=== PATIENT | female | born 2000 | race African-American/Black ===

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

== ENCOUNTER 2021-06-30 19:20 | Emergency (ER) | payer MEDICAID, SELFPAY ==
[2021-06-30 19:21] VITALS: BP 145/93; PULSE 84; RESP 16; TEMP 35.9; O2SAT 100; BMI 23.6
--- NOTE | 2021-06-30 19:46 | US_ITS ---
STUDY: FIRST TRIMESTER OBSTETRICAL ULTRASOUND REASON FOR EXAM: Female, 20 years old. Vaginal bleeding. TECHNIQUE: Transvaginal US was obtained to better visualized the ovaries. TECHNICAL QUALITY: Adequate. PRIOR ULTRASOUND: None. FINDINGS: There is visualization of a single gestational sac in a normal intrauterine position. The mean sac diameter (MSD) measures 10 mm, indicating an estimated gestational age (EGA) of 5 weeks, 5 days. The gestational sac shape is within normal limits. There is a visualized yolk sac. The yolk sac measures 1.2 mm. The placenta is non-visualized. Due to early gestation, the placenta is not seen. There is no demonstrated embryo ( pole). The estimated gestation age (EGA) by LMP is 6 weeks, 1 days. The estimated date of delivery (DONNY) by LMP is 10.12.22. The estimated gestation age (EGA) by US is 5 weeks, 5 days. The estimated date of delivery (DONNY) by US is 10.15.22. The uterus measures 8.1 x 5.5 cm. There is no demonstrated uterine fibroid. The cervix is closed. The right ovary measures 2.7 x 2.3 cm. There is no right ovarian cyst. There is no visualized right adnexal mass or complex lesion. The left ovary measures 4.5 x 3.7 cm. Cyst measures 26 x 25 mm. There is no visualized left adnexal mass or complex lesion. There is a moderate amount of fluid in the cul de sac. US/Transvaginal w/Preg US IMPRESSION: There is a moderate amount of fluid in the cul de sac. This does contain debris. Small fluid collection within the uterus. Differential diagnosis includes early IUP with embryonic pole below the limits of sonographic resolution, blighted ovum and pseudo-gestational sac. Correlation with serum quantitative beta-hCG and follow up ultrasound is recommended. The possibility of ectopic cannot be excluded on the basis of this exam. Electronically Signed: Lucian Bridges MD at 21:21 EST ,
--- NOTE | 2021-06-30 19:51 | ED.VIS.FEGU ---
HPI HPI - Female History of Present Illness Chief Complaint: Vag Bld, Preg Narrative Narrative: Patient is a who started having vaginal bleeding/spotting with today. She denies any chest pain or shortness of breath, no weakness. She became concerned because of the spotting. She states her last normal menstrual period was May 18. They have been regular in the past. She missed her period on June 17 and took a home test which was positive. She started vitamins. She denies any dysuria or hematuria. She is not having a lot of vaginal cramping. She presents for evaluation of her bleeding/spotting. She thought maybe she had an STD earlier in the month and when [facility] went to [facility] had a negative STD panel by urine. PFSH PFSH Home Medications PNV no.[id number] [ Gummies] 2 tab PO DAILY 06/30/21 [History Last Taken Unknown] calcium phos,dibas-vitamin D3 [Vitamin D (with calcium)] 1 tab PO DAILY 06/30/21 [History Last Taken Unknown] miconazole nitrate [Monistat 7] 1 appful VAGINAL QHS 7 Days #45 g 06/30/21 [Rx Last Taken Unknown] Allergy/AdvReac Type Severity Reaction Status Date / Time No Known Allergies Allergy Verified 06/30/21 19:23 Social History Smoking Status: Former smoker ROS ROS ED ROS Narrative Constitutional: No fever, no chills. HEENT: No sore throat. No neck pain. No loss of vision. No rhinorrhea. Cardiovascular: No chest pain. No palpitations. No pedal edema. Respiratory: No cough, no shortness of breath. Abdominal: No abdominal pain. No nausea. No vomiting. Genitourinary: No dysuria. No hematuria. Positive vaginal bleeding/spotting. Questionable brown discharge. Musculoskeletal: No myalgias. No arthralgias. Neurologic: No headaches. No dizziness. No lightheadedness. Skin: No rash. No change in color. Psychiatric: No depression. No anxiety. EXAM Physical Exam Narrative Exam Narrative: Afebrile. Vital signs noted. HEENT: Normocephalic. Atraumatic. PERRL, EOMI. Neck soft and supple. No point tenderness or step off. Cardiovascular: Regular rate and rhythm. No murmurs, rubs, or gallops appreciated. Respiratory: No tachypnea. Lungs clear to auscultation bilaterally. Gastrointestinal: Abdomen soft, nontender, with normoactive bowel sounds. No rebound or guarding. Neurological: Awake. Alert. Nonfocal, nonlateralizing. Skin: No rash. Normal color. No pallor. Musculoskeletal: No pedal edema. Full range of motion extremities. Const Vital Signs: 06/30/21 19:21 Temperature 96.6 F L Temperature Source Temporal Pulse Rate 84 Respiratory Rate 16 Blood Pressure 145/93 H Blood Pressure Mean 110 Pulse Ox 100 Oxygen Delivery Method Room Air MDM MDM MDM Narrative Medical decision making narrative: Chaperoned pelvic examination was performed. I will obtain an ABO Rh, hCG quantitative measurement along with ultrasound. I will also obtain a CBC and a urinalysis. CBC shows normal white count of 5.5, hemoglobin normal at 13.8. Urinalysis shows no evidence of infection. hCG quantitative measurement is elevated appropriately at 10,875. Her blood type is O+. Her chaperoned pelvic examination revealed no blood in the vaginal vault. There was a small amount of yeast noted on speculum examination. Chaperoned bimanual examination revealed os closed without any cervical motion tenderness or adnexal tenderness. Her ultrasound reveals a yolk sac but no pole. She is estimated at 5 weeks and 5 days. In the differential diagnosis is blighted ovum versus intrauterine . There are no noted adnexal masses, and additionally there is a moderate amount of free fluid in the cul-de-sac, and she has bilateral ovarian cysts. At this point in time, I discussed the patient with Dr. Low for Dr. Demian Myers. Patient has an appointment near the end of next week on the . He states that they would repeat an ultrasound at that time, as it may be still too early to see the pole. For her vaginal candidiasis, she will be given a prescription for Monistat seven to use for the next week. I feel she can be discharged safely home with follow-up. Return instructions to the emergency department were reviewed. She will continue her vitamins. Return with any vaginal bleeding, pain, new or worsening symptoms. Disposition is discharged home in stable condition. Lab Data Attestation: I reviewed the patient's lab results. Labs: Laboratory Results - last 24 hr 06/30/21 06/30/21 06/30/21 19:25 19:39 19:39 WBC 5.5 RBC 4.38 Hgb 13.8 Hct 38.9 MCV 88.8 MCH 31.5 MCHC 35.5 RDW Std Deviation 37.2 RDW Coeff of Wes 11.5 L Plt Count 244 MPV 9.8 Immature Gran % (Auto) 0.200 Neut % (Auto) 54.8 Lymph % (Auto) 36.5 [place] % (Auto) 7.1 Eos % (Auto) 0.9 Baso % (Auto) 0.5 Absolute Neuts (auto) 3.0 Absolute Lymphs (auto) 2.01 Nucleated RBC % 0 HCG, Quant 78036 H Urine Color Straw Urine Clarity Clear Urine pH 6.0 Ur Specific [place] 1.010 Urine Protein Negative Urine Glucose (UA) Normal Urine Ketones Negative Urine Occult Blood Negative Urine Nitrite Negative Urine Bilirubin Negative Urine Urobilinogen Normal Ur Leukocyte Esterase Negative Urine RBC 0 SEEN Urine WBC 0 SEEN Ur Squamous Epith Cells 0 SEEN Urine Bacteria 0 SEEN Urine Mucus 0 SEEN Blood Type 06/30/21 19:50 WBC RBC Hgb Hct MCV MCH MCHC RDW Std Deviation RDW Coeff of [place] Plt Count MPV Immature Gran % (Auto) Neut % (Auto) Lymph % (Auto) [place] % (Auto) Eos % (Auto) Baso % (Auto) Absolute Neuts (auto) Absolute Lymphs (auto) Nucleated RBC % HCG, Quant Urine Color Urine Clarity Urine pH Ur Specific [place] Urine Protein Urine Glucose (UA) Urine Ketones Urine Occult Blood Urine Nitrite Urine Bilirubin Urine Urobilinogen Ur Leukocyte Esterase Urine RBC Urine WBC Ur Squamous Epith Cells Urine Bacteria Urine Mucus Blood Type O POSITIVE Radiography Diagnostic Testing: Clinical Impression(s) from Imaging Studies Obstetrics Ultrasound 06/30/21 19:46 IMPRESSION: There is a moderate amount of fluid in the cul de sac. This does contain debris. Small fluid collection within the uterus. Differential diagnosis includes early IUP with embryonic pole below the limits of sonographic resolution, blighted ovum and pseudo-gestational sac. Correlation with serum quantitative beta-hCG and follow up ultrasound is recommended. The possibility of ectopic cannot be excluded on the basis of this exam. Electronically Signed: uLcian Bridges MD at 21:21 EST , Discharge Plan Triage Chief Complaint: Vag Bld, Preg ED Provider: Shun Tidwell Dx/Rx/DC Orders Clinical Impression: Vaginal bleeding during , Threatened miscarriage, Vaginal yeast infection Instructions: Candidiasis Vaginal, Bleeding During Early , ED Possible Miscarriage ... Prescriptions: New miconazole nitrate [Monistat 7] 2 % cream 1 appful vaginal QHS 7 Days Qty: 45 RF: 0 No Action Vitamin D (with calcium) 77-400 mg-unit Tablet 1 tab PO DAILY RF: 0 Gummies 400 mcg-35 mg- 25 mg-5 mg Tablet,Chewable 2 tab PO DAILY RF: 0 Primary Care Provider: Care Physician,No Primary Referrals: Demian Myers MD [STAFF PHYSICIAN] - 07/05/21 Care Physician,No Primary [Primary Care Provider] - Disposition Disposition: Home, Self Care
[2021-06-30 20:03] LABS: Bacteria 0 SEEN /hpf (None Seen); Mucous, Urine 0 SEEN /hpf (<or=2+); Red Blood Cells-Urine 0 SEEN /hpf (0-5); Squamous Epithelial Cells - UA 0 SEEN /hpf (5-10); White Blood Cells 0 SEEN /hpf (0-5)
[2021-06-30 20:09] LABS: Absolute Lymphocyte Count 2.01 X10^3/uL (0.83-4.51); Basophil# 0.03 X10^3/uL; Basophil% 0.5 % (0-1); Eosinophil# 0.05 X10^3/uL; Eosinophils% 0.9 % (0-5); Hematocrit 38.9 % (37-47); Hemoglobin 13.8 g/dL (12.0-15.0); Lymphocyte # 2.01 X10^3/ul (0.83-4.51); Lymphocyte % 36.5 % (19-41); Mean Corp Hgb Conc 35.5 g/dL (32-36); Mean Corpuscular Hgb 31.5 pg (27.0-32.0); Mean Corpuscular Volume 88.8 fL (81-99); Mean Platelet Vol. 9.8 fl (6.2-12.0); Monocyte# 0.39 X10^3/uL; Monocyte% 7.1 % (0-10); NRBC Flagged by Analyzer 0 % (0-5); Neutrophil # 3.01 X10^3/uL (2.7-7.7); Neutrophil % 54.8 % (47-70); Platelet Count 244 K/mm3 (150-450); RBC Distribution Width CV 11.5 % (11.6-14.6); RBC Distribution Width SD 37.2 fl (35.1-43.9); Red Blood Count 4.38 M/mm3 (4.2-5.4); White Blood Count 5.5 K/mm3 (4.4-11.0)
[2021-06-30 20:31] LABS: Color, Urine Straw (Yellow); Glucose, Dipstick Normal (Normal); Ketone-Dipstick Negative (Negative); Leukocyte Esterase-Dipstick Negative /ul (Negative); Nitrite-Dipstick Negative (Negative); Occult Blood-Urine Negative /ul (Negative); Protein-Dipstick Negative (Negative); Urine Bilirubin Dipstick Negative (Negative); Urine Clarity Clear (Clear); Urine Urobilinogen Normal (Normal)
[2021-06-30 21:04] LABS: hCG Titer Quant., Serum 10875 mIU/mL (1-3)
[2021-06-30 21:50] VITALS: PULSE 80; RESP 16; O2SAT 97
== END 2021-06-30 21:50 | disposition home or self-care (01) ==
PROVIDERS: Emergency Provider Emergency Medicine; Visit Provider Emergency Medicine
DX: O20.0 Threatened abortion (principal); B37.3 Candidiasis of vulva and vagina; N83.201 Unspecified ovarian cyst, right side; N83.202 Unspecified ovarian cyst, left side; O46.90 Antepartum hemorrhage, unspecified, unspecified trimester; Z87.891 Personal history of nicotine dependence; Z3A.01 Less than 8 weeks gestation of pregnancy
CPT/HCPCS: 76817; 81001; 84702; 85025; 86900; 86901; 99283

== ENCOUNTER 2021-07-05 14:12 | Outpatient (CLI) | payer MEDICAID, SELFPAY ==
[2021-07-05 15:20] LABS: Absolute Lymphocyte Count 1.59 X10^3/uL (0.83-4.51); Absolute Neutrophil Count 2.4 X10^3/uL (2.0-7.7); Basophil# 0.01 X10^3/uL; Basophil% 0.2 % (0-1); Eosinophil# 0.05 X10^3/uL; Eosinophils% 1.1 % (0-5); Hematocrit 38.2 % (37-47); Hemoglobin 14.1 g/dL (12.0-15.0); Lymphocyte # 1.59 X10^3/ul (0.83-4.51); Lymphocyte % 36.1 % (19-41); Mean Corp Hgb Conc 36.9 g/dL (32-36); Mean Corpuscular Hgb 31.7 pg (27.0-32.0); Mean Corpuscular Volume 85.8 fL (81-99); Mean Platelet Vol. 9.8 fl (6.2-12.0); Monocyte% 6.8 % (0-10); NRBC Flagged by Analyzer 0 % (0-5); Neutrophil # 2.44 X10^3/uL (2.7-7.7); Neutrophil % 55.6 % (47-70); Platelet Count 265 K/mm3 (150-450); RBC Distribution Width CV 11.4 % (11.6-14.6); RBC Distribution Width SD 35.7 fl (35.1-43.9); Red Blood Count 4.45 M/mm3 (4.2-5.4); White Blood Count 4.4 K/mm3 (4.4-11.0)
[2021-07-06 08:48] LABS: HIV - WCH Non-Reactive (Nonreactive); Hepatitis B Surface Antigen Non-Reactive (Nonreactive); Hepatitis C Antibody Non-Reactive (Nonreactive); Rubella IgG Reactive (Nonreactive); Syphilis Antibodies Non-reactive
[2021-07-07 22:07] LABS: Chlamydia By Nucleic Acid AMP Negative (Negative)
[2021-07-08 10:59] LABS: Gonococcus By Nucleic Acid AMP Negative (Negative)
== END 2021-07-05 23:59 | disposition home or self-care (01) ==
PROVIDERS: Visit Provider Obstetrics & Gynecology
DX: Z34.81 Encounter for supervision of other normal pregnancy, first trimester (principal)
CPT/HCPCS: 85025; 86703; 86762; 86780; 86803; 87086; 87340; 87491; 87591

== ENCOUNTER 2021-07-10 12:16 | Emergency (ER) | payer MEDICAID, SELFPAY ==
[2021-07-10 12:17] VITALS: BP 110/69; PULSE 75; RESP 16; TEMP 37.4; O2SAT 100; BMI 22.6
--- NOTE | 2021-07-10 12:31 | EX.ED.DYSGE1 ---
HPI History of Present Illness Chief Complaint: Nausea/Vomiting Detail of Chief Complaint: Vomiting x4 days Informant: patient Narrative Narrative: Patient presents the emergency department chief complaint of vomiting for the last 4 days. Patient states that she is about 8 weeks . She denies abdominal pain or vaginal bleeding. Patient tried promethazine but states that she threw up more with it so she stopped taking it. Patient tells me she cannot keep anything down and was instructed by her TELEPHONE INSTRUMENT SUPERVISOR to come to the ER. Patient is G1, P0. She denies fever or recent illness otherwise. She denies Covid exposures. Patient denies diarrhea. Patient denies urinary symptoms. Prior similar symptoms: No PFSH PFSH Medical History Non-smoker Home Medications PNV [id number] [ Gummies] 2 tab PO DAILY 06/30/21 [History Last Taken Unknown] calcium phos,dibas-vitamin D3 [Vitamin D (with calcium)] 1 tab PO DAILY 06/30/21 [History Last Taken Unknown] miconazole nitrate [Monistat 7] 1 appful VAGINAL QHS 7 Days #45 g 06/30/21 [Rx Last Taken Unknown] ondansetron 4 mg PO Q8H PRN PRN #10 tab 07/10/21 [Rx Last Taken Unknown] Allergy/AdvReac Type Severity Reaction Status Date / Time No Known Allergies Allergy Verified 07/10/21 12:18 Social History Smoking Status: Former smoker ROS ROS ED Constitutional Constitutional ED: Reports systems reviewed and no addt'l complaints, except as documented; Denies body ache(s), change in weight or chills Eyes Eyes: Denies acute decrease in peripheral vision, change in vision, double vision or loss of vision ENT ENT ED: Reports none; Denies ear pain, lip swelling, loss taste/smell, neck pain, otalgia or sore throat Cardiovascular Cardiovascular: Reports none; Denies abdominal pain, chest pain with activity, leg edema, lightheadedness, palpitations, rapid heart rate or syncope Respiratory/Chest Respiratory/Chest: Reports none; Denies change in mental status, dry cough, dyspnea, hemoptysis, shortness of breath at rest or shortness of breath with exertion Gastrointestinal Gastrointestinal: Reports none, nausea and vomiting; Denies abdominal pain, change in stool character, diarrhea, hematemesis, hematochezia, melena or rectal bleeding Genitourinary Genitourinary ED: Reports none; Denies abdominal discomfort, anuria, dysuria, genital pain or polyuria Musculoskeletal Musculoskeletal: Reports none; Denies arthralgias, back pain, difficulty walking, extremity pain, muscle weakness or myalgias Integumentary Reports none; Denies abscess or rash Neurologic Neurologic: Reports none; Denies abnormal gait, confusion, focal weakness, frequent falls, headache(s), loss of vision, numbness, paresthesias, radicular pain, vertigo or weakness Psychiatric Psychiatric: Reports systems reviewed and no addt'l complaints, except as documented and none; Denies behavioral changes, confusion, difficulty concentrating, hallucinations, suicidal ideation, tactile hallucinations or visual hallucinations Endocrine Endocrinology: Denies none, cold intolerance, excessive sweating, fatigue or heat intolerance Hematologic/Lymphatic Hematologic/Lymphatic: Reports none; Denies anemia, easy bleeding or easy bruising Allergic/Immunologic Allergic/Immunologic ED: Denies as per HPI, none, lip swelling, mouth swelling, throat swelling, tongue swelling or hives EXAM Physical Exam Const Vital Signs: 07/10/21 12:17 Temperature 99.4 F H Temperature Source Temporal Pulse Rate 75 Respiratory Rate 16 Blood Pressure 110/69 Blood Pressure Mean 82 Pulse Ox 100 Oxygen Delivery Method Room Air Positive well nourished and well developed General Appearance ED: well developed and NAD HEENT Reports TM's clear and moist mucous membranes normocephalic and atraumatic; Negative for trauma or tenderness Tympanic Membrane ED: Yes TM's clear Eyes PERRL and EOMs intact bilaterally General Eye ED: Negative for pale conjunctiva or scleral icterus Neck no lymphadenopathy, supple and no JVD General: Negative for tenderness Chest Wall inspection of chest normal and palpation of chest normal Chest: Negative for tenderness Resp normal respiratory effort and clear to auscultation bilaterally Effort and Inspection: Negative for respiratory distress or pain with movement Auscultation: Negative for rhonchi, wheezes or diminished lung sounds Cardio regular rate, regular rhythm, S1 normal heart sound, S2 normal heart sound and no murmurs Peripheral Pulses: pulses 2+ throughout GI normal to inspection, nondistended, normoactive bowel sounds, soft to palpation, non-tender, non-distended and no masses Back/Spine no CVA tenderness and no thoracic nor lumbar tenderness Extremity normal to inspection General Extremety ED: Negative for edema General Extremity: Negative for edema Neuro oriented x3, CN's II-XII intact bilaterally, no sensory deficits noted and gait normal Sensorium / Orientation: awake, alert, oriented to person, oriented to place and oriented to time Motor Exam: strength 5/5 throughout and strength abnormal Psych mental status grossly normal Skin no rashes or lesions noted and no wounds MDM MDM MDM Narrative Medical decision making narrative: IV line established on arrival and patient was given a liter normal saline fluid bolus. Patient given Zofran 4 mg IV. Patient had no further vomiting and she was able to tolerate p.o. fluids. At this point I will attempt to contact her TELEPHONE INSTRUMENT SUPERVISOR to arrange some follow-up. Plan will be to give patient a prescription for Zofran as she seems to have tolerated well compared to promethazine. Lab Data Attestation: I reviewed the patient's lab results. Labs: Laboratory Results - last 24 hr 07/10/21 07/10/21 07/10/21 12:47 12:47 12:50 WBC 4.6 RBC 4.14 L Hgb 13.1 Hct 36.5 L MCV 88.2 MCH 31.6 MCHC 35.9 RDW Std Deviation 36.6 RDW Coeff of Wes 11.3 L Plt Count 228 MPV 9.4 Immature Gran % (Auto) 0.200 Neut % (Auto) 64.6 Lymph % (Auto) 27.1 [place] % (Auto) 6.6 Eos % (Auto) 1.1 Baso % (Auto) 0.4 Absolute Neuts (auto) 3.0 Absolute Lymphs (auto) 1.24 Nucleated RBC % 0 Sodium 136 Potassium 3.9 Chloride 106 Carbon Dioxide 26.0 Anion Gap 4 L BUN 9 Creatinine 0.78 Estim Creat Clear Calc 117.02 Est GFR (MDRD) Af Amer 122 Est GFR (MDRD) Non-Af 101 BUN/Creatinine Ratio 11.6 Glucose 95 Calcium 8.5 Urine Color Yellow Urine Clarity Sl. Cloudy Urine pH 7.0 Ur Specific [place] 1.015 Urine Protein Negative Urine Glucose (UA) Normal Urine Ketones Negative Urine Occult Blood Negative Urine Nitrite Negative Urine Bilirubin Negative Urine Urobilinogen Normal Ur Leukocyte Esterase 25 H Urine RBC 0 SEEN Urine WBC 0-5 SEEN Ur Squamous Epith Cells 5-10 SEEN Urine Bacteria 0 SEEN Urine Mucus 0 SEEN Discharge Plan Triage Chief Complaint: Nausea/Vomiting ED Provider: Deejay Centeno Dx/Rx/DC Orders Clinical Impression: Hyperemesis gravidarum Instructions: ED Hyperemesis Gravidarum Prescriptions: New ondansetron [ondansetron] 4 MG tablet 4 mg PO Q8H PRN PRN (Reason: Nausea) Qty: 10 RF: 0 No Action Vitamin D (with calcium) 77-400 mg-unit Tablet 1 tab PO DAILY RF: 0 Gummies 400 mcg-35 mg- 25 mg-5 mg Tablet,Chewable 2 tab PO DAILY RF: 0 miconazole nitrate [Monistat 7] 2 % cream 1 appful vaginal QHS 7 Days Qty: 45 RF: 0 Primary Care Provider: Demian Myers Referrals: Demian Myers MD [Primary Care Provider] - Disposition Disposition: Home, Self Care
[2021-07-10 12:54] LABS: Bacteria 0 SEEN /hpf (None Seen); Mucous, Urine 0 SEEN /hpf (<or=2+); Red Blood Cells-Urine 0 SEEN /hpf (0-5)
[2021-07-10] MEDS: Ondansetron 4 MG/2 ML Vial IV (12:55)
[2021-07-10] MEDS: 0.9% Normal Saline 1,000 ML 1000 ML IV (12:55)
[2021-07-10 12:59] LABS: Color, Urine Yellow (Yellow); Glucose, Dipstick Normal (Normal); Ketone-Dipstick Negative (Negative); Leukocyte Esterase-Dipstick 25 /ul (Negative); Nitrite-Dipstick Negative (Negative); Occult Blood-Urine Negative /ul (Negative); Protein-Dipstick Negative (Negative); Specific Gravity, Urine 1.015 (1.002-1.030); Urine Bilirubin Dipstick Negative (Negative); Urine Clarity Sl. Cloudy (Clear); Urine Urobilinogen Normal (Normal)
[2021-07-10 12:59] LABS: Absolute Lymphocyte Count 1.24 X10^3/uL (0.83-4.51); Basophil# 0.02 X10^3/uL; Basophil% 0.4 % (0-1); Eosinophil# 0.05 X10^3/uL; Eosinophils% 1.1 % (0-5); Hematocrit 36.5 % (37-47); Hemoglobin 13.1 g/dL (12.0-15.0); Lymphocyte # 1.24 X10^3/ul (0.83-4.51); Lymphocyte % 27.1 % (19-41); Mean Corp Hgb Conc 35.9 g/dL (32-36); Mean Corpuscular Hgb 31.6 pg (27.0-32.0); Mean Corpuscular Volume 88.2 fL (81-99); Mean Platelet Vol. 9.4 fl (6.2-12.0); Monocyte% 6.6 % (0-10); NRBC Flagged by Analyzer 0 % (0-5); Neutrophil # 2.96 X10^3/uL (2.7-7.7); Neutrophil % 64.6 % (47-70); Platelet Count 228 K/mm3 (150-450); RBC Distribution Width CV 11.3 % (11.6-14.6); RBC Distribution Width SD 36.6 fl (35.1-43.9); Red Blood Count 4.14 M/mm3 (4.2-5.4); White Blood Count 4.6 K/mm3 (4.4-11.0)
[2021-07-10 13:05] LABS: Squamous Epithelial Cells - UA 5-10 SEEN /hpf (5-10); White Blood Cells 0-5 SEEN /hpf (0-5)
[2021-07-10 13:08] LABS: Anion Gap 4 (5-15); BUN 9 mg/dL (7-18); BUN/Creat Ratio 11.6 RATIO (10-20); Calcium,Total 8.5 mg/dL (8.5-10.1); Chloride 106 mmol/L (98-107); Creatinine, Serum 0.78 mg/dL (0.55-1.02); EST Glomerular Filtration Rate 101 mL/min (>60); Est Glom Filt Rate - Afr Amer 122 mL/min (>60); Estimated Creatinine Clearance 117.02 ml/min; Glucose 95 mg/dL (74-106); Potassium 3.9 mmol/L (3.5-5.1); Sodium Level 136 mmol/L (136-145)
[2021-07-10 14:28] VITALS: BP 125/61; PULSE 75; RESP 15; O2SAT 99
== END 2021-07-10 14:30 | disposition home or self-care (01) ==
PROVIDERS: Emergency Provider Emergency Medicine; PCP Obstetrics & Gynecology; Visit Provider Emergency Medicine
DX: O21.0 Mild hyperemesis gravidarum (principal); Z87.891 Personal history of nicotine dependence; Z3A.08 8 weeks gestation of pregnancy
CPT/HCPCS: 80048; 81001; 85025; 96361; 96374; 99283; J7030; J2405

== ENCOUNTER → 2021-11-09 | Outpatient (CLI) | payer MEDICAID, SELFPAY ==
[2021-11-09 16:08] LABS: Hematocrit 32.9 % (37-47); Hemoglobin 11.6 g/dL (12.0-15.0); Mean Corp Hgb Conc 35.3 g/dL (32-36); Mean Corpuscular Hgb 31.9 pg (27.0-32.0); Mean Corpuscular Volume 90.4 fL (81-99); Mean Platelet Vol. 10.1 fl (6.2-12.0); Platelet Count 175 K/mm3 (150-450); RBC Distribution Width SD 39.7 fl (35.1-43.9); Red Blood Count 3.64 M/mm3 (4.2-5.4); White Blood Count 6.4 K/mm3 (4.4-11.0)
[2021-11-09 16:47] LABS: Glucose Challenge Gest 1H 50g 141 mg/dL (70-140)
== END | disposition home or self-care (01) ==
LOC: WOBLAB 15:51
PROVIDERS: PCP Obstetrics & Gynecology; Visit Provider Obstetrics & Gynecology
DX: Z34.83 Encounter for supervision of other normal pregnancy, third trimester (principal)
CPT/HCPCS: 36415; 82950; 85027

== ENCOUNTER → 2021-11-11 | Outpatient (CLI) | payer MEDICAID, SELFPAY ==
[2021-11-11 09:21] LABS: Glucose GTT-Gestation. Fasting 79 mg/dL (<105)
[2021-11-11 11:02] LABS: Glucose GTT-Gestational 1 Hr 122 mg/dL (<190)
[2021-11-11 11:44] LABS: Glucose GTT-Gestational 2 Hr 117 mg/dL (<165)
[2021-11-11 12:52] LABS: Glucose GTT-Gestational 3 Hr 96 L (<145)
== END | disposition home or self-care (01) ==
LOC: WOBLAB 08:45
PROVIDERS: PCP Obstetrics & Gynecology; Visit Provider Obstetrics & Gynecology
DX: O24.912 Unspecified diabetes mellitus in pregnancy, second trimester (principal)
CPT/HCPCS: 36415; 82951; 82952

== ENCOUNTER 2021-12-11 21:00 | Outpatient (CLI) | payer MEDICAID, SELFPAY ==
[2021-12-11 21:20] VITALS: BP 116/70; TEMP 37; O2SAT 98
[2021-12-11 21:22] VITALS: BMI 26.7
[2021-12-11] MEDS: Lactated Ringers 1,000 ML 999 ML IV (22:04)
[2021-12-11] MEDS: Ondansetron 8 MG Tablet 4 MG PO (22:12)
[2021-12-11] MEDS: Acetaminophen 500 MG Tablet 1000 MG PO (22:13)
[2021-12-11 22:18] LABS: Hematocrit 34.5 % (37-47); Mean Corp Hgb Conc 34.8 g/dL (32-36); Mean Corpuscular Hgb 31.5 pg (27.0-32.0); Mean Corpuscular Volume 90.6 fL (81-99); Mean Platelet Vol. 10.3 fl (6.2-12.0); Platelet Count 180 K/mm3 (150-450); RBC Distribution Width CV 11.6 % (11.6-14.6); RBC Distribution Width SD 37.7 fl (35.1-43.9); Red Blood Count 3.81 M/mm3 (4.2-5.4); White Blood Count 5.6 K/mm3 (4.4-11.0)
[2021-12-11 22:28] LABS: Protein:Creat Ratio 124 mg/g CRE (0-200)
[2021-12-11 22:33] LABS: ALB/GLOB Ratio 0.9 RATIO (0.9-2.4); AST(SGOT) 12 U/L (15-37); Alanine Aminotransfer ALT/SGPT 14 U/L (13-56); Albumin, Serum 3.4 g/dL (3.2-5.0); Alkaline Phosphatase 55 U/L (45-117); Anion Gap 4 (5-15); BUN 8 mg/dL (7-18); Calcium,Total 9.1 mg/dL (8.5-10.1); Chloride 106 mmol/L (98-107); EST Glomerular Filtration Rate 96 mL/min (>60); Est Glom Filt Rate - Afr Amer 117 mL/min (>60); Estimated Creatinine Clearance 100.94 ml/min; Globulin 3.9 g/dL (2.2-4.2); Glucose 93 mg/dL (74-106); Potassium 3.7 mmol/L (3.5-5.1); Protein, Total 7.3 g/dL (6.4-8.2); Sodium Level 134 mmol/L (136-145)
--- NOTE | 2021-12-12 12:51 | PCM.PN.OB ---
Subjective Subjective Patient presenting with intermittent headache for 1 week. Patient states today she had some fuzzy vision. Was out walking in the mall all day on Sunday. Denies right upper quadrant pain nausea or vomiting, diarrhea constipation, fevers or chills. Has not tried any Tylenol for pain control. Objective Data Objective Data Vital Signs: Vital Signs Temp BP Pulse Ox 98.6 F 116/70 98 12/11/21 21:20 12/11/21 21:20 12/11/21 21:20 Weight: 74 kg Body Mass Index (BMI) 26.7 Intake & Output: Intake and Output for Last 24 Hours 12/10/21 12/11/21 12/12/21 23:59 23:59 23:59 Intake Total 1000 / 1000 Balance 1000 / 1000 Lab / Micro Data Attestation: I reviewed the patient's lab results. Result Diagrams: 12/11/21 22:00 12/11/21 22:00 Labs: Laboratory Results - last 24 hr 12/11/21 22:00: WBC 5.6, RBC 3.81 L, Hgb 12.0, Hct 34.5 L, MCV 90.6, MCH 31.5, MCHC 34.8, RDW Std Deviation 37.7, RDW Coeff of Wes 11.6, Plt Count 180, MPV 10.3 12/11/21 22:00: Sodium 134 L, Potassium 3.7, Chloride 106, Carbon Dioxide 24.0, Anion Gap 4 L, BUN 8, Creatinine 0.80, Estim Creat Clear Calc 100.94, Est GFR (MDRD) Af Amer 117, Est GFR (MDRD) Non-Af 96, BUN/Creatinine Ratio 10.0, Glucose 93, Calcium 9.1, Total Bilirubin 0.30, AST 12 L, ALT 14, Alkaline Phosphatase 55, Total Protein 7.3, Albumin 3.4, Globulin 3.9, Albumin/Globulin Ratio 0.9 12/11/21 22:00: U Random Total Protein 19.0 H, Urine Creatinine 153.00, Protein/Creatinin Ratio 124 NST FHR Rate Baby A Baseline: 150 Variability:: Moderate Accelerations:: 10 x 10 Decelerations:: None NST Reactive:: Yes Assessment & Plan (1) Headache: PLAN: 21-year-old G1 at 29/4 weeks, presenting with headache. Patient had not taken any Tylenol at home. She was given 1000 mg Tylenol, 4 mg Zofran, 1 L LR bolus. Labs were completed, within normal limits. Blood pressure within normal limits. Headache and visual change resolved with Tylenol. No evidence of preeclampsia. Headache likely tension versus secondary to dehydration. Recommend increasing p.o. fluid hydration, Tylenol as needed. To return or call for headache that is unresolving with Tylenol. Follow-up in office as routine or sooner as needed.
== END 2021-12-11 23:15 | disposition home or self-care (01) ==
LOC: WPOUT 21:09 → WP 21:09
PROVIDERS: PCP Obstetrics & Gynecology; Referring Provider Student in an Organized Health Care Education/Training Program; Visit Provider Student in an Organized Health Care Education/Training Program
DX: O26.893 Other specified pregnancy related conditions, third trimester (principal); R51.9 Headache, unspecified
CPT/HCPCS: 96360; 36415; 59025; 59050; 80053; 82570; 84156; 85027; 99218; J7120; G0378

== ENCOUNTER 2021-12-31 07:35 | Emergency (ER) | payer MEDICAID, SELFPAY ==
[2021-12-31 07:37] VITALS: BP 123/85; PULSE 115; RESP 18; TEMP 36.9; O2SAT 99; BMI 27.6
--- NOTE | 2021-12-31 07:44 | ED.RN ---
Called [facility] d/t pt's c/o RUQ abdominal pain and not feeling the baby move since the middle of the night. They stated not to bring the pt down to [facility], that they will send a nurse up to evaluate pt here in the ER.
[2021-12-31 07:45] VITALS: BP 123/85; PULSE 115; RESP 18; TEMP 36.9; O2SAT 99
--- NOTE | 2021-12-31 07:57 | EDS_ITS ---
HPI History of Present Illness Chief Complaint: Fever Informant: patient Onset/Context/Timing Onset: Yesterday Narrative Narrative: Patient reports testing positive for COVID at home yesterday. She is currently 33 weeks with her first . She has not felt baby move much since the middle the night. We called OB and they will send someone up to do an NST. She reports very minimal cough. Does not feel short of breath unless she is lying in a specific position. T-max is 103. She did take Tylenol prior to arrival in the emergency room. PFSH PFSH Medical History Non-smoker Home Medications PNV 153-FA 400 mcg-om3 35 mg-dha 25 mg-epa 5 mg-fish oil chew tablet ( Gummies) 2 tab PO DAILY 06/30/21 [History Last Taken 12/11/21 10:45] cholecalciferol (vitamin D3) 50 mcg (2,000 unit) capsule (Vitamin D3) 50 mcg PO DAILY 12/11/21 [History Last Taken 12/11/21 10:45] Allergy/AdvReac Type Severity Reaction Status Date / Time No Known Allergies Allergy Verified 12/31/21 07:37 Social History Smoking Status: Former smoker ROS ROS ED Constitutional Constitutional ED: Reports fever(s); Denies chills Eyes Eyes: Denies change in vision or discharge from eye(s) ENT ENT ED: Denies discharge from eye(s), rhinorrhea or sore throat Cardiovascular Cardiovascular: Denies chest pain or palpitations Respiratory/Chest Respiratory/Chest: Reports cough; Denies dyspnea Gastrointestinal Gastrointestinal: Denies abdominal pain, diarrhea, nausea or vomiting Genitourinary Genitourinary ED: Denies difficulty urinating or dysuria Musculoskeletal Musculoskeletal: Reports myalgias; Denies back pain or extremity pain Integumentary Denies Abrasions or rash Neurologic Neurologic: Reports weakness; Denies headache(s) Psychiatric Psychiatric: Denies anxiety or depression Allergic/Immunologic Allergic/Immunologic ED: Denies lip swelling or urticaria EXAM Physical Exam Const Vital Signs: 12/31/21 07:37 12/31/21 07:45 12/31/21 11:00 Temperature 98.5 F 98.5 F Temperature Source Temporal Temporal Pulse Rate 115 H 115 H 117 H Respiratory Rate 18 18 Blood Pressure 123/85 H 123/85 H Blood Pressure Mean 97 97 Pulse Ox 99 99 96 Oxygen Delivery Method Room Air Room Air Room Air Positive well nourished and well developed General Appearance ED: well developed HEENT Reports normocephalic and head/scalp atraumatic Eyes PERRL and EOMs intact bilaterally Neck supple Chest Wall inspection of chest normal and palpation of chest normal Resp normal respiratory effort and clear to auscultation bilaterally Cardio regular rhythm Rate: tachycardic GI GI Narrative: Gravid. No focal tenderness. Palpation: soft Extremity normal to inspection Neuro oriented x3 and no sensory deficits noted Sensorium / Orientation: alert Motor Exam: strength 5/5 throughout Psych mental status grossly normal Skin no rashes or lesions noted MDM MDM MDM Narrative Medical decision making narrative: Oral temperature at the time of my exam is 98.4. Patient given 500 cc IV fluid bolus and labs obtained. OB presented to evaluate the baby. I am advised by OB nurse that everything with the looks normal. Lab Data Attestation: I reviewed the patient's lab results. Labs: Laboratory Results - last 24 hr 12/31/21 12/31/21 08:10 08:10 WBC 5.2 RBC 3.73 L Hgb 11.2 L Hct 33.1 L MCV 88.7 MCH 30.0 MCHC 33.8 RDW Std Deviation 37.3 RDW Coeff of Wes 11.8 Plt Count 158 MPV 10.6 Immature Gran % (Auto) 0.400 Neut % (Auto) 77.9 H Lymph % (Auto) 10.0 L [place] % (Auto) 11.3 H Eos % (Auto) 0.0 Baso % (Auto) 0.4 Absolute Neuts (auto) 4.1 Absolute Lymphs (auto) 0.52 L Nucleated RBC % 0 Platelet Estimate ADEQUATE RBC Morphology NORM C+C Sodium 138 Potassium 3.5 Chloride 108 H Carbon Dioxide 23.0 Anion Gap 7 BUN 4 L Creatinine 0.87 Estim Creat Clear Calc 92.82 Est GFR (MDRD) Af Amer 106 Est GFR (MDRD) Non-Af 88 BUN/Creatinine Ratio 4.6 L Glucose 109 H Calcium 8.7 Treatment and Re-Evaluation Narrative: Lab work is unremarkable. On repeat evaluation patient remains tachycardic in the high 120s. She will be given a dose of Tylenol as it has now been 6-1/2 hours since her last dose. She will be given a liter IV fluid. On repeat evaluation patient was able to tolerate p.o. without difficulty. Heart rate is 106. She be discharged home to continue supportive care. Discharge Plan Triage Chief Complaint: Fever ED Provider: Kizzy Vazquez Dx/Rx/DC Orders Clinical Impression: COVID-19, Third trimester Instructions: Coronavirus Disease 2019 (COVID-19): Overview, Coronavirus Disease 2019 (COVID-19): Caring for Yourself or Others Prescriptions: No Action Gummies 400 mcg-35 mg- 25 mg-5 mg Tablet,Chewable 2 tab PO DAILY cholecalciferol (vitamin D3) [Vitamin D3] 50 mcg (2,000 unit) Capsule 50 mcg PO DAILY Primary Care Provider: Demian Myers Referrals: Demian Myers MD [Primary Care Provider] - 1-2 Weeks Disposition Disposition: Home, Self Care
[2021-12-31 08:26] LABS: Absolute Lymphocyte Count 0.52 X10^3/uL (0.83-4.51); Absolute Neutrophil Count 4.1 X10^3/uL (2.0-7.7); Basophil# 0.02 X10^3/uL; Basophil% 0.4 % (0-1); Hematocrit 33.1 % (37-47); Hemoglobin 11.2 g/dL (12.0-15.0); Lymphocyte # 0.52 X10^3/ul (0.83-4.51); Mean Corp Hgb Conc 33.8 g/dL (32-36); Mean Corpuscular Volume 88.7 fL (81-99); Mean Platelet Vol. 10.6 fl (6.2-12.0); Monocyte# 0.59 X10^3/uL; Monocyte% 11.3 % (0-10); NRBC Flagged by Analyzer 0 % (0-5); Neutrophil # 4.07 X10^3/uL (2.7-7.7); Neutrophil % 77.9 % (47-70); POSITIVE DIFFERENTIAL YES; Platelet Count 158 K/mm3 (150-450); RBC Distribution Width CV 11.8 % (11.6-14.6); RBC Distribution Width SD 37.3 fl (35.1-43.9); Red Blood Count 3.73 M/mm3 (4.2-5.4); White Blood Count 5.2 K/mm3 (4.4-11.0)
[2021-12-31 08:29] LABS: Differential Indicated SCAN CRITERIA MET
[2021-12-31 08:39] LABS: Anion Gap 7 (5-15); BUN 4 mg/dL (7-18); BUN/Creat Ratio 4.6 RATIO (10-20); Calcium,Total 8.7 mg/dL (8.5-10.1); Chloride 108 mmol/L (98-107); Creatinine, Serum 0.87 mg/dL (0.55-1.02); EST Glomerular Filtration Rate 88 mL/min (>60); Est Glom Filt Rate - Afr Amer 106 mL/min (>60); Estimated Creatinine Clearance 92.82 ml/min; Glucose 109 mg/dL (74-106); Potassium 3.5 mmol/L (3.5-5.1); Sodium Level 138 mmol/L (136-145)
[2021-12-31 08:58] LABS: Platelet Estimate ADEQUATE (ADEQ); Red Cell Morphology NORM C+C NORMAL (NORM C&C)
--- NOTE | 2021-12-31 09:09 | NURSING ---
This RN in to do NST for decreased FM. Upon arrival this RN introduced self and explained procedure. RN confirmed that pt was feeling decreased FM. When asked, pt states she didn't feel her move much overnight. But, since being in the ER shes felt her move a lot. NST was performed. Reactive. movements felt during NST per pt. and Jeanine RN notified of reactive NST and positive movement.
[2021-12-31 11:00] VITALS: PULSE 117; O2SAT 96
[2021-12-31] MEDS: Acetaminophen 500 MG Tablet 1000 MG PO (11:01)
[2021-12-31] MEDS: 0.9% Normal Saline 1,000 ML 999 ML IV (11:01)
[2021-12-31 12:18] VITALS: BP 136/78; PULSE 115; RESP 16; TEMP 37.2; O2SAT 95
== END 2021-12-31 12:23 | disposition home or self-care (01) ==
PROVIDERS: Emergency Provider Emergency Medicine; PCP Obstetrics & Gynecology; Visit Provider Emergency Medicine
DX: O98.513 Other viral diseases complicating pregnancy, third trimester (principal); U07.1 COVID-19; Z3A.33 33 weeks gestation of pregnancy; Z87.891 Personal history of nicotine dependence
CPT/HCPCS: 80048; 85025; 87811; 96360; 96361; 99283; J7030; J7040

== ENCOUNTER → 2022-01-27 | Outpatient (CLI) | payer MEDICAID, SELFPAY ==
[2022-01-27 17:02] LABS: Ferritin 5 ng/mL (8-252)
[2022-01-27 17:06] LABS: Hematocrit 31.7 % (37-47); Hemoglobin 10.6 g/dL (12.0-15.0); Mean Corp Hgb Conc 33.4 g/dL (32-36); Mean Corpuscular Hgb 29.9 pg (27.0-32.0); Mean Corpuscular Volume 89.3 fL (81-99); Mean Platelet Vol. 11.1 fl (6.2-12.0); Platelet Count 148 K/mm3 (150-450); RBC Distribution Width CV 12.3 % (11.6-14.6); RBC Distribution Width SD 39.5 fl (35.1-43.9); Red Blood Count 3.55 M/mm3 (4.2-5.4); White Blood Count 5.2 K/mm3 (4.4-11.0)
== END | disposition home or self-care (01) ==
LOC: WOBLAB 16:28
PROVIDERS: Visit Provider Obstetrics & Gynecology
DX: O26.93 Pregnancy related conditions, unspecified, third trimester (principal)
CPT/HCPCS: 36415; 82728; 85027; 87077; 87081; 87186

== ENCOUNTER 2022-02-24 05:10 | Inpatient (IN) | payer MEDICAID, SELFPAY ==
[2022-02-24] VITALS (19 sets, daily range): BP systolic 92–138; BP diastolic 57–80; PULSE 78–123; RESP 14–18; TEMP 35.9–36.8; O2SAT 95–100; BMI 29.6
[2022-02-24 06:29] LABS: Absolute Lymphocyte Count 1.35 X10^3/uL (0.83-4.51); Absolute Neutrophil Count 4.1 X10^3/uL (2.0-7.7); Basophil# 0.02 X10^3/uL; Basophil% 0.3 % (0-1); Eosinophil# 0.03 X10^3/uL; Eosinophils% 0.5 % (0-5); Hematocrit 32.7 % (37-47); Lymphocyte # 1.35 X10^3/ul (0.83-4.51); Lymphocyte % 22.7 % (19-41); Mean Corp Hgb Conc 33.6 g/dL (32-36); Mean Corpuscular Hgb 30.4 pg (27.0-32.0); Mean Corpuscular Volume 90.3 fL (81-99); Monocyte# 0.41 X10^3/uL; Monocyte% 6.9 % (0-10); NRBC Flagged by Analyzer 0 % (0-5); Neutrophil # 4.11 X10^3/uL (2.7-7.7); Neutrophil % 69.1 % (47-70); Platelet Count 137 K/mm3 (150-450); RBC Distribution Width CV 13.3 % (11.6-14.6); RBC Distribution Width SD 44.1 fl (35.1-43.9); Red Blood Count 3.62 M/mm3 (4.2-5.4)
[2022-02-24] MEDS: Acetaminophen 500 MG Tablet 1000 MG PO ×3 (06:33→18:24)
[2022-02-24] MEDS: Sodium Citrate/Citric Acid 30 ML UDC PO (06:33)
[2022-02-24] MEDS: Lactated Ringers 1,000 ML 999 ML IV (06:38)
--- NOTE | 2022-02-24 07:22 | PCM.HP.BLA ---
History and Physical Date of Admission: 02/24/22 Chief complaint: Elective primary section History present illness: 21-year-old at 40 weeks and 2 days with DONNY 02/22/2022 arrives for primary section elective. Denies headache, visual changes, chest pain, shortness of breath, nausea vomit, right upper quadrant pain. Patient states good movement. is complicated by history of HSV Obstetrical history: G1: Current Past medical history: HSV Medications: Valtrex Allergies: No known drug allergies Past surgical history: None Family history: Denies his DVT or PE Social history: Former smoker, denies alcohol or drug use Review of systems: Besides above pertinent positives a full review of systems was performed and found to be negative Physical exam: Vitals: Blood pressure 93/66 pulse 101 respiratory rate 16 temp 98.2 Fahrenheit SPO2 98% on room air General: Normal-appearing no acute distress HEENT: Normocephalic/atraumatic no cervical lymphadenopathy Cardiac/respiratory: No use of accessory muscles, nonlabored breathing Abdomen: Soft, nontender, gravid Extremities: No peripheral edema normal peripheral pulses Psych: Normal affect normal demeanor nonpressured speech Labs: White blood cell count 6.0 hemoglobin 11.0 hematocrit 32.7% platelets 137 Assessment plan: 21-year-old G1, P0 at 40 weeks and 2 days for primary section elective Admit labor and delivery CEFM 2 g Ancef Routine orders Anesthesia to see
[2022-02-24] MEDS: Cefazolin 2 GM in 0.9% Normal Saline 100 ML IV (07:38)
[2022-02-24] MEDS: Lactated Ringers 1,000 ML 150 ML IV (07:41)
[2022-02-24 07:44] LABS: Amphetamine Urine VISTA NEGATIVE (<1000 ng/mL); Barbiturate Urine VISTA NEGATIVE (< 200 ng/mL); Benzodiazepine Urine VISTA NEGATIVE (< 200 ng/mL); Cocaine Urine VISTA NEGATIVE (< 300 ng/mL); Ecstacy Urine VISTA NEGATIVE (< 500 ng/mL); Methadone Urine VISTA NEGATIVE (< 300 ng/mL); PCP Urine VISTA NEGATIVE (< 25 ng/mL); THC Urine VISTA NEGATIVE (< 50 ng/mL); Vista UDS pH Range 7
--- NOTE | 2022-02-24 08:20 | EX.PCM.OBRPT ---
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 Normal uterus, tubes, and ovaries Consent: Patient elects for primary section Via Pfannenstiel incision. Patient understands risk of the procedure include but are not limited to visceral or vascular injury, prolonged hospitalization, blood loss need for transfusion, reoperation. Patient state understanding wish to proceed. All questions were answered and consent was signed. Procedure: Patient was brought back to the OR where spinal anesthesia was found to be adequate. 2 g of Ancef were given for infection prophylaxis. Patient was prepared and draped in a supine position with leftward tilt. A Pfannenstiel incision was made at the skin with a scalpel. The incision was carried down to the fascia with scalpel. The fascia was incised and extended laterally. Rectus muscle was dissected the midline down to the level of the pubic symphysis. Preperitoneal fatty tissue was noted and peritoneum was entered bluntly. Peritoneum was extended superiorly and inferiorly with good visualization of the bladder. Bladder blade was inserted and vesicouterine peritoneum was identified. Low transverse hysterotomy was made. Hand was brought into the incision and gentle fundal pressure was applied once the bladder blade was removed and the head was brought into the incision. Head and shoulders were delivered with ease. Cord was cut and clamped. Baby is handed off to nursing. Placenta was delivered via cord traction and fundal massage. IV oxytocin was initiated in order to facilitate uterine contractions. Uterus was exteriorized and wiped out with dry laparotomy sponge in order to remove remaining placental membranes. Uterus was closed in a continuous running fashion. [id number] sutures were used for hemostasis.. Good hemostasis was noted. Uterus was placed back into the abdominal cavity and the incision was reinspected. Good hemostasis was noted. Fascia was closed in a continuous running fashion with PDS suture. Subcutaneous irrigation was performed. Good hemostasis was noted. Skin was closed in a subcuticular fashion. All counts were correct x2. Patient tolerated the procedure well and was brought to recovery in a stable condition.
[2022-02-24] MEDS: Oxytocin 15 Units/NS 250ml 15 UNITS/250 ML IV.SOLN 83 UNITS IV (08:40)
[2022-02-24] MEDS: Ketorolac 30 MG/ML Syringe IV ×2 (09:40→15:54)
[2022-02-24] MEDS: Lactated Ringers 1,000 ML 100 ML IV (12:10)
[2022-02-24] MEDS: DiphenhydrAMINE 25 MG Capsule PO ×2 (13:45→20:29)
[2022-02-24] MEDS: 0.9% Saline Lock 10 ML Syringe IV (15:54)
[2022-02-24] MEDS: Senna/Docusate Sodium 1 Tablet PO (18:24)
[2022-02-24] MEDS: Enoxaparin 40 MG/0.4 ML Syringe SC (22:09)
--- NOTE | 2022-02-24 23:56 | NURSING ---
Pt had trouble urinating and was due to void at 2215. Pt sat on the toilet for 20 minutes and was not able to void. Pt got into shower and was able to void. This nurse ensured voiding hat was in toilet for the next void in order to measure.
--- NOTE | 2022-02-25 00:01 | NURSING ---
This nurse assessed IV site at 2215. IV no longer in. Site intact. This nurse discussed inserting new IV in order to finish toradol order. Pt does not desire new IV and agrees to starting motrin. This nurse discussed with and updated charge nurse.
[2022-02-25] MEDS: Acetaminophen 500 MG Tablet 1000 MG PO ×4 (00:27→18:31)
[2022-02-25] MEDS: Ibuprofen 600 MG Tablet PO ×4 (00:27→18:31)
[2022-02-25 00:30] VITALS: BP 109/65; PULSE 82; RESP 16; TEMP 36.4; O2SAT 97
[2022-02-25] MEDS: DiphenhydrAMINE 25 MG Capsule PO (02:39)
[2022-02-25 04:58] VITALS: BP 112/54; PULSE 79; RESP 16; TEMP 36.6; O2SAT 96
[2022-02-25 05:17] LABS: Hematocrit 27.5 % (37-47); Hemoglobin 8.9 g/dL (12.0-15.0); Mean Corp Hgb Conc 32.4 g/dL (32-36); Mean Corpuscular Hgb 29.5 pg (27.0-32.0); Mean Corpuscular Volume 91.1 fL (81-99); Mean Platelet Vol. 11.1 fl (6.2-12.0); Platelet Count 128 K/mm3 (150-450); RBC Distribution Width CV 13.6 % (11.6-14.6); RBC Distribution Width SD 44.5 fl (35.1-43.9); Red Blood Count 3.02 M/mm3 (4.2-5.4); White Blood Count 7.6 K/mm3 (4.4-11.0)
[2022-02-25 08:11] VITALS: BP 110/66; PULSE 91; RESP 16; TEMP 36.7; O2SAT 96
[2022-02-25 08:50] VITALS: BP 109/59; PULSE 102; RESP 14; TEMP 36.9; O2SAT 98
--- NOTE | 2022-02-25 08:52 | PCM.PN.OB ---
Subjective Subjective No overnight complaints Objective Data Objective Data Vital Signs: Vital Signs Temp Pulse Resp BP Pulse Ox O2 Del Method 98.0 F 91 16 110/66 96 Room Air 02/25/22 08:11 02/25/22 08:11 02/25/22 08:11 02/25/22 08:11 02/25/22 08:11 02/25/22 08:11 Oxygen Delivery Method Room Air Weight: 178 lb Body Mass Index (BMI) 29.6 Intake & Output: Intake and Output for Last 24 Hours 02/23/22 02/24/22 02/25/22 23:59 23:59 23:59 Intake Total 2330.83 / 2330.83 Output Total 900 / 900 400 / 400 Balance 1430.83 / 1430.83 -400 / -400 Lab / Micro Data Result Diagrams: 02/25/22 05:10 Labs: Laboratory Results - last 24 hr 02/25/22 05:10: WBC 7.6, RBC 3.02 L, Hgb 8.9 L, Hct 27.5 L, MCV 91.1, MCH 29.5, MCHC 32.4, RDW Std Deviation 44.5 H, RDW Coeff of Wes 13.6, Plt Count 128 L, MPV 11.1 Physical Exam Const alert, oriented x3, no apparent distress, average body habitus, healthy appearing and well nourished HEENT normocephalic and moist oral mucous membranes Eyes PERRL Neck full ROM Resp normal respiratory effort, no retractions and no use of accessory muscles GI GI Narrative: Soft, nontender, bandage clean dry and intact Extremity normal to inspection, full ROM and no clubbing, cyanosis or edema Neuro moves all extremities and no focal motor deficits Psych mental status grossly normal, affect normal, speech normal and activity/motor behavior normal Assessment & Plan (1) delivery delivered: PLAN: Postop day 1 status post primary section elective at term. Breast-feeding. Pain well controlled. Likely home tomorrow
[2022-02-25] MEDS: Senna/Docusate Sodium 1 Tablet PO (10:22)
[2022-02-25] MEDS: oxyCODONE 5 MG Tablet PO ×2 (10:29→21:22)
[2022-02-25 13:33] VITALS: BP 117/89; PULSE 113; RESP 16; TEMP 36.8; O2SAT 97
[2022-02-25 19:59] VITALS: BP 109/60; PULSE 83; RESP 14; TEMP 36.6
[2022-02-25] MEDS: Enoxaparin 40 MG/0.4 ML Syringe SC (23:28)
[2022-02-26] MEDS: Ibuprofen 600 MG Tablet PO ×3 (00:31→11:53)
[2022-02-26] MEDS: Acetaminophen 500 MG Tablet 1000 MG PO ×2 (00:31→06:43)
[2022-02-26 01:34] VITALS: BP 120/73; PULSE 100; RESP 16; TEMP 37
[2022-02-26] MEDS: oxyCODONE 5 MG Tablet PO ×2 (05:02→05:30)
--- NOTE | 2022-02-26 08:40 | DS.PCM_ITS ---
Discharge Summary Date of Admission: 02/24/22 Date of Discharge: 02/26/22 Summary: Patient arrived on 02/24/2022 for elective primary section. Primary C- section on 02/24/2022. Routine postoperative recovery. Discharge home on 02/26/2022 Meaningful Use Info Meaningful Use Diagnoses (Choose all that apply): None applicable Discharge Plan Admission Admit Date/Time: 02/24/22 05:10 Primary Reason for Your Visit: Scheduled section Attending Provider: Demian Myers Instructions Additional Instructions / Restrictions: Regular diet. Weightbearing as tolerated. Okay to shower. No tub baths for 2 weeks. No lifting over 25 pounds for 2 to 3 weeks. No intercourse for 4 to 6 weeks. Call if fevers, chills, chest pain, shortness of breath. Follow-up 2 weeks postoperative Discharge Orders/Prescriptions Prescriptions: New oxycodone 5 mg tablet 5 mg PO Q6H PRN (Reason: pain (scale score 7-10)) 4 Days Qty: 16 0RF Continued Gummies 400 mcg-35 mg- 25 mg-5 mg Tablet,Chewable 2 tab PO DAILY cholecalciferol (vitamin D3) [Vitamin D3] 50 mcg (2,000 unit) Capsule 50 mcg PO DAILY No Action iron 1 tab PO/SL QODAY magnesium 1 tab PO/SL DAILY Disposition Disposition (needs filled in before D/C Order can be placed): Home, Self Care
--- NOTE | 2022-02-26 08:41 | PCM.PN.OB ---
Subjective Subjective No overnight complaints Objective Data Objective Data Vital Signs: Vital Signs Temp Pulse Resp BP Pulse Ox O2 Del Method 98.6 F 100 16 120/73 97 Room Air 02/26/22 01:34 02/26/22 01:34 02/26/22 01:34 02/26/22 01:34 02/25/22 13:33 02/26/22 01:34 Oxygen Delivery Method Room Air Weight: 178 lb Body Mass Index (BMI) 29.6 Intake & Output: Intake and Output for Last 24 Hours 02/24/22 02/25/22 02/26/22 23:59 23:59 23:59 Intake Total 2330.83 / 2330.83 Output Total 900 / 900 400 / 400 Balance 1430.83 / 1430.83 -400 / -400 Lab / Micro Data Result Diagrams: 02/25/22 05:10 Physical Exam Const alert, oriented x3, no apparent distress, average body habitus, healthy appearing and well nourished HEENT normocephalic and moist oral mucous membranes Eyes PERRL Neck full ROM Resp normal respiratory effort, no retractions and no use of accessory muscles Extremity normal to inspection, full ROM and no clubbing, cyanosis or edema Neuro moves all extremities and no focal motor deficits Psych mental status grossly normal, affect normal, speech normal and activity/motor behavior normal Assessment & Plan (1) delivery delivered: PLAN: Postoperative day 2 of primary elective. Breast-feeding. Pain well controlled. Okay to discharge home today. Educated on postoperative pain. Postoperative bleeding. Discussed driving
[2022-02-26 08:52] VITALS: BP 116/68; PULSE 111; RESP 18; TEMP 37.1; O2SAT 97
[2022-02-26] MEDS: Senna/Docusate Sodium 1 Tablet PO (11:53)
== END 2022-02-26 12:30 | disposition home or self-care (01) | DRG 540 ==
PROVIDERS: Admitting Provider Obstetrics & Gynecology; Referring Provider Obstetrics & Gynecology; Visit Provider Obstetrics & Gynecology
PROC: 10D00Z1 Extraction of Products of Conception, Low, Open Approach (ICD-10-PCS; CPT 59514; principal; 2022-02-24 07:15)
DX: O48.0 Post-term pregnancy (principal); Z37.0 Single live birth; Z3A.40 40 weeks gestation of pregnancy; Z87.891 Personal history of nicotine dependence
CPT/HCPCS: 59050; 80307; 85025; 85027; 86850; 86900; 86901; 99218; 99251; J7120; A4216; G0378; G0463

== ENCOUNTER → 2022-03-10 | Outpatient (CLI) | payer MEDICAID, SELFPAY ==
[2022-03-10 16:30] LABS: Absolute Lymphocyte Count 1.69 X10^3/uL (0.83-4.51); Absolute Neutrophil Count 2.1 X10^3/uL (2.0-7.7); Basophil# 0.04 X10^3/uL; Basophil% 0.9 % (0-1); Eosinophil# 0.13 X10^3/uL; Hematocrit 35.2 % (37-47); Hemoglobin 11.9 g/dL (12.0-15.0); Lymphocyte # 1.69 X10^3/ul (0.83-4.51); Lymphocyte % 39.1 % (19-41); Mean Corp Hgb Conc 33.8 g/dL (32-36); Mean Corpuscular Hgb 30.3 pg (27.0-32.0); Mean Corpuscular Volume 89.6 fL (81-99); Mean Platelet Vol. 9.4 fl (6.2-12.0); Monocyte# 0.33 X10^3/uL; Monocyte% 7.6 % (0-10); NRBC Flagged by Analyzer 0 % (0-5); Neutrophil # 2.13 X10^3/uL (2.7-7.7); Neutrophil % 49.4 % (47-70); Platelet Count 356 K/mm3 (150-450); RBC Distribution Width CV 12.8 % (11.6-14.6); RBC Distribution Width SD 42.4 fl (35.1-43.9); Red Blood Count 3.93 M/mm3 (4.2-5.4); White Blood Count 4.3 K/mm3 (4.4-11.0)
[2022-03-10 16:38] LABS: Protein, Urine (Random) 9.2 mg/dL (<11.9); Protein:Creat Ratio 126 mg/g CRE (0-200)
[2022-03-10 17:13] LABS: ALB/GLOB Ratio 0.8 RATIO (0.9-2.4); AST(SGOT) 9 U/L (15-37); Alanine Aminotransfer ALT/SGPT 23 U/L (13-56); Albumin, Serum 3.4 g/dL (3.2-5.0); Alkaline Phosphatase 99 U/L (45-117); Anion Gap 7 (5-15); BUN 15 mg/dL (7-18); Calcium,Total 9.8 mg/dL (8.5-10.1); Chloride 110 mmol/L (98-107); Creatinine, Serum 0.83 mg/dL (0.55-1.02); EST Glomerular Filtration Rate 92 mL/min (>60); Est Glom Filt Rate - Afr Amer 111 mL/min (>60); Globulin 4.2 g/dL (2.2-4.2); Glucose 94 mg/dL (74-106); LDH 167 U/L (84-246); Potassium 4.2 mmol/L (3.5-5.1); Protein, Total 7.6 g/dL (6.4-8.2); Sodium Level 141 mmol/L (136-145)
== END | disposition home or self-care (01) ==
LOC: WOBLAB 16:11
PROVIDERS: Visit Provider Obstetrics & Gynecology
DX: Z48.816 Encounter for surgical aftercare following surgery on the genitourinary system (principal)
CPT/HCPCS: 36415; 80053; 82570; 83615; 84156; 85025; 87086; 87088

== ENCOUNTER 2023-06-06 10:32 | Emergency (ER) | payer MEDICAID, SELFPAY ==
[2023-06-06 10:33] VITALS: BP 150/95; PULSE 137; RESP 18; TEMP 36.5; O2SAT 99; BMI 27.8
[2023-06-06] MEDS: 0.9% Normal Saline (1000mL) 1,000 ML 1000 ML IV (11:28)
[2023-06-06 11:34] VITALS: BP 123/77; PULSE 97; RESP 14; TEMP 36.9; O2SAT 99
--- NOTE | 2023-06-06 11:35 | EX.ED.DYSGE1 ---
HPI History of Present Illness Chief Complaint: General Illness Detail of Chief Complaint: Viral-like symptoms that started several days ago. Informant: patient Onset/Context/Timing Onset: Days Context: Sudden Onset Timing: Continuous and Waxes and wanes Quality: Headache, congestion, sore throat, nonproductive cough, aches Location: Respiratory Current Severity: Mild Maximum Severity: Moderate Worsened by: Nothing Relieved by: Nothing Associated Symptoms Associated Symptoms: Viral-like symptoms and see HPI narrative Narrative Narrative: Patient is a 22-year-old female who presents with viral-like symptoms. Daughter is ill with rhinorrhea at home. She reports subjective fever. She reports chills. She does complain of headache. Denies photophobia, neck stiffness. She denies ear pain or ear drainage. She does report mild nasal congestion and sore throat. Cough is nonproductive. There is no pain with breathing. She denies abdominal pain. She does report nausea without vomiting diarrhea. She denies urologic symptoms. She states she has a vaginal rash due to recurrent herpetic infection. She has had a new sexual partner. She would like tested for STI. Prior similar symptoms: Yes Recent Illness/Hospitalization: No PFSH PFSH Medical History HPV (human papilloma virus) infection Non-smoker Home Medications PNV 153-FA 400 mcg-om3 35 mg-dha 25 mg-epa 5 mg-fish oil chew tablet ( Gummies) 2 tab PO DAILY Check with primary doctor 06/30/21 [History Last Taken 02/23/22 08:00] cholecalciferol (vitamin D3) 50 mcg (2,000 unit) capsule (Vitamin D3) 50 mcg PO DAILY Check with primary doctor 12/11/21 [History Last Taken 12/11/21 10:45] iron 1 tab PO/SL QODAY Check with primary doctor 02/24/22 [History Last Taken 02/22/22] magnesium 1 tab PO/SL DAILY Check with primary doctor 02/24/22 [History Last Taken 02/23/22] oxycodone 5 mg tablet 5 mg PO Q6H PRN pain (scale score 7-10) 4 days #16 tabs 02/24/22 [Rx Last Taken Unknown] acyclovir 400 mg tablet 1 tab PO 5X/DAY #35 tabs 06/06/23 [Rx Last Taken Unknown] Allergy/AdvReac Type Severity Reaction Status Date / Time No Known Allergies Allergy Verified 06/06/23 10:35 Social History (Updated 06/06/23 @ 11:[address] Sung Payton MD) household members: children Smoking Status: Former smoker substance use type: does not use ROS ROS ED Constitutional Constitutional ED: Reports chills, fever(s) and subjective; Denies sweats or weight loss Eyes Eyes: Denies blurry vision, change in vision or diplopia ENT ENT ED: Reports rhinorrhea and sore throat; Denies ear pain Cardiovascular Cardiovascular: Denies chest pain, orthopnea, palpitations or paroxysmal nocturnal dyspnea Respiratory/Chest Respiratory/Chest: Reports cough and dyspnea; Denies dyspnea on exertion, orthopnea, paroxysmal nocturnal dyspnea or sputum Gastrointestinal Gastrointestinal: Reports nausea; Denies abdominal pain, diarrhea or vomiting Genitourinary Genitourinary ED: Denies dysuria, hematuria or urinary frequency Musculoskeletal Musculoskeletal: Reports myalgias; Denies arthralgias or back pain Integumentary Reports rash Neurologic Neurologic: Reports headache(s) and weakness; Denies paresthesias Endocrine Endocrinology: Denies cold intolerance or heat intolerance Hematologic/Lymphatic Hematologic/Lymphatic: Reports systems reviewed and no addt'l complaints, except as documented EXAM Physical Exam Const Vital Signs: 06/06/23 10:33 06/06/23 11:31 06/06/23 11:34 Temperature 97.7 F L 98.4 F Temperature Source Temporal Oral Pulse Rate 137 H 97 Respiratory Rate 18 14 Respiratory Effort Normal Non-Labored Blood Pressure 150/95 H 123/77 H Blood Pressure Mean 113 92 Pulse Ox 99 99 Oxygen Delivery Method Room Air Room Air 06/06/23 13:48 Temperature Temperature Source Pulse Rate 78 Respiratory Rate 16 Respiratory Effort Blood Pressure 128/80 H Blood Pressure Mean 96 Pulse Ox 99 Oxygen Delivery Method Room Air Positive well nourished and well developed Constitutional Narrative: Patient appears ill but nontoxic. General Appearance ED: well developed and NAD; Negative for cyanotic, diaphoretic or pallor HEENT Reports dry mucous membranes HEENT Narrative: Head is atraumatic and normocephalic. Ears normal. TMs normal. Nares patent with clear discharge. Posterior pharynx with slight erythema. Uvula is midline. No deviation with protrusion. Mouth ED: Yes dry mucous membranes Mouth: dry mucous membranes Eyes PERRL and EOMs intact bilaterally General Eye ED: Negative for pale conjunctiva or scleral icterus Neck no lymphadenopathy, supple and no JVD Chest Wall inspection of chest normal and palpation of chest normal Resp normal respiratory effort and clear to auscultation bilaterally Cardio regular rhythm, S1 normal heart sound, S2 normal heart sound and no murmurs Rate: tachycardic GI normal to inspection, nondistended, normoactive bowel sounds, non-tender, non-distended and no masses; Negative for hepatosplenomegaly Auscultation: hypoactive bowel sounds Palpation: soft Back/Spine no CVA tenderness Extremity normal to inspection General Extremety ED: Negative for edema or tenderness General Extremity: Negative for edema Neuro oriented x3, CN's II-XII intact bilaterally and no sensory deficits noted Sensorium / Orientation: alert Psych mental status grossly normal Skin no rashes or lesions noted, no wounds and skin turgor normal General Skin Exam: elasticity normal; Negative for jaundice or pallor MDM MDM MDM Narrative Medical decision making narrative: Since patient is having recurrent of her herpetic infection we will start on acyclovir. She states she has no refills on her prescription. Also will assess for COVID, RSV and influenza. Clinically patient appears dehydrated will infuse 1 L of normal saline. Since she has had a new sexual partner and she reports mild discharge which is normal we will obtain urine for GC and chlamydia. Lab Data Attestation: I reviewed the patient's lab results. Lab results narrative: Rapid test for COVID, influenza and RSV were negative. Labs: Laboratory Results - last 24 hr 06/06/23 11:10 Serum , Qual NEGATIVE Treatment and Re-Evaluation :: Patient was reassessed at 1401. She appears much better. She reports she feels better. Plan is symptomatic treatment with regards to the viral infection and prescription for acyclovir for recurrent genital herpes. Tachycardia resolved with IV fluids. Discharge Plan Triage Chief Complaint: General Illness ED Provider: Sung Payton Dx/Rx/DC Orders Clinical Impression: Acute dehydration, Systemic viral illness, Sinus tachycardia seen on lunchroom monitor, Recurrent genital herpes Instructions: ED Dehydration (Adult), ED Viral Syndrome (Adult) Prescriptions: New acyclovir 400 mg tablet 1 tab PO 5X/DAY Qty: 35 0RF No Action Gummies 400 mcg-35 mg- 25 mg-5 mg Tablet,Chewable 2 tab PO DAILY cholecalciferol (vitamin D3) [Vitamin D3] 50 mcg (2,000 unit) Capsule 50 mcg PO DAILY oxycodone 5 mg tablet 5 mg PO Q6H PRN (Reason: pain (scale score 7-10)) 4 Days Qty: 16 0RF iron 1 tab PO/SL QODAY magnesium 1 tab PO/SL DAILY Primary Care Provider: Care Physician,No Primary Referrals: Care Physician,No Primary [Primary Care Provider] - Doctor,Your [Non-Staff] - 1 Week if not improving Activity Restrictions/Additional Instructions: 1. Drink plenty of fluids 2. Take either Tylenol or ibuprofen for your fever and aches 3. Take medication as prescribed Disposition Disposition: Home, Self Care
[2023-06-06] MEDS: Acyclovir 200 MG Capsule 400 MG PO (11:55)
[2023-06-06 11:59] LABS: Internal QC Validated? YES +Cl - CLEAR BKGD; Record Kit Lot#, Serum Preg. HCG0000718086
[2023-06-06 12:03] LABS: Pregnancy, Serum, hCG Quali. NEGATIVE Negative
--- OUTSIDE RECORDS SUMMARY | 2023-06-06 12:16 | XMS RPT_ITS | CCD ---
Author Name Unknown Address [address] [place] [address] Organization [facility] Care Team Providers Care Supervisor Taping Name Role Phone None, No PCP Unavailable Unavailable Unavailable Unavailable Unavailable Primary Care Provider UnavailMARY Sears Referring Unavailable MARY ABDI Attending Unavailable Inc, [facility] Primary Care Provider Unav ailable Clymer, [facility] Unavailable Unavailable PEDRITO MORA Attending Unavailable INC, [facility] Unavailable PEDRITO MORA Attending Unavailable [facility], [facility] Unavailable PEDRITO MORA Attending Unavailable INC, [facility] Primary [facility] Unavailable SHEPEDRITO VILLAR Attending Unavailable INC, [facility] Primary Care Unavailable SHEINPEDRITO Attending Unavailable INC, [facility] Unavailable SHEPEDRITO VILLAR Attending Unavailable INC, [facility] Primary Care Unavailable SHEPEDRITO VILLAR Attending Unavailable INC, [facility] Primary Care Unavailable SHEINPEDRITO Attending Unavailable INC, [facility] Primary Care Unavailable SHEPEDRITO VILLAR Attending Unavailable INC, [facility] Primary Care Unavailable SHEPEDRITO VILLAR Attending Unavailable INC, [facility] Primary Care Unavailable SHEPEDRITO VILLAR Attending Unavailable INC, [facility] Primary Care Unavailable SHEINPEDRITO Attending Unavailable INC, [facility] Primary Care Unavailable SHEINPEDRITO Attending Unavailable INC, [facility] Primary Care Unavailable SHEINCAROLYNEN Attending Unavailable INC, [facility] Unavailable SHEPEDRITO VILLAR Attending Unavailable INC, [facility] Unavailable SHEINPEDRITO Attending Unavailable INC, [facility] Unavailable SHEPEDRITO VILLAR Attending Unavailable INC, [facility] Unavailable Medications Current Medications Medication Drug Class(es) Dates Sig (Normalized) Sig (Original) acyclovir 400 mg oral tablet (2 sources) Herpesvirus Nucleoside Analog DNA Polymerase Inhibitor, Herpes Simplex Virus Nucleoside Analog DNA Polymerase Inhibitor, Herpes Zoster Virus Nucleoside Analog DNA Polymerase Inhibitor Start: 11-09-2020 End: 11-29-2020 take 1 tablet by mouth three times daily Acyclovir 400 MG Oral Tablet TAKE 1 TABLET 3 TIMES DAILY. Quantity: 15 Refills: 3 Ordered: 09-Nov-2020 Mame Astorga Start : 09-Nov-2020 End : 29-Nov-2020 Active Completed/Discontinued Medications Medication Drug Class(es) Dates Sig (Normalized) Sig (Original) cholecalciferol 0.1 mg oral capsule (1 source) Vitamin D cholecalciferol, vitamin D3, (VITAMIN D3) 100 mcg (4,000 unit) cap Take by mouth. 0 Active Problems Active Problems Problem Classification Problem Date Documented Da te Episodic/Chronic Immunizations and screening for infectious disease (2 sources) Patient encounter status; Translations: [Screening examination for venereal disease] Episodic Mood disorders (20 sources) Recurrent major depressive disorder with onset; Translations: [Major depressive disorder, recurrent, unspecified] Onset: 10-05-2022 10-05-2022 Chronic Nutritional deficiencies (1 source) Vitamin D deficiency, unspecified; Translations: [Vitamin D deficiency] Onset: 04-07-2022 Chronic Other female genital disorders (2 sources) Vaginal discharge; Translations: [Leukorrhea, not specified as infective] Episodic Residual codes; unclassified (2 sources) History finding; Translations: [Other specified conditions influencing health status] Episodic Substance-related disorders (20 sources) Cannabis abuse; Translations: [Cannabis dependence, uncomplicated] Onset: 10-05-2022 10-05-2022 Chronic Viral infection (2 sources) Herpes simplex; Translations: [Herpes simplex without mention of complication] Episodic Past or Other Problems Problem Classification Problem Date Documented Da te Episodic/Chronic Mood disorders (20 sources) Mood disorders Onset: 10-05-2022 10-05-2022 Other screening for suspected conditions (not mental disorders or infectious disease) (2 sources) Serum creatinine raised; Translations: [Other specified abnormal findings of blood chemistry] Onset: 04-07-2022 Episodic Results Test Name Value Interpretation Reference Range Facil ity Vital Signs Date Time Vital Sign Value Performing Clinician Chloe andre 11-09-2020 13:34-0400 Body height 167.64 cm No PCP None [facility] Work Phone: 11-09-2020 13:34-0400 Body mass index (BMI) [Ratio] 20.34 kg/m2 No PCP [facility] Work Phone: 11-09-2020 13:34-0400 Body surface area Derived from formula 1.64 m2 No PCP [facility] Work Phone: 11-09-2020 13:34-0400 Body weight 57.15 kg No PCP None [facility] [place] Work Phone: 11-09-2020 13:34-0400 Diastolic blood pressure 72 mm[Hg] No PCP [facility] [place] Work Phone: 11-09-2020 13:34-0400 Systolic blood pressure 108 mm[Hg] No PCP None [facility] [place] Work Phone: 11-09-2020 13:34-0400 48 1 No PCP None [facility] [place] Work Phone: Encounters Encounter Date Encounter Type Care Provider Facility Start: 11-16-2022 End: 11-17-2022 [facility] Start: 11-16-2022 End: 11-16-2022 Subsequent hospital visit by physician Pedrito Mora MD Work Phone: [facility] Procedures Date Procedure Procedure Detail Performing Clinician No history of surgery No PCP None Plan of Treatment Date Care Activity Detail Author Start: 08-02-2051 Zoster Vaccines (1 of 2) Zoster Vacc soumya (1 of 2) [facility] Start: 04-07-2023 COVID-19 VACCINE (#1) COVID-19 VACCI NE (#1) [facility] Immunizations Immunization Date Immunization Notes Care Provider Sandra jay 04-13-2014 Human Papillomavirus 9-valent vaccine Mary Abdi APRN.[employer] Work Phone: [facility] Work Phone: 10-12-2013 Human Papillomavirus 9-valent vaccine Mary Abdi APRN.[employer] Work Phone: [facility] Work Phone: Payers Date Payer Category Payer Medicaid [id number] 2019 Medicaid [id number] 2019 Medicaid [id number] Unknown [employer] Social History Date Type Detail Facility Start: 10-05-2022 No illicit drug use No illicit drug use [facility] Work Phone: Tobacco smoking stat [facility] Tobacco smoking consumption unknown [facility] Work Phone: Start: 2001 Sex Assigned At Not on file [facility] Start: 10-05-2022 Tobacco smoking status [facility] Never smoked tobacco [facility] Start: 10-05-2022 Tobacco use and exposure Smokeless tobacco non-user [facility] Start: 10-05-2022 Social connection and isolation panel [facility] Do you belong to any clubs or organizations such as yarsanism groups, unions, fraternal or athletic groups, or school groups? No [facility] Are you now , , , , never or living with a partner? Never [facility] How often to you hav e a drink containing alcohol? 2-4 times a month [facility] How many standard dr inks containing alcohol do you have on a typical day? 1 or 2 [facility] How often do you hav e 6 or more drinks on 1 occasion? Monthly [facility] How hard is it for y ou to pay for the very basics like food, housing, medical care, and heating Not hard at all [facility] (I/We) worried whearley er (my/our) food would run out before (I/we) got money to buy more. Never true [facility] Start: 10-05-2022 Education 13 [facility] Start: 2001 Sex Assigned At Female [facility] Start: 10-05-2022 Gender identity Identifies as female gender (finding) [facility] Start: 10-05-2022 Sexual orientation Heterosexual (finding) [facility] At any time in the p ast 12 months, were you homeless or living in skilled nursing [including now]? Yes [facility] Start: 10-13-2022 End: 11-13-2022 Exposure to SARS-CoV-2 (event) Not sure [facility] Goals Date Patient Goal Desired Activity /State Personal health goal Clinical Notes 11-04-2020 to 11-16-2022 Neris Jensen - 11/16/2022 5:30 PM EDTMaddherb Mikey - 11/16/2022 5:30 PM EDTCare Plan - Neris Clymer - 11/16/2022 5:30 [facility] - 11/16/2022 5:30 PM EDT Note Date & Type Note Facility 11-16-2022 Note Outpatient Behaviora [facility] Services Individual or Family Therapy Progress Note Program: Addiction Medicine Intensive Outpatient Program Session Date: 11/16/22 Start Time: 520pm End Time: 610pm Session Participant(s): Patient only Summary of Session: SENIOR ECOLOGIST discharged patient from [facility] and discussed treatment after graduation. SENIOR ECOLOGIST assessed use of coping skills and self care routine. SENIOR ECOLOGIST used SFT to assist patient on building current strengths that have helped reduce depression. Therapeutic Intervention: SFT, Active listening, Supportive, and Cognitive Behavioral Therapy (CBT) Patient's Response to Intervention: Patient stated that she would be continuing her individual counseling with two additional providers. She reported that she was looking for employment but got stressed out. Patient shared that childcare is a barrier to employment since her child is not vaccinated. Pt reported that taking sobriety one day at a time makes staying sober easier. Mental Status Exam: Appearance: Appropriately dressed and groomed and healthy looking Mood: ambivalent Affect: appropriate and congruent with mood Behavior: Cooperative, Pleasant, Interactive, clear, and appropriate Speech: Appropriate, clear, and normal pace Cognition: Appears intact and Oriented x 4 Thought Process: Goal-directed Thought Content: No evidence of psychosis/delusional thought Progress Towards Goal(s): Moderate Additional Comments: n/a Next Step: Patient to be discharged from treatment Signature [facility] 11-16-2022 Note Outpatient Behaviora [facility] Individualized Treatment Plan Program: [] Psych IOP [] PHP [x] Addiction Med IOP [] [facility] Diagnosis: F12.20, F33.9 Initial Treatment Plan Date: 10/16/22 LOC Placed (Addiction Med IOP only): 2.1 Tx Plan Revisions Reason and Date: Discharged 11/16/22 Reason and Date: Problem/Need Section Problem Identification/Need 1: Substance Use Disorder Problem Statement: Fails to stop or cut down use of mood-altering drug once started, despite the verbalized desire to do so and the negative consequences continued use brings. Date Established Status Revised Date Status D/C Date D/C Status 10/16/22 Active 11/16/22 Approved Additional Comment(s): Cannabis use Problem Identification/Need 2: Mental Health Disorder Problem Statement: Feelings of hopelessness, worthlessness, and inappropriate guilt Date Established Status Revised Date Status D/C Date D/C Status 10/16/22 Active 11/16/22 Approved Additional Comment(s): Individual therapy to address concerns Describe patient's strengths (ie, personal attributes, traits, coping skills, resources, natural supports): Support from organized community, Stable housing, Motivation level for treatment Please note any preferences regarding treatment services (ie, requests for accommodations, specific treatment staff, appointment times, cultural and/or scientology considerations, etc). IOP Please identify family members/friends who can be involved in your treatment. Name Relationship Release obtained? If no, explain N/a Please identify other treatment providers (*required): Type of Provider Name Release obtained? If no, explain Primary Care Provider* N/a Other Provider* Se berumen Goals/Objectives Goal 1 Problem ID: Substance Use Disorder Goal/Desired Outcome in Patient's Words: develop skills to not use MET 11/16/22 Goal/Anticipated Treatment Outcome: SENIOR ECOLOGIST will assist patient in developing coping skills, identifying triggers and building support to maintain recovery through IOP treatment. Objective(s): Objective 1: Patient will increase social connectedness by participating in sober activities at least 3x/week to help prevent relapse and support ongoing sobriety. MET 11/16/22 Intervention: Therapist will educate patient about local resources, assist in identifying appropriate meetings, monitor and reinforce participation. Objective 2: Patient will confront his/her triggers to using substances by learning and utilizing 3-5 adaptive alternative skills and engaging these skills daily to prevent relapse by the 3rd session of IOP MET 11/16/22 Intervention: Therapist will assist patient in identifying triggers based on history of relapse as well as identifying adaptive responses to prevent relapse from occurring again. Goal 2 Problem ID: Mental Health Disorder Goal/Desired Outcome in Patient's Words: ?lessen my anxiety? MET 11/16/22 Goal/Anticipated Treatment Outcome: SENIOR ECOLOGIST will assist patient in access resources for mental and physical health treatment. SENIOR ECOLOGIST will work with patient to develop skills and routine to manage depression. Objective(s): Objective 1: Patient will improve mood (as evidenced by decreasing score on PHQ-9 - total score by 5 points) by participating in 1-3 pleasurable activities per week and share one experience in group each week. MET 11/16/22 Intervention: Therapist will assist patient in identifying activities of interest, normalizing expectations, and assist in scheduling/preparing for these activities. Goal Start Date Target Completion Date Adjusted Target Date Reason for Adjustment or Completion Date 10/16/22 04/17/23 11/16/22 Patient has been discharged and not recommended to [facility] due to office closing, PT denied referral to other locations Service(s) Provided (if group, include name of group) Primary Service Provider Frequency of Service Date Added Service D/C Date Addiction Med IOP BHAVIK Lopez 3x per week for 3 hours 10/16/22 11/16/22 Individual Therapy BHAVIK Lopez once per week 10/16/22 11/16/22 Multi-Family Group YENNI Segal Once per week 10/16/22 11/16/22 Urine Drug Screening BHAVIK Lopez Once per week 10/16/22 11/16/22 Consideration for Discharge: [x] Improve Level of Functioning [x] Decrease Symptoms [] Control/Maintain Symptoms [] Prevent Relapse Review with Patient: [x] Risks and benefits of treatment [x] Patient's right to refuse treatment recommendations [x] Patient understands signature below represents agreement with treatment plan [] Other: (explain) Patient Signature/Date: (Note: Clinician and Attending to sign document electronically) [facility] 11-16-2022 Note Outpatient [facility] Services Transfer/Discharge Summary Patient Instructions Program: Addiction Medicine Intensive Outpatient Program Current Service/Group: Addiction IOP Discharge Type: Completed Goals - discharged without referral to a lower level of care Date of Last SessionAttended: Number of Sessions attended: 15 Treatment Outcome Measures: PHQ-9 PHQ-9 pre-score: 19 PHQ-9 post-score: 7 MONSTER-7 MONSTER-7 pre-score: 16 MONSTER-7 post-score: 3 Updated ASAM Criteria: ASAM CRITERIA/SEVERITY ANALYSIS 0 - Non-issue/low risk 1 - Mild diffi culty in functioning 2 - Moderate diffi culty in functioning 3 - Serious issue or diffi culty coping/in or near ?imminent danger? 4 - Severe - indicating an ?imminent danger? concern SUMMARY/JUSTIFICATION FOR LEVEL OF CARE 0 Dimension 1: Acute Intoxication and/or Withdrawal Potential Comments: Patient has not had positive UDSs, no concern for withdrawal. 0 Dimension 2: Biomedical Conditions and Complications Comments: None reported by patient 2 Dimension 3: Emotional, Behavioral, or Cognitive Conditions and Complications Comments: High levels of stress and depression 1 Dimension 4: Readiness to Change Comments:Patient admitted that she will probably use alcohol but not cannabis 1 Dimension 5: Relapse, Continued Use, or Continued Problem Potential Comments: Admitted that she plans to drink on occasion 2 Dimension 6: Recovery/Living Environment Comments:Housed in single mothers housing program and hoping to find her own place soon. Comments: n/a Patient At Home Medication: Prior to Admission medications Not on File Complete the following for DISCHARGE from [facility] Addiction IOP Program: Summary of Treatment Provided and Progress Towards Goal(s): Patient has been engaging with mentors and members of single mothers group. She has been able to identify internal and external triggers. Patieont reported decreased levels of anxiety and depression. Primary Diagnosis(es) at Admission: (F33.9) Major depressive disorder, recurrent episode with peripartum onset (HCC) (F12.20) Cannabis use disorder, severe (HCC) Primary Diagnosis(es) at Discharge: (F33.9) Major depressive disorder, recurrent episode with peripartum onset (HCC) (F12.20) Cannabis use disorder, severe (HCC) Brief Summary of Reason for Transfer/Discharge: Patient has maximized benefits from IOP treatment. Patient has set a goal to get employment and is unable to do so until she completes IOP. She has met all her goals in IOP. REFERRAL INFORMATION UPON DISCHARGE: Include new referrals & patient's existing Behavior Health providers providing continuity of care Must include specific agency AND provider name Outpatient Behavioral Health Counseling Services: Patient sees two individual therapist at undisclosed treatment center. Patient never signed KRANTHI. Psychiatry Services: Patient Declined Residential/Addiction Support Services: Se Other: Referred to [facility] Additional Comments (optional): Use the refusal, coping and recovery skills you learned in treatment to manage symptoms/relationships, Use mindfulness activities to assist with relieving triggers/symptoms, Continue abstinence from all mood-altering substances, and Remember to engage in self-care activities on a regular basis [facility] 11-16-2022 History of Presen t illness Narrative Outpatient Behavioral Health Services Individual or Family Therapy Progress Note Program: Addiction Medicine Intensive Outpatient Program Session Date: 11/16/22 Start Time: 520pm End Time: 610pm Session Participant(s): Patient only Summary of Session: SENIOR ECOLOGIST discharged patient from [facility] and discussed treatment after graduation. SENIOR ECOLOGIST assessed use of coping skills and self care routine. SENIOR ECOLOGIST used SFT to assist patient on building current strengths that have helped reduce depression. Therapeutic Intervention: SFT, Active listening, Supportive, and Cognitive Behavioral Therapy (CBT) Patient's Response to Intervention: Patient stated that she would be continuing her individual counseling with two additional providers. She reported that she was looking for employment but got stressed out. Patient shared that childcare is a barrier to employment since her child is not vaccinated. Pt reported that taking sobriety one day at a time makes staying sober easier. Mental Status Exam: Appearance: Appropriately dressed and groomed and healthy looking Mood: ambivalent Affect: appropriate and congruent with mood Behavior: Cooperative, Pleasant, Interactive, clear, and appropriate Speech: Appropriate, clear, and normal pace Cognition: Appears intact and Oriented x 4 Thought Process: Goal-directed Thought Content: No evidence of psychosis/delusional thought Progress Towards Goal(s): Moderate Additional Comments: n/a Next Step: Patient to be discharged from treatment Signature documented in this encounter [facility] 11-16-2022 Hospital course Narrative Outpatient Behavioral Health Services Transfer/Discharge Summary Patient Instructions Program: Addiction Medicine Intensive Outpatient Program Current Service/Group: Addiction IOP Discharge Type: Completed Goals - discharged without referral to a lower level of care Date of Last SessionAttended: Number of Sessions attended: 15 Treatment Outcome Measures: PHQ-9 PHQ-9 pre-score: 19 PHQ-9 post-score: 7 MONSTER-7 MONSTER-7 pre-score: 16 MONSTER-7 post-score: 3 Updated ASAM Criteria: ASAM CRITERIA/SEVERITY ANALYSIS 0 - Non-issue/low risk 1 - Mild diffi culty in functioning 2 - Moderate diffi culty in functioning 3 - Serious issue or diffi culty coping/in or near imminent danger 4 - Severe - indicating an imminent danger concern SUMMARY/JUSTIFICATION FOR LEVEL OF CARE 0 Dimension 1: Acute Intoxication and/or Withdrawal Potential Comments: Patient has not had positive UDSs, no concern for withdrawal. 0 Dimension 2: Biomedical Conditions and Complications Comments: None reported by patient 2 Dimension 3: Emotional, Behavioral, or Cognitive Conditions and Complications Comments: High levels of stress and depression 1 Dimension 4: Readiness to Change Comments:Patient admitted that she will probably use alcohol but not cannabis 1 Dimension 5: Relapse, Continued Use, or Continued Problem Potential Comments: Admitted that she plans to drink on occasion 2 Dimension 6: Recovery/Living Environment Comments:Housed in single mothers housing program and hoping to find her own place soon. Comments: n/a Patient At Home Medication: Prior to Admission medications Not on File Complete the following for DISCHARGE from [facility] Addiction IOP Program: Summary of Treatment Provided and Progress Towards Goal(s): Patient has been engaging with mentors and members of single mothers group. She has been able to identify internal and external triggers. Patieont reported decreased levels of anxiety and depression. Primary Diagnosis(es) at Admission: (F33.9) Major depressive disorder, recurrent episode with peripartum onset (HCC) (F12.20) Cannabis use disorder, severe (HCC) Primary Diagnosis(es) at Discharge: (F33.9) Major depressive disorder, recurrent episode with peripartum onset (HCC) (F12.20) Cannabis use disorder, severe (HCC) Brief Summary of Reason for Transfer/Discharge: Patient has maximized benefits from IOP treatment. Patient has set a goal to get employment and is unable to do so until she completes IOP. She has met all her goals in IOP. REFERRAL INFORMATION UPON DISCHARGE: Include new referrals & patient's existing Behavior Health providers providing continuity of care Must include specific agency AND provider name Outpatient Behavioral Health Counseling Services: Patient sees two individual therapist at undisclosed treatment center. Patient never signed KRANTHI. Psychiatry Services: Patient Declined Residential/Addiction Support Services: Se Other: Referred to [facility] Additional Comments (optional): Use the refusal, coping and recovery skills you learned in treatment to manage symptoms/relationships, Use mindfulness activities to assist with relieving triggers/symptoms, Continue abstinence from all mood-altering substances, and Remember to engage in self-care activities on a regular basis documented in this encounter [facility] 11-16-2022 Miscellaneous Notes Outpatient Behavioral Health Individualized Treatment Plan Program: [] Psych IOP [] PHP [x] Addiction Med IOP [] Tra[facility] Stress [facility] Diagnosis: F12.20, F33.9 Initial Treatment Plan Date: 10/16/22 LOC Placed (Addiction Med IOP only): 2.1 Tx Plan Revisions Reason and Date: Discharged 11/16/22 Reason and Date: Problem/Need Section Problem Identification/Need 1: Substance Use Disorder Problem Statement: Fails to stop or cut down use of mood-altering drug once started, despite the verbalized desire to do so and the negative consequences continued use brings. Date Established Status Revised Date Status D/C Date D/C Status 10/16/22 Active 11/16/22 Approved Additional Comment(s): Cannabis use Problem Identification/Need 2: Mental Health Disorder Problem Statement: Feelings of hopelessness, worthlessness, and inappropriate guilt Date Established Status Revised Date Status D/C Date D/C Status 10/16/22 Active 11/16/22 Approved Additional Comment(s): Individual therapy to address concerns Describe patient's strengths (ie, personal attributes, traits, coping skills, resources, natural supports): Support from organized community, Stable housing, Motivation level for treatment Please note any preferences regarding treatment services (ie, requests for accommodations, specific treatment staff, appointment times, cultural and/or scientology considerations, etc). IOP Please identify family members/friends who can be involved in your treatment. Name Relationship Release obtained? If no, explain N/a Please identify other treatment providers (*required): Type of Provider Name Release obtained? If no, explain Primary Care Provider* N/a Other Provider* Se berumen Goals/Objectives Goal 1 Problem ID: Substance Use Disorder Goal/Desired Outcome in Patient's Words: develop skills to not use MET 11/16/22 Goal/Anticipated Treatment Outcome: SENIOR ECOLOGIST will assist patient in developing coping skills, identifying triggers and building support to maintain recovery through IOP treatment. Objective(s): Objective 1: Patient will increase social connectedness by participating in sober activities at least 3x/week to help prevent relapse and support ongoing sobriety. MET 11/16/22 Intervention: Therapist will educate patient about local resources, assist in identifying appropriate meetings, monitor and reinforce participation. Objective 2: Patient will confront his/her triggers to using substances by learning and utilizing 3-5 adaptive alternative skills and engaging these skills daily to prevent relapse by the 3rd session of IOP MET 11/16/22 Intervention: Therapist will assist patient in identifying triggers based on history of relapse as well as identifying adaptive responses to prevent relapse from occurring again. Goal 2 Problem ID: Mental Health Disorder Goal/Desired Outcome in Patient's Words: lessen my anxiety MET 11/16/22 Goal/Anticipated Treatment Outcome: SENIOR ECOLOGIST will assist patient in access resources for mental and physical health treatment. SENIOR ECOLOGIST will work with patient to develop skills and routine to manage depression. Objective(s): Objective 1: Patient will improve mood (as evidenced by decreasing score on PHQ-9 - total score by 5 points) by participating in 1-3 pleasurable activities per week and share one experience in group each week. MET 11/16/22 Intervention: Therapist will assist patient in identifying activities of interest, normalizing expectations, and assist in scheduling/preparing for these activities. Goal Start Date Target Completion Date Adjusted Target Date Reason for Adjustment or Completion Date 10/16/22 04/17/23 11/16/22 Patient has been discharged and not recommended to [facility] due to office closing, PT denied referral to other locations Service(s) Provided (if group, include name of group) Primary Service Provider Frequency of Service Date Added Service D/C Date Addiction Med IOP BHAVIK Lopez 3x per week for 3 hours 10/16/22 11/16/22 Individual Therapy BHAVIK Lopez once per week 10/16/22 11/16/22 Multi-Family Group YENNI Segal Once per week 10/16/22 11/16/22 Urine Drug Screening BHAVIK Lopez Once per week 10/16/22 11/16/22 Consideration for Discharge: [x] Improve Level of Functioning [x] Decrease Symptoms [] Control/Maintain Symptoms [] Prevent Relapse Review with Patient: [x] Risks and benefits of treatment [x] Patient's right to refuse treatment recommendations [x] Patient understands signature below represents agreement with treatment plan [] Other: (explain) Patient Signature/Date: (Note: Clinician and Attending to sign document electronically) documented in this encounter [facility] 11-16-2022 Plan of care note Outpatient Behavioral Health Individualized Treatment Plan Program: [] Psych IOP [] PHP [x] Addiction Med IOP [] [facility] Diagnosis: F12.20, F33.9 Initial Treatment Plan Date: 10/16/22 LOC Placed (Addiction Med IOP only): 2.1 Tx Plan Revisions Reason and Date: Discharged 11/16/22 Reason and Date: Problem/Need Section Problem Identification/Need 1: Substance Use Disorder Problem Statement: Fails to stop or cut down use of mood-altering drug once started, despite the verbalized desire to do so and the negative consequences continued use brings. Date Established Status Revised Date Status D/C Date D/C Status 10/16/22 Active 11/16/22 Approved Additional Comment(s): Cannabis use Problem Identification/Need 2: Mental Health Disorder Problem Statement: Feelings of hopelessness, worthlessness, and inappropriate guilt Date Established Status Revised Date Status D/C Date D/C Status 10/16/22 Active 11/16/22 Approved Additional Comment(s): Individual therapy to address concerns Describe patient's strengths (ie, personal attributes, traits, coping skills, resources, natural supports): Support from organized community, Stable housing, Motivation level for treatment Please note any preferences regarding treatment services (ie, requests for accommodations, specific treatment staff, appointment times, cultural and/or scientology considerations, etc). IOP Please identify family members/friends who can be involved in your treatment. Name Relationship Release obtained? If no, explain N/a Please identify other treatment providers (*required): Type of Provider Name Release obtained? If no, explain Primary Care Provider* N/a Other Provider* Se berumen Goals/Objectives Goal 1 Problem ID: Substance Use Disorder Goal/Desired Outcome in Patient's Words: develop skills to not use MET 11/16/22 Goal/Anticipated Treatment Outcome: SENIOR ECOLOGIST will assist patient in developing coping skills, identifying triggers and building support to maintain recovery through IOP treatment. Objective(s): Objective 1: Patient will increase social connectedness by participating in sober activities at least 3x/week to help prevent relapse and support ongoing sobriety. MET 11/16/22 Intervention: Therapist will educate patient about local resources, assist in identifying appropriate meetings, monitor and reinforce participation. Objective 2: Patient will confront his/her triggers to using substances by learning and utilizing 3-5 adaptive alternative skills and engaging these skills daily to prevent relapse by the 3rd session of IOP MET 11/16/22 Intervention: Therapist will assist patient in identifying triggers based on history of relapse as well as identifying adaptive responses to prevent relapse from occurring again. Goal 2 Problem ID: Mental Health Disorder Goal/Desired Outcome in Patient's Words: lessen my anxiety MET 11/16/22 Goal/Anticipated Treatment Outcome: SENIOR ECOLOGIST will assist patient in access resources for mental and physical health treatment. SENIOR ECOLOGIST will work with patient to develop skills and routine to manage depression. Objective(s): Objective 1: Patient will improve mood (as evidenced by decreasing score on PHQ-9 - total score by 5 points) by participating in 1-3 pleasurable activities per week and share one experience in group each week. MET 11/16/22 Intervention: Therapist will assist patient in identifying activities of interest, normalizing expectations, and assist in scheduling/preparing for these activities. Goal Start Date Target Completion Date Adjusted Target Date Reason for Adjustment or Completion Date 10/16/22 04/17/23 11/16/22 Patient has been discharged and not recommended to [facility] due to office closing, PT denied referral to other locations Service(s) Provided (if group, include name of group) Primary Service Provider Frequency of Service Date Added Service D/C Date Addiction Med IOP BHAVIK Lopez 3x per week for 3 hours 10/16/22 11/16/22 Individual Therapy BHAVIK Lopez once per week 10/16/22 11/16/22 Multi-Family Group [place] [facility] Once per week 10/16/22 11/16/22 Urine Drug Screening BHAVIK Lopez Once per week 10/16/22 11/16/22 Consideration for Discharge: [x] Improve Level of Functioning [x] Decrease Symptoms [] Control/Maintain Symptoms [] Prevent Relapse Review with Patient: [x] Risks and benefits of treatment [x] Patient's right to refuse treatment recommendations [x] Patient understands signature below represents agreement with treatment plan [] Other: (explain) Patient Signature/Date: (Note: Clinician and Attending to sign document electronically) T [facility] 11-15-2022 Note Outpatient [facility] Individual or Family Therapy Progress Note Program: Addiction Medicine Intensive Outpatient Program Session Date: 11/15/22 Start Time: 545pm End Time: 633pm Session Participant(s): Patient only Summary of Session: SENIOR ECOLOGIST discussed options for treatment needs, we agreed to discharge patient tomorrow because of her need for employment. SENIOR ECOLOGIST offered to assist patient in looking for a job but she denied. SENIOR ECOLOGIST also offered to call a sober living facility for her and she denied, information was given to the patient. SENIOR ECOLOGIST used CBT to assist patient in processing decisions for herself and child moving forward. SENIOR ECOLOGIST provided patient with food resources. Therapeutic Intervention: Active listening, Supportive, and Cognitive Behavioral Therapy (CBT) Patient's Response to Intervention: Patient reported she hasn't been getting her food stamps and is struggling to make ends meet. She shared that she wants to be done with IOP so the housing program will allow her to get a job. She also reported that she dint get the full amount for ma assistance this month either and is unable to pay her bills. Pt shared that she is finally okay with not using cannabis anymore but feels someday she will drink alcohol, we reviewed cross addiction material. Mental Status Exam: Appearance: Appropriately dressed and groomed Mood: ambivalent Affect: appropriate and congruent with mood Behavior: Cooperative, Pleasant, Interactive, clear, and appropriate Speech: Appropriate, clear, and normal pace Cognition: Appears intact and Oriented x 4 Thought Process: Goal-directed Thought Content: No evidence of psychosis/delusional thought Progress Towards Goal(s): Moderate Additional Comments: n/a Next Step: Continue with current services Signature [facility] 11-15-2022 History of Presen t illness Narrative Outpatient Behavioral Health Services Individual or Family Therapy Progress Note Program: Addiction Medicine Intensive Outpatient Program Session Date: 11/15/22 Start Time: 545pm End Time: 633pm Session Participant(s): Patient only Summary of Session: SENIOR ECOLOGIST discussed options for treatment needs, we agreed to discharge patient tomorrow because of her need for employment. SENIOR ECOLOGIST offered to assist patient in looking for a job but she denied. SENIOR ECOLOGIST also offered to call a sober living facility for her and she denied, information was given to the patient. SENIOR ECOLOGIST used CBT to assist patient in processing decisions for herself and child moving forward. SENIOR ECOLOGIST provided patient with food resources. Therapeutic Intervention: Active listening, Supportive, and Cognitive Behavioral Therapy (CBT) Patient's Response to Intervention: Patient reported she hasn't been getting her food stamps and is struggling to make ends meet. She shared that she wants to be done with [facility] so the housing program will allow her to get a job. She also reported that she dint get the full amount for ma assistance this month either and is unable to pay her bills. Pt shared that she is finally okay with not using cannabis anymore but feels someday she will drink alcohol, we reviewed cross addiction material. Mental Status Exam: Appearance: Appropriately dressed and groomed Mood: ambivalent Affect: appropriate and congruent with mood Behavior: Cooperative, Pleasant, Interactive, clear, and appropriate Speech: Appropriate, clear, and normal pace Cognition: Appears intact and Oriented x 4 Thought Process: Goal-directed Thought Content: No evidence of psychosis/delusional thought Progress Towards Goal(s): Moderate Additional Comments: n/a Next Step: Continue with current services Signature documented in this encounter [facility] 11-09-2022 Group counseling note Outpatient Behavioral Health Services Intensive Outpatient Program (IOP) Group Therapy - Session 1 Group Name: Intensive Outpatient Program Summary: SENIOR ECOLOGIST allotted time for patients to share recent events and plans for the holiday. Department: CAM Addiction IOP Group Topic: Check-in Group Date: 11/09/2022 Start Time: 5:30 PM End Time: 6:20 PM Number of Participants: 2 Mental Status Exam: Appearance: Appropriately dressed and groomed and Healthy looking Mood: Euphoric Affect: Full, Appropriate, and Congruent with mood Behavior: Pleasant, Cooperative, Engaging, and Interactive Alertness: Alert Speech: Appropriate, Clear, and Normal pace Cognition: Intact and Oriented X4 Thought Process: Goal-directed Thought Content: No evidence of psychosis/delusions Level/Quality of Participation: active, attentive, cooperative, and engaged Interactions with others: gave feedback, supportive, asked thoughtful questions, and offered helpful suggestions Interventions utilized were Empathic listening and Motivational interviewing techniques Patient's Response to Intervention: Patient recent coping skills shes used to help calm her anger. She shared concerns that she is sleeping too much and has had an increased appetite. She shared that she has been struggling to find motivation to use self care skills and coping skills outside if group. She is going to her [employer] for November 14. Progress Towards Goal(s): Moderate Additional Comments: n/a Next Step: Continue with current services Patients Problems: Patient Active Problem List Diagnosis Major depressive disorder, recurrent episode with peripartum onset (HCC) Cannabis use disorder, severe (HCC) Name: Brandy Llanos Date of : 2000 MR: [id number] Neris Mikey [facility] 11-09-2022 Group counseling note Outpatient Behavioral Health Services Intensive Outpatient Program (IOP) Group Therapy - Session 2 Group Name: Intensive Outpatient Program Summary: Patients watched Addiction [address] Valdez. Department: CAM Addiction IOP Group Topic: Cross Addiction Group Date: 11/09/2022 Start Time: 6:30 PM End Time: 7:20 PM Number of Participants: 2 Mental Status Exam: Appearance: Appropriately dressed and groomed and Healthy looking Mood: Euphoric Affect: Full, Appropriate, and Congruent with mood Behavior: Pleasant, Cooperative, Engaging, and Interactive Alertness: Alert Speech: Appropriate, Clear, and Normal pace Cognition: Intact and Oriented X4 Thought Process: Goal-directed Thought Content: No evidence of psychosis/delusions Level/Quality of Participation: active, attentive, cooperative, and engaged Interactions with others: gave feedback, supportive, asked thoughtful questions, and offered helpful suggestions Interventions utilized were Empathic listening and Motivational interviewing techniques Patient's Response to Intervention: Patient was attentive to video and agreed that trauma has a significant effect on addiction later in life. She shared about someone who was able to just quit a substance and not be addicted. Progress Towards Goal(s): Moderate Additional Comments: n/a Next Step: Continue with current services Patients Problems: Patient Active Problem List Diagnosis Major depressive disorder, recurrent episode with peripartum onset (HCC) Cannabis use disorder, severe (HCC) Name: Brandy Llanos Date of : 2000 MR: [id number] Neris Jensen T [facility] 11-09-2022 Group counseling note Outpatient Behavioral Health Services Intensive Outpatient Program (IOP) Group Therapy - Session 3 Group Name: Intensive Outpatient Program Summary: SENIOR ECOLOGIST had patients share content that resonated with them from the video and how they can apply it to their lives. Department: CAM Addiction IOP Group Topic: Cross Addiction Group Date: 11/09/2022 Start Time: 7:30 PM End Time: 8:20 PM Number of Participants: 2 Mental Status Exam: Appearance: Appropriately dressed and groomed and Healthy looking Mood: Euphoric Affect: Full, Appropriate, and Congruent with mood Behavior: Pleasant, Cooperative, Engaging, and Interactive Alertness: Alert Speech: Appropriate, Clear, and Normal pace Cognition: Intact and Oriented X4 Thought Process: Goal-directed Thought Content: No evidence of psychosis/delusions Level/Quality of Participation: active, attentive, cooperative, and engaged Interactions with others: gave feedback, supportive, asked thoughtful questions, and offered helpful suggestions Interventions utilized were Empathic listening and Motivational interviewing techniques Patient's Response to Intervention: She made a benefits or sobriety and cost of addiction list. Patient showed understanding of glutamate remembering triggers, cross addiction and hope. Patient disclosed that she began smoking cannabis at 11 years old and was shocked about how it has effected her brain development and dopamine levels. Progress Towards Goal(s): Moderate Additional Comments: n/a Next Step: Continue with current services Patients Problems: Patient Active Problem List Diagnosis Major depressive disorder, recurrent episode with peripartum onset (HCC) Cannabis use disorder, severe (HCC) Name: Brandy Llanos Date of : 2000 MR: [id number] Neris Mikey T [facility] 11-09-2022 Miscellaneous Notes Outpatient Behavioral Health Services Intensive Outpatient Program (IOP) Group Therapy - Session 1 Group Name: Intensive Outpatient Program Summary: SENIOR ECOLOGIST allotted time for patients to share recent events and plans for the holiday. Department: CAM Addiction IOP Group Topic: Check-in Group Date: 11/09/2022 Start Time: 5:30 PM End Time: 6:20 PM Number of Participants: 2 Mental Status Exam: Appearance: Appropriately dressed and groomed and Healthy looking Mood: Euphoric Affect: Full, Appropriate, and Congruent with mood Behavior: Pleasant, Cooperative, Engaging, and Interactive Alertness: Alert Speech: Appropriate, Clear, and Normal pace Cognition: Intact and Oriented X4 Thought Process: Goal-directed Thought Content: No evidence of psychosis/delusions Level/Quality of Participation: active, attentive, cooperative, and engaged Interactions with others: gave feedback, supportive, asked thoughtful questions, and offered helpful suggestions Interventions utilized were Empathic listening and Motivational interviewing techniques Patient's Response to Intervention: Patient recent coping skills shes used to help calm her anger. She shared concerns that she is sleeping too much and has had an increased appetite. She shared that she has been struggling to find motivation to use self care skills and coping skills outside if group. She is going to her [employer] for November 14. Progress Towards Goal(s): Moderate Additional Comments: n/a Next Step: Continue with current services Patients Problems: Patient Active Problem List Diagnosis Major depressive disorder, recurrent episode with peripartum onset (HCC) Cannabis use disorder, severe (HCC) Name: rBandy Llanos Date of : 2000 MR: [id number] Neris Jensen Outpatient Behavioral Health Services Intensive Outpatient Program (IOP) Group Therapy - Session 2 Group Name: Intensive Outpatient Program Summary: Patients watched Addiction [address] Valdez. Department: CAM Addiction IOP Group Topic: Cross Addiction Group Date: 11/09/2022 Start Time: 6:30 PM End Time: 7:20 PM Number of Participants: 2 Mental Status Exam: Appearance: Appropriately dressed and groomed and Healthy looking Mood: Euphoric Affect: Full, Appropriate, and Congruent with mood Behavior: Pleasant, Cooperative, Engaging, and Interactive Alertness: Alert Speech: Appropriate, Clear, and Normal pace Cognition: Intact and Oriented X4 Thought Process: Goal-directed Thought Content: No evidence of psychosis/delusions Level/Quality of Participation: active, attentive, cooperative, and engaged Interactions with others: gave feedback, supportive, asked thoughtful questions, and offered helpful suggestions Interventions utilized were Empathic listening and Motivational interviewing techniques Patient's Response to Intervention: Patient was attentive to video and agreed that trauma has a significant effect on addiction later in life. She shared about someone who was able to just quit a substance and not be addicted. Progress Towards Goal(s): Moderate Additional Comments: n/a Next Step: Continue with current services Patients Problems: Patient Active Problem List Diagnosis Major depressive disorder, recurrent episode with peripartum onset (HCC) Cannabis use disorder, severe (HCC) Name: Brandy Llanos Date of : 2000 MR: [id number] Neris Jensen Outpatient Behavioral Health Services Intensive Outpatient Program (IOP) Group Therapy - Session 3 Group Name: Intensive Outpatient Program Summary: SENIOR ECOLOGIST had patients share content that resonated with them from the video and how they can apply it to their lives. Department: CAM Addiction IOP Group Topic: Cross Addiction Group Date: 11/09/2022 Start Time: 7:30 PM End Time: 8:20 PM Number of Participants: 2 Mental Status Exam: Appearance: Appropriately dressed and groomed and Healthy looking Mood: Euphoric Affect: Full, Appropriate, and Congruent with mood Behavior: Pleasant, Cooperative, Engaging, and Interactive Alertness: Alert Speech: Appropriate, Clear, and Normal pace Cognition: Intact and Oriented X4 Thought Process: Goal-directed Thought Content: No evidence of psychosis/delusions Level/Quality of Participation: active, attentive, cooperative, and engaged Interactions with others: gave feedback, supportive, asked thoughtful questions, and offered helpful suggestions Interventions utilized were Empathic listening and Motivational interviewing techniques Patient's Response to Intervention: She made a benefits or sobriety and cost of addiction list. Patient showed understanding of glutamate remembering triggers, cross addiction and hope. Patient disclosed that she began smoking cannabis at 11 years old and was shocked about how it has effected her brain development and dopamine levels. Progress Towards Goal(s): Moderate Additional Comments: n/a Next Step: Continue with current services Patients Problems: Patient Active Problem List Diagnosis Major depressive disorder, recurrent episode with peripartum onset (HCC) Cannabis use disorder, severe (HCC) Name: Brandy Llanos Date of : 2000 MR: [id number] Neris Jensen documented in this encounter [facility] 11-07-2022 Miscellaneous Notes Outpatient Behavioral Health Services Breathalyzer and/or Urine Drug Screen Results Date Results Shared with Patient: 11/07/22 Time: 530pm Date of UDS Specimen Collection or Breathalyzer: 11/06/22 Test Result(s) Shared with Patient: [x] Urine Drug Screen [] Breathalyzer Rationale for the Breathalyzer/UDS (please check all that apply): Monitoring Sobriety/Level of Use: Treatment Compliance: Behavioral Indicators: [] History of relapse [] Confirm MAT Compliance [] Observed change in level of functioning [] Reported Relapse [] Accountability/Random Screen [] Concerns with living/recovery environment [] Previous positive screen [] Recent Absences [] Suspicion of active use by patient [x] Confirmation of Sobriety [] Lack of Program Compliance [] Patient Request [] Other (identify): Results shared with patient: [x] Negative UDS Results [] Negative Confirmation Test Results [] Positive UDS Result for: [] Positive Confirmation Test Result(s) for: [] Breathalyzer Result: Patient Response to Test Result(s): appropriate Plan/Intervention Based on Test Results: [] Increase frequency of testing [] Linkage/referral for additional services [] Consideration for higher level of care [] Additional Information/education [] Consider change in treatment milieu [] Consideration for lower level of care [] Referral to MAT [] Skill development/reinforcement [] Request Confirmation Test [x] Retest (note timeframe below) [] Other (identify): Description of Plan/Intervention: Next week Patient's Response to Plan/Intervention:agreed documented in this encounter [facility] 11-07-2022 Note Formatting of this n ote might be different from the original. [facility] Breathalyzer and/or Urine Drug Screen Results Date Results Shared with Patient: 11/07/22 Time: 530pm Date of UDS Specimen Collection or Breathalyzer: 11/06/22 Test Result(s) Shared with Patient: [x] Urine Drug Screen [] Breathalyzer Rationale for the Breathalyzer/UDS (please check all that apply): Monitoring Sobriety/Level of Use: Treatment Compliance: Behavioral Indicators: [] History of relapse [] Confirm MAT Compliance [] Observed change in level of functioning [] Reported Relapse [] Accountability/Random Screen [] Concerns with living/recovery environment [] Previous positive screen [] Recent Absences [] Suspicion of active use by patient [x] Confirmation of Sobriety [] Lack of Program Compliance [] Patient Request [] Other (identify): Results shared with patient: [x] Negative UDS Results [] Negative Confirmation Test Results [] Positive UDS Result for: [] Positive Confirmation Test Result(s) for: [] Breathalyzer Result: Patient Response to Test Result(s): appropriate Plan/Intervention Based on Test Results: [] Increase frequency of testing [] Linkage/referral for additional services [] Consideration for higher level of care [] Additional Information/education [] Consider change in treatment milieu [] Consideration for lower level of care [] Referral to MAT [] Skill development/reinforcement [] Request Confirmation Test [x] Retest (note timeframe below) [] Other (identify): Description of Plan/Intervention: Next week Patient's Response to Plan/Intervention:agreed T [facility] 11-02-2022 Group counseling note [facility] Intensive Outpatient Program (IOP) Group Therapy - Session 1 Group Name: Intensive Outpatient Program Summary: Patients learned about the AA/NA meetings. Topics discussed include how to get a sponsor, how to find good meetings, being selfish with your recovery, fear about going to meetings and getting sober support. Department: [facility] Topic: Recovery Basics Group Date: 11/02/2022 Start Time: 5:30 PM End Time: 6:20 PM Number of Participants: 4 Mental Status Exam: Appearance: Appropriately dressed and groomed and Healthy looking Mood: Depressed and irritable Affect: Congruent with mood Behavior: Cooperative Alertness: Drowsy Speech: Appropriate, Clear, and Normal pace Cognition: Intact and Oriented X4 Thought Process: Goal-directed Thought Content: No evidence of psychosis/delusions Level/Quality of Participation: active, attentive, and cooperative Interactions with others: minimal Interventions utilized were Empathic listening, Modeling/skills training, and Motivational interviewing techniques Patient's Response to Intervention: Patient was attentive to content. Progress Towards Goal(s): Moderate Additional Comments: n/a Next Step: Continue with current services Patients Problems: Patient Active Problem List Diagnosis Major depressive disorder, recurrent episode with peripartum onset (HCC) Cannabis use disorder, severe (HCC) Name: Brandy Llanos Date of : 2000 MR: [id number] Neris Jensen [facility] 11-02-2022 Group counseling note [facility] Intensive Outpatient Program (IOP) Group Therapy - Session 2 Group Name: Intensive Outpatient Program Summary: Patients learned about the AA/NA meetings. Topics discussed include how to get a sponsor, how to find good meetings, being selfish with your recovery, fear about going to meetings and getting sober support. Department: [facility] Topic: Recovery Basics Group Date: 11/02/2022 Start Time: 6:30 PM End Time: 7:20 PM Number of Participants: 4 Mental Status Exam: Appearance: Appropriately dressed and groomed and Healthy looking Mood: Depressed and irritable Affect: Congruent with mood Behavior: Cooperative Alertness: Drowsy Speech: Appropriate, Clear, and Normal pace Cognition: Intact and Oriented X4 Thought Process: Goal-directed Thought Content: No evidence of psychosis/delusions Level/Quality of Participation: active, attentive, and cooperative Interactions with others: minimal Interventions utilized were Empathic listening, Modeling/skills training, and Motivational interviewing techniques Patient's Response to Intervention: Patient was attentive to content and engaged in discussion about kids at meetings. She shared that she attends yarsanism weekly. Progress Towards Goal(s): Moderate Additional Comments: patient isolated herself from peers during breaks. Next Step: Continue with current services Patients Problems: Patient Active Problem List Diagnosis Major depressive disorder, recurrent episode with peripartum onset (HCC) Cannabis use disorder, severe (HCC) Name: Brandy Llanos Date of : 2000 MR: [id number] Neris Jensen [facility] 11-02-2022 Group counseling note [facility] Intensive Outpatient Program (IOP) Group Therapy - Session 3 Group Name: Intensive Outpatient Program Summary: Patients learned about the AA/NA meetings. Topics discussed include how to get a sponsor, how to find good meetings, being selfish with your recovery, fear about going to meetings and getting sober support. Department: [facility] Topic: Recovery Basics Group Date: 11/02/2022 Start Time: 7:30 PM End Time: 8:20 PM Number of Participants: 4 Mental Status Exam: Appearance: Appropriately dressed and groomed and Healthy looking Mood: Depressed and irritable Affect: Congruent with mood Behavior: Cooperative Alertness: Drowsy Speech: Appropriate, Clear, and Normal pace Cognition: Intact and Oriented X4 Thought Process: Goal-directed Thought Content: No evidence of psychosis/delusions Level/Quality of Participation: active, attentive, and cooperative Interactions with others: minimal Interventions utilized were Empathic listening, Modeling/skills training, and Motivational interviewing techniques Patient's Response to Intervention: Patient shared that recovery is weird, she was resistant to attend meetings or find sober support. Progress Towards Goal(s): Minimal Additional Comments: n/a Next Step: Continue with current services Patients Problems: Patient Active Problem List Diagnosis Major depressive disorder, recurrent episode with peripartum onset (HCC) Cannabis use disorder, severe (HCC) Name: Brandy Llanos Date of : 2000 MR: [id number] Neris Jensen [facility] 11-02-2022 Miscellaneous Notes [facility] Intensive Outpatient Program (IOP) Group Therapy - Session 1 Group Name: Intensive Outpatient Program Summary: Patients learned about the AA/NA meetings. Topics discussed include how to get a sponsor, how to find good meetings, being selfish with your recovery, fear about going to meetings and getting sober support. Department: [facility] Topic: Recovery Basics Group Date: 11/02/2022 Start Time: 5:30 PM End Time: 6:20 PM Number of Participants: 4 Mental Status Exam: Appearance: Appropriately dressed and groomed and Healthy looking Mood: Depressed and irritable Affect: Congruent with mood Behavior: Cooperative Alertness: Drowsy Speech: Appropriate, Clear, and Normal pace Cognition: Intact and Oriented X4 Thought Process: Goal-directed Thought Content: No evidence of psychosis/delusions Level/Quality of Participation: active, attentive, and cooperative Interactions with others: minimal Interventions utilized were Empathic listening, Modeling/skills training, and Motivational interviewing techniques Patient's Response to Intervention: Patient was attentive to content. Progress Towards Goal(s): Moderate Additional Comments: n/a Next Step: Continue with current services Patients Problems: Patient Active Problem List Diagnosis Major depressive disorder, recurrent episode with peripartum onset (HCC) Cannabis use disorder, severe (HCC) Name: Brandy Llanos Date of : 2000 MR: [id number] Neris Jensen [facility] Intensive Outpatient Program (IOP) Group Therapy - Session 2 Group Name: Intensive Outpatient Program Summary: Patients learned about the AA/NA meetings. Topics discussed include how to get a sponsor, how to find good meetings, being selfish with your recovery, fear about going to meetings and getting sober support. Department: [facility] Topic: Recovery Basics Group Date: 11/02/2022 Start Time: 6:30 PM End Time: 7:20 PM Number of Participants: 4 Mental Status Exam: Appearance: Appropriately dressed and groomed and Healthy looking Mood: Depressed and irritable Affect: Congruent with mood Behavior: Cooperative Alertness: Drowsy Speech: Appropriate, Clear, and Normal pace Cognition: Intact and Oriented X4 Thought Process: Goal-directed Thought Content: No evidence of psychosis/delusions Level/Quality of Participation: active, attentive, and cooperative Interactions with others: minimal Interventions utilized were Empathic listening, Modeling/skills training, and Motivational interviewing techniques Patient's Response to Intervention: Patient was attentive to content and engaged in discussion about kids at meetings. She shared that she attends yarsanism weekly. Progress Towards Goal(s): Moderate Additional Comments: patient isolated herself from peers during breaks. Next Step: Continue with current services Patients Problems: Patient Active Problem List Diagnosis Major depressive disorder, recurrent episode with peripartum onset (HCC) Cannabis use disorder, severe (HCC) Name: Brandy Llanos Date of : 2000 MR: [id number] Neris Mikey [facility] Intensive Outpatient Program (IOP) Group Therapy - Session 3 Group Name: Intensive Outpatient Program Summary: Patients learned about the AA/NA meetings. Topics discussed include how to get a sponsor, how to find good meetings, being selfish with your recovery, fear about going to meetings and getting sober support. Department: [facility] Topic: Recovery Basics Group Date: 11/02/2022 Start Time: 7:30 PM End Time: 8:20 PM Number of Participants: 4 Mental Status Exam: Appearance: Appropriately dressed and groomed and Healthy looking Mood: Depressed and irritable Affect: Congruent with mood Behavior: Cooperative Alertness: Drowsy Speech: Appropriate, Clear, and Normal pace Cognition: Intact and Oriented X4 Thought Process: Goal-directed Thought Content: No evidence of psychosis/delusions Level/Quality of Participation: active, attentive, and cooperative Interactions with others: minimal Interventions utilized were Empathic listening, Modeling/skills training, and Motivational interviewing techniques Patient's Response to Intervention: Patient shared that recovery is weird, she was resistant to attend meetings or find sober support. Progress Towards Goal(s): Minimal Additional Comments: n/a Next Step: Continue with current services Patients Problems: Patient Active Problem List Diagnosis Major depressive disorder, recurrent episode with peripartum onset (HCC) Cannabis use disorder, severe (HCC) Name: Brandy Llanos Date of : 2000 MR: [id number] Neris Jensen documented in this encounter [facility] 10-31-2022 Group counseling note [facility] Intensive Outpatient Program (IOP) Group Therapy - Session 1 Group Name: Intensive Outpatient Program Summary: SENIOR ECOLOGIST checked in with patients on SMART goals, self care practices and recovery related events. Department: [facility] Topic: Check-in Group Date: 10/31/2022 Start Time: 5:30 PM End Time: 6:20 PM Number of Participants: 6 Mental Status Exam: Appearance: Appropriately dressed and groomed and Healthy looking Mood: Content Affect: Appropriate and Congruent with mood Behavior: Pleasant, Cooperative, Engaging, and Interactive Alertness: Alert Speech: Appropriate, Clear, and Normal pace Cognition: Intact and Oriented X4 Thought Process: Goal-directed Thought Content: No evidence of psychosis/delusions Level/Quality of Participation: active, attentive, cooperative, engaged, and supportive Interactions with others: gave feedback, supportive, asked thoughtful questions, and offered helpful suggestions Interventions utilized were Empathic listening and Cognitive Behavioral Therapy (CBT) Patient's Response to Intervention: Patient shared frustration about program expectations and behavior of staff. Peers were supportive an validated her feelings. 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 Patient became angry but was able to calm herself. Next Step: Continue with current services Patients Problems: Patient Active Problem List Diagnosis Major depressive disorder, recurrent episode with peripartum onset (HCC) Cannabis use disorder, severe (HCC) Name: Brandy Llanos Date of : 2000 MR: [id number] Neris Jensen [facility] 10-31-2022 Group counseling note [facility] Intensive Outpatient Program (IOP) Group Therapy - Session 2 Group Name: Intensive Outpatient Program Summary: SENIOR ECOLOGIST provided education on grounding techniques and had patients practice them. Department: [facility] Topic: Emotional Regulation Skill Group Date: 10/31/2022 Start Time: 6:30 PM End Time: 7:20 PM Number of Participants: 6 Mental Status Exam: Appearance: Appropriately dressed and groomed and Healthy looking Mood: content Affect: Appropriate and Congruent with mood Behavior: Pleasant, Cooperative, Engaging, and Interactive Alertness: Alert Speech: Appropriate, Clear, and Normal pace Cognition: Intact and Oriented X4 Thought Process: Goal-directed Thought Content: No evidence of psychosis/delusions Level/Quality of Participation: active, attentive, cooperative, and engaged Interactions with others: gave feedback, supportive, asked thoughtful questions, and offered helpful suggestions Interventions utilized were Empathic listening, Psychoeducation, and Modeling/skills training Patient's Response to Intervention: Patient shared special items for each sense to help with grounding. Patient shared happy place and practiced journalling. Progress Towards Goal(s): Moderate Additional Comments: n/a Next Step: Continue with current services Patients Problems: Patient Active Problem List Diagnosis Major depressive disorder, recurrent episode with peripartum onset (HCC) Cannabis use disorder, severe (HCC) Name: Brandy Llanos Date of : 2000 MR: [id number] Neris Mikey [facility] 10-31-2022 Group counseling note [facility] Intensive Outpatient Program (IOP) Group Therapy - Session 3 Group Name: Intensive Outpatient Program Summary: SENIOR ECOLOGIST provided education on breathing techniques and meditation. Patients engaged in practicing these skills. Department: [facility] Group Topic: Emotional Regulation Skill Group Date: 10/31/2022 Start Time: 7:30 PM End Time: 8:20 PM Number of Participants: 6 Mental Status Exam: Appearance: Appropriately dressed and groomed and Healthy looking Mood: content Affect: Appropriate and Congruent with mood Behavior: Pleasant, Cooperative, Engaging, and Interactive Alertness: Alert Speech: Appropriate, Clear, and Normal pace Cognition: Intact and Oriented X4 Thought Process: Goal-directed Thought Content: No evidence of psychosis/delusions Level/Quality of Participation: active, attentive, cooperative, and engaged Interactions with others: gave feedback, supportive, asked thoughtful questions, and offered helpful suggestions Interventions utilized were Empathic listening, Psychoeducation, and Modeling/skills training Patient's Response to Intervention: Patient was engaged in meditation practice. She shared that it made her tired so she may start practicing it before bed to help her sleep. Progress Towards Goal(s): Moderate Additional Comments: n/a Next Step: Continue with current services Patients Problems: Patient Active Problem List Diagnosis Major depressive disorder, recurrent episode with peripartum onset (HCC) Cannabis use disorder, severe (HCC) Name: Brandy Llanos Date of : 2000 MR: [id number] Neris Jensen [facility] 10-31-2022 Miscellaneous Notes [facility] Breathalyzer and/or Urine Drug Screen Results Date Results Shared with Patient: 10/31/22 Time: 530 Date of UDS Specimen Collection or Breathalyzer: 10/31/22 Test Result(s) Shared with Patient: [x] Urine Drug Screen [] Breathalyzer Rationale for the Breathalyzer/UDS (please check all that apply): Monitoring Sobriety/Level of Use: Treatment Compliance: Behavioral Indicators: [] History of relapse [] Confirm MAT Compliance [] Observed change in level of functioning [] Reported Relapse [] Accountability/Random Screen [] Concerns with living/recovery environment [] Previous positive screen [] Recent Absences [] Suspicion of active use by patient [x] Confirmation of Sobriety [] Lack of Program Compliance [] Patient Request [] Other (identify): Results shared with patient: [x] Negative UDS Results [] Negative Confirmation Test Results [] Positive UDS Result for: [] Positive Confirmation Test Result(s) for: [] Breathalyzer Result: Patient Response to Test Result(s): appropriate Plan/Intervention Based on Test Results: [] Increase frequency of testing [] Linkage/referral for additional services [] Consideration for higher level of care [] Additional Information/education [] Consider change in treatment milieu [] Consideration for lower level of care [] Referral to MAT [] Skill development/reinforcement [] Request Confirmation Test [] Retest (note timeframe below) [x] Other (identify): Continue to test weekly Description of Plan/Intervention: continue to test weekly Patient's Response to Plan/Intervention:agreed [facility] Intensive Outpatient Program (IOP) Group Therapy - Session 1 Group Name: Intensive Outpatient Program Summary: SENIOR ECOLOGIST checked in with patients on SMART goals, self care practices and recovery related events. Department: [facility] Topic: Check-in Group Date: 10/31/2022 Start Time: 5:30 PM End Time: 6:20 PM Number of Participants: 6 Mental Status Exam: Appearance: Appropriately dressed and groomed and Healthy looking Mood: Content Affect: Appropriate and Congruent with mood Behavior: Pleasant, Cooperative, Engaging, and Interactive Alertness: Alert Speech: Appropriate, Clear, and Normal pace Cognition: Intact and Oriented X4 Thought Process: Goal-directed Thought Content: No evidence of psychosis/delusions Level/Quality of Participation: active, attentive, cooperative, engaged, and supportive Interactions with others: gave feedback, supportive, asked thoughtful questions, and offered helpful suggestions Interventions utilized were Empathic listening and Cognitive Behavioral Therapy (CBT) Patient's Response to Intervention: Patient shared frustration about program expectations and behavior of staff. Peers were supportive an validated her feelings. 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 Patient became angry but was able to calm herself. Next Step: Continue with current services Patients Problems: Patient Active Problem List Diagnosis Major depressive disorder, recurrent episode with peripartum onset (HCC) Cannabis use disorder, severe (HCC) Name: Brandy Llanos Date of : 2000 MR: [id number] Neris Jensen [facility] Intensive Outpatient Program (IOP) Group Therapy - Session 2 Group Name: Intensive Outpatient Program Summary: SENIOR ECOLOGIST provided education on grounding techniques and had patients practice them. Department: [facility] Group Topic: Emotional Regulation Skill Group Date: 10/31/2022 Start Time: 6:30 PM End Time: 7:20 PM Number of Participants: 6 Mental Status Exam: Appearance: Appropriately dressed and groomed and Healthy looking Mood: content Affect: Appropriate and Congruent with mood Behavior: Pleasant, Cooperative, Engaging, and Interactive Alertness: Alert Speech: Appropriate, Clear, and Normal pace Cognition: Intact and Oriented X4 Thought Process: Goal-directed Thought Content: No evidence of psychosis/delusions Level/Quality of Participation: active, attentive, cooperative, and engaged Interactions with others: gave feedback, supportive, asked thoughtful questions, and offered helpful suggestions Interventions utilized were Empathic listening, Psychoeducation, and Modeling/skills training Patient's Response to Intervention: Patient shared special items for each sense to help with grounding. Patient shared happy place and practiced journalling. Progress Towards Goal(s): Moderate Additional Comments: n/a Next Step: Continue with current services Patients Problems: Patient Active Problem List Diagnosis Major depressive disorder, recurrent episode with peripartum onset (HCC) Cannabis use disorder, severe (HCC) Name: Brandy Llanos Date of : 2000 MR: [id number] Neris Jensen [facility] Intensive Outpatient Program (IOP) Group Therapy - Session 3 Group Name: Intensive Outpatient Program Summary: SENIOR ECOLOGIST provided education on breathing techniques and meditation. Patients engaged in practicing these skills. Department: [facility] Topic: Emotional Regulation Skill Group Date: 10/31/2022 Start Time: 7:30 PM End Time: 8:20 PM Number of Participants: 6 Mental Status Exam: Appearance: Appropriately dressed and groomed and Healthy looking Mood: content Affect: Appropriate and Congruent with mood Behavior: Pleasant, Cooperative, Engaging, and Interactive Alertness: Alert Speech: Appropriate, Clear, and Normal pace Cognition: Intact and Oriented X4 Thought Process: Goal-directed Thought Content: No evidence of psychosis/delusions Level/Quality of Participation: active, attentive, cooperative, and engaged Interactions with others: gave feedback, supportive, asked thoughtful questions, and offered helpful suggestions Interventions utilized were Empathic listening, Psychoeducation, and Modeling/skills training Patient's Response to Intervention: Patient was engaged in meditation practice. She shared that it made her tired so she may start practicing it before bed to help her sleep. Progress Towards Goal(s): Moderate Additional Comments: n/a Next Step: Continue with current services Patients Problems: Patient Active Problem List Diagnosis Major depressive disorder, recurrent episode with peripartum onset (HCC) Cannabis use disorder, severe (HCC) Name: Brandy Llanos Date of : 2000 MR: [id number] Neris Jensen documented in this encounter [facility] 10-31-2022 Note Formatting of this n ote might be different from the original. [facility] Breathalyzer and/or Urine Drug Screen Results Date Results Shared with Patient: 10/31/22 Time: 530 Date of UDS Specimen Collection or Breathalyzer: 10/31/22 Test Result(s) Shared with Patient: [x] Urine Drug Screen [] Breathalyzer Rationale for the Breathalyzer/UDS (please check all that apply): Monitoring Sobriety/Level of Use: Treatment Compliance: Behavioral Indicators: [] History of relapse [] Confirm MAT Compliance [] Observed change in level of functioning [] Reported Relapse [] Accountability/Random Screen [] Concerns with living/recovery environment [] Previous positive screen [] Recent Absences [] Suspicion of active use by patient [x] Confirmation of Sobriety [] Lack of Program Compliance [] Patient Request [] Other (identify): Results shared with patient: [x] Negative UDS Results [] Negative Confirmation Test Results [] Positive UDS Result for: [] Positive Confirmation Test Result(s) for: [] Breathalyzer Result: Patient Response to Test Result(s): appropriate Plan/Intervention Based on Test Results: [] Increase frequency of testing [] Linkage/referral for additional services [] Consideration for higher level of care [] Additional Information/education [] Consider change in treatment milieu [] Consideration for lower level of care [] Referral to MAT [] Skill development/reinforcement [] Request Confirmation Test [] Retest (note timeframe below) [x] Other (identify): Continue to test weekly Description of Plan/Intervention: continue to test weekly Patient's Response to Plan/Intervention:agreed [facility] 10-31-2022 Note UDS results shared v ia email for last two test to referral source. [facility] 10-31-2022 History of Presen t illness Narrative UDS results shared via email for last two test to referral source. documented in this encounter [facility] 10-30-2022 Miscellaneous Notes [facility]patient [facility] Breathalyzer and/or Urine Drug Screen Results Date Results Shared with Patient: 10/30/22 Time: 530 Date of UDS Specimen Collection or Breathalyzer: 10/24/22 Test Result(s) Shared with Patient: [x] Urine Drug Screen [] Breathalyzer Rationale for the Breathalyzer/UDS (please check all that apply): Monitoring Sobriety/Level of Use: Treatment Compliance: Behavioral Indicators: [] History of relapse [] Confirm MAT Compliance [] Observed change in level of functioning [] Reported Relapse [] Accountability/Random Screen [] Concerns with living/recovery environment [] Previous positive screen [] Recent Absences [] Suspicion of active use by patient [x] Confirmation of Sobriety [] Lack of Program Compliance [] Patient Request [] Other (identify): Results shared with patient: [] Negative UDS Results [] Negative Confirmation Test Results [x] Positive UDS Result for: THC [] Positive Confirmation Test Result(s) for: [] Breathalyzer Result: Patient Response to Test Result(s): good, happy that levels are decreasing. Plan/Intervention Based on Test Results: [] Increase frequency of testing [] Linkage/referral for additional services [] Consideration for higher level of care [] Additional Information/education [] Consider change in treatment milieu [] Consideration for lower level of care [] Referral to MAT [] Skill development/reinforcement [] Request Confirmation Test [] Retest (note timeframe below) [x] Other (identify): Continue to test for decreasing levels. Description of Plan/Intervention: test weekly to confirm ongoing sobriety. Patient's Response to Plan/Intervention: Agreed documented in this encounter [facility] 10-30-2022 Note Formatting of this n ote might be different from the original. [facility] Breathalyzer and/or Urine Drug Screen Results Date Results Shared with Patient: 10/30/22 Time: 530 Date of UDS Specimen Collection or Breathalyzer: 10/24/22 Test Result(s) Shared with Patient: [x] Urine Drug Screen [] Breathalyzer Rationale for the Breathalyzer/UDS (please check all that apply): Monitoring Sobriety/Level of Use: Treatment Compliance: Behavioral Indicators: [] History of relapse [] Confirm MAT Compliance [] Observed change in level of functioning [] Reported Relapse [] Accountability/Random Screen [] Concerns with living/recovery environment [] Previous positive screen [] Recent Absences [] Suspicion of active use by patient [x] Confirmation of Sobriety [] Lack of Program Compliance [] Patient Request [] Other (identify): Results shared with patient: [] Negative UDS Results [] Negative Confirmation Test Results [x] Positive UDS Result for: THC [] Positive Confirmation Test Result(s) for: [] Breathalyzer Result: Patient Response to Test Result(s): good, happy that levels are decreasing. Plan/Intervention Based on Test Results: [] Increase frequency of testing [] Linkage/referral for additional services [] Consideration for higher level of care [] Additional Information/education [] Consider change in treatment milieu [] Consideration for lower level of care [] Referral to MAT [] Skill development/reinforcement [] Request Confirmation Test [] Retest (note timeframe below) [x] Other (identify): Continue to test for decreasing levels. Description of Plan/Intervention: test weekly to confirm ongoing sobriety. Patient's Response to Plan/Intervention: Agreed [employer] [email or web address] 10-30-2022 Note Formatting of this n ote might be different from the original. [facility] Breathalyzer and/or Urine Drug Screen Results Date Results Shared with Patient: 10/30/22 Time: 530 Date of UDS Specimen Collection or Breathalyzer: 10/24/22 Test Result(s) Shared with Patient: [x] Urine Drug Screen [] Breathalyzer Rationale for the Breathalyzer/UDS (please check all that apply): Monitoring Sobriety/Level of Use: Treatment Compliance: Behavioral Indicators: [] History of relapse [] Confirm MAT Compliance [] Observed change in level of functioning [] Reported Relapse [] Accountability/Random Screen [] Concerns with living/recovery environment [] Previous positive screen [] Recent Absences [] Suspicion of active use by patient [x] Confirmation of Sobriety [] Lack of Program Compliance [] Patient Request [] Other (identify): Results shared with patient: [] Negative UDS Results [] Negative Confirmation Test Results [x] Positive UDS Result for: THC [] Positive Confirmation Test Result(s) for: [] Breathalyzer Result: Patient Response to Test Result(s): good, happy that levels are decreasing. Plan/Intervention Based on Test Results: [] Increase frequency of testing [] Linkage/referral for additional services [] Consideration for higher level of care [] Additional Information/education [] Consider change in treatment milieu [] Consideration for lower level of care [] Referral to MAT [] Skill development/reinforcement [] Request Confirmation Test [] Retest (note timeframe below) [x] Other (identify): Continue to test for decreasing levels. Description of Plan/Intervention: test weekly to confirm ongoing sobriety. Patient's Response to Plan/Intervention: Agreed T [employer] [email or web address] 10-26-2022 Group counseling note [facility] Intensive Outpatient Program (IOP) Group Therapy - Session 1 Group Name: Intensive Outpatient Program Summary: Check in and introductions. Department: [facility] IOP Group Topic: Check-in Group Date: 10/26/2022 Start Time: 5:30 PM End Time: 6:20 PM Number of Participants: 5 Mental Status Exam: Appearance: Appropriately dressed and groomed and Healthy looking Mood: Content Affect: Appropriate Behavior: Pleasant, Cooperative, Engaging, and Interactive Alertness: Alert Speech: Appropriate, Clear, and Normal pace Cognition: Intact and Oriented X4 Thought Process: Goal-directed Thought Content: No evidence of psychosis/delusions Level/Quality of Participation: active, attentive, cooperative, and engaged Interactions with others: gave feedback, supportive, asked thoughtful questions, and offered helpful suggestions Interventions utilized were Building rapport and engagement, Empathic listening, and Modeling/skills training Patient's Response to Intervention: Pt shared that she is learning that her addiction is more than just a substance and she is feeling challenged by the lifestyle changes she needs to make. She is trying to obtain ma assistance and feels frustrated with her housing program still. Pt is still hesitant to share about herself and behaviors. Progress Towards Goal(s): Moderate Additional Comments: n/a Next Step: Continue with current services Patients Problems: Patient Active Problem List Diagnosis Major depressive disorder, recurrent episode with peripartum onset (HCC) Cannabis use disorder, severe (HCC) Name: Brandy Llanos Date of : 2000 MR: [id number] Neris Jnesen [facility] 10-26-2022 Group counseling note [facility] Intensive Outpatient Program (IOP) Group Therapy - Session 2 Group Name: Intensive Outpatient Program Summary: SENIOR ECOLOGIST had patients discuss and work through concepts involving Step Two of AA/NA. Department: [facility] IOP Group Topic: Recovery Basics Group Date: 10/26/2022 Start Time: 6:30 PM End Time: 7:20 PM Number of Participants: 4 Mental Status Exam: Appearance: Appropriately dressed and groomed and Healthy looking Mood: Content Affect: Appropriate Behavior: Pleasant, Cooperative, Engaging, and Interactive Alertness: Alert Speech: Appropriate, Clear, and Normal pace Cognition: Intact and Oriented X4 Thought Process: Goal-directed Thought Content: No evidence of psychosis/delusions Level/Quality of Participation: active, attentive, cooperative, and engaged Interactions with others: gave feedback, supportive, asked thoughtful questions, and offered helpful suggestions Interventions utilized were Building rapport and engagement, Empathic listening, psychoeducation and Modeling/skills training Patient's Response to Intervention: Pt was curious about steps and sponsors. She sahred that her high power is the universe because she fears lack of understanding when it comes to the bible. She knows that she cant rely just on her self to stay sober anymore. She knows that if she keeps doing illegal activities she wont meet her goals. Progress Towards Goal(s): Moderate Additional Comments: n/a Next Step: Continue with current services Patients Problems: Patient Active Problem List Diagnosis Major depressive disorder, recurrent episode with peripartum onset (HCC) Cannabis use disorder, severe (HCC) Name: Brandy Llanos Date of : 2000 MR: [id number] Neris Mikey T [facility] 10-26-2022 Group counseling note [facility] Intensive Outpatient Program (IOP) Group Therapy - Session 3 Group Name: Intensive Outpatient Program Summary: Continued to discuss Step Two.Patients then worked on building a SMART goal and vision board. Department: [facility] IOP Group Topic: Recovery Basics Group Date: 10/26/2022 Start Time: 7:30 PM End Time: 8:20 PM Number of Participants: 4 Mental Status Exam: Appearance: Appropriately dressed and groomed and Healthy looking Mood: content Affect: Appropriate and Congruent with mood Behavior: Pleasant, Cooperative, and Engaging Alertness: Alert Speech: Appropriate, Clear, and Normal pace Cognition: Intact and Oriented X4 Thought Process: Goal-directed Thought Content: No evidence of psychosis/delusions Level/Quality of Participation: active, attentive, cooperative, and engaged Interactions with others: gave feedback, supportive, asked thoughtful questions, and offered helpful suggestions Interventions utilized were Building rapport and engagement, Empathic listening, Psychoeducation, and Modeling/skills training Patient's Response to Intervention: Pts goal is invest in herself once a week by doing her makeup and hair. Making it second nature by 01/2023. Progress Towards Goal(s): Moderate Additional Comments: n/a Next Step: Continue with current services Patients Problems: Patient Active Problem List Diagnosis Major depressive disorder, recurrent episode with peripartum onset (HCC) Cannabis use disorder, severe (HCC) Name: Brandy Llanos Date of : 2000 MR: [id number] Neris Jensen [facility] 10-26-2022 Miscellaneous Notes [facility] Intensive Outpatient Program (IOP) Group Therapy - Session 1 Group Name: Intensive Outpatient Program Summary: Check in and introductions. Department: [facility] Topic: Check-in Group Date: 10/26/2022 Start Time: 5:30 PM End Time: 6:20 PM Number of Participants: 5 Mental Status Exam: Appearance: Appropriately dressed and groomed and Healthy looking Mood: Content Affect: Appropriate Behavior: Pleasant, Cooperative, Engaging, and Interactive Alertness: Alert Speech: Appropriate, Clear, and Normal pace Cognition: Intact and Oriented X4 Thought Process: Goal-directed Thought Content: No evidence of psychosis/delusions Level/Quality of Participation: active, attentive, cooperative, and engaged Interactions with others: gave feedback, supportive, asked thoughtful questions, and offered helpful suggestions Interventions utilized were Building rapport and engagement, Empathic listening, and Modeling/skills training Patient's Response to Intervention: Pt shared that she is learning that her addiction is more than just a substance and she is feeling challenged by the lifestyle changes she needs to make. She is trying to obtain ma assistance and feels frustrated with her housing program still. Pt is still hesitant to share about herself and behaviors. Progress Towards Goal(s): Moderate Additional Comments: n/a Next Step: Continue with current services Patients Problems: Patient Active Problem List Diagnosis Major depressive disorder, recurrent episode with peripartum onset (HCC) Cannabis use disorder, severe (HCC) Name: Brandy Llanos Date of : 2000 MR: [id number] Neris Jensen [facility] Intensive Outpatient Program (IOP) Group Therapy - Session 2 Group Name: Intensive Outpatient Program Summary: SENIOR ECOLOGIST had patients discuss and work through concepts involving Step Two of AA/NA. Department: [facility] IOP [facility] Topic: Recovery Basics Group Date: 10/26/2022 Start Time: 6:30 PM End Time: 7:20 PM Number of Participants: 4 Mental Status Exam: Appearance: Appropriately dressed and groomed and Healthy looking Mood: Content Affect: Appropriate Behavior: Pleasant, Cooperative, Engaging, and Interactive Alertness: Alert Speech: Appropriate, Clear, and Normal pace Cognition: Intact and Oriented X4 Thought Process: Goal-directed Thought Content: No evidence of psychosis/delusions Level/Quality of Participation: active, attentive, cooperative, and engaged Interactions with others: gave feedback, supportive, asked thoughtful questions, and offered helpful suggestions Interventions utilized were Building rapport and engagement, Empathic listening, psychoeducation and Modeling/skills training Patient's Response to Intervention: Pt was curious about steps and sponsors. She sahred that her high power is the universe because she fears lack of understanding when it comes to the bible. She knows that she cant rely just on her self to stay sober anymore. She knows that if she keeps doing illegal activities she wont meet her goals. Progress Towards Goal(s): Moderate Additional Comments: n/a Next Step: Continue with current services Patients Problems: Patient Active Problem List Diagnosis Major depressive disorder, recurrent episode with peripartum onset (HCC) Cannabis use disorder, severe (HCC) Name: Brandy Llanos Date of : 2000 MR: [id number] Neris Jensen [facility] Intensive Outpatient Program (IOP) Group Therapy - Session 3 Group Name: Intensive Outpatient Program Summary: Continued to discuss Step Two.Patients then worked on building a SMART goal and vision board. Department: [facility] IOP [facility] Topic: Recovery Basics Group Date: 10/26/2022 Start Time: 7:30 PM End Time: 8:20 PM Number of Participants: 4 Mental Status Exam: Appearance: Appropriately dressed and groomed and Healthy looking Mood: content Affect: Appropriate and Congruent with mood Behavior: Pleasant, Cooperative, and Engaging Alertness: Alert Speech: Appropriate, Clear, and Normal pace Cognition: Intact and Oriented X4 Thought Process: Goal-directed Thought Content: No evidence of psychosis/delusions Level/Quality of Participation: active, attentive, cooperative, and engaged Interactions with others: gave feedback, supportive, asked thoughtful questions, and offered helpful suggestions Interventions utilized were Building rapport and engagement, Empathic listening, Psychoeducation, and Modeling/skills training Patient's Response to Intervention: Pts goal is invest in herself once a week by doing her makeup and hair. Making it second nature by 01/2023. Progress Towards Goal(s): Moderate Additional Comments: n/a Next Step: Continue with current services Patients Problems: Patient Active Problem List Diagnosis Major depressive disorder, recurrent episode with peripartum onset (HCC) Cannabis use disorder, severe (HCC) Name: Brandy Llanos Date of : 2000 MR: [id number] Neris Jensen documented in this encounter [facility] 10-24-2022 Note Progress note sent v ia email to case liner at [facility]. [facility] 10-17-2022 Note Outpatient [facility] Individualized Treatment Plan Program: [] Psych IOP [] PHP [x] Addiction Med IOP [] [facility] Diagnosis: F12.20, F33.9 Initial Treatment Plan Date: 10/16/22 LOC Placed (Addiction Med IOP only): 2.1 Tx Plan Revisions Reason and Date: Reason and Date: Problem/Need Section Problem Identification/Need 1: Substance Use Disorder Problem Statement: Fails to stop or cut down use of mood-altering drug once started, despite the verbalized desire to do so and the negative consequences continued use brings. Date Established Status Revised Date Status D/C Date D/C Status 10/16/22 Active Additional Comment(s): Cannabis use Problem Identification/Need 2: Mental Health Disorder Problem Statement: Feelings of hopelessness, worthlessness, and inappropriate guilt Date Established Status Revised Date Status D/C Date D/C Status 10/16/22 Active Additional Comment(s): Individual therapy to address concerns Describe patient's strengths (ie, personal attributes, traits, coping skills, resources, natural supports): Support from organized community, Stable housing, Motivation level for treatment Please note any preferences regarding treatment services (ie, requests for accommodations, specific treatment staff, appointment times, cultural and/or scientology considerations, etc). IOP Please identify family members/friends who can be involved in your treatment. Name Relationship Release obtained? If no, explain N/a Please identify other treatment providers (*required): Type of Provider Name Release obtained? If no, explain Primary Care Provider* N/a Other BH Provider* Se berumen Goals/Objectives Goal 1 Problem ID: Substance Use Disorder Goal/Desired Outcome in Patient's Words: develop skills to not use Goal/Anticipated Treatment Outcome: SENIOR ECOLOGIST will assist patient in developing coping skills, identifying triggers and building support to maintain recovery through IOP treatment. Objective(s): Objective 1: Patient will increase social connectedness by participating in sober activities at least 3x/week to help prevent relapse and support ongoing sobriety. Intervention: Therapist will educate patient about local resources, assist in identifying appropriate meetings, monitor and reinforce participation. Objective 2: Patient will confront his/her triggers to using substances by learning and utilizing 3-5 adaptive alternative skills and engaging these skills daily to prevent relapse by the 3rd session of IOP Intervention: Therapist will assist patient in identifying triggers based on history of relapse as well as identifying adaptive responses to prevent relapse from occurring again. Goal 2 Problem ID: Mental Health Disorder Goal/Desired Outcome in Patient's Words: ?lessen my anxiety? Goal/Anticipated Treatment Outcome: SENIOR ECOLOGIST will assist patient in access resources for mental and physical health treatment. SENIOR ECOLOGIST will work with patient to develop skills and routine to manage depression. Objective(s): Objective 1: Patient will improve mood (as evidenced by decreasing score on PHQ-9 - total score by 5 points) by participating in 1-3 pleasurable activities per week and share one experience in group each week. Intervention: Therapist will assist patient in identifying activities of interest, normalizing expectations, and assist in scheduling/preparing for these activities. Goal Start Date Target Completion Date Adjusted Target Date Reason for Adjustment or Completion Date 10/16/22 04/17/23 Service(s) Provided (if group, include name of group) Primary Service Provider Frequency of Service Date Added Service D/C Date Addiction Med IOP BHAVIK Lopez 3x per week for 3 hours 10/16/22 Individual Therapy BHAVIK Lopez once per week 10/16/22 Multi-Family Group YENNI Segal Once per week 10/16/22 Urine Drug Screening BHAVIK Lopez Once per week 10/16/22 Consideration for Discharge: [x] Improve Level of Functioning [x] Decrease Symptoms [] Control/Maintain Symptoms [] Prevent Relapse Review with Patient: [x] Risks and benefits of treatment [x] Patient's right to refuse treatment recommendations [x] Patient understands signature below represents agreement with treatment plan [] Other: (explain) Patient Signature/Date: (Note: Clinician and Attending to sign document electronically) [facility] 08-28-2022 Note HNO ID: [id number] Author: Lucina Arciniega APRN.BRIDGE GAME DIRECTOR Service: ? Author Type: Nurse Practitioner Type: Progress Notes Filed: 08/28/2022 4:06 PM Note Text: CC: patient presents with vaginal discharge for about a week. HPI Brandy Llanos is a 22 year old female who presents with complaint of possible UTI. These symptoms have been present for 7 days. Associated symptoms: abnormal vaginal discharge Denies: burning, urgency, frequency, hematuria, pressure, fever, chills, and sweats Treatments: nothing The ROS was otherwise negative. PMH, Medications, labs, allergies, and recent past visits with PCP were reviewed and updated as able. PHYSICAL EXAM: BP 122/82 Pulse 91 Temp (!) 35.9 ?C (96.6 ?F) Resp 18 Wt 71.2 kg (157 lb) LMP 08/07/2022 (Exact Date) SpO2 98% BMI 25.73 kg/m? General: Well appearing and alert CV: Regular rate and rhythm without obvious murmur Lungs: clear to auscultation bilaterally Back: straight and symmetric Abdomen: soft, nontender, nondistended PAST MEDICAL HISTORY Diagnosis Date Vitamin D deficiency PAST SURGICAL HISTORY Procedure Laterality Date SECTION HX N/A ALLERGIES Patient has no known allergies. MEDICATIONS cholecalciferol, vitamin D3, (VITAMIN D3) 100 mcg (4,000 unit) cap Take by mouth. No family history on file. Social History Tobacco Use Smoking status: Never Smokeless tobacco: Never ASSESSMENT/PLAN: 1. Vaginal discharge - ICD9: 623.5, ICD10: N89.8 No treatment at this time. Patient self swabbed. If anything comes back positive please treat at that time. Patient was okay with this care plan. - BACTERIAL VAGINOSIS AMPLIFICATION - VIJI / TRICHOMONAS AMPLIFICATION - GC/CHLAMYDIA DNA DET Lucina Arciniega APRN.CNP Prescription instructions reviewed with patient as applicable. Potential red flag symptoms discussed with the patient. Reviewed appropriate action plan to take if red flag symptoms occur. Patient agreeable to treatment plan. Lucina Arciniega APRN.CNP [facility] 04-11-2022 Miscellaneous Notes Patient notified and verbalized understanding Elissa Sumner Cma Please let patient know that her lab work was overall normal but her creatinine is lightly elevated. I would like her to repeat bloodwork in 1 month. In the meantime patient should make sure she is staying hydrated. documented in this encounter [facility] 04-07-2022 Note HNO ID: [id number] Author: Mary Abdi APRN.CNP Service: ? Author Type: Nurse Practitioner Type: Progress Notes Filed: 04/07/2022 1:51 PM Note Text: Chief Complaint No chief complaint on file. HPI Brandy Llanos is a 21 year old female who presents here today for Well adult visit. Patient is here to establish care. Patient reports that she delivered a healthy baby girl 6 weeks ago and has completed post check with OB. Patient reports having Vitamin D deficiency and currently takes 4000 international unit(s) daily. Patient reports she was told she had a thyroid condition and was to follow up but never did. Patient also requesting referral to derm for hormonal acne and eczema. Past medical history, appointments, medications, allergies reviewed. Previous Medical History No past medical history on file. Previous Surgical History PAST SURGICAL HISTORY Procedure Laterality Date SECTION HX N/A Family History No family history on file. Patient Allergies ALLERGIES No Known Allergies Current Medications No current outpatient medications on file prior to visit. No current facility-administered medications on file prior to visit. Social History Review of Symptoms REVIEW OF SYSTEMS PAIN ASSESSMENT: Negative for pain, history of chronic pain, or current treatment for a chronic pain condition. GENERAL: No weight loss, malaise or fevers HEENT: Negative for frequent or significant headaches, No changes in hearing or vision, no nose bleeds or other nasal problems NECK: Negative for lumps, goiter, pain and significant neck swelling RESPIRATORY: Negative for cough, hemoptysis, wheezing, COPD, dyspnea or shortness of breath CARDIOVASCULAR: Negative for chest pain, leg swelling, hypertension, CHF or palpitations GI: No nausea, vomiting, or diarrhea ELECTRICIAN SUBSTATION SUPERVISOR: Negative for abnormal vaginal bleeding, abnormal vaginal discharge MUSCULOSKELETAL: Negative for joint pain or swelling, back pain or muscle pain SKIN: Positive for rash: to bilat hands and itching: bilat hands PSYCH: Negative for sleep disturbance, mood disorder and recent psychosocial stressors HEMATOLOGY/LYMPHOLOGY: Negative for prolonged bleeding, bruising easily or swollen nodes ENDOCRINE: Negative for cold or heat intolerance, polyuria, polydipsia and goiter NEURO: No history of headaches, syncope, paralysis, seizures or tremors EXAM: BP 112/60 Pulse 92 Resp 14 Ht 166.4 cm (5' 5.5 ) Wt 73 kg (161 lb) BMI 26.38 kg/m? General Appearance: Well appearing, alert, in no acute distress, well-hydrated, well nourished.. Head: Normocephalic, no masses, lesions, tenderness or abnormalities. Eyes: Anicteric sclera. Pupils are equally round and reactive to light. Extraocular movements are intact. . Ears: External ears normal, canals clear. Nose/Sinuses: Nares normal, septum midline, mucosa normal, no drainage or sinus tenderness. Oropharynx: Lips, mucosa, and tongue normal, teeth and gums normal, oropharynx normal. Lungs: Lungs clear to auscultation. No wheezing, rhonchi, rales.. Heart: RRR without murmur, gallop, or rubs. No ectopy. Abdomen: Normal abdominal exam, Abdomen soft, non-tender. Bowel sounds normal. No masses, organomegaly. Extremities: Patchy red rough areas to bilateral hands, No deformities, edema, clubbing or cyanosis. Good capillary refill. . Musculoskeletal: No joint swelling, deformity, or tenderness. Peripheral Pulses: Normal. Neurologic: Gait normal. Reflexes normal and symmetric. Sensation grossly intact.. Health Maintenance List GC (GONORRHEA) SCREENING (18-24) Never done HEPATITIS C SCREENING Never done HIV SCREENING Never done CHLAMYDIA SCREENING (18-24) Never done DEPRESSION ASSESSMENT Never done INFLUENZA(1) due on 11/10/2022 COVID-19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
[2023-06-06 13:48] VITALS: BP 128/80; PULSE 78; RESP 16; O2SAT 99
[2023-06-06 14:20] VITALS: BP 115/89; PULSE 64; RESP 16; TEMP 36.4; O2SAT 99
== END 2023-06-06 14:20 | disposition home or self-care (01) ==
PROVIDERS: Emergency Provider Emergency Medicine; Visit Provider Emergency Medicine
DX: E86.0 Dehydration (principal); A60.04 Herpesviral vulvovaginitis; B34.9 Viral infection, unspecified; R00.0 Tachycardia, unspecified; R51.9 Headache, unspecified; R05.9 Cough, unspecified; J02.9 Acute pharyngitis, unspecified; Z11.52 Encounter for screening for COVID-19; Z87.891 Personal history of nicotine dependence
CPT/HCPCS: 84703; 87491; 87591; 87631; 96360; 96361; 99283; J7030; A4216

== ENCOUNTER 2024-10-27 20:40 | Emergency (ER) | payer MEDICAID, SELFPAY ==
[2024-10-27 20:41] VITALS: BP 115/82; PULSE 85; RESP 18; TEMP 36.9; O2SAT 100; BMI 25.0
[2024-10-27 20:44] VITALS: BP 115/82; PULSE 76; RESP 18; TEMP 36.9; O2SAT 98
--- NOTE | 2024-10-27 22:37 | EX.ED.DYSGE1 ---
HPI History of Present Illness Chief Complaint: Abscess Informant: patient Narrative Narrative: Patient is a 24-year-old female reports a past medical history of HPV as well as questionable diagnoses of herpes. She states that she has been feeling well and that today/this evening after getting out of the shower she noticed a small lump in the left inguinal region. She states it is slightly red and swollen and painful. She denies any recent trauma. She states that she is concerned it may be an infectious process and secondary to this comes in for evaluation. Otherwise patient denies fevers chills nausea vomiting diarrhea dysuria or concern for PFSH PFSH Medical History HPV (human papilloma virus) infection Non-smoker Home Medications ?Medication ?Instructions ?Recorded ?Last Taken ?Type PNV 153-FA 400 mcg-om3 35 mg-dha 2 tab PO DAILY Check with primary 06/30/21 02/23/22 08:00 History 25 mg-epa 5 mg-fish oil chew doctor tablet ( Gummies) cholecalciferol (vitamin D3) 50 50 mcg PO DAILY Check with primary 12/11/21 12/11/21 10:45 History mcg (2,000 unit) capsule (Vitamin doctor D3) iron 1 tab PO/SL QODAY Check with 02/24/22 02/22/22 History primary doctor magnesium 1 tab PO/SL DAILY Check with 02/24/22 02/23/22 History primary doctor oxycodone 5 mg tablet 5 mg PO Q6H PRN pain (scale score 02/24/22 Unknown Rx 7-10) 4 days #16 tabs acyclovir 400 mg tablet 1 tab PO 5X/DAY #35 tabs 06/06/23 Unknown Rx clindamycin HCl 300 mg capsule 300 mg PO 4X/DAY 7 days #28 caps 10/27/24 Unknown Rx (Cleocin HCl) oxycodone-acetaminophen 5 mg-325 1 tab PO Q6H PRN pain 3 days #12 10/27/24 Unknown Rx mg tablet (Percocet) tabs Allergy/AdvReac Type Severity Reaction Status Date / Time No Known Allergies Allergy Verified 10/27/24 20:41 Social History (Updated 10/27/24 @ 22:37 by Aleja Kate) household members: children housing: house Smoking Status: Former smoker substance use type: does not use ROS ROS ED Constitutional Constitutional ED: Denies chills or fever(s) ENT ENT ED: Denies sore throat Cardiovascular Cardiovascular: Denies chest pain Respiratory/Chest Respiratory/Chest: Denies cough or dyspnea Gastrointestinal Gastrointestinal: Denies abdominal pain, diarrhea, nausea or vomiting Genitourinary Genitourinary ED: Denies dysuria Musculoskeletal Musculoskeletal: Denies myalgias Integumentary Reports abscess; Denies rash Neurologic Neurologic: Denies headache(s) Hematologic/Lymphatic Hematologic/Lymphatic: Denies easy bleeding or easy bruising Allergic/Immunologic Allergic/Immunologic ED: Denies urticaria EXAM Physical Exam Const Vital Signs: 10/27/24 20:41 10/27/24 20:44 10/27/24 22:38 Temperature 98.4 F 98.4 F 98.4 F Temperature Source Oral Oral Pulse Rate 85 76 76 Respiratory Rate 18 18 18 Blood Pressure 115/82 H 115/82 H 115/82 H Blood Pressure Mean 93 93 93 Pulse Ox 100 98 98 Oxygen Delivery Method Room Air Room Air Positive well nourished and well developed General Appearance ED: well developed HEENT HEENT Narrative: Normocephalic atraumatic Eyes PERRL and EOMs intact bilaterally Neck supple Resp normal respiratory effort and clear to auscultation bilaterally Cardio regular rate and regular rhythm GI Palpation: soft Extremity normal to inspection Neuro oriented x3, CN's II-XII intact bilaterally and no sensory deficits noted Sensorium / Orientation: alert Motor Exam: strength 5/5 throughout Psych mental status grossly normal Skin Skin Narrative: In the left inguinal region there is a small less than half centimeter area of induration with faint erythema and warmth that is painful to palpation and is most consistent with early abscess. There is no active drainage or lymphangitic streaking. No crepitance palpated. No vesicular changes to suggest potential herpes outbreak. Remainder of the exam is normal MDM MDM MDM Narrative Medical decision making narrative: Patient presented to the ER with stable vitals and reported relatively sudden onset of swelling and pain in the left inguinal region. Differential diagnosis is for abscess versus cellulitis versus lymphadenopathy versus potential herpes outbreak. Her exam is most consistent with an early abscess. Based on its small nature and the fact that there is no findings of systemic infection and she has no history of immunosuppression I do not feel that it requires incision and drainage at this time. The patient will be placed on antibiotics secondary to the developing infection but without signs of systemic infection there is no need for further intervention and she is otherwise safe for discharge. History & Record Review Discussion w/independent historian: Patient Discharge Plan Triage Chief Complaint: Abscess ED Provider: Doug Ball Dx/Rx/DC Orders Clinical Impression: Abscess Instructions: ED Abscess Antibiotic Treatment Only Prescriptions: New clindamycin HCl [Cleocin HCl] 300 mg capsule 300 mg PO 4X/DAY 7 Days Qty: 28 0RF oxycodone-acetaminophen [Percocet] 5-325 mg tablet 1 tab PO Q6H PRN (Reason: pain) 3 Days Qty: 12 0RF No Action Gummies 400 mcg-35 mg- 25 mg-5 mg Tablet,Chewable 2 tab PO DAILY cholecalciferol (vitamin D3) [Vitamin D3] 50 mcg (2,000 unit) Capsule 50 mcg PO DAILY oxycodone 5 mg tablet 5 mg PO Q6H PRN (Reason: pain (scale score 7-10)) 4 Days Qty: 16 0RF iron 1 tab PO/SL QODAY magnesium 1 tab PO/SL DAILY acyclovir 400 mg tablet 1 tab PO 5X/DAY Qty: 35 0RF Primary Care Provider: Care Physician,No Primary Referrals: Guzman Drake MD [Med Staff - Active Staff] - Care Physician,No Primary [Primary Care Provider] - Activity Restrictions/Additional Instructions: Your exam is consistent with a early abscess. Please soak in a warm bath with Epsom salts or use warm compresses to help bring this to ahead and get it open and draining spontaneously. Take antibiotic to help resolve the infection as well. If you have any further concerns or worsening symptoms please return to the ER for repeat evaluation. Print Language: Albanian Disposition Disposition: Home, Self Care Discharge Date/Time: 10/27/24 22:45
[2024-10-27 22:38] VITALS: BP 115/82; PULSE 76; RESP 18; TEMP 36.9; O2SAT 98
[2024-10-27] MEDS: Clindamycin HCl 150 MG Capsule 300 MG PO (22:41)
[2024-10-27] MEDS: oxyCODONE 5 MG Tablet PO (22:41)
--- OUTSIDE RECORDS SUMMARY | 2024-10-27 23:51 | XMS RPT_ITS | CCD ---
Author Organization [facility] Care Team Providers [employer] Consultant Name Role Phone None, No PCP Unavailable Unavailable Unavailable Unavailable Leonardo INDUSTRIAL ENGINEERING ANALYST, INDUSTRIAL ENGINEERING ANALYST-C Gabby Attending Provider Unavailable Primary Care Provider Unavailabl e Inc, [facility] Primary Care Provider Unav ailable Neris Jensen Unavailable Unavailable PEDRITO MORA Attending Unavailable INC, [...] Attending Unavailable INC, [facility] Unavailable Sung Payton Attending Unavailable Care Physician, No Primary Primary Care Unava ilable Unavailable Primary Care Provider Unavailabl e KIN ALVARADO Attending Unavailable MACIEJ FERNANDEZ Referring Unavailable ISIDRO BARRAGAN Attending Unavailable SELF Referring Unavailable CHI PASCAL Referring Unavailable CHI PASCAL Attending Unavailable Medications Current Medications Medication Drug Class(es) Dates Sig (Normalized) Sig (Original) acyclovir 400 mg oral tablet (3 sources) Herpesvirus Nucleoside Analog DNA Polymerase Inhibitor, Herpes Simplex Virus Nucleoside Analog DNA Polymerase Inhibitor, Herpes Zoster Virus Nucleoside Analog DNA Polymerase Inhibitor Start: 06-06-2023 take 1 tablet by mouth five times daily Acyclovir Active 1 TABLET PO 5 TIMES DAILY June 06, 2023 12:00am Start: 11-09-2020 End: 11-29-2020 take 1 tablet by mouth three times daily Acyclovir 400 MG Oral Tablet TAKE 1 TABLET 3 TIMES DAILY. Quantity: 15 Refills: 3 Ordered: 09-Nov-2020 Mame Astorga Start : 09-Nov-2020 End : 29-Nov-2020 Active cholecalciferol 0.05 mg oral capsule (14 sources) Vitamin D Start: 12-11-2021 take 1 capsule by mouth once daily Cholecalciferol (Vitamin D3) (Vitamin D3) 50 mcg (2,000 unit) Capsule Active 50 MCG PO DAILY December 10, 2021 11:00pm cholecalciferol, vitamin D3, (VITAMIN D3) 100 mcg (4,000 unit) cap Take by mouth. Active Comment on above: Take by mouth. Iron (3 sources) Start: 02-24-2022 take 1 tablet by mouth every other day iron Active 1 TABLET SL/PO EVERY OTHER DAY February 23, 2022 11:00pm Start: 02-24-2022 take 1 tablet by joyce th every other day iron Active 1 TABLET SL/PO EVERY OTHER DAY February 24, 2022 12:00am Magnesium (3 sources) Start: 02-24-2022 take 1 tablet by joyce th once daily magnesium Active 1 TABLET SL/PO DAILY February 23, 2022 11:00pm Start: 02-24-2022 take 1 tablet by joyce th once daily magnesium Active 1 TABLET SL/PO DAILY February 24, 2022 12:00am MULTI-VITAMIN ORAL (3 sources) MULTI-VITAMIN OR AL Take by mouth. Active ondansetron 4 mg disintegrating oral tablet (2 sources) Serotonin-3 Receptor Antagonist Start: 07-10-19 take 4 mg by mouth every eight hours as needed Ondansetron Active 4 MG PO EVERY 8 HOURS NEEDED July 10, 2021 1:00am oxyCODONE hydrochloride 5 mg oral tablet (3 sources) Opioid Agonist Start: 02-25-20 take 5 mg by mouth every six hours Oxycodone Active 5 MG PO EVERY 6 HOURS 16 February 24, 2022 Pnv No.[id number] ( Gummies) 400 mcg-35 mg- 25 mg-5 mg Tablet,Chewable (8 sources) Start: 06-30-19 take 2 tablets by mouth once daily Pnv No.[id number] -Fish ( Gummies) 400 mcg-35 mg- 25 mg-5 mg Tablet,Chewable Active 2 TABLET PO DAILY June 30, 2021 12:00am Start: 06-30-2021 take 2 tablets by mo uth once daily Pnv No.[id number] ( Gummies) 400 mcg-35 mg- 25 mg-5 mg Tablet,Chewable Active 2 TABLET PO DAILY June 30, 2021 1:00am promethazine hydrochloride 12.5 mg oral tablet (2 sources) Phenothiazine Start: 07-10-2021 take 12.5 mg by mouth every six hours as needed Promethazine Active 12.5 MG PO EVERY 6 HOURS NEEDED July 10, 2021 1:00am Problems Active Problems Problem Classification Problem Date Documented Date Episodic/Chronic Acquired foot deformities (1 source) Hallux valgus (acquired), left foot; Translations: [Hallux valgus (acquired)] 04-29-2024 Chronic Cardiac dysrhythmias (1 source) ECG: sinus tachycardia; Translations: [Tachycardia, unspecified] 06-06-2023 Episodic Fluid and electrolyte disorders (1 source) Dehydration; Translations: [Dehydration] 06-06-2023 Episodic Headache; including migraine (9 sources) Headache; Translations: [Headache] Episodic Hemorrhage during ; abruptio placenta; placenta previa (16 sources) Threatened miscarriage; Translations: [Threatened ] 07-08-2021 Episodic Immunizations and screening for infectious disease (2 sources) Patient encounter status; Translations: [Screening examination for venereal disease] Episodic Mood disorders (20 sources) Recurrent major depressive disorder with onset; Translations: [Major depressive disorder, recurrent, unspecified] Onset: 10-05-2022 10-05-2022 Chronic Mycoses (8 sources) Candidiasis of vagina; Translations: [Candidiasis of vulva and vagina] 07-08-2021 Episodic Other complications of ; puerperium affecting management of mother (2 sources) delivery - delivered; Translations: [Encounter for delivery without indication] Episodic Other complications of ; puerperium affecting management of mother (2 sources) Encounter for delivery without indication; Translations: [ delivery, without mention of indication, delivered, with or without mention of antepartum condition] Episodic Other complications of ; puerperium affecting management of mother (2 sources) Other disorders of ; Translations: [Engorgement of breasts associated with childbirth, condition or complication] Episodic Other complications of ; puerperium affecting management of mother (1 source) Other disorders of breast associated with and the puerperium; Translations: [Other and unspecified disorder of breast associated with childbirth, condition or complication] Episodic Other complications of ; puerperium affecting management of mother (1 source) Deliveries by ; Translations: [Encounter for delivery without indication] 02-25-2022 Episodic Other complications of (8 sources) Hyperemesis gravidarum; Translations: [Mild hyperemesis gravidarum] 07-18-2021 Episodic Other congenital anomalies (1 source) Congenital pes planus of left foot; Translations: [Congenital pes planus, left foot] 04-29-2024 Chronic Other female genital disorders (2 sources) Vaginal discharge; Translations: [Leukorrhea, not specified as infective] Episodic Other nervous system disorders (3 sources) Acute postoperative pain; Translations: [Other acute postprocedural pain] 02-24-2022 Episodic Other and delivery including normal (7 sources) Third trimester ; Translations: [Encounter for supervision of normal , unspecified, third trimester] Episodic Other screening for suspected conditions (not mental disorders or infectious disease) (1 source) Serum creatinine raised; Translations: [Other specified abnormal findings of blood chemistry] Episodic Other skin disorders (1 source) Discoloration of skin; Translations: [Disorder of pigmentation, unspecified] 07-20-2024 Episodic Other upper respiratory infections (8 sources) Viral pharyngitis; Translations: [Acute pharyngitis, unspecified] 11-20-2019 Episodic Residual codes; unclassified (2 sources) History finding; Translations: [Other specified conditions influencing health status] Episodic Residual codes; unclassified (1 source) Illness, unspecified; Translations: [Illness, unspecified] Onset: 06-12-2023 Episodic Residual codes; unclassified (1 source) Pain; Translations: [Pain, unspecified] 04-29-2024 Episodic Residual codes; unclassified (1 source) Pain, unspecified; Translations: [Pain] Onset: 04-29-2024 Episodic Substance-related disorders (20 sources) Cannabis abuse; Translations: [Cannabis dependence, uncomplicated] Onset: 10-05-2022 10-05-2022 Chronic Viral infection (9 sources) Genital herpes simplex; Translations: [Herpesviral infection of urogenital system, unspecified] 03-20-2020 Chronic Viral infection (16 sources) Herpes simplex; Translations: [Herpes simplex without mention of complication] 03-06-2022 Episodic Past or Other Problems Problem Classification Problem Date Documented Da te Episodic/Chronic Hemorrhoids (6 sources) External hemorrhoids; Translations: [Residual hemorrhoidal skin tags] Onset: 12-10-2023 10-04-2023 Episodic Mood disorders (20 sources) Mood disorders Onset: 10-05-2022 10-05-2022 Results Test Name Value Interpretation Reference Range Facility [facility] 07-20-2024 CN Office Visit (UCWSTR ) BRANDY LLANOS ([id number]) 2 F UPA Date Time Provider Department 07/20/24 11:30 AM KUN JAVIER [facility] During your visit today, we recorded the following information about you: Temperature Pulse Respiration Blood pressure 97.7 degrees 80/minute 16/minute 112/66 Weight 69.8 kg Kun Javier APRN.[facility] 07/20/2024 11:29 AM Signed [facility] Subjective Brandy Llanos is a 23 year old female. Patient presents with: Derm Problem: discoloration on back of thighs x 2 weeks, denies itch or pain Patient came in with complaints of discoloration on the back of bilateral legs. Patient says it started about 2 weeks ago. Patient says it is progressing. Patient says it does not cause her any pain or itching or irritation. Patient did not use any new products that could have caused this. Patient has no other symptoms associated with it. The history is provided by the patient. No senior counsel was used. Review of Systems Constitutional: Negative. Objective BP 112/66 Pulse 80 Temp 36.5 ?C (97.7 ?F) Resp 16 Wt 69.8 kg (153 lb 14.1 oz) LMP 07/15/2022 (Exact Date) SpO2 99% BMI 25.22 kg/m? Physical Exam Constitutional: Appearance: Normal appearance. Pulmonary: Effort: Pulmonary effort is normal. Skin: Comments: Dark-colored honeycomb shaped patterns on the back of bilateral legs. Nonblanchable. Neurological: Mental Status: She is alert. ASSESSMENT/PLAN: 1. Discoloration of skin - ICD9: 709.00, ICD10: L81.9 At this time patient was instructed to follow-up with dermatology. Patient will start calling around tomorrow to make a dermatology appointment. Kun Javier APRN.[employer] History and Record Review External record(s) reviewed: no prior records. Differential Diagnoses - autoimmune related - infectious rash Disposition The patient was discharged. Procedures Allergies As of Date: 07/20/2024 (No Known Allergies) Date Reviewed: 07/20/2024 Reviewed by: Hilda Woodward MA - Fully Assessed Reason for Visit: Derm Problem [33] Cmt: discoloration on back of thighs x 2 weeks, denies itch or pain Primary Visit Diagnosis:Discoloration of skin [L81.9] Prescriptions as of 07/20/2024 - MULTI-VITAMIN ORAL Take by mouth. - cholecalciferol, vitamin D3, (VITAMIN D3) 100 mcg (4,000 unit) cap Take by mouth. Problem List As Of Date: 07/20/2024 (None) Encounter Status:Closed by KUN JAVIER on 07/20/24 [facility] CNOVon 04-29-2024 CNOV Office Visit (PODIWS ) BRANDY LLANOS ([id number]) 2 F UPA Date Time Provider Department 04/29/24 10:15 AM CHI PASCAL PODIWS During your visit today, we recorded the following information about you: Shaneka Murillo MA 04/29/2024 12:13 PM Signed AMB ROOMING INTAKE FLOWSHEET DATA Pain Pain Level: 8 Pain Location: Foot-Left Description: Other: See comment, Sharp (locking and clicking) Duration Amount of Time: (ongoing) Frequency: Continuous Intervention/Comfort measure: Other: See comment (muscle rub) Chi Pascal 04/29/2024 12:13 PM Signed Initial Podiatric Office Visit: Chief Complaint: This 23 year old female who presents with chief complaint:painful bunion of left foot HPI Patient presents to clinic for evaluation of left foot Complains of painful bunion of left foot She states she had a bunion when she was in school but never experienced pain 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 She has noticed that the longer she is on her foot, the more pain she experiences Patient currently applies topical cream which provides minimal relief. PAIN EVALUATION 04/29/2024 1016 Pain Level: 8 Pain Location: Foot-Left Description: Other: See comment;Sharp locking and clicking Duration Amount of Time: -- ongoing Frequency: Continuous Intervention/Comfort measure: Other: See comment muscle rub No results found for: HBA1C PCP: No primary care provider on file. PAST MEDICAL HISTORY Diagnosis Date Vitamin D deficiency Current Outpatient Medications Medication Sig MULTI-VITAMIN ORAL Take by mouth. cholecalciferol, vitamin D3, (VITAMIN D3) 100 mcg (4,000 unit) cap Take by mouth. No current facility-administered medications for this visit. ALLERGIES No Known Allergies PAST SURGICAL HISTORY Procedure Laterality Date SECTION HX N/A HEMORRHOIDECTOMY 12/10/2023 FAMILY HISTORY Problem Relation Age of Onset No Family History No Family History Social History Tobacco Use Smoking status: Never Smokeless tobacco: Never Vaping Use Vaping status: Never Used Substance Use Topics Alcohol use: Never Drug use: Yes Types: Marijuana Comment: medical casey card for her back REVIEW OF SYSTEMS GENERAL: Negative for Malaise, significant weight loss, fever RESPIRATORY: Negative for cough, wheezing and shortness of breath CARDIOVASCULAR: Negative for chest pain, leg swelling and palpitations GI: Negative for abdominal discomfort, blood in stools or black stools and change in bowel habits : Negative for dysuria, frequency and incontinence MUSCULOSKELETAL: Negative for joint pain or swelling, back pain, and muscle pain. SKIN: Negative for lesions, rash, and itching. HEMATOLOGY/LYMPHOLOGY Negative for prolonged bleeding, bruising easily, and swollen nodes. ENDOCRINE: Negative for cold or heat intolerance, polyuria, polydipsia and goiter. NEURO: negative Physical Exam: Constitutional: Pt is a well developed 23 year old female who is alert, oriented and cooperative Eyes: Following during examination. No redness or drainage. Respiratory: RR normal and nonlabored. Even breathing. No evidence of distress or shortness of breath. Psychology: Patient is engaged during conversation. Normal affect and mood. Does not appear depressed or anxious during encounter. Vascular: Dorsalis pedis and posterior tibial pulses palpable as b/l Capillary Fill time < 5 seconds to digits 1-5 b/l Skin temperature warm to warm, proximal to distal b/l Hair growth present to digits Neurological: intact light touch/epicritic sensation b/l intact protective sensation no significant neurological deficits Dermatological: Nails 1-5 b/l appear normal. Webspaces clean and dry 1-4 b/l. Skin appears well hydrated and supple. good color, texture, turgor. No open lesions present. No callosities present. Musculoskeletal/Orthopa edic: Patient has pain to palpation of medial eminence of left 1st metatarsal Foot type is slightly pronated structurally AJ ROM is full with knee extended and flexed 1st MPJ is slightly decreased when loaded and mild pain or crepitus are noted with ROM. MTJ, STJ are full and free of pain and crepitus. +5/5 muscle strength dorsiflexion, plantarflexion, inversion, eversion b/l Radiographs: 3 views left foot ordered April 29, 2024: I have personally reviewed and interpreted these XR myself: mild bunion deformity. IM 1-2 ~13 degrees with lateral deviation of sesamoid ASSESSMENT: (M20.12) Hallux valgus of left foot (primary encounter diagnosis) (Q66.52) Pes planus, congenital, left PLAN: 1. History and physical examination performed. 2. XR reviewed with patient and interpreted today 3. Discussed bunion of left foot. Discussed the progressive nature of this deformity. Discussed conservative optio (more content not included)... Normal [facility] XR FOOT 3V AP/LAT/OBL LTon 1 06-30-2023 XR FOOT 3V AP/LAT/OBL LT * * *Final Report* * * DATE OF EXAM: Apr 29 2024 10:11AM [id number] - XR FOOT 3V AP/LAT/OBL LT / PROCEDURE REASON: Pain * * * * Physician Interpretation * * * * TITLE: XR FOOT 3V AP/LAT/OBL LT CLINICAL INDICATION: Pain TECHNIQUE: 3 view radiographic study of the left foot COMPARISON: None FINDINGS: No acute fracture or dislocation identified. Joint spaces preserved. No soft tissue calcifications. IMPRESSION: No radiographic evidence of acute osseous abnormality [employer] Player: [facility] Transcribe Date/Time: Apr 29 2024 3:04P Dictated by : FANG TYLER MD This examination was interpreted and the report reviewed and electronically signed by: FANG TYLER MD on Apr 29 2024 3:06PM EST [id number] Normal [facility] XR Foot - left AP and Latera l and obliqueon 04-29-2024 IMPRESSION: No radiographic evidence of acute osseous abnormality [employer] Player: [facility] Transcribe Date/Time: Apr 29 2024 3:04P Dictated by : FANG TYLER MD This examination was interpreted and the report reviewed and electronically signed by: FANG TYLER MD on Apr 29 2024 3:06PM EST DIVISION OF RADIOLOGY * * *Final Report* * * DATE OF EXAM: Apr 29 2024 10:11AM [id number] - XR FOOT 3V AP/LAT/OBL LT / PROCEDURE REASON: Pain * * * * Physician Interpretation * * * * TITLE: XR FOOT 3V AP/LAT/OBL LT CLINICAL INDICATION: Pain TECHNIQUE: 3 view radiographic study of the left foot COMPARISON: None FINDINGS: No acute fracture or dislocation identified. Joint spaces preserved. No soft tissue calcifications. DIVISION OF RADIOLOGY Provider, Arlyn Hill - 04/29/2024 * * *Final Report* * * DATE OF EXAM: Apr 29 2024 10:11AM [id number] - XR FOOT 3V AP/LAT/OBL LT / PROCEDURE REASON: Pain * * * * Physician Interpretation * * * * TITLE: XR FOOT 3V AP/LAT/OBL LT CLINICAL INDICATION: Pain TECHNIQUE: 3 view radiographic study of the left foot COMPARISON: None FINDINGS: No acute fracture or dislocation identified. Joint spaces preserved. No soft tissue calcifications. IMPRESSION IMPRESSION: No radiographic evidence of acute osseous abnormality [employer] Player: [facility] Transcribe Date/Time: Apr 29 2024 3:04P Dictated by : FANG TYLER MD This examination was interpreted and the report reviewed and electronically signed by: FANG TYLER MD on Apr 29 2024 3:06PM [facility] Radiology Study observation (narrative[facility] X[facility] Foot - left AP and Latera l and obliqueOrdered By: [facility] Provider on 04-29-2024 [facility] CNOVon 12-14-2023 CNOV Office Visit (GENDAVONE ) BRANDY LLANOS ([id number]) 01 F UPA Date Time Provider Department 12/14/23 8:30 AM ISIDRO BARRAGAN During your visit today, we recorded the following information about you: Pulse Blood pressure Weight Height 85/minute 112/78 74.8 kg 1.664 m Isidro Barragan MD 12/14/2023 5:45 PM Signed PROGRESS NOTES PATIENT NAME: Brandy Llanos Assessment ASSESSMENT AND PLAN The patient is a 23-year-old female status post a successful excision and drainage of a thrombosed external hemorrhoid about the 2 o'clock position. I reassured her that this is healing appropriately. I stressed the importance of not getting constipated. I recommended MiraLAX daily. Follow-up will be as needed. SUBJECTIVE CHIEF COMPLAINT: Patient presents with: Consult: External hemorrhoid irriated - Jenny lanced in-office 12/09 Patient called into office - running 10 mins late INTERVAL HISTORY OF PRESENT ILLNESS: The patient is a 23-year-old female who recently had a thrombosed external hemorrhoid removed in the office by Dr. Pascual. She states that she was having some increased pain but this has improved since she had her first bowel movement since the procedure. It sounds as though she has been dealing with constipation issues and has been afraid to have her first bowel movement. She denies any bleeding or drainage. She was concerned about some swelling to the area. HISTORIES: PAST MEDICAL HISTORY No date: Vitamin D deficiency PAST SURGICAL HISTORY No date: SECTION HX; N/A 12/10/2023: HEMORRHOIDECTOMY ALLERGIES: Patient has no known allergies. MEDICATIONS: Current Outpatient Medications Medication Sig cholecalciferol, vitamin D3, (VITAMIN D3) 100 mcg (4,000 unit) cap Take by mouth. No current facility-administered medications for this visit. FAMILY HISTORY Problem Relation Age of Onset No Family History No Family History Social History Tobacco Use Smoking status: Never Smokeless tobacco: Never OBJECTIVE PHYSICAL EXAM: BP 112/78 Pulse 85 Ht 5' 5.5 (1.66m) Wt 165 lb (74.8kg) SpO2 100% LMP 07/15/2022 BMI 27.03 kg/(m2). GENERAL: Alert, no distress, cooperative RECTAL: Region of thrombosed external hemorrhoid excision located about the 2 o'clock position appears to be healing well. No evidence of infection or recurrent thrombosed hemorrhoid. Reassurance was offered. DATA: Diagnostic tests reviewed for today's visit: Most recent labs and imaging results. Isidro Barragan MD Referring Provider: SELF [[id number]] Allergies As of Date: 12/14/2023 (No Known Allergies) Date Reviewed: 12/10/2023 Reviewed by: Ame Asif RN - Fully Assessed Reason for Visit: Consult [173] Cmt: External hemorrhoid irriated - Jenny lanced in-office 12/09 Patient called into office - running 10 mins late Primary Visit Diagnosis:External hemorrhoid [K64.4] Prescriptions as of 12/14/2023 - cholecalciferol, vitamin D3, (VITAMIN D3) 100 mcg (4,000 unit) cap Take by mouth. Problem List As Of Date: 12/14/2023 (None) Encounter Status:Closed by ISIDRO BARRAGAN on 12/14/23 [facility] CNCOon 12-10-2023 CNCO Letter Text [facility] CNOVon 12-10-2023 CNOV Office Visit (GENSWS ) BRANDY LLANOS ([id number]) 01 F UPA Date Time Provider Department 12/10/23 1:30 PM KIN ALVARADO During your visit today, we recorded the following information about you: Temperature Pulse Blood pressure Weight 98.4 degrees 107/minute 106/78 74.5 kg Height 1.664 m Ame Asif, SISI 12/10/2023 1:43 PM Addendum REVIEW OF SYSTEMS: General: The patient denies fatigue, denies weight loss, denies weight gain, denies feeling hot, and denies feelings of cold. Eyes: The patient denies glaucoma, denies eye injury/surgery, does wear glasses or contacts. Ear/Nose/Throat: The patient denies allergies, denies hayfever, denies ear infections, and denies bloody noses. Cardiovascular: The patient denies chest pain, denies heart disease, denies high blood pressure,denies cardiac stent, denies prior heart attack, denies irregular heart beat, denies high cholesterol, denies poor circulation, denies heart failure, other cardiac issues, denies claudication, denies cold feet, denies peripheral arterial stent. Respiratory: The patient denies tuberculosis, denies pneumonia, denies frequent cough, denies pulmonary embolism, denies shortness of breath, and denies coughing up blood. Gastrointestinal: The patient denies difficulty swallowing, denies acid reflux, denies ulcers, denies vomiting, denies jaundice/hepatitis, denies gallbladder problems, NKOTES black or tarry stools, NOTES hemorrhoids, NOTES bleeding from rectum, denies diverticulitis, denies constipation, denies diarrhea, denies loss of stool control, and denies hernias. Kidney/Bladder: The patient denies kidney stones, denies urine infections, and denies bloody urine. Skin: The patient denies a history of skin cancer, denies bleeding/changing moles, and denies a history of skin rash. Neurologic: The patient denies a history of epilepsy/convulsions, denies headaches, denies head/spinal injuries, and denies stroke/TIA. Psychiatric: The patient denies psychiatric medications, denies depression, and denies voices, denies substance abuse. Endocrine: The patient denies thyroid disorders, denies diabetes, and denies hormonal problems. Hematologic: The patient denies a history of bruising, denies bleeding, and denies anemia, denies blood clots. Infections: The patient denies a history of measles and mumps, denies rheumatic fever, and denies sexually transmitted diseases. Musculoskeletal: The patient denies back pain/injury, denies back problems, denies sciatica, denies knee/foot trouble, denies arthritis, or denies gout. When was patient's last Mammogram screening? N/A Last Colonoscopy: none SISI Brooks, Elizabeth Marc MD 01/15/2024 12:23 PM Signed Brandy Llanos 2000 REFERRING PHYSICIAN: Maciej Fernandez AP* CHIEF COMPLAINT: Consult (Thrombosed hemorrhoid) HPI: The patient is a 23 year old female presents with thrombosed external hemorrhoids. Noted for a few days. No previous such lesion. Denies chronic constipation. PAST MEDICAL HISTORY Diagnosis Date Vitamin D deficiency PAST SURGICAL HISTORY Procedure Laterality Date SECTION HX N/A Current Outpatient Medications Medication Sig cholecalciferol, vitamin D3, (VITAMIN D3) 100 mcg (4,000 unit) cap Take by mouth. No current facility-administered medications for this visit. ALLERGIES: Patient has no known allergies. PERSONAL HISTORY: Social History Tobacco Use Smoking status: Never Smokeless tobacco: Never FAMILY HISTORY Problem Relation Age of Onset No Family History No Family History The review of systems data was entered by the nurse and reviewed by me Nursing Notes: Ame Asif RN 12/10/2023 1:43 PM Addendum REVIEW OF SYSTEMS: General: The patient denies fatigue, denies weight loss, denies weight gain, denies feeling hot, and denies feelings of cold. Eyes: The patient denies glaucoma, denies eye injury/surgery, does wear glasses or contacts. Ear/Nose/Throat: The patient denies allergies, denies hayfever, denies ear infections, and denies bloody noses. Cardiovascular: The patient denies chest pain, denies heart disease, denies high blood pressure,denies cardiac stent, denies prior heart attack, denies irregular heart beat, denies high cholesterol, denies poor circulation, denies heart failure, other cardiac issues, denies claudication, denies cold feet, denies peripheral arterial stent. Respiratory: The patient denies tuberculosis, denies pneumonia, denies frequent cough, denies pulmonary embolism, denies shortness of breath, and denies coughing up blood. Gastrointestinal: The patient denies difficulty swallowing, denies acid reflux, denies ulcers, denies vomiting, denies jaundice/hepatitis, denies gallbladder problems, NKOTES black or tarry stools, NOTES hemorrhoids, (more content not included)... Normal [facility] CNOVon 12-07-2023 CNOV Office Visit (UCWSTR ) BRANDY LLANOS ([id number]) 2 F UPA Date Time Provider Department 12/07/23 6:45 PM MACIEJ FERNANDEZ [facility] During your visit today, we recorded the following information about you: Temperature Pulse Respiration Blood pressure 96.9 degrees 98/minute 16/minute 110/64 Weight 75.2 kg Maciej Fernandez BPM SOLUTION ARCHITECT.ROUNDHOUSE SUPERVISOR 12/07/2023 7:07 PM Signed Subjective HPI Nontoxic-appearing female presents urgent care chief complaint rectal pain. Duration of symptom 1 day. Associated symptoms bulge over her rectum. States history of external hemorrhoids this is similar. Has been using some OTC cream this is helped a little. No blood in stool. Has not been constipated recently. Overall feels well. Denies any fever body aches chills productive cough chest pain shortness of breath pleuritic pain hemoptysis nausea vomiting abdominal pain change in bowel or bladder habits. Past medical history prescription medication use and allergies reviewed. .Patient presents with: Rectal Problem: x 1 day PAST MEDICAL HISTORY Diagnosis Date Vitamin D deficiency PAST SURGICAL HISTORY Procedure Laterality Date SECTION HX N/A ALLERGIES Patient has no known allergies. MEDICATIONS cholecalciferol, vitamin D3, (VITAMIN D3) 100 mcg (4,000 unit) cap Take by mouth. No family history on file. Social History Tobacco Use Smoking status: Never Smokeless tobacco: Never BP 110/64 Pulse 98 Temp 36.1 ?C (96.9 ?F) Resp 16 Wt 75.2 kg (165 lb 12.6 oz) LMP 07/15/2022 (Exact Date) SpO2 100% BMI 27.17 kg/m? Review of Systems Constitutional: Negative for chills, fever and malaise/fatigue. HENT: Negative for congestion, ear discharge, ear pain, sinus pain and sore throat. Eyes: Negative for blurred vision, pain, discharge and redness. Respiratory: Negative for cough, hemoptysis, sputum production, shortness of breath, wheezing and stridor. Cardiovascular: Negative for chest pain. Gastrointestinal: Negative for abdominal pain, blood in stool, constipation, diarrhea, melena, nausea and vomiting. Musculoskeletal: Negative for myalgias. Skin: Negative for itching and rash. Neurological: Negative for dizziness and headaches. Objective Physical Exam Exam conducted with a kilnman present. Constitutional: General: She is not in acute distress. Appearance: She is not toxic-appearing. HENT: Head: Normocephalic. Nose: Nose normal. Eyes: Pupils: Pupils are equal, round, and reactive to light. Cardiovascular: Rate and Rhythm: Normal rate. Pulmonary: Effort: Pulmonary effort is normal. No respiratory distress. Genitourinary: Rectum: External hemorrhoid present. No tenderness. Comments: Approximately 2 cm x 0.5 cm external hemorrhoid noted. Hemorrhoid does appear to be thrombosed. No bleeding. Musculoskeletal: Cervical back: Normal range of motion. Skin: General: Skin is warm and dry. Neurological: General: No focal deficit present. Mental Status: She is alert. ASSESSMENT/PLAN: 1. External hemorrhoid - ICD9: 455.3, ICD10: K64.4 - CONSULT TO GENERAL SURGERY Diagnosis external hemorrhoid. At this time hemorrhoid does appear to be thrombosed. OTC medications and diet discussed with patient. Follow-up with general surgery as scheduled. Patient was educated on supportive therapies. Patient will follow up with primary care provider as needed. Patient was instructed to immediately proceed to emergency room for any new, worsening, or symptoms lasting longer than anticipated. The patient's clinical presentation is otherwise unremarkable at this time. Based on exam and clinical finding, the patient is stable for discharge. Plan of care was discussed with patient. Patient verbalizes understanding and agrees to plan of care. This note was generated using [employer] software. It may contain errors in wording, punctuation, or spelling. Maciej Fernandez APRN.Maciej Rebolledo APRN.NEO 12/07/2023 6:53 PM Signed Hemorrhoids Hemorrhoids are veins covered with the lining of the anal canal located in or around the anus. Hemorrhoids can be external, internal or a combination of both (interno-external). External hemorrhoids can be skin alone or skin with a vein underneath. Internal hemorrhoids are dilated veins which protrude inside when small or can sometimes extend outside the anus either after a bowel movement; they can also be present externally all the time. Hemorrhoids are usually not painful. Small hemorrhoids cannot be seen but can bleed after a hard bowel movement/straining or too frequent bowel movements. Hemorrhoids that protrude out after a bowel movement often go back in spontaneously. Occasionally they have to be manually pushed in. Hemorrhoids that protrude out and do not go back in can sometimes get large and form a clot; these are called th (more content not included)... Normal [facility] CNOVon 10-04-2023 CNOV Office Visit (UCWSTR ) BRANDY LLANOS ([id number]) 2 F UPA Date Time Provider Department 10/04/23 6:45 PM JUSTINE GARAY [facility] During your visit today, we recorded the following information about you: Temperature Pulse Respiration Blood pressure 98 degrees 89/minute 20/minute 133/75 Weight Last Period 72 kg 07/15/22 Justine Garay APRN.CNP 10/04/2023 7:13 PM Signed This note was created using [employer]. Subjective Brandy Llanos is a 23 year old female. HPI started about 1 month ago with pain that has been off/on at the anus. The past day the pain has gotten worst and she can feel a lump. She notice some bleeding today. She has use some OTC hemorrhoid cream off/on. Review of Systems Genitourinary: Anal pain Objective BP 133/75 Pulse 89 Temp 36.7 ?C (98 ?F) Resp 20 Wt 72 kg (158 lb 11.7 oz) LMP 07/15/2022 (Exact Date) SpO2 100% BMI 26.01 kg/m? Physical Exam Genitourinary: Exam position: Knee-chest position. Comments: Small hemorrhoid noted not actively bleeding Assessment and Plan ASSESSMENT/PLAN: 1. External hemorrhoid - ICD9: 455.3, ICD10: K64.4 OTC treatment recommended Follow up is symptoms get worse Justine Garay APRN.CNP Medical Decision Making: Problems: Low: Acute, uncomplicated illness or injury Risk: Low: Low risk from testing/treatment Medical Decision Making Level: 3 - Low Allergies As of Date: 10/04/2023 (No Known Allergies) Date Reviewed: 10/04/2023 Reviewed by: Rosana Almazan LPN - Fully Assessed Reason for Visit: Rectal Problem [93] Cmt: Pain in rectum x 1 month on and off last few days has increased and today is 02/20 Primary Visit Diagnosis:External hemorrhoid [K64.4] Prescriptions as of 10/04/2023 - cholecalciferol, vitamin D3, (VITAMIN D3) 100 mcg (4,000 unit) cap Take by mouth. Problem List As Of Date: 10/04/2023 (None) Encounter Status:Closed by JUSTINE GARAY on 10/04/23 Normal [facility] Emergency Department Summary on 06-06-2023 Emergency Department Summary [facility] Medical Records Department [address] [place] [address] Emergency Department Summary 06/06/23 MR#: [id number] Acct: [id number] Name: BRANDY LLANOS Rep #: [id number] : 2000 22 From: Sung Payton MD PCP: Care Physician,No Primary Status:REG ER Location: ED HPI History of Present Illness Chief Complaint: General Illness Detail of Chief Complaint: Viral-like symptoms that started several days ago. Informant: patient Onset/Context/Timing Onset: Days Context: Sudden Onset Timing: Continuous and Waxes and wanes Quality: Headache, congestion, sore throat, nonproductive cough, aches Location: Respiratory Current Severity: Mild Maximum Severity: Moderate Worsened by: Nothing Relieved by: Nothing Associated Symptoms Associated Symptoms: Viral-like symptoms and see HPI narrative Narrative Narrative: Patient is a 22-year-old female who presents with viral-like symptoms. Daughter is ill with rhinorrhea at home. She reports subjective fever. She reports chills. She does complain of headache. Denies photophobia, neck stiffness. She denies ear pain or ear drainage. She does report mild nasal congestion and sore throat. Cough is nonproductive. There is no pain with breathing. She denies abdominal pain. She does report nausea without vomiting diarrhea. She denies urologic symptoms. She states she has a vaginal rash due to recurrent herpetic infection. She has had a new sexual partner. She would like tested for STI. Prior similar symptoms: Yes Recent Illness/Hospitalization : No PFSH PFSH Medical History HPV (human papilloma virus) infection Non-smoker Home Medications PNV 153-FA 400 mcg-om3 35 mg-dha 25 mg-epa 5 mg-fish oil chew tablet ( Gummies) 2 tab PO DAILY Check with primary doctor 06/30/21 [History Last Taken 02/23/22 08:00] cholecalciferol (vitamin D3) 50 mcg (2,000 unit) capsule (Vitamin D3) 50 mcg PO DAILY Check with primary doctor 12/11/21 [History Last Taken 12/11/21 10:45] iron 1 tab PO/SL QODAY Check with primary doctor 02/24/22 [History Last Taken 02/22/22] magnesium 1 tab PO/SL DAILY Check with primary doctor 02/24/22 [History Last Taken 02/23/22] oxycodone 5 mg tablet 5 mg PO Q6H PRN pain (scale score 7-10) 4 days #16 tabs 02/24/22 [Rx Last Taken Unknown] acyclovir 400 mg tablet 1 tab PO 5X/DAY #35 tabs 06/06/23 [Rx Last Taken Unknown] Allergy/AdvReac Type Severity Reaction Status Date / Time No Known Allergies Allergy Verified 06/06/23 10:35 Social History (Updated 06/06/23 @ 11:[address] Sung Payton MD) household members: children Smoking Status: Former smoker substance use type: does not use ROS ROS ED Constitutional Constitutional ED: Reports chills, fever(s) and subjective; Denies sweats or weight loss Eyes Eyes: Denies blurry vision, change in vision or diplopia ENT ENT ED: Reports rhinorrhea and sore throat; Denies ear pain Cardiovascular Cardiovascular: Denies chest pain, orthopnea, palpitations or paroxysmal nocturnal dyspnea Respiratory/Chest Respiratory/Chest: Reports cough and dyspnea; Denies dyspnea on exertion, orthopnea, paroxysmal nocturnal dyspnea or sputum Gastrointestinal Gastrointestinal: Reports nausea; Denies abdominal pain, diarrhea or vomiting Genitourinary Genitourinary ED: Denies dysuria, hematuria or urinary frequency Musculoskeletal Musculoskeletal: Reports myalgias; Denies arthralgias or back pain Integumentary Reports rash Neurologic Neurologic: Reports headache(s) and weakness; Denies paresthesias Endocrine Endocrinology: Denies cold intolerance or heat intolerance Hematologic/Lymphatic Hematologic/Lymphatic: Reports systems reviewed and no addt'l complaints, except as documented EXAM Physical Exam Const Vital Signs: 06/06/23 10:33 06/06/23 11:31 06/06/23 11:34 Temperature 97.7 F L 98.4 F Temperature Source Temporal Oral Pulse Rate 137 H 97 Respiratory Rate 18 14 Respiratory Effort Normal Non-Labored Blood Pressure 150/95 H 123/77 H Blood Pressure Mean 113 92 Pulse Ox 99 99 Oxygen Delivery Method Room Air Room Air 06/06/23 13:48 Temperature Temperature Source Pulse Rate 78 Respiratory Rate 16 Respiratory Effort Blood Pressure 128/80 H Blood Pressure Mean 96 Pulse Ox 99 Oxygen Delivery Method Room Air Positive well nourished and well developed Constitutional Narrative: Patient appears ill but nontoxic. General Appearance ED: well developed and NAD; Negative for cyanotic, diaphoretic or pallor HEENT Reports dry mucous membranes HEENT Narrative: Head is atraumatic and normocephalic. Ears normal. TMs normal. Nares patent with clear discharge. Posterior pharynx with slight erythema. Uvula is midline. No deviation with protrusion. Mouth ED: Yes dry mucous membranes (more content not included)... Normal [facility] - Microbiology an d Antimicrobial susceptibilityOrdered By: Sung Payton on 06-06-2023 SARS-CoV-2 (COVID-19) RNA EL+probe Ql (Unsp spec) [facility] M100.678on 06-06-2023 M100.678 Normal Reference Ran ge = Negative GeneXpert Instrument, PCR method SARS-CoV-2 (COVID 19) Negative INFLUENZA A Negative INFLUENZA B Negative RSV PCR Negative Normal [facility] Comment on above: Performed By: #### M 100.678, M8200.2100, M8200.2200 #### [facility] [address] [place], [address] M8200.2100on 06-06-[address] [facility] Comment on above: Performed By: #### M 100.678, M8200.2100, M8200.2200 #### [facility] [address] [place], [address] M8200.2200on 06-06-[address] [facility] Comment on above: Performed By: #### M 100.678, M8200.2100, M8200.2200 #### [facility] [address] [place], [address] ,Serum,hCG Quali.on 06-06-2023 HCG, SERUM QUAL Negative Normal [facility] Comment on above: Performed By: #### L 700.6800 #### [facility] [address] [place], [place], [address] Serum or plasma choriogonado tropin detectionOrdered By: Sung Payton on 06-06-2023 HCG ( test) Ql Negative [facility] GROUPNOTEon 11-13-2022 [facility] Intensive Outpatient Program (IOP) Group Therapy - Session 2 Group Name: Intensive Outpatient Program Summary: RETAIL CLIENT MANAGER had patients complete their relapse prevention plans. Department: [facility] Topic: Relapse Prevention Group Date: 11/13/2022 Start Time: 6:30 PM End Time: 7:20 [...] suggestions Interventions utilized were Empathic listening and Modeling/skills training, CBT Patient's Response to Intervention: Patient shared emotional triggers like negative feelings or wanting to celebrate. She shared that her close friends have been supportive. RETAIL CLIENT MANAGER confronted reservations. Progress Towards Goal(s): Moderate Additional Comments: n/a Next Step: Continue with current services Patients Problems: Patient Active Problem List Diagnosis Major depressive disorder, recurrent episode with peripartum onset (HCC) Cannabis use disorder, severe (HCC) Name: Brandy Llanos Date of : 2000 MR: [id number] Neris Jensen [facility] GROUPNOTE Outpatient [facility] Intensive Outpatient Program (IOP) Group Therapy - Session 1 Group Name: Intensive Outpatient Program Summary: Patients shared about their weekends and updated on recent events. Department: [facility] Topic: Check-in Group Date: 11/13/2022 Start Time: 5:30 PM End Time: 6:20 [...] suggestions Interventions utilized were Empathic listening and Modeling/skills training Patient's Response to Intervention: Patient shared that she has started working out. She also reported passing suicidal ideation but was able to cope with it and work through it. She denied any plans or intent at this time. She shared that she had a job interview recently and recent parenting stress. Progress Towards Goal(s): Moderate Additional Comments: n/a Next Step: Continue with current services Patients Problems: Patient Active Problem List Diagnosis Major depressive disorder, recurrent episode with peripartum onset (HCC) Cannabis use disorder, severe (HCC) Name: Brandy Llanos Date of : 2000 MR: [id number] [facility] GROUPNOTE Outpatient [facility] Intensive Outpatient Program (IOP) Group Therapy - Session 3 Group Name: Intensive Outpatient Program Summary: Patients shared more of their relapse prevention plans and wrote letters to their past selves. Department: [facility] Addiction IOP Group Topic: Relapse Prevention Group Date: 11/13/2022 Start Time: 7:30 PM End Time: 8:20 [...] suggestions Interventions utilized were Empathic listening and Modeling/skills training, CBT Patient's Response to Intervention: Patient was engaged in letter writing, sharing of refusal skills, internal feeling when experiencing cravings and coping skills to prevent relapse. Progress Towards Goal(s): Moderate Additional Comments: n/a Next Step: Continue with current services Patients Problems: Patient Active Problem List Diagnosis Major depressive disorder, recurrent episode with peripartum onset (HCC) Cannabis use disorder, severe (HCC) Name: Brandy Llanos Date of : 2000 MR: [id number] [facility] GROUPNOTEon 11-09-2022 GROUPNOTE Outpatient [facility] Intensive Outpatient Program (IOP) Group Therapy - Session 3 Group Name: Intensive Outpatient Program Summary: RETAIL CLIENT MANAGER had patients share content that resonated with [...] Brandy Llanos Date of : 2000 MR: [id number] [facility]er[facility] GROUPNOTE Outpatient [facility] Intensive Outpatient Program (IOP) Group Therapy - Session 1 Group Name: Intensive Outpatient Program Summary: RETAIL CLIENT MANAGER allotted time for patients to share recent [...] Brandy Llanos Date of : 2000 MR: [id number] Neris [facility] GROUPNOTE Outpatient [facility] Intensive Outpatient Program (IOP) Group Therapy - [...] Brandy Llanos Date of : 2000 MR: [id number] Nerisclaude Jensen [facility] [place] 11-07-2022 [facility] Breathalyzer and/or Urine Drug Screen Results Date [...] care [] Referral to MAT [] Skill development/reinforceme nt [] Request Confirmation Test [x] Retest (note timeframe below) [] Other (identify): Description of Plan/Intervention: Next week Patient's Response to Plan/Intervention:agree d [facility] GROUPNOTEon 11-07-2022 GROUPNOTE Outpatient [facility] Intensive Outpatient Program (IOP) Group Therapy - Session 3 Group Name: Intensive Outpatient Program Summary: RETAIL CLIENT MANAGER had patient watched grief video shared by peer and complete a gratitude list . Department: [facility] Group Topic: Loss and Grief Issues Group Date: 11/07/2022 Start Time: 7:30 PM End Time: 8:20 PM Number of Participants: 3 Mental Status Exam: Appearance: Appropriately dressed and [...] questions, and offered helpful suggestions Interventions utilized were:Modeling/skills training, Patient's Response to Intervention: Patient shared video with peers and was attentive to video. She shared her ABC gratitude list. Progress Towards Goal(s): Moderate Additional Comments: n/a Next Step: Continue with current services Patients Problems: Patient Active Problem List Diagnosis Major depressive disorder, recurrent episode with peripartum onset (HCC) Cannabis use disorder, severe (HCC) Name: Brandy Llanos Date of : 2000 MR: [id number] Neris Jensen [facility] GROUPNOTE Outpatient [facility] Intensive Outpatient Program (IOP) Group Therapy - Session 1 Group Name: Intensive Outpatient Program Summary: RETAIL CLIENT MANAGER monitored patients self care practices and progress on goals. Department: [facility] Topic: Goals Group Date: 11/07/2022 Start Time: 5:30 PM End Time: 6:20 PM Number of Participants: 3 Mental Status Exam: Appearance: Appropriately dressed and [...] helpful suggestions Interventions utilized were Empathic listening, Cognitive Behavioral Therapy (CBT), and Modeling/skills training Patient's Response to Intervention: Patient has not kept up on self care goal to take time to get ready once per week. Patient was encourage by group to journal after her daughter goes to bed. Patient reported that she is trying to stop smoking nicotine. Progress Towards Goal(s): Moderate Additional Comments: n/a Next Step: Continue with current services Patients Problems: Patient Active Problem List Diagnosis Major depressive disorder, recurrent episode with peripartum onset (HCC) Cannabis use disorder, severe (HCC) Name: Brandy Llanos Date of : 2000 MR: [id number] [facility]eris [facility] GROUPNOTE Outpatient [facility] Intensive Outpatient Program (IOP) Group Therapy - Session 2 Group Name: Intensive Outpatient Program Summary: RETAIL CLIENT MANAGER gave time for patient to share their experiences with loss and grief. Feelings were processed together and education was provided on stages of grief and how to process it. Department: [facility] Topic: Loss and Grief Issues Group Date: 11/07/2022 Start Time: 6:30 PM End Time: 7:20 PM Number of Participants: 3 Mental Status Exam: Appearance: Appropriately dressed and groomed and Healthy looking Mood: Apathetic Affect: Full, Appropriate, and Congruent with mood Behavior: Pleasant, Cooperative, Engaging, and Interactive Alertness: Alert Speech: Appropriate, Clear, and Normal pace Cognition: Intact and Oriented X4 Thought Process: Goal-directed Thought Content: No evidence of psychosis/delusions Level/Quality of Participation: active, attentive, cooperative, and engaged Interactions with others: gave feedback, supportive, asked thoughtful questions, and offered helpful suggestions Interventions utilized were Empathic listening, Cognitive Behavioral Therapy (CBT), and Modeling/skills training, Psychoeducation Patient's Response to Intervention: Patient shared about the loss of having a real graduation due to covid and her life before covid. Patient shared that she is worried to leave [facility] because it gives her time to herself in a way. Patient asked about taking pain medication if she were to have another child and how that may effect her recovery because she wants to remain clean. Progress Towards Goal(s): Moderate Additional Comments: n/a Next Step: Continue with current services Patients Problems: Patient Active Problem List Diagnosis Major depressive disorder, recurrent episode with peripartum onset (HCC) Cannabis use disorder, severe (HCC) Name: Brandy Llanos Date of : 2000 MR: [id number] [facility] GROUPNOTEon 11-06-2022 GROUPNOTE Outpatient [facility] Intensive Outpatient Program (IOP) Group Therapy - Session 3 Group Name: Intensive Outpatient Program Summary: RETAIL CLIENT MANAGER reviewed coping skills with patients and had them engage in an art activity to help remember the skills. Department: [facility] Topic: Skill Building Group Date: 11/06/2022 Start Time: 7:30 PM End Time: 8:20 [...] engaged Interactions with others: gave feedback, supportive, and offered helpful suggestions Interventions utilized were Modeling/skills training Patient's Response to Intervention: Patient engaged in activity and identified coping skills. Patient was assigned to attend one meeting in the next two weeks and to identify support people. Progress Towards Goal(s): Moderate Additional Comments: n/a Next Step: Continue with current services Patients Problems: Patient Active Problem List Diagnosis Major depressive disorder, recurrent episode with peripartum onset (HCC) Cannabis use disorder, severe (HCC) Name: Brandy Llanos Date of : 2000 MR: [id number] [facility] GROUPNOTE Outpatient [facility] Intensive Outpatient Program (IOP) Group Therapy - Session 2 Group Name: Intensive Outpatient Program Summary: Patient shared concern for peers behavior, RETAIL CLIENT MANAGER validated and processed feelings with them. RETAIL CLIENT MANAGER then provided education on guilt, shame and forgiveness. Department: [facility] Addiction IOP Group Topic: Forgiveness Group Date: 11/06/2022 Start Time: 6:30 PM End Time: 7:20 [...] engaged Interactions with others: gave feedback, supportive, and offered helpful suggestions Interventions utilized were Cognitive Behavioral Therapy (CBT) and Modeling/skills training Patient's Response to Intervention: Patient was supportive and related to peer about the desire to steal. Patient was honest about her resistance and confusion about the importance of amends but was receptive to feedback. Progress Towards Goal(s): Moderate Additional Comments: n/a Next Step: Continue with current services Patients Problems: Patient Active Problem List Diagnosis Major depressive disorder, recurrent episode with peripartum onset (HCC) Cannabis use disorder, severe (HCC) Name: Brandy Llanos Date of : 2000 MR: [id number] [facility] GROUPNOTE Outpatient [facility] Intensive Outpatient Program (IOP) Group Therapy - Session 1 Group Name: Intensive Outpatient Program Summary: RETAIL CLIENT MANAGER checked in with patients about their weekends. Cravings triggers and use of skills were monitored. Department: [facility] Addiction IOP Group Topic: Check-in Group Date: 11/06/2022 Start Time: 5:30 PM End Time: 6:20 [...] helpful suggestions Interventions utilized were Empathic listening, Modeling/skills training, and Motivational interviewing techniques Patient's Response to Intervention: Patient shared about sober activities she did with her daughter and godmother this weekend. She shared that a new rule was placed on her at her housing program that she disagrees with because it further isolates her and her daughter from support. She shared her plans to get a job after IOP so she can find her own housing. Progress Towards Goal(s): Moderate Additional Comments: n/a Next Step: Continue with current services Patients Problems: Patient Active Problem List Diagnosis Major depressive disorder, recurrent episode with peripartum onset (HCC) Cannabis use disorder, severe (HCC) Name: Brandy Llanos Date of : 2000 MR: [id number] [facility] GROUPNOTEon 11-02-2022 GROUPNOTE Outpatient [facility] Intensive Outpatient Program (IOP) Group Therapy - [...] Brandy Llanos Date of : 2000 MR: [id number] [facility] GROUPNOTE Outpatient [facility] Intensive Outpatient Program (IOP) Group Therapy - [...] Brandy Llanos Date of : 2000 MR: [id number] [facility] GROUPNOTE Outpatient [facility] Intensive Outpatient Program (IOP) Group Therapy - [...] at meetings. She shared that she attends orthodoxy weekly. Progress Towards Goal(s): Moderate Additional Comments: patient isolated herself from peers during breaks. Next Step: Continue with current services Patients Problems: Patient Active Problem List Diagnosis Major depressive disorder, recurrent episode with peripartum onset (HCC) Cannabis use disorder, severe (HCC) Name: Brandy Llanos Date of : 2000 MR: [id number] [facility] [place]OORDon 10-31-2022 [place] Outpatient [facility] Breathalyzer and/or Urine Drug Screen [...] care [] Referral to MAT [] Skill development/reinforceme nt [] Request Confirmation Test [] Retest (note timeframe below) [x] Other (identify): Continue to test weekly Description of Plan/Intervention: continue to test weekly Patient's Response to Plan/Intervention:agree d [facility] GROUPNOTEon 10-31-2022 GROUPNOTE Outpatient [facility] Intensive Outpatient Program (IOP) Group Therapy - Session 2 Group Name: Intensive Outpatient Program Summary: RETAIL CLIENT MANAGER provided education on grounding techniques and had [...] Brandy Llanos Date of : 2000 MR: [id number] [facility] GROUPNOTE Outpatient [facility] Intensive Outpatient Program (IOP) Group Therapy - Session 1 Group Name: Intensive Outpatient Program Summary: RETAIL CLIENT MANAGER checked in with patients on SMART goals, [...] feelings. Progress Towards Goal(s): Moderate Additional Comments: RETAIL CLIENT MANAGER confronted patient about sex work behaviors in private during break. Patient became angry but was able to calm herself. Next Step: Continue with current services Patients Problems: Patient Active Problem List Diagnosis Major depressive disorder, recurrent episode with peripartum onset (HCC) Cannabis use disorder, severe (HCC) Name: Brandy Llanos Date of : 2000 MR: [id number] [facility] GROUPNOTE Outpatient [facility] Intensive Outpatient Program (IOP) Group Therapy - Session 3 Group Name: Intensive Outpatient Program Summary: RETAIL CLIENT MANAGER provided education on breathing techniques and meditation. [...] Brandy Llanos Date of : 2000 MR: [id number] [facility] CARECOORDon 10-30-2022 [facility] Outpatient [facility] Breathalyzer and/or Urine Drug Screen Results Date [...] care [] Referral to MAT [] Skill development/reinforceme nt [] Request Confirmation Test [] Retest (note timeframe below) [x] Other (identify): Continue to test for decreasing levels. Description of Plan/Intervention: test weekly to confirm ongoing sobriety. Patient's Response to Plan/Intervention: Agreed [facility] GROUPNOTEon 10-30-2022 GROUPNOTE Outpatient [facility] Intensive Outpatient Program (IOP) Group Therapy - Session 1 Group Name: Intensive Outpatient Program Summary: Patients completed the BAM. Time was given for check in and to share recovery related concerns. Department: [facility] Addiction IOP Group Topic: Check-in Group Date: 10/30/2022 Start Time: 5:30 PM End Time: 6:20 [...] helpful suggestions Interventions utilized were Empathic listening, Cognitive Behavioral Therapy (CBT), Modeling/skills training, and Motivational interviewing techniques Patient's Response to Intervention: Pt shared a decrease in motivation since getting sober. She shared that she spent time investing in herself and doing sober activities alone this weekend. She shared that she was with friends who were smoking but wasn't aware it was going to happen, she was receptive to feedback about changing people, places and things. Progress Towards Goal(s): Moderate Additional Comments: n/a Next Step: Continue with current services Patient Active Problem List Diagnosis Major depressive disorder, recurrent episode with peripartum onset (HCC) Cannabis use disorder, severe (HCC) Name: Brandy Llanos Date of : 2000 MR: [id number] [facility] GROUPNOTE Outpatient [facility] Intensive Outpatient Program (IOP) Group Therapy - Session 2 Group Name: Intensive Outpatient Program Summary: RETAIL CLIENT MANAGER provided education on stages of change and how substance effect the brain/dopamine. Department: [facility] Addiction IOP Group Topic: Recovery Basics Group Date: 10/30/2022 Start Time: 6:30 PM End Time: 7:20 PM Number of Participants: 7 Mental Status Exam: Appearance: Appropriately dressed and [...] and offered helpful suggestions Interventions utilized were Cognitive Behavioral Therapy (CBT), Psychoeducation, and Motivational interviewing techniques Patient's Response to Intervention: Pt shared that she feels she can continue with controlled drinking after IOP. RETAIL CLIENT MANAGER went through disorder criteria with patient but also discussed re-assessing patient due to lack of honesty. She was receptive to peer feedback and education on cross addiction. Progress Towards Goal(s): Moderate Additional Comments: n/a Next Step: Continue with current services Patients Problems: Patient Active Problem List Diagnosis Major depressive disorder, recurrent episode with peripartum onset (HCC) Cannabis use disorder, severe (HCC) Name: Brandy Llanos Date of : 2000 MR: [id number] [facility] GROUPNOTE Outpatient [facility] Intensive Outpatient Program (IOP) Group Therapy - Session 3 Group Name: Intensive Outpatient Program Summary: RETAIL CLIENT MANAGER had patients reflection on what stage they feel they are in and why. Department: [facility] Addiction IOP Group Topic: Recovery Basics Group Date: 10/30/2022 Start Time: 7:30 PM End Time: 8:20 PM Number of Participants: 5 Mental Status [...] and offered helpful suggestions Interventions utilized were Cognitive Behavioral Therapy (CBT), Psychoeducation, and Motivational interviewing techniques Patient's Response to Intervention: Pt feels she is in the action stage in regards to cannabis use because she is sober and attending IOP, as well as therapy twice a week. She feels she in in the precontemplative stage in regards to the lifestyle she lives because she knows in dangerous and not a good choice but she gains pleasure and stability from it. She will move to the next stage by staying sober, getting a job after IOP and making a new pros and cons list in regards to her lifestyle. Progress Towards Goal(s): Moderate Additional Comments: n/a Next Step: Continue with current services Patients Problems: Patient Active Problem List Diagnosis Major depressive disorder, recurrent episode with peripartum onset (HCC) Cannabis use disorder, severe (HCC) Name: Brandy Llanos Date of : 2000 MR: [id number] [facility] GROUPNOTEon 10-26-2022 GROUPNOTE Outpatient [facility] Intensive Outpatient Program (IOP) Group Therapy - Session 2 Group Name: Intensive Outpatient Program Summary: RETAIL CLIENT MANAGER had patients discuss and work through concepts [...] Brandy Llanos Date of : 2000 MR: [id number] [facility] GROUPNOTE Outpatient [facility] Intensive Outpatient Program (IOP) Group Therapy - [...] Brandy Llanos Date of : 2000 MR: [id number] [facility] GROUPNOTE Outpatient [facility] Intensive Outpatient Program (IOP) Group Therapy - [...] Brandy Llanos Date of : 2000 MR: [id number] [facility] [place]ECOORDon 10-24-2022 [place] Outpatient [facility] Breathalyzer and/or Urine Drug Screen Results Date Results Shared with Patient: 10/24/22 Time: 530p Date of UDS Specimen Collection or Breathalyzer: 10/19/22 Test Result(s) Shared with Patient: [x] Urine Drug Screen [] Breathalyzer Rationale for the Breathalyzer/UDS (please check all that apply): Monitoring Sobriety/Level of Use: Treatment Compliance: Behavioral Indicators: [] History of relapse [] Confirm MAT Compliance [] Observed change in level of functioning [x] Reported Relapse [] Accountability/Random Screen [] Concerns with living/recovery environment [] Previous positive screen [] Recent Absences [] Suspicion of active use by patient [] Confirmation of Sobriety [] Lack of Program Compliance [] Patient Request [x] Other (identify): Baseline screen Results shared with patient: [] Negative UDS Results [] Negative Confirmation Test Results [] Positive UDS Result for: ETG and THC [] Positive Confirmation Test Result(s) for: [] Breathalyzer Result: Patient Response to Test Result(s): Pt admitted to use Plan/Intervention Based on Test Results: [] Increase frequency of testing [] Linkage/referral for additional services [] Consideration for higher level of care [] Additional Information/education [] Consider change in treatment milieu [] Consideration for lower level of care [] Referral to MAT [] Skill development/reinforceme nt [] Request Confirmation Test [] Retest (note timeframe below) [x] Other (identify): test again next week Description of Plan/Intervention: test next week and wait for THC level results. Patient's Response to Plan/Intervention:agree d [facility] GROUPNOTEon 10-24-2022 GROUPNOTE Outpatient [facility] Intensive Outpatient Program (IOP) Group Therapy - Session 1 Group Name: Intensive Outpatient Program Summary: RETAIL CLIENT MANAGER checked in with patients and completed the forgiveness portions of the resentment workbook from yesterdays session. Department: [facility] Addiction IOP Group Topic: Forgiveness Group Date: 10/24/2022 Start Time: 5:30 PM End Time: 6:20 PM Number of Participants: 3 Mental Status Exam: Appearance: Appropriately dressed and [...] Interventions utilized were Building rapport and engagement, Cognitive Behavioral Therapy (CBT), and Psychoeducation Patient's Response to Intervention: She shared that she is fine, pt admitted that she has concerns with sharing freely. RETAIL CLIENT MANAGER reassured patient that what happens in group will remain confidential unless their is possible harm to herself or others. She shared she was a good mom and friend. Pt reported gains and losses due to resentments, amends that need to be made, ways that resentments effected their behavior, negative thoughts and positive thoughts. Progress Towards Goal(s): Moderate Additional Comments: n/a Next Step: Continue with current services Patients Problems: Patient Active Problem List Diagnosis Major depressive disorder, recurrent episode with peripartum onset (HCC) Cannabis use disorder, severe (HCC) Name: Brandy Llanos Date of : 2000 MR: [id number] [facility] GROUPNOTE Outpatient [facility] Intensive Outpatient Program (IOP) Group Therapy - Session 2 Group Name: Intensive Outpatient Program Summary: Patients watched 28 Days to introduce them to the stages of change and recovery process. Department: [facility] Addiction IOP Group Topic: Other Group Date: 10/24/2022 Start Time: 6:30 PM End Time: 7:20 PM Number of Participants: 3 Mental Status Exam: Appearance: Appropriately dressed and groomed and Healthy looking Mood: content Affect: Appropriate and Congruent with mood Behavior: Pleasant, Cooperative, Engaging, and Interactive Alertness: Alert Speech: Appropriate, Clear, and Normal pace Cognition: Intact Thought Process: Goal-directed Thought Content: No evidence of psychosis/delusions Level/Quality of Participation: active, attentive, and cooperative Interactions with others: gave feedback and supportive Interventions utilized were Psychoeducation and Motivational interviewing techniques Patient's Response to Intervention: Pt was attentive to film. She shared how she would feel if her daughter was an addict and how her god mother treated her versus the way the character was treated. Patient became ill half way through this hour, RETAIL CLIENT MANAGER monitored withdrawal symptoms. Pt made it to the end off session but became ill again. Progress Towards Goal(s): Moderate Additional Comments: n/a Next Step: Continue with current services Patients Problems: Patient Active Problem List Diagnosis Major depressive disorder, recurrent episode with peripartum onset (HCC) Cannabis use disorder, severe (HCC) Name: Brandy Llanos Date of : 2000 MR: [id number] [facility] GROUPNOTE Patient left due to illness [facility] GROUPNOTEon 10-23-2022 GROUPNOTE Outpatient [facility] Intensive Outpatient Program (IOP) Group Therapy - Session 1 Group Name: Intensive Outpatient Program Summary: RETAIL CLIENT MANAGER had patient check in about their weekends and introduce themselves to the new member. New member introduced himself and built rapport with the group. Department: [facility] Addiction IOP Group Topic: Check-in Group Date: 10/23/2022 Start Time: 5:30 PM End Time: 6:20 PM Number of Participants: 5 Mental Status Exam: Appearance: Appropriately dressed and groomed and Healthy looking Mood: depressed Affect: Appropriate and Congruent with mood Behavior: Cooperative, and Interactive Alertness: Alert Speech: Appropriate, Clear, and Normal pace Cognition: Intact and Oriented X4 Thought Process: Goal-directed Thought Content: No evidence of psychosis/delusions Level/Quality of Participation: active, attentive, cooperative, and engaged Interactions with others: gave feedback and supportive Interventions utilized were Building rapport and engagement, Empathic listening, and Modeling/skills training Patient's Response to Intervention: Pt stated she didn't remember her weekend when asked why she stated it was depression. Pt did share about her trip to the zoo when prompted by peers. She reported alcohol an THC use on her BAM. Progress Towards Goal(s): Moderate Additional Comments: n/a Next Step: Continue with current services Patients Problems: Patient Active Problem List Diagnosis Major depressive disorder, recurrent episode with peripartum onset (HCC) Cannabis use disorder, severe (HCC) Name: Brandy Llanos Date of : 2000 MR: [id number] [facility] GROUPNOTE Outpatient [facility] Intensive Outpatient Program (IOP) Group Therapy - Session 3 Group Name: Intensive Outpatient Program Summary: Construction Rigger continued resentments education and processing. Department: [facility] Addiction IOP Group Topic: Acceptance Group Date: 10/23/2022 Start Time: 7:30 PM End Time: 8:20 PM Number of Participants: 5 Mental Status Exam: Appearance: Appropriately dressed and groomed and Healthy looking Mood: angry Affect: Appropriate and Congruent with mood Behavior: resistant but receptive to peers Alertness: Alert Speech: Appropriate, Clear, and Normal pace Cognition: Intact and Oriented X4 Thought Process: Goal-directed Thought Content: No evidence of psychosis/delusions Level/Quality of Participation: active, attentive, cooperative, engaged, Interactions with others: gave feedback, Interventions utilized were Empathic listening, Cognitive Behavioral Therapy (CBT), and Psychoeducation Patient's Response to Intervention: Pt shared resentments made her depressed, unmotivated and caused obsessive thoughts. She was receptive to a new perspective offered from web content developer and peers. She shared that she has been suppressing her trauma and that may cause some of her anger. Progress Towards Goal(s): Moderate Additional Comments: n/a Next Step: Continue with current services Patients Problems: Patient Active Problem List Diagnosis Major depressive disorder, recurrent episode with peripartum onset (HCC) Cannabis use disorder, severe (HCC) Name: Brandy Llanos Date of : 2000 MR: [id number] [facility] GROUPNOTE Outpatient [facility] Intensive Outpatient Program (IOP) Group Therapy - Session 2 Group Name: Intensive Outpatient Program Summary: RETAIL CLIENT MANAGER provided education and activities to process resentments and practice acceptance of things you cant change. Department: [facility] Addiction IOP Group Topic: Acceptance Group Date: 10/23/2022 Start Time: 6:30 PM End Time: 7:20 PM Number of Participants: 5 Mental Status Exam: Appearance: Appropriately dressed and groomed and Healthy looking Mood: angry Affect: Appropriate and Congruent with mood Behavior: resistant and Interactive Alertness: Alert Speech: Appropriate, Clear, and Normal pace Cognition: Intact and Oriented X4 Thought Process: Goal-directed Thought Content: No evidence of psychosis/delusions Level/Quality of Participation: active, attentive engaged, offered feedback, Interactions with others: gave feedback, Interventions utilized were Empathic listening, Cognitive Behavioral Therapy (CBT), and Psychoeducation Patient's Response to Intervention: Pt shared resentments she currently holds. She stated talking about it was just making her angrier. She shared how she resents herself for being too nice and doing to much for people. Progress Towards Goal(s): Moderate Additional Comments: n/a Next Step: Continue with current services Patients Problems: Patient Active Problem List Diagnosis Major depressive disorder, recurrent episode with peripartum onset (HCC) Cannabis use disorder, severe (HCC) Name: Brandy Llanos Date of : 2000 MR: [id number] [facility] Progress Noteon 10-23-2022 Progress Note Chief Complaint Patient presents with Drug / Alcohol Assessment I did spend 31- minutes preparing for visit, counseling, providing discussion on recovery progress and treatment plan of patient, and management of prescription medications and future scheduling. HPI: Brandy Llanos, a 22 y.o. female, who returns for a follow-up MAT appointment. UDS 6/5 pos thc OARRS ok 1 rx oxy 02/24/22--4 day supply The patient is a 22-year-old female presenting to [facility] program for treatment of cannabis dependence. This patient does have a history of marijuana use dating back to the age of 11. Positive admitted loss of control, increased tolerance, continued use despite adverse consequences, inability abstain successfully on her own. Originally treated in a recovery setting in [facility] 2 years ago. She stated that at that time she really did not want to be in treatment. Minimal ensuing sobriety. More recently she has been a resident at [facility] which is for single mothers. She requested counseling and was referred to the outpatient program. She just started the outpatient program earlier this month. She did admit to continued intermittent marijuana use. Very limited alcohol use. She started the program last week. Admittedly she did use marijuana last Sunday. She has been clean for the weekend. At this point in time patient will engage in all aspects of the [facility] program. I will continue to monitor her progress closely. Cravings : denied Sleep: denied Anxiety: denied Side effects: denied New medications : denied Recovery status Maintaining sobriety: yes Treatment status: Completed treatment No past medical history on file. No current outpatient medications on file prior to encounter. No current facility-administered medications on file prior to encounter. No Known Allergies Social History Socioeconomic History Marital status: Single Spouse name: n/a Number of children: 1 Years of education: 12 Highest education level: High school graduate Occupational History Occupation: Unemployed Tobacco Use Smoking status: Never Smokeless tobacco: Never Vaping Use Vaping Use: Not on file Substance and Sexual Activity Alcohol use: Not on file Drug use: Not on file Sexual activity: Not on file Other Topics Concern Not on file Social History Narrative Not on file Social Determinants of Health Financial Resource Strain: Low Risk (10/05/2022) Overall Financial Resource Strain (CARDIA) Difficulty of Paying Living Expenses: Not hard at all Food Insecurity: No Food Insecurity (10/05/2022) Hunger Vital Sign Worried About Running Out of Food in the Last Year: Never true Ran Out of Food in the Last Year: Never true Transportation Needs: Not on file Physical Activity: Not on file Stress: Not on file Social Connections: Socially Isolated (10/05/2022) Social Connection and Isolation Panel [NHANES] Frequency of Communication with Friends and Family: More than three times a week Frequency of Social Gatherings with Friends and Family: Never Attends Anglican Services: Never Active Member of Clubs or Organizations: No Attends Club or Organization Meetings: Never Marital Status: Never Intimate Partner Violence: Not on file Housing Stability: High Risk (10/05/2022) Housing Stability Vital Sign Unable to Pay for Housing in the Last Year: No Number of Places Lived in the Last Year: 2 Unstable Housing in the Last Year: Yes Family History Family history unknown: Yes Objective There were no vitals taken for this visit. Mental status Attitude: cooperative Orientation: oriented X 3 Mood: normal Affect: reactive, mood congruent, normal range Speech: clear, normal R/V/R Thought process: unremarkable Association: no loose associations Thought content: normal Psychotic thoughts: No hallucinations or suicidal ideation Impulse control: good Judgement and insight: good Memory recent, remote within normal limits Assessment: Cannibis dependence in remission Plan Patient Goals: 1. Continue 12-step meeting attendance (goal of 2 per week). 2. Actively communicate with sponsor. 3. Take medication as directed and report any negative side effects or missed doses. 4. Report any illicit drug use to either the nurse outreach case manager or myself/my staff. 5. Keep medicine out of the reach of children. 6. Follow-up with recommended level of care. Interventions in Session: 1. Discussed patient's progress in their 12-step program. 2. Discussed progress in recovery and overall well-being. 3. Discussed stressors/triggers for a potential relapse & related coping mechanisms. No orders of the defined types were placed in this encounter. No orders of the defined types were placed in this encounter. Follow up if symptoms worsen or fail to improve. [facility] CARECOORDon 10-19-2022 [facility] Outpatient [facility] Breathalyzer and/or Urine Drug Screen Results Date Results Shared with Patient: 10/16/22 Time: 530p Date of UDS Specimen Collection or Breathalyzer: 10/19/22 Test Result(s) Shared with Patient: [x] Urine Drug Screen [] Breathalyzer Rationale for the Breathalyzer/UDS (please check all that apply): Monitoring Sobriety/Level of Use: Treatment Compliance: Behavioral Indicators: [] History of relapse [] Confirm MAT Compliance [] Observed change in level of functioning [x] Reported Relapse [] Accountability/Random Screen [] Concerns with living/recovery environment [] Previous positive screen [] Recent Absences [] Suspicion of active use by patient [] Confirmation of Sobriety [] Lack of Program Compliance [] Patient Request [] Other (identify): Results shared with patient: [] Negative UDS Results [] Negative Confirmation Test Results [x] Positive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 [facility] Work Phone: [phone] Eosinophils/100 WBC (Bld) 3.0 % 0-5 [facility] Work Phone: Glucose [Mass/Vol] 94 mg/dL 74-106 [facility] Work Phone: Neutrophils (Bld) [#/Vol] 2.1 10*3/uL 2.0-7.7 [facility] Work Phone: Neutrophils/100 WBC (Bld) 49.4 % 47-70 [facility] Work Phone: [phone] Potassium [Moles/Vol] 4.2 mmol/L 3.5-5.1 [facility] Work Phone: Protein [Mass/Vol] 7.6 g/dL 6.4-8.2 [facility]: Sodium [Moles/Vol] 141 mmol/L 136-145 [facility] Work [facility]: WBC (Bld) [#/Vol] 4.3 10*3/uL 4.4-11.0 [facility] Work Phone: Blood erythrocytes count (nu mber/volume)on 03-10-2022 RBC (Bld) [#/Vol] 3.93 10*6/uL 4.2-5.4 [facility]: Blood hemoglobin measurement (mass/volume)on 03-10-2022 Hemoglobin (Bld) [Mass/Vol] 11.9 g/dL 12.0-15.0 [facility] Work Phone: Blood lymphocytes/100 leukoc yteson 03-10-2022 Lymphocytes/100 WBC (Bld) 39.1 % 19-41 [facility] Work Phone: Blood monocytes/100 leukocyt eson 03-10-2022 Monocytes/100 WBC (Bld) 7.6 % 0-10 [facility] Work Phone: Blood platelet mean volumeon 03-10-2022 Platelet mean volume (Bld) [Entitic vol] 9.4 fL 6.2-12.0 [facility] Work Phone: Determination of erythrocyte mean corpuscular volume (MCV)on 03-10-2022 MCV (RBC) [Entitic vol] 89.6 fL 81-99 [facility] Work Phone: Hematocrit Auto (Bld) [Volum e fraction]on 03-10-2022 Hematocrit (Bld) [Volume fraction] 35.2 % 37-47 [facility] Work Phone: Laboratory - Chemistry and C hemistry - challengeon 03-10-2022 ALP [Catalytic activity/Vol] 99 U/L 45-117 [facility] Work Phone: [phone] ALT [Catalytic activity/Vol] 23 U/L 13-56 [facility] Work Phone: [phone] CO2 [Moles/Vol] 24.0 mmol/L 21.0-32.0 [facility] Work Phone: Globulin (S) [Mass/Vol] 4.2 g/dL 2.2-4.2 [facility] Work Phone: Urea nitrogen/Creatinine [Mass ratio] 18.0 mg/mg 10-20 [facility] Work Phone: Laboratory - Hematology and Cell countson 03-10-2022 Erythrocyte distribution width (RBC) [Entitic vol] 42.4 fL 35.1-43.9 [facility] Work Phone: Erythrocyte distribution width (RBC) [Ratio] 12.8 % 11.6-14.6 [facility] Work Phone: Immature granulocytes/100 WBC (Bld) 0.000 % 0.0-0.9 [facility] Work Phone: Comment on above: IG% - Immature Granu locytes (promyelocytes, myelocytes and metamyelocytes) > 1% indicates that a LEFT SHIFT is Present. MCH (RBC) [Entitic mass] 30.3 pg 27.0-32.0 [facility] Work Phone: Nucleated RBC/100 WBC (Bld) [Ratio] 0 % 0-5 [facility] Work Phone: MCHC Auto (RBC) [Mass/Vol]on 03-10-2022 MCHC (RBC) [Mass/Vol] 33.8 g/dL 32-36 [facility] Work Phone: No Panel Informationon 03-10 Estimated GFR (MDRD) Amer 111 mL/min >60 [facility] Work Phone: Comment on above: GFR Calc Estimated GFR (MDRD) Non-Af Amer 92 mL/min >60 [facility] Work Phone: Comment on above: Non- GFR Calc Platelets bldon 03-10-2022 Platelets (Bld) [#/Vol] 356 10*3/uL 150-450 [facility] Work Phone: Serum or plasma albumin tomeka urement (mass/volume)on 03-10-2022 Albumin [Mass/Vol] 3.4 g/dL 3.2-5.0 [facility] Work Phone: Serum or plasma albumin/glob ulin mass ratioon 03-10-2022 Albumin/Globulin [Mass ratio] 0.8 {ratio} 0.9-2.4 [facility] Work Phone: Serum or plasma calcium tomeka urement (mass/volume)on 03-10-2022 Calcium [Mass/Vol] 9.8 mg/dL 8.5-10.1 [facility] Work Phone: Serum or plasma creatinine m easurement (mass/volume)on 03-10-2022 Creatinine [Mass/Vol] 0.83 mg/dL 0.55-1.02 [facility] Work Phone: Comment on above: The validity of the calculated GFR & GFRAA in patients over 70 years has not been determined. Clinical correlation is essential. Serum or plasma urea nitroge n measurement (mass/volume)on 03-10-2022 Urea nitrogen [Mass/Vol] 15 mg/dL 7-18 [facility] Work Phone: Thin prep Papanicolaou smear with manual screeningon 03-10-2022 Thin prep Papanicolaou smear with manual screening 9 U/L 15-37 [facility] Work Phone: Thin prep Papanicolaou smear with manual screening 7 5-15 [facility] Work Phone: Thin prep Papanicolaou smear with manual screening 167 U/L 84-246 [facility] Work Phone: Urine creatinine measurement (mass/volume)on 03-10-2022 Creatinine (U) [Mass/Vol] 72.80 mg/dL NO RANGE EST. [facility] Work Phone: Urine protein measurement (m ass/volume)on 03-10-2022 Protein (U) [Mass/Vol] 9.2 mg/dL 0.0-11.8 [facility] Work Phone: Urine protein/creatinine mas s ratioon 03-10-2022 Protein/Creatinine (U) [Mass ratio] 126 mg/g CRE 0-200 [facility] Work Phone: Basophil percentageon 2021 WBC (Bld) [#/Vol] 7.6 10*3/uL 4.4-11.0 [facility] Work Phone: Blood erythrocytes count (nu mber/volume)on 02-25-2022 RBC (Bld) [#/Vol] 3.02 10*6/uL 4.2-5.4 [facility] Work Phone: Blood hemoglobin measurement (mass/volume)on 02-25-2022 Hemoglobin (Bld) [Mass/Vol] 8.9 g/dL 12.0-15.0 [facility] Work Phone: Blood platelet mean volumeon 02-25-2022 Platelet mean volume (Bld) [Entitic vol] 11.1 fL 6.2-12.0 [facility] Work Phone: Determination of erythrocyte mean corpuscular volume (MCV)on 02-25-2022 MCV (RBC) [Entitic vol] 91.1 fL 81-99 [facility] Work Phone: Hematocrit Auto (Bld) [Volum e fraction]on 02-25-2022 Hematocrit (Bld) [Volume fraction] 27.5 % 37-47 [facility] Work Phone: Laboratory - Hematology and Cell countson 02-25-2022 Erythrocyte distribution width (RBC) [Entitic vol] 44.5 fL 35.1-43.9 [facility] Work Phone: Erythrocyte distribution width (RBC) [Ratio] 13.6 % 11.6-14.6 [facility] Work Phone: MCH (RBC) [Entitic mass] 29.5 pg 27.0-32.0 [facility] Work Phone: MCHC Auto (RBC) [Mass/Vol]on 02-25-2022 MCHC (RBC) [Mass/Vol] 32.4 g/dL 32-36 [facility] Work Phone: Platelets bldon 02-25-2022 Platelets (Bld) [#/Vol] 128 10*3/uL 150-450 [facility] Work Phone: Absolute lymphocyte counton 02-24-2022 Lymphocytes Auto (Unsp spec) [#/Vol] 1.35 10*3/uL 0.83-4.51 [facility] Work Phone: Basophil percentageon 2021 Basophils/100 WBC (Bld) 0.3 % 0-1 [facility] Work Phone: Eosinophils/100 WBC (Bld) 0.5 % 0-5 [facility] Work Phone: Neutrophils (Bld) [#/Vol] 4.1 10*3/uL 2.0-7.7 [facility] Work Phone: Neutrophils/100 WBC (Bld) 69.1 % 47-70 [facility] Work Phone: Blood lymphocytes/100 leukoc yteson 02-24-2022 Lymphocytes/100 WBC (Bld) 22.7 % 19-41 [facility] Work Phone: Blood monocytes/100 leukocyt eson 02-24-2022 Monocytes/100 WBC (Bld) 6.9 % 0-10 [facility] Work Phone: Laboratory - Drug toxicology on 02-24-2022 Amphetamines Ql (U) Negative <1000 ng/mL [facility] Work Phone: Benzodiazepines Ql (U) Negative < 200 ng/mL [facility] Work Phone: Cannabinoids Screen Ql (U) Negative < 50 ng/mL [facility] Work Phone: Cocaine Ql (U) Negative < 300 ng/mL [facility] Work Phone: Opiates Ql (U) Negative < 300 ng/mL [facility] Work Phone: Laboratory - Hematology and Cell countson 02-24-2022 Immature granulocytes/100 WBC (Bld) 0.500 % 0.0-0.9 [facility] Work Phone: Comment on above: IG% - Immature Granu locytes (promyelocytes, myelocytes and metamyelocytes) > 1% indicates that a LEFT SHIFT is Present. Nucleated RBC/100 WBC (Bld) [Ratio] 0 % 0-5 [facility] Work Phone: No Panel Informationon 02-24 MDMA (Ecstasy) Screen Negative < 500 ng/mL [facility] Work Phone: Urine Barbiturates Screen Negative < 200 ng/mL [facility] Work Phone: Urine Drug Screen Comment [facility] Work Phone: Comment on above: CONFIRMATORY TESTING FOR ALL POSITIVE URINE DRUG SCREENRESULTS WILL ONLY BE SENT OUT UPON PHYSICIAN ORDER. VISTA Urine Drug Screen methods provide only preliminaryanalytical test results. A more specific alternate chemicalmethod must be used in order to obtain a confirmedanalytical result. Gas chromatography/mass spectrometery(GC/MS) is the preferred confirmatory method. Clinicalconsideration and professional judgement should be appliedto any drug of abuse test result, particularly whenpreliminary positive results are used. URINE TCA TESTING MUST BE ORDERED SEPARATELY. USE TESTMNEMONIC: [facility] Urine Methadone Screen Negative < 300 ng/mL [facility] Work Phone: Urine phencyclidine (PCP) de tectionon 02-24-2022 Phencyclidine Ql (U) Negative < 25 ng/mL [facility] Work Phone: Basophil percentageon 2021 WBC (Bld) [#/Vol] 5.2 10*3/uL 4.4-11.0 [facility] Work Phone: Blood erythrocytes count (nu mber/volume)on 01-27-2022 RBC (Bld) [#/Vol] 3.55 10*6/uL 4.2-5.4 [facility] Work Phone: Blood hemoglobin measurement (mass/volume)on 01-27-2022 Hemoglobin (Bld) [Mass/Vol] 10.6 g/dL 12.0-15.0 [facility] Work Phone: Blood platelet mean volumeon 01-27-2022 Platelet mean volume (Bld) [Entitic vol] 11.1 fL 6.2-12.0 [facility] Work Phone: Determination of erythrocyte mean corpuscular volume (MCV)on 01-27-2022 MCV (RBC) [Entitic vol] 89.3 fL 81-99 [facility] Work Phone: Hematocrit Auto (Bld) [Volum e fraction]on 01-27-2022 Hematocrit (Bld) [Volume fraction] 31.7 % 37-47 [facility] Work Phone: Laboratory - Hematology and Cell countson 01-27-2022 Erythrocyte distribution width (RBC) [Entitic vol] 39.5 fL 35.1-43.9 [facility] Work Phone: Erythrocyte distribution width (RBC) [Ratio] 12.3 % 11.6-14.6 [facility] Work Phone: MCH (RBC) [Entitic mass] 29.9 pg 27.0-32.0 [facility] Work Phone: MCHC Auto (RBC) [Mass/Vol]on 01-27-2022 MCHC (RBC) [Mass/Vol] 33.4 g/dL 32-36 [facility] Work Phone: [phone] Platelets bldon 01-27-2022 Platelets (Bld) [#/Vol] 148 10*3/uL 150-450 [facility] Work Phone: [phone] Serum or plasma ferritin colton surement (mass/volume)on 01-27-2022 Ferritin [Mass/Vol] 5 ng/mL 8-252 [facility] Work Phone: [phone] Absolute lymphocyte counton 12-31-2021 Lymphocytes Auto (Unsp spec) [#/Vol] 0.52 10*3/uL 0.83-4.51 [facility] Work Phone: Basophil percentageon 2021 Basophils/100 WBC (Bld) 0.4 % 0-1 [facility] Work Phone: [phone] Chloride [Moles/Vol] 108 mmol/L 98-107 [facility] Work Phone: [phone] Eosinophils/100 WBC (Bld) 0.0 % 0-5 [facility] Work Phone: Glucose [Mass/Vol] 109 mg/dL 74-106 [facility] Work Phone: Comment on above: Fasting Glucose resu lt from 100 to 125 mg/dL suggests IMPAIRED HOMEOSTASIS per A.D.A. criteria. Neutrophils (Bld) [#/Vol] 4.1 10*3/uL 2.0-7.7 [facility] Work Phone: [phone] Neutrophils/100 WBC (Bld) 77.9 % 47-70 [facility] Work Phone: [phone] Potassium [Moles/Vol] 3.5 mmol/L 3.5-5.1 [facility] Work Phone: Sodium [Moles/Vol] 138 mmol/L 136-145 [facility] Work Phone: WBC (Bld) [#/Vol] 5.2 10*3/uL 4.4-11.0 [facility] Work Phone: Blood erythrocytes count (nu mber/volume)on 12-31-2021 RBC (Bld) [#/Vol] 3.73 10*6/uL 4.2-5.4 [facility] Work [facility]: Blood hemoglobin measurement (mass/volume)on 12-31-2021 Hemoglobin (Bld) [Mass/Vol] 11.2 g/dL 12.0-15.0 [facility] Work Phone: Blood lymphocytes/100 leukoc yteson 12-31-2021 Lymphocytes/100 WBC (Bld) 10.0 % 19-41 [facility] Work Phone: Blood monocytes/100 leukocyt eson 12-31-2021 Monocytes/100 WBC (Bld) 11.3 % 0-10 [facility] Work Phone: Blood platelet adequacy dete ction by light microscopyon 12-31-2021 Platelets LM Ql (Bld) ADEQUATE ADEQ [facility] Work Phone: Blood platelet mean volumeon 12-31-2021 Platelet mean volume (Bld) [Entitic vol] 10.6 fL 6.2-12.0 [facility] Work Phone: Determination of erythrocyte mean corpuscular volume (MCV)on 12-31-2021 MCV (RBC) [Entitic vol] 88.7 fL 81-99 [facility] Work Phone: Hematocrit Auto (Bld) [Volum e fraction]on 12-31-2021 Hematocrit (Bld) [Volume fraction] 33.1 % 37-47 [facility] Work Phone: Laboratory - Chemistry and C hemistry - challengeon 12-31-2021 CO2 [Moles/Vol] 23.0 mmol/L 21.0-32.0 [facility] Work Phone: Urea nitrogen/Creatinine [Mass ratio] 4.6 mg/mg 10-20 [facility] Work Phone: Laboratory - Hematology and Cell countson 12-31-2021 Erythrocyte distribution width (RBC) [Entitic vol] 37.3 fL 35.1-43.9 [facility] Work Phone: Erythrocyte distribution width (RBC) [Ratio] 11.8 % 11.6-14.6 [facility] Work Phone: Immature granulocytes/100 WBC (Bld) 0.400 % 0.0-0.9 [facility] Work Phone: Comment on above: IG% - Immature Granu locytes (promyelocytes, myelocytes and metamyelocytes) > 1% indicates that a LEFT SHIFT is Present. MCH (RBC) [Entitic mass] 30.0 pg 27.0-32.0 [facility] Work Phone: Nucleated RBC/100 WBC (Bld) [Ratio] 0 % 0-5 [facility] Work Phone: MCHC Auto (RBC) [Mass/Vol]on 12-31-2021 MCHC (RBC) [Mass/Vol] 33.8 g/dL 32-36 [facility] Work Phone: No Panel Informationon 12-31 Estimated Creatinine Clearance Calc 92.82 ml/min [facility] Work Phone: Estimated GFR (MDRD) Amer 106 mL/min >60 [facility] Work Phone: Comment on above: GFR Calc Estimated GFR (MDRD) Non-Af Amer 88 mL/min >60 [facility] Work Phone: Comment on above: Non- GFR Calc Platelets bldon 12-31-2021 Platelets (Bld) [#/Vol] 158 10*3/uL 150-450 [facility] Work Phone: RBC morphologyon 12-31-2021 RBC morphology finding Nom (Bld) NORM C+C NORMAL NORM C&C [facility] Work Phone: Serum or plasma calcium tomeka urement (mass/volume)on 12-31-2021 Calcium [Mass/Vol] 8.7 mg/dL 8.5-10.1 [facility] Work Phone: Serum or plasma creatinine m easurement (mass/volume)on 12-31-2021 Creatinine [Mass/Vol] 0.87 mg/dL 0.55-1.02 [facility] Work Phone: Comment on above: The validity of the calculated GFR & GFRAA in patients over 70 years has not been determined. Clinical correlation is essential. Serum or plasma urea nitroge n measurement (mass/volume)on 12-31-2021 Urea nitrogen [Mass/Vol] 4 mg/dL 7-18 [facility] Work Phone: Thin prep Papanicolaou smear with manual screeningon 12-31-2021 Thin prep Papanicolaou smear with manual screening 7 5-15 [facility] Work Phone: Basophil percentageon 2021 Bilirubin [Mass/Vol] 0.30 mg/dL 0.20-1.00 [facility] Work Phone: Comment on above: For patients on eltr ombopag therapy, use of Dimension Tynan TBIL is not recommended. Chloride [Moles/Vol] 106 mmol/L 98-107 [facility] Work Phone: Glucose [Mass/Vol] 93 mg/dL 74-106 [facility] Work Phone: Potassium [Moles/Vol] 3.7 mmol/L 3.5-5.1 [facility] Work Phone: Protein [Mass/Vol] 7.3 g/dL 6.4-8.2 [facility] Work Phone: Sodium [Moles/Vol] 134 mmol/L 136-145 [facility] Work Phone: WBC (Bld) [#/Vol] 5.6 10*3/uL 4.4-11.0 [facility] Work Phone: Blood erythrocytes count (nu mber/volume)on 12-11-2021 RBC (Bld) [#/Vol] 3.81 10*6/uL 4.2-5.4 [facility] Work Phone: Blood hemoglobin measurement (mass/volume)on 12-11-2021 Hemoglobin (Bld) [Mass/Vol] 12.0 g/dL 12.0-15.0 [facility] Work Phone: Blood platelet mean volumeon 12-11-2021 Platelet mean volume (Bld) [Entitic vol] 10.3 fL 6.2-12.0 [facility] Work Phone: Determination of erythrocyte mean corpuscular volume (MCV)on 12-11-2021 MCV (RBC) [Entitic vol] 90.6 fL 81-99 [facility] Work Phone: Hematocrit Auto (Bld) [Volum e fraction]on 12-11-2021 Hematocrit (Bld) [Volume fraction] 34.5 % 37-47 [facility] Work Phone: Laboratory - Chemistry and C hemistry - challengeon 12-11-2021 ALP [Catalytic activity/Vol] 55 U/L 45-117 [facility] Work Phone: ALT [Catalytic activity/Vol] 14 U/L 13-56 [facility] Work Phone: CO2 [Moles/Vol] 24.0 mmol/L 21.0-32.0 [facility] Work Phone: Globulin (S) [Mass/Vol] 3.9 g/dL 2.2-4.2 [facility] Work Phone: Urea nitrogen/Creatinine [Mass ratio] 10.0 mg/mg 10-20 [facility] Work Phone: Laboratory - Hematology and Cell countson 12-11-2021 Erythrocyte distribution width (RBC) [Entitic vol] 37.7 fL 35.1-43.9 [facility] Work Phone: Erythrocyte distribution width (RBC) [Ratio] 11.6 % 11.6-14.6 [facility] Work Phone: MCH (RBC) [Entitic mass] 31.5 pg 27.0-32.0 [facility] Work Phone: MCHC Auto (RBC) [Mass/Vol]on 12-11-2021 MCHC (RBC) [Mass/Vol] 34.8 g/dL 32-36 [facility] Work Phone: No Panel Informationon 12-11 Estimated Creatinine Clearance Calc 100.94 ml/min [facility] Work Phone: Estimated GFR (MDRD) Amer 117 mL/min >60 [facility] Work Phone: Comment on above: GFR Calc Estimated GFR (MDRD) Non-Af Amer 96 mL/min >60 [facility] Work Phone: Comment on above: Non- GFR Calc Platelets bldon 12-11-2021 Platelets (Bld) [#/Vol] 180 10*3/uL 150-450 [facility] Work Phone: Serum or plasma albumin tomeka urement (mass/volume)on 12-11-2021 Albumin [Mass/Vol] 3.4 g/dL 3.2-5.0 [facility] Work Phone: Serum or plasma albumin/glob ulin mass ratioon 12-11-2021 Albumin/Globulin [Mass ratio] 0.9 {ratio} 0.9-2.4 [facility] Work Phone: Serum or plasma calcium tomeka urement (mass/volume)on 12-11-2021 Calcium [Mass/Vol] 9.1 mg/dL 8.5-10.1 [facility] Work Phone: Serum or plasma creatinine m easurement (mass/volume)on 12-11-2021 Creatinine [Mass/Vol] 0.80 mg/dL 0.55-1.02 [facility] Work Phone: Comment on above: The validity of the calculated GFR & GFRAA in patients over 70 years has not been determined. Clinical correlation is essential. Serum or plasma urea nitroge n measurement (mass/volume)on 12-11-2021 Urea nitrogen [Mass/Vol] 8 mg/dL 7-18 [facility] Work Phone: Thin prep Papanicolaou smear with manual screeningon 12-11-2021 Thin prep Papanicolaou smear with manual screening 12 U/L 15-37 [facility] Work Phone: Thin prep Papanicolaou smear with manual screening 4 5-15 [facility] Work Phone: Urine creatinine measurement (mass/volume)on 12-11-2021 Creatinine (U) [Mass/Vol] 153.00 mg/dL NO RANGE EST. [facility] Work Phone: Urine protein measurement (m ass/volume)on 12-11-2021 Protein (U) [Mass/Vol] 19.0 mg/dL 0.0-11.8 [facility] Work Phone: Urine protein/creatinine mas s ratioon 12-11-2021 Protein/Creatinine (U) [Mass ratio] 124 mg/g CRE 0-200 [facility] Work Phone: Quantitative serum or plasma 3 hour gestational glucose tolerance panelon 11-11-2021 Glucose tolerance 3 hours gestational panel See comment [facility] Work Phone: Comment on above: FASTING 79 Col: 06/04 0854GLUCOSE TOLERANCE TEST FOR Reference Interval GESTATIONAL DIABETES Fasting <105 mg/dL 1 hour <190 mg/dl 2 hour <165 mg/dl 3 hour <145 mg/dl 1 HR GLU 122 Col: 11/11/21 0954 2 HR GLU 117 Col: 11/11/21 1054 3 HR GLU 96 Col: 11/11/21 1154 Basophil percentageon 2021 WBC (Bld) [#/Vol] 6.4 10*3/uL 4.4-11.0 [facility] Work Phone: Blood erythrocytes count (nu mber/volume)on 11-09-2021 RBC (Bld) [#/Vol] 3.64 10*6/uL [facility].2[facility]: Blood hemoglobin measurement (mass/volume)on 11-09-2021 Hemoglobin (Bld) [Mass/Vol] 11.6 g/dL 12.0-15.0 [facility] Work Phone: Blood platelet mean volumeon 11-09-2021 Platelet mean volume (Bld) [Entitic vol] 10.1 fL 6.2-12.0 [facility] Work Phone: Determination of erythrocyte mean corpuscular volume (MCV)on 11-09-2021 MCV (RBC) [Entitic vol] 90.4 fL 81-99 [facility] Work Phone: Gestational diabetes screen 1-hour screen with 50g oral glucose loadon 11-09-2021 Glucose 1 Hr post 50 g glucose PO [Mass/Vol] 141 mg/dL 70-140 [facility] Work Phone: Hematocrit Auto (Bld) [Volum e fraction]on 11-09-2021 Hematocrit (Bld) [Volume fraction] 32.9 % 37-47 [facility] Work Phone: Laboratory - Hematology and Cell countson 11-09-2021 Erythrocyte distribution width (RBC) [Entitic vol] 39.7 fL 35.1-43.9 [facility] Work Phone: Erythrocyte distribution width (RBC) [Ratio] 12.0 % 11.6-14.6 [facility] Work Phone: MCH (RBC) [Entitic mass] 31.9 pg 27.0-32.0 [facility] Work Phone: MCHC Auto (RBC) [Mass/Vol]on 11-09-2021 MCHC (RBC) [Mass/Vol] 35.3 g/dL 32-36 [facility] Work Phone: Platelets bldon 11-09-2021 Platelets (Bld) [#/Vol] 175 10*3/uL 150-450 [facility] Work Phone: GC + CHLAMYDIA BY AMPLIFIED DETECTIONon 11-10-2020 CHLAMYDIA TRACH.,AMPLIFIED Negative Normal Negative [facility] Comment on above: Result Comment: The APTIMA Combo 2 assay is FDA-approved for Chlamydia trachomatis and Neisseria gonorrhoeae testing on female endocervical and vaginal swabs, ThinPrep liquid pap samples, male urine samples and urethral swabs. Performance characteristics for Chlamydia trachomatis and Neisseria gonorrhoeae testing on specific uoi-IAG-cbifuxlx sample types (female urine samples) have been validated by [facility]. This laboratory is certified by CLIA to perform high complexity testing. Samples from all other sites are not validated for this method. This assay has not been FDA-approved or validated for this sample type. Results should be interpreted with caution in conjunction with additional clinical and laboratory findings. Performed By: #### G [facility] #### [facility] [address] [place] [address] N.GONORRHEA,AMPLIFIED Negative Normal Negative [facility] Comment on above: Result Comment: The APTIMA Combo 2 assay is FDA-approved for Chlamydia trachomatis and Neisseria gonorrhoeae testing on female endocervical and vaginal swabs, ThinPrep liquid pap samples, male urine samples and urethral swabs. Performance characteristics for Chlamydia trachomatis and Neisseria gonorrhoeae testing on specific wpm-MWX-wpreyrir sample types (female urine samples) have been validated by [facility]. This laboratory is certified by CLIA to perform high complexity testing. Samples from all other sites are not validated for this method. This assay has not been FDA-approved or validated for this sample type. Results should be interpreted with caution in conjunction with additional clinical and laboratory findings. Performed By: #### [facility] #### [facility] [address] [place] [address] TRICHOMONAS,NUCLEIC ACID DET ECTIONon 11-10-2020 TRICHOMONAS VAGINALIS Negative Normal Negative David [facility] Comment on above: Result Comment: The APTIMA Trichomonas vaginalis assay is FDA-approved for testing on female endocervical swabs, vaginal swabs, and ThinPrep liquid pap samples. Performance characteristics for Trichomonas vaginalis on specific edv-YPH-iddrlctt sample types (female and male urine and male urethral swabs) have been validated by [facility]. This laboratory is certified by CLIA to perform high complexity testing. Samples from all other sites are not validated for this method. This assay has not been FDA-approved or validated for this sample type. Results should be interpreted with caution in conjunction with additional clinical and laboratory findings. Performed By: #### T ALLYSSA #### [facility] [address] [place], [place] VAGINITIS GRAM STAIN FOR GINNA TERIAL VAGINOSIS + YEASTon 11-10-2020 CLUE CELLS ABSENT Normal [facility] Comment on above: Performed By: #### G SVAG #### [facility] [address] [place] [id number] ZE SCORE 1 Normal [facility] Comment on above: Result Comment: Inte rpretation of the Ze Score 0-3.....Normal vaginal microbiota 4-6.....Intermediate results 7-10....Bacterial vaginosis Performed By: #### G SVAG #### [facility] [address] [place], [place] Yeast LM Ql (Urine sed) ABSENT Normal R [facility] Comment on above: Performed By: #### G SVAG #### [facility] [address] [place] [address] GC + CHLAMYDIA BY AMPLIFIED DETECTIONon 11-09-2020 Lab Specimen Source Source, Unspecified Normal [facility] Comment on above: Performed By: #### G CCHA #### [facility] [address] [place], [place] Performed By: #### T ALLYSSA #### [facility] [address] [place], [place] GC + Chlamydia By Amplified Detectionon 11-09-2020 C. trachomatis rRNA EL+probe Ql (Unsp spec) Negative Negative [employer] Work Phone: Comment on above: The APTIMA Combo 2 a ssay is FDA-approved for Chlamydia trachomatis and Neisseria gonorrhoeae testing on female endocervical and vaginal swabs, ThinPrep liquid pap samples, male urine samples and urethral swabs. Performance characteristics for Chlamydia trachomatis and Neisseria gonorrhoeae testing on specific cjx-ISJ-ykjhefzh sample types (female urine samples) have been validated by [facility]. This laboratory is certified by CLIA to perform high complexity testing. Samples from all other sites are not validated for this method.This assay has not been FDA-approved or validated for this sample type. Results should be interpreted with caution in conjunction with additional clinical and laboratory findings. N. gonorrhoeae rRNA EL+probe Ql (Unsp spec) Negative Negative [employer] Work Phone: Comment on above: SOURCE: [facility] The APTIMA Combo 2 assay is FDA-approved for Chlamydia trachomatis and Neisseria gonorrhoeae testing on female endocervical and vaginal swabs, ThinPrep liquid pap samples, male urine samples and urethral swabs. Performance characteristics for Chlamydia trachomatis and Neisseria gonorrhoeae testing on specific wlm-JEY-cakebovn sample types (female urine samples) have been validated by [facility]. This laboratory is certified by CLIA to perform high complexity testing. Samples from all other sites are not validated for this method.This assay has not been FDA-approved or validated for this sample type. Results should be interpreted with caution in conjunction with additional clinical and laboratory findings. LMPon 11-09-2020 Last menstrual period start date n/a [employer] Work Phone: Laboratory -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 this time) Start: 11-09-2022 End: 11-09-2022 Patient encounter procedure 11/09/2022 5:30 PM EDT Appointment [facility] [address] [place] [address] Pedrito Mora MD [address] [place] [address] Mikey Neris [facility] Start: 11-07-2022 End: 11-07-2022 Patient encounter procedure 11/07/2022 5:30 PM EDT Appointment [facility] [address] [place] [address] Pedrito Mora MD [address] [place], [place] [phone] Neris Jensen [facility] Start: 11-06-2022 End: 11-06-2022 Patient encounter procedure 11/06/2022 5:30 PM EDT Appointment [facility] [address] [place] [address] Pedrito Mora MD [address] [place], [place] [phone] Neris Jensen [facility] Start: 11-02-2022 End: 11-02-2022 Patient encounter procedure 11/02/2022 5:30 PM EDT Appointment [facility] [address] [place] [address] Pedrito Mora MD [address] [place], [place] [phone] Neris Jensen [facility] Start: 10-31-2022 End: 10-31-2022 Patient encounter procedure 10/31/2022 5:30 PM EDT Appointment [facility] [address] [place] [address] Pedrito Mora MD [address] [place], [place] [phone] Neris Jensen [facility] Start: 10-30-2022 End: 10-30-2022 Patient encounter procedure 10/30/2022 5:30 PM EDT Appointment [facility] [address] [place] [address] Pedrito Mora MD [address] [place], [place] [phone] Neris Jensen [facility] Start: 10-26-2022 End: 10-26-2022 Patient encounter procedure 10/26/2022 5:30 PM EDT Appointment [facility] [address] [place] [address] Pedrito Mora MD [address] [place], [place] [phone] Mikey Neris [facility] Start: 10-24-2022 End: 10-24-2022 Patient encounter procedure 10/24/2022 5:30 PM EDT Appointment [facility] [address] [place] [address] Pedrito Mora MD [address] [place], [place] [phone] Mikey Neris [facility] Start: 10-23-2022 End: 10-23-2022 Patient encounter procedure 10/23/2022 5:30 PM EDT Appointment [facility] [address] [place] [address] Pedrito Mora MD [address] [place] [phone] Mikey Neris [facility] Start: 10-19-2022 End: 10-19-2022 Patient encounter procedure 10/19/2022 5:30 PM EDT Appointment [facility] [address] [place] [address] Pedrito Mora MD [address] [place] [address] Mikey Neris [facility] Start: 10-17-2022 End: 10-17-2022 Patient encounter procedure 10/17/2022 5:30 PM EDT Appointment [facility] [address] [place] [address] Pedrito Mora MD [address] [place], [place] [phone] Neris Jensen [facility] Start: 2022 Screening for malign ant neoplasm of cervix [facility] Start: 05-11-2022 End: 07-11-2022 Basic metabolic 2000 panel - Serum or Plasma BASIC METABOLIC PNL Lab Routine Elevated serum creatinine Expected: 05/11/2022, Expires: 07/11/2022 [facility] Work Phone: Comment on above: Expected: 05/11/2022 , Expires: 07/11/2022 Start: 02-26-2022 Patient discharge [facility] Work Phone: Start: 02-25-2022 Application of abdom inal corset [facility] Work Phone: Start: 02-24-2022 End: 02-25-2022 [facility] Work Phone: Start: 02-24-2022 Post-anesthesia assessment [facility] Work Phone: Start: 02-24-2022 Administration of medication [facility] Work Phone: Start: 02-24-2022 Ambulation therapy management [facility] Work Phone: Start: 02-24-2022 Application of device [facility] Work Phone: Start: 02-24-2022 Application of intermittent pneumatic compression device [facility] Work Phone: Start: 02-24-2022 Assessment of risk o f venous thromboembolism [facility] Work Phone: Start: 02-24-2022 Catheterization of vein [facility] Work Phone: Start: 02-24-2022 Deep breathing and coughing exercises [facility] Work Phone: Start: 02-24-2022 Exercises [facility] Work Phone: Start: 02-24-2022 Measuring intake and output [facility] Work Phone: Start: 02-24-2022 Notification of physician [facility] Work Phone: Start: 02-24-2022 Procedure discontinued [facility] Work Phone: Start: 02-24-2022 Provision of activit y privileges [facility] Work Phone: Start: 02-24-2022 Vital signs measurements [facility] Work Phone: Start: 02-24-2022 Wound care [facility] Work Phone: Start: 02-24-2022 Application of abdom inal corset [facility] Work Phone: Start: 02-24-2022 section Primary C Sec tion (Not Applicable) [facility] Work Phone: Start: 02-24-2022 Admission procedure [facility] Work Phone: Start: 02-24-2022 Verification routine [facility] Work Phone: Start: 02-24-2022 Consultation [facility] Work Phone: Start: 12-31-2021 [facility] Work Phone: Start: 12-11-2021 Nonstress test [facility] Work Phone: Start: 12-11-2021 Obstetric monitoring [facility] Work Phone: Start: 12-11-2021 Vital signs measurements [facility] Work Phone: Start: 12-11-2021 [facility] Work Phone: Start: 12-11-2021 Iv infusion hydratio n initial 31 min-1 hour HYDRATION IV INFUSION INIT [facility] Work Phone: Start: 12-11-2021 Patient discharge [facility] Work Phone: Start: 2020 DTaP/Tdap/Td Vaccine s (1 - Tdap) DTaP/Tdap/Td Vaccines (1 - Tdap) [facility] Start: 2020 Hepatitis A Vaccines (1 of 2 - Risk 2-dose series) Hepatitis A Vaccines (1 of 2 - Risk 2-dose series) [facility] Start: 08-02-2019 Anxiety Screening Anxiety Screening [facility] Start: 08-02-2019 CHLAMYDIA SCREENING (18-24) CHLAMYDIA SCREENING (18-24) [facility] Start: 08-02-2019 Depression Screening Depression Scre ening [facility] Start: 08-02-2019 GC (GONORRHEA) SCREE YING (18-24) GC (GONORRHEA) SCREENING (18-24) [facility] Start: 08-02-2019 HEPATITIS C SCREENING HEPATITIS C SC REENING [facility] Start: 08-02-2019 Hepatitis C screening Hepatitis C Sc [facility] Start: 08-02-2019 HIV SCREENING HIV SCREENING [facility] Start: 08-02-2019 HIV screening HIV Screening [facility] Start: 2017 Meningococcal B Vacc ine (1 of 2 - Standard) Meningococcal B Vaccine (1 of 2 - Standard) [facility] Start: 2017 Meningococcal B Vacc ine: Consider Based On Risk (1 of 2 - Patient Seeks Protection) Meningococcal B Vaccine: Consider Based On Risk (1 of 2 - Patient Seeks Protection) [facility] Start: 08-02-2015 PEDS TO ADULT TRANSI TION ANNUAL ASSESSMENT PEDS TO ADULT TRANSITION ANNUAL ASSESSMENT [facility] Start: 2013 PEDS TO ADULT TRANSI TION INITIAL DISCUSSION PEDS TO ADULT TRANSITION INITIAL DISCUSSION [facility] Start: 08-02-2011 MENINGOCOCCAL B: Con research laboratory specialist based on risk (1 of 2 - Risk Bexsero 2-dose series) MENINGOCOCCAL B: Consider based on risk (1 of 2 - Risk Bexsero 2-dose series) [facility] Start: 2008 DTaP/Tdap/Td Vaccine s (1 - Tdap) DTaP/Tdap/Td Vaccines (1 - Tdap) [facility] Start: 2002 Hepatitis A Vaccines (1 of 2 - Risk 2-dose series) Hepatitis A Vaccines (1 of 2 - Risk 2-dose series) [facility] Start: 2002 MMR Vaccines (1 of 1 - Standard series) MMR Vaccines (1 of 1 - Standard series) [facility] Start: 2002 Varicella vaccination Varicell a Vaccines (1 of 2 - 2-dose childhood series) [facility] Start: 02-01-2002 COVID-19 Vaccine (#1) COVID-19 Vacci ne (#1) [facility] Start: 2001 Hepatitis B Vaccines (1 of 3 - 3-dose series) Hepatitis B Vaccines (1 of 3 - 3-dose series) [facility] Start: 2001 HIV screening HIV Screening [facility] Mani millard [facility] Neisseria gonorrhoea e DNA [Presence] in Genital specimen by EL with probe detection [facility] Patient Education [facility] Work Phone: Patient referral [facility] Work Phone: Immunizations Immunization Date Immunization Notes Care Provider [facility] 04-13-2014 Human Papillomavirus 9-valent vaccine Mary Abdi BPM SOLUTION ARCHITECT.ROUNDHOUSE SUPERVISOR Work Phone: [facility] Work Phone: 10-12-2013 Human Papillomavirus 9-valent vaccine Mary Abdi BPM SOLUTION ARCHITECT.ROUNDHOUSE SUPERVISOR Work Phone: [facility] Work Phone: Payers Date Payer Category Payer Self-pay [id number] 2022 Medicaid [id number] 2019 Medicaid [id number] Unknown [employer] Unknown [id number] Unknown [id number] Social History Date Type Detail Facility Start: 04-07-2022 End: 10-05-2022 No illicit drug use No illicit drug use [facility] Work Phone: Start: 07-10-2021 End: 06-06-2023 Tobacco smoking status NHIS Unknown if ever smoked [facility] Work Phone: Start: 03-19-2020 None [facility] Start: 10-27-2019 Spouse/ Significant Other [facility] Start: 03-19-2020 Cigarettes [facility] Start: 2001 Sex Assigned At Female [facility] Work Phone: Start: 2001 Sex Assigned At Not on file [facility] Start: 08-28-2022 End: 10-05-2022 Tobacco smoking status NHIS Never smoked tobacco [facility] Start: 08-28-2022 End: 10-05-2022 Tobacco use and exposure Smokeless tobacco non-user [facility] Start: 04-07-2022 End: 10-05-2022 Social connection and isolation panel [facility] Do you belong to any clubs or organizations such as orthodoxy groups, unions, fraternal or athletic groups, or school groups? No [facility] Are you now , , , , never or living with a partner? Never [facility] How often to you hav e a drink containing alcohol? 2-4 times a month [facility] How many standard dr inks containing alcohol do you have on a typical day? 1 or 2 [facility] How often do you hav e 6 or more drinks on 1 occasion? Monthly [facility] How hard is it for y ou to pay for the very basics like food, housing, medical care, and heating Not hard at all [facility] (I/We) worried jerri er (my/our) food would run out before (I/we) got money to buy more. Never true [facility] Start: 10-05-2022 Education 13 [facility] Start: 10-05-2022 Gender identity Identifies as female gender (finding) [facility] Start: 10-05-2022 Sexual orientation Heterosexual (finding) [facility] At any time in the p ast 12 months, were you homeless or living in nursing home [including now]? Yes [facility] Start: 10-13-2022 End: 11-13-2022 Exposure to SARS-CoV-2 (event) Not sure [facility] Start: 12-10-2023 End: 12-14-2023 Alcohol intake Not Asked [facility] Start: 04-29-2024 Alcoholic beverage intake Lifetime non-drinker (finding) [facility] Goals Date Patient Goal Desired Activity /State Personal health goal Functional Status Date Assessment Result Facility 10-14-2022 Functional status Activity Abili ty Unable to Assess;Post Op [facility] Work Phone: Mental Status Date Assessment Result Facility 06-06-2023 Cognitive function Level Of Cons ciousness Awake;Alert;Appropriate;Follow s Commands [facility] Work Phone: 02-24-2022 Cognitive function Voice/Name [facility] Work Phone: 12-31-2021 Cognitive function Level Of Consciousness Awake [facility] Work Phone: Clinical Notes 11-04-2020 to 07-20-2024 Kun Javier APRN.ROUNDHOUSE SUPERVISOR - 07/20/2024 11:26 AM Azul Yun LPN - 04/29/2024 10:42 AM Chi Lyons - 04/29/2024 10:30 AM Shaneka Mcgowan MA - 04/29/2024 10:14 AM EST Note Date & Type Note Facility 07-20-2024 Note HNO ID: [id number] Author: KUN JAVIER APRN.ROUNDHOUSE SUPERVISOR Service: ? Author Type: Nurse Practitioner Type: Progress Notes Filed: 07/20/2024 11:29 Note Text: [facility] Napoleon Llanos is a 23 year old female. Patient presents with: Derm Problem: discoloration on back of thighs x 2 weeks, denies itch or pain Patient came in with complaints of discoloration on the back of bilateral legs. Patient says it started about 2 weeks ago. Patient says it is progressing. Patient says it does not cause her any pain or itching or irritation. Patient did not use any new products that could have caused this. Patient has no other symptoms associated with it. The history is provided by the patient. No senior counsel was used. Review of Systems Constitutional: Negative. Objective BP 112/66 Pulse 80 Temp 36.5 ?C (97.7 ?F) Resp 16 Wt 69.8 kg (153 lb 14.1 oz) LMP 07/15/2022 (Exact Date) SpO2 99% BMI 25.22 kg/m? Physical Exam Constitutional: Appearance: Normal appearance. Pulmonary: Effort: Pulmonary effort is normal. Skin: Comments: Dark-colored honeycomb shaped patterns on the back of bilateral legs. Nonblanchable. Neurological: Mental Status: She is alert. ASSESSMENT/PLAN: 1. Discoloration of skin - ICD9: 709.00, ICD10: L81.9 At this time patient was instructed to follow-up with dermatology. Patient will start calling around tomorrow to make a dermatology appointment. Kun Javier APRN.CNP History and Record Review External record(s) reviewed: no prior records. Differential Diagnoses - autoimmune related - infectious rash Disposition The patient was discharged. Procedures [facility] 07-20-2024 History of Present illness Narrative Images from the original note were not included. [facility] Subjective Brandy Llanos is a 23 year old female. Patient presents with: Derm Problem: discoloration on back of thighs x 2 weeks, denies itch or pain Patient came in with complaints of discoloration on the back of bilateral legs. Patient says it started about 2 weeks ago. Patient says it is progressing. Patient says it does not cause her any pain or itching or irritation. Patient did not use any new products that could have caused this. Patient has no other symptoms associated with it. The history is provided by the patient. No senior counsel was used. Review of Systems Constitutional: Negative. Objective BP 112/66 Pulse 80 Temp 36.5 C (97.7 F) Resp 16 Wt 69.8 kg (153 lb 14.1 oz) LMP 07/15/2022 (Exact Date) SpO2 99% BMI 25.22 kg/m Physical Exam Constitutional: Appearance: Normal appearance. Pulmonary: Effort: Pulmonary effort is normal. Skin: Comments: Dark-colored honeycomb shaped patterns on the back of bilateral legs. Nonblanchable. Neurological: Mental Status: She is alert. ASSESSMENT/PLAN: 1. Discoloration of skin - ICD9: 709.00, ICD10: L81.9 At this time patient was instructed to follow-up with dermatology. Patient will start calling around tomorrow to make a dermatology appointment. Kun Javier APRN.CNP History and Record Review External record(s) reviewed: no prior records. Differential Diagnoses - autoimmune related - infectious rash Disposition The patient was discharged. Procedures documented in this encounter [facility] 04-29-2024 Note HNO ID: [id number] Author: AZUL CAROLINA LPN Service: ? Author Type: LICENSED NURSE Type: Progress Notes Filed: 04/29/2024 12:13 Note Text: Per Dr. Pascal, Brandy was provided with powerstep original inserts, size 9, and instructed/educated in its application, wear, and care. All questions were answered, and patient was able to demonstrate competence with the necessary skills to utilize the above equipment. Azul Carolina LPN [facility] 04-29-2024 History of Present illness Narrative Per Dr. Pascal, Brandy was provided with powerstep original inserts, size 9, and instructed/educated in its application, wear, and care. All questions were answered, and patient was able to demonstrate competence with the necessary skills to utilize the above equipment. Azul Carolina LPN Images from the original note were not included. 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 She has noticed that the longer she is on her foot, the more pain she experiences Patient currently applies topical cream which provides minimal relief. PAIN EVALUATION 04/29/2024 1016 Pain Level: 8 Pain Location: Foot-Left Description: Other: See comment;Sharp locking and clicking Duration Amount of Time: -- ongoing Frequency: Continuous Intervention/Comfort measure: Other: See comment muscle rub No results found for: HBA1C PCP: No primary care provider on file. PAST MEDICAL HISTORY Diagnosis Date Vitamin D deficiency Current Outpatient Medications Medication Sig MULTI-VITAMIN ORAL Take by mouth. cholecalciferol, vitamin D3, (VITAMIN D3) 100 mcg (4,000 unit) cap Take by mouth. No current facility-administered medications for this visit. ALLERGIES No Known Allergies PAST SURGICAL HISTORY Procedure Laterality Date SECTION HX N/A HEMORRHOIDECTOMY 12/10/2023 FAMILY HISTORY Problem Relation Age of Onset No Family History No Family History Social History Tobacco Use Smoking status: Never Smokeless tobacco: Never Vaping Use Vaping status: Never Used Substance Use Topics Alcohol use: Never Drug use: Yes Types: Marijuana Comment: medical eddyara card for her back REVIEW OF SYSTEMS GENERAL: Negative for Malaise, significant weight loss, fever RESPIRATORY: Negative for cough, wheezing and shortness of breath CARDIOVASCULAR: Negative for chest pain, leg swelling and palpitations GI: Negative for abdominal discomfort, blood in stools or black stools and change in bowel habits : Negative for dysuria, frequency and incontinence MUSCULOSKELETAL: Negative for joint pain or swelling, back pain, and muscle pain. SKIN: Negative for lesions, rash, and itching. HEMATOLOGY/LYMPHOLOGY Negative for prolonged bleeding, bruising easily, and swollen nodes. ENDOCRINE: Negative for cold or heat intolerance, polyuria, polydipsia and goiter. NEURO: negative Physical Exam: Constitutional: Pt is a well developed 23 year old female who is alert, oriented and cooperative Eyes: Following during examination. No redness or drainage. Respiratory: RR normal and nonlabored. Even breathing. No evidence of distress or shortness of breath. Psychology: Patient is engaged during conversation. Normal affect and mood. Does not appear depressed or anxious during encounter. Vascular: Dorsalis pedis and posterior tibial pulses palpable as b/l Capillary Fill time < 5 seconds to digits 1-5 b/l Skin temperature warm to warm, proximal to distal b/l Hair growth present to digits Neurological: intact light touch/epicritic sensation b/l intact protective sensation no significant neurological deficits Dermatological: Nails 1-5 b/l appear normal. Webspaces clean and dry 1-4 b/l. Skin appears well hydrated and supple. good color, texture, turgor. No open lesions present. No callosities present. Musculoskeletal/Orthopaedic: Patient has pain to palpation of medial eminence of left 1st metatarsal Foot type is slightly pronated structurally AJ ROM is full with knee extended and flexed 1st MPJ is slightly decreased when loaded and mild pain or crepitus are noted with ROM. MTJ, STJ are full and free of pain and crepitus. +5/5 muscle strength dorsiflexion, plantarflexion, inversion, eversion b/l Radiographs: 3 views left foot ordered April 29, 2024: I have personally reviewed and interpreted these XR myself: mild bunion deformity. IM 1-2 ~13 degrees with lateral deviation of sesamoid ASSESSMENT: (M20.12) Hallux valgus of left foot (primary encounter diagnosis) (Q66.52) Pes planus, congenital, left PLAN: 1. History and physical examination performed. 2. XR reviewed with patient and interpreted today 3. Discussed bunion of left foot. Discussed the progressive nature of this deformity. Discussed conservative options not limited to wider shoes vs padding vs inserts. 4. Surgical options discussed include distal metatarsal ostetomy vs lapidus bunionectomy. 5. Inserts dispensed. 6. If pain fails to improve, could consider surgery Chi Pascal DPM Podiatry [address] [facility] [place] [address] Dept: [phone] Dept AMB ROOMING INTAKE FLOWSHEET DATA Pain Pain Level: 8 Pain Location: Foot-Left Description: Other: See comment, Sharp (locking and clicking) Duration Amount of Time: (ongoing) Frequency: Continuous Intervention/Comfort measure: Other: See comment (muscle rub) documented in this encounter [facility] 04-29-2024 Instructions Chi Pascal - 04/29/2024 10:38 AM EST Powerstep Original Full length. Can purchase at [facility] [employer] and boots,shoes and more here in [place], [employer] in [place] or [place]. Also can find in [place] in [facility]. Powersteps can also be purchased online, starting around $45.00 If you have a metatarsal or dancer pad for your feet apply the pad directly to the insole so you can interchange between your shoes. Find a shoe with a removable insole and take this out and replace with your powerstep insole. Always bring powersteps with you when shopping for shoes so that you can make sure that everything fits well together documented in this encounter [facility] 04-29-2024 Note HNO ID: [id number] Author: CHI PASCAL, ? Service: ? 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 She has noticed that the longer she is on her foot, the more pain she experiences Patient currently applies topical cream which provides minimal relief. PAIN EVALUATION 04/29/2024 1016 Pain Level: 8 Pain Location: Foot-Left Description: Other: See comment;Sharp locking and clicking Duration Amount of Time: -- ongoing Frequency: Continuous Intervention/Comfort measure: Other: See comment muscle rub No results found for: HBA1C PCP: No primary care provider on file. PAST MEDICAL HISTORY Diagnosis Date Vitamin D deficiency Current Outpatient Medications Medication Sig MULTI-VITAMIN ORAL Take by mouth. cholecalciferol, vitamin D3, (VITAMIN D3) 100 mcg (4,000 unit) cap Take by mouth. No current facility-administered medications for this visit. ALLERGIES No Known Allergies PAST SURGICAL HISTORY Procedure Laterality Date SECTION HX N/A HEMORRHOIDECTOMY 12/10/2023 FAMILY HISTORY Problem Relation Age of Onset No Family History No Family History Social History Tobacco Use Smoking status: Never Smokeless tobacco: Never Vaping Use Vaping status: Never Used Substance Use Topics Alcohol use: Never Drug use: Yes Types: Marijuana Comment: medical casey card for her back REVIEW OF SYSTEMS GENERAL: Negative for Malaise, significant weight loss, fever RESPIRATORY: Negative for cough, wheezing and shortness of breath CARDIOVASCULAR: Negative for chest pain, leg swelling and palpitations GI: Negative for abdominal discomfort, blood in stools or black stools and change in bowel habits : Negative for dysuria, frequency and incontinence MUSCULOSKELETAL: Negative for joint pain or swelling, back pain, and muscle pain. SKIN: Negative for lesions, rash, and itching. HEMATOLOGY/LYMPHOLOGY Negative for prolonged bleeding, bruising easily, and swollen nodes. ENDOCRINE: Negative for cold or heat intolerance, polyuria, polydipsia and goiter. NEURO: negative Physical Exam: Constitutional: Pt is a well developed 23 year old female who is alert, oriented and cooperative Eyes: Following during examination. No redness or drainage. Respiratory: RR normal and nonlabored. Even breathing. No evidence of distress or shortness of breath. Psychology: Patient is engaged during conversation. Normal affect and mood. Does not appear depressed or anxious during encounter. Vascular: Dorsalis pedis and posterior tibial pulses palpable as b/l Capillary Fill time < 5 seconds to digits 1-5 b/l Skin temperature warm to warm, proximal to distal b/l Hair growth present to digits Neurological: intact light touch/epicritic sensation b/l intact protective sensation no significant neurological deficits Dermatological: Nails 1-5 b/l appear normal. Webspaces clean and dry 1-4 b/l. Skin appears well hydrated and supple. good color, texture, turgor. No open lesions present. No callosities present. Musculoskeletal/Orthopaedic: Patient has pain to palpation of medial eminence of left 1st metatarsal Foot type is slightly pronated structurally AJ ROM is full with knee extended and flexed 1st MPJ is slightly decreased when loaded and mild pain or crepitus are noted with ROM. MTJ, STJ are full and free of pain and crepitus. +5/5 muscle strength dorsiflexion, plantarflexion, inversion, eversion b/l Radiographs: 3 views left foot ordered April 29, 2024: I have personally reviewed and interpreted these XR myself: mild bunion deformity. IM 1-2 ~13 degrees with lateral deviation of sesamoid ASSESSMENT: (M20.12) Hallux valgus of left foot (primary encounter diagnosis) (Q66.52) Pes planus, congenital, left PLAN: 1. History and physical examination performed. 2. XR reviewed with patient and interpreted today 3. Discussed bunion of left foot. Discussed the progressive nature of this deformity. Discussed conservative options not limited to wider shoes vs padding vs inserts. 4. Surgical options discussed include distal metatarsal ostetomy vs lapidus bunionectomy. 5. Inserts dispensed. 6. If pain fails to improve, could consider surgery Chi Pascal DPM Podiatry [address] [facility] [place] [address] Dept: [phone] Dept [facility] 04-29-2024 Note HNO ID: [id number] Author: SHANEKA MURILLO MA Service: ? Author Type: Sculpture Conservator Type: Progress Notes Filed: 04/29/2024 12:13 Note Text: AMB ROOMING INTAKE FLOWSHEET DATA Pain Pain Level: 8 Pain Location: Foot-Left Description: Other: See comment, Sharp (locking and clicking) Duration Amount of Time: (ongoing) Frequency: Continuous Intervention/Comfort measure: Other: See comment (muscle rub) [facility] 04-29-2024 History of Present illness Narrative Radiology Service Progress Note PATIENT NAME: Brandy Llanos DATE OF SERVICE: April 29, 2024 TIME: 1:38 PM PATIENT IDENTITY VERIFICATION COMPLETED USING TWO (2) IDENTIFIERS: Name and Date of confirmed by patient verbally. FALL SCREENING: Has the patient had 2 falls in the last year or 1 fall with injury or currently using an Ambulatory Assistive Device (Walker, Cane, Wheelchair, Crutches, etc.)? No PATIENT GENDER DATA: Female. status: : No status: NO. PATIENT RELEVANT IMPLANT DATA REVIEWED: Not Applicable PATIENT PRESENTS WITH AN IMPLANTABLE OR ATTACHED LEGISLATIVE DIRECTOR: No RADIOLOGY DEPARTMENT: General X-ray: Exam(s) Completed: Lower Extremity X-Ray(s): Foot, Left and Wt. Bearing PERIPHERAL IV DATA: Not applicable SIGNED BY: RT Susana(R) April 29, 2024 1:38 PM documented in this encounter [facility] 04-29-2024 Note HNO ID: [id number] Author: HILDA CALLOWAY RT(R) Service: ? Author Type: Technologist Type: Progress Notes Filed: 04/29/2024 13:39 Note Text: Radiology Service Progress Note PATIENT NAME: Brandy Llanos DATE OF SERVICE: April 29, 2024 TIME: 1:38 PM PATIENT IDENTITY VERIFICATION COMPLETED USING TWO (2) IDENTIFIERS: Name and Date of confirmed by patient verbally. FALL SCREENING: Has the patient had 2 falls in the last year or 1 fall with injury or currently using an Ambulatory Assistive Device (Walker, Cane, Wheelchair, Crutches, etc.)? No PATIENT GENDER DATA: Female. status: : No status: NO. PATIENT RELEVANT IMPLANT DATA REVIEWED: Not Applicable PATIENT PRESENTS WITH AN IMPLANTABLE OR ATTACHED LEGISLATIVE DIRECTOR: No RADIOLOGY DEPARTMENT: General X-ray: Exam(s) Completed: Lower Extremity X-Ray(s): Foot, Left and Wt. Bearing PERIPHERAL IV DATA: Not applicable SIGNED BY: RT Susana(R) April 29, 2024 1:38 PM [facility] 12-14-2023 Note HNO ID: [id number] Author: ISIDRO BARRAGAN MD Service: ? Author Type: Physician Type: Progress Notes Filed: 12/14/2023 17:45 Note Text: PROGRESS NOTES PATIENT NAME: Brandy Llanos Assessment ASSESSMENT AND PLAN The patient is a 23-year-old female status post a successful excision and drainage of a thrombosed external hemorrhoid about the 2 o'clock position. I reassured her that this is healing appropriately. I stressed the importance of not getting constipated. I recommended MiraLAX daily. Follow-up will be as needed. SUBJECTIVE CHIEF COMPLAINT: Patient presents with: Consult: External hemorrhoid irriated - Wilbraham lanced in-office 12/09 Patient called into office - running 10 mins late INTERVAL HISTORY OF PRESENT ILLNESS: The patient is a 23-year-old female who recently had a thrombosed external hemorrhoid removed in the office by Dr. Pascual. She states that she was having some increased pain but this has improved since she had her first bowel movement since the procedure. It sounds as though she has been dealing with constipation issues and has been afraid to have her first bowel movement. She denies any bleeding or drainage. She was concerned about some swelling to the area. HISTORIES: PAST MEDICAL HISTORY No date: Vitamin D deficiency PAST SURGICAL HISTORY No date: SECTION HX; N/A 12/10/2023: HEMORRHOIDECTOMY ALLERGIES: Patient has no known allergies. MEDICATIONS: Current Outpatient Medications Medication Sig cholecalciferol, vitamin D3, (VITAMIN D3) 100 mcg (4,000 unit) cap Take by mouth. No current facility-administered medications for this visit. FAMILY HISTORY Problem Relation Age of Onset No Family History No Family History Social History Tobacco Use Smoking status: Never Smokeless tobacco: Never OBJECTIVE PHYSICAL EXAM: BP 112/78 Pulse 85 Ht 5' 5.5 (1.66m) Wt 165 lb (74.8kg) SpO2 100% LMP 07/15/2022 BMI 27.03 kg/(m2). GENERAL: Alert, no distress, cooperative RECTAL: Region of thrombosed external hemorrhoid excision located about the 2 o'clock position appears to be healing well. No evidence of infection or recurrent thrombosed hemorrhoid. Reassurance was offered. DATA: Diagnostic tests reviewed for today's visit: Most recent labs and imaging results. Isidro Barragan MD [facility] 12-14-2023 History of Present illness Narrative PROGRESS NOTES PATIENT NAME: Brandy Llanos Assessment ASSESSMENT AND PLAN The patient is a 23-year-old female status post a successful excision and drainage of a thrombosed external hemorrhoid about the 2 o'clock position. I reassured her that this is healing appropriately. I stressed the importance of not getting constipated. I recommended MiraLAX daily. Follow-up will be as needed. SUBJECTIVE CHIEF COMPLAINT: Patient presents with: Consult: External hemorrhoid irriated - Jenny lanced in-office 12/09 Patient called into office - running 10 mins late INTERVAL HISTORY OF PRESENT ILLNESS: The patient is a 23-year-old female who recently had a thrombosed external hemorrhoid removed in the office by Dr. Pascual. She states that she was having some increased pain but this has improved since she had her first bowel movement since the procedure. It sounds as though she has been dealing with constipation issues and has been afraid to have her first bowel movement. She denies any bleeding or drainage. She was concerned about some swelling to the area. HISTORIES: PAST MEDICAL HISTORY No date: Vitamin D deficiency PAST SURGICAL HISTORY No date: SECTION HX; N/A 12/10/2023: HEMORRHOIDECTOMY ALLERGIES: Patient has no known allergies. MEDICATIONS: Current Outpatient Medications Medication Sig cholecalciferol, vitamin D3, (VITAMIN D3) 100 mcg (4,000 unit) cap Take by mouth. No current facility-administered medications for this visit. FAMILY HISTORY Problem Relation Age of Onset No Family History No Family History Social History Tobacco Use Smoking status: Never Smokeless tobacco: Never OBJECTIVE PHYSICAL EXAM: BP 112/78 Pulse 85 Ht 5' 5.5 (1.66m) Wt 165 lb (74.8kg) SpO2 100% LMP 07/15/2022 BMI 27.03 kg/(m^2). GENERAL: Alert, no distress, cooperative RECTAL: Region of thrombosed external hemorrhoid excision located about the 2 o'clock position appears to be healing well. No evidence of infection or recurrent thrombosed hemorrhoid. Reassurance was offered. DATA: Diagnostic tests reviewed for today's visit: Most recent labs and imaging results. Isidro Barragan MD documented in this encounter [facility] 12-10-2023 Instructions Ame Asif RN - 12/10/2023 2:16 PM EDT The following instructions are important for you related to your office visit today with the [facility]. Instructions After THROMBOSED HEMORRHOID I&D STATUS POST INCISION AND EVACUATION OF THROMBOSED HEMORRHOID Brandy is instructed to perform sitz baths twice a day and after each bowel movement. Place dibucaine ointment on anus as needed and before all bowel movements. Keep stools soft and avoid straining if possible. Some bleeding from the incision site where the blood clot was removed is common. If bleeding presists, press on the area with a clean gauze or towel. If pain increases, a new thrombosed hemorrhoid may be present. Return immediately. Return if symptoms fail to improve. Take 2 ibuprofen followed by 2 Tylenol 6 hours later followed by 2 Ibuprofen 6 hours later. Alternate them every 6 hours 24-48 hours. If you note any additional difficulties, questions, or concerns, you should contact our office immediately @ [phone] and ask to be transferred to the General Surgery department. documented in this encounter [facility] 12-10-2023 History of Present illness Narrative Brandy Llanos 2000 REFERRING PHYSICIAN: Maciej Fernandez AP* CHIEF COMPLAINT: Consult (Thrombosed hemorrhoid) HPI: The patient is a 23 year old female presents with thrombosed external hemorrhoids. Noted for a few days. No previous such lesion. Denies chronic constipation. PAST MEDICAL HISTORY Diagnosis Date Vitamin D deficiency PAST SURGICAL HISTORY Procedure Laterality Date SECTION HX N/A Current Outpatient Medications Medication Sig cholecalciferol, vitamin D3, (VITAMIN D3) 100 mcg (4,000 unit) cap Take by mouth. No current facility-administered medications for this visit. ALLERGIES: Patient has no known allergies. PERSONAL HISTORY: Social History Tobacco Use Smoking status: Never Smokeless tobacco: Never FAMILY HISTORY Problem Relation Age of Onset No Family History No Family History The review of systems data was entered by the nurse and reviewed by wv Nursing Notes: Ame Asif RN 12/10/2023 1:43 PM Addendum REVIEW OF SYSTEMS: General: The patient denies fatigue, denies weight loss, denies weight gain, denies feeling hot, and denies feelings of cold. Eyes: The patient denies glaucoma, denies eye injury/surgery, does wear glasses or contacts. Ear/Nose/Throat: The patient denies allergies, denies hayfever, denies ear infections, and denies bloody noses. Cardiovascular: The patient denies chest pain, denies heart disease, denies high blood pressure,denies cardiac stent, denies prior heart attack, denies irregular heart beat, denies high cholesterol, denies poor circulation, denies heart failure, other cardiac issues, denies claudication, denies cold feet, denies peripheral arterial stent. Respiratory: The patient denies tuberculosis, denies pneumonia, denies frequent cough, denies pulmonary embolism, denies shortness of breath, and denies coughing up blood. Gastrointestinal: The patient denies difficulty swallowing, denies acid reflux, denies ulcers, denies vomiting, denies jaundice/hepatitis, denies gallbladder problems, NKOTES black or tarry stools, NOTES hemorrhoids, NOTES bleeding from rectum, denies diverticulitis, denies constipation, denies diarrhea, denies loss of stool control, and denies hernias. Kidney/Bladder: The patient denies kidney stones, denies urine infections, and denies bloody urine. Skin: The patient denies a history of skin cancer, denies bleeding/changing moles, and denies a history of skin rash. Neurologic: The patient denies a history of epilepsy/convulsions, denies headaches, denies head/spinal injuries, and denies stroke/TIA. Psychiatric: The patient denies psychiatric medications, denies depression, and denies voices, denies substance abuse. Endocrine: The patient denies thyroid disorders, denies diabetes, and denies hormonal problems. Hematologic: The patient denies a history of bruising, denies bleeding, and denies anemia, denies blood clots. Infections: The patient denies a history of measles and mumps, denies rheumatic fever, and denies sexually transmitted diseases. Musculoskeletal: The patient denies back pain/injury, denies back problems, denies sciatica, denies knee/foot trouble, denies arthritis, or denies gout. When was patient's last Mammogram screening? N/A Last Colonoscopy: none Ame Asif RN PHYSICAL EXAMINATION: General: The patient is 23 year old female, well nourished, well hydrated in no acute distress. The patient is oriented to time, place, and person. VITALS: Blood pressure 106/78, pulse 107, temperature 36.9 C (98.4 F), height 166.4 cm (5' 5.5), weight 74.5 kg (164 lb 3.2 oz), last menstrual period 07/15/2022, SpO2 97%. Body mass index is 26.91 kg/m . Head: Normal cephalic, atraumatic Eyes: pupils are equally round, sclera are clear/anicteric Neck is supple with no tracheal deviation Cardiac: normal heart sounds, regular Respiratory: Normal respiratory excursion and pattern. Abdominal exam: benign Rectal: right latera/posterior external thrombosed hemorrhoid Extremities: no clubbing, cyanosis or edema Neuro: non focal Psych: normal mood Assessment IMPRESSION: external thrombosed hemorrhoids DISCUSSION: I have discussed the above with the patient. I have offered incision of thrombosed external hemorrhoid I have explained the procedure to the patient. I have counseled the patient as to the risks of the procedure, including but not limited to: infection, bleeding, injury to any blood vessels/nerves, scar tissue, wound infections, complications of anesthesia, etc. - the patient understands. The patient wishes to proceed. I have answered all questions to the patient s satisfaction and the patient has no further questions. I have confirmed and edited as necessary, the PFSH and ROS obtained by others. . Diagnoses: (K64.4) External hemorrhoid (K64.5) External hemorrhoid, thrombosed Consultation requested by Maciej Fernandez for an opinion regarding patient's thrombosed external hemorrhoid. My final recommendations will be communicated back to the requesting physician by way of shared Medical record or letter to requesting physician via US mail. PROCEDURE NOTE: After informed consent was given the patient was placed in the lateral decubitus position on the examination table/prone kneeling position on the proctoscopy table. Appropriate time out protocol was followed. The patient had an externally thrombosed hemorrhoid of right lateral side. No gangrene noted. No drainage noted. The skin and surrounding areas was cleansed with a betadyne skin preparation. The skin and surrounding tissues was then infiltrated with 1% xylocaine with epinephrine and a total of 10 ml was used. An incision was made in a radial fashion overlying the hemorrhoid with an 11 blade scalpel and a 1.5 cm formed clot of blood emanated. Smaller clots were also expressed. The excess hemorrhoidal tissue was excised. There were two hemorrhoidal bundles that were treated in this manner. Hemostasis was achieved by pressure. Loose dressing was applied. Patient tolerated procedure well. PLAN: Wound care instructions given by clinic staff. Patient is instructed to make an appointment to return to clinic if any worsening signs/symptoms. Patient will return to PCP for medical care. Patient acknowledges above. Medical Decision Making: Risk: Low: Low risk from testing/treatment Medical Decision Making Level: 2 - Straightforward Elizabeth Pascual MD documented in this encounter [facility] 12-10-2023 Note HNO ID: [id number] Author: ELIZABETH PASCUAL MD Service: ? Author Type: Physician Type: Progress Notes Filed: 01/15/2024 12:23 Note Text: Brandy Llanos 2000 REFERRING PHYSICIAN: Maciej Fernandez AP* CHIEF COMPLAINT: Consult (Thrombosed hemorrhoid) HPI: The patient is a 23 year old female presents with thrombosed external hemorrhoids. Noted for a few days. No previous such lesion. Denies chronic constipation. PAST MEDICAL HISTORY Diagnosis Date Vitamin D deficiency PAST SURGICAL HISTORY Procedure Laterality Date SECTION HX N/A Current Outpatient Medications Medication Sig cholecalciferol, vitamin D3, (VITAMIN D3) 100 mcg (4,000 unit) cap Take by mouth. No current facility-administered medications for this visit. ALLERGIES: Patient has no known allergies. PERSONAL HISTORY: Social History Tobacco Use Smoking status: Never Smokeless tobacco: Never FAMILY HISTORY Problem Relation Age of Onset No Family History No Family History The review of systems data was entered by the nurse and reviewed by wv Nursing Notes: Ame Asif RN 12/10/2023 1:43 PM Addendum REVIEW OF SYSTEMS: General: The patient denies fatigue, denies weight loss, denies weight gain, denies feeling hot, and denies feelings of cold. Eyes: The patient denies glaucoma, denies eye injury/surgery, does wear glasses or contacts. Ear/Nose/Throat: The patient denies allergies, denies hayfever, denies ear infections, and denies bloody noses. Cardiovascular: The patient denies chest pain, denies heart disease, denies high blood pressure,denies cardiac stent, denies prior heart attack, denies irregular heart beat, denies high cholesterol, denies poor circulation, denies heart failure, other cardiac issues, denies claudication, denies cold feet, denies peripheral arterial stent. Respiratory: The patient denies tuberculosis, denies pneumonia, denies frequent cough, denies pulmonary embolism, denies shortness of breath, and denies coughing up blood. Gastrointestinal: The patient denies difficulty swallowing, denies acid reflux, denies ulcers, denies vomiting, denies jaundice/hepatitis, denies gallbladder problems, NKOTES black or tarry stools, NOTES hemorrhoids, NOTES bleeding from rectum, denies diverticulitis, denies constipation, denies diarrhea, denies loss of stool control, and denies hernias. Kidney/Bladder: The patient denies kidney stones, denies urine infections, and denies bloody urine. Skin: The patient denies a history of skin cancer, denies bleeding/changing moles, and denies a history of skin rash. Neurologic: The patient denies a history of epilepsy/convulsions, denies headaches, denies head/spinal injuries, and denies stroke/TIA. Psychiatric: The patient denies psychiatric medications, denies depression, and denies voices, denies substance abuse. Endocrine: The patient denies thyroid disorders, denies diabetes, and denies hormonal problems. Hematologic: The patient denies a history of bruising, denies bleeding, and denies anemia, denies blood clots. Infections: The patient denies a history of measles and mumps, denies rheumatic fever, and denies sexually transmitted diseases. Musculoskeletal: The patient denies back pain/injury, denies back problems, denies sciatica, denies knee/foot trouble, denies arthritis, or denies gout. When was patient's last Mammogram screening? N/A Last Colonoscopy: none Ame Asif RN PHYSICAL EXAMINATION: General: The patient is 23 year old female, well nourished, well hydrated in no acute distress. The patient is oriented to time, place, and person. VITALS: Blood pressure 106/78, pulse 107, temperature 36.9 ?C (98.4 ?F), height 166.4 cm (5' 5.5), weight 74.5 kg (164 lb 3.2 oz), last menstrual period 07/15/2022, SpO2 97%. Body mass index is 26.91 kg/m?. Head: Normal cephalic, atraumatic Eyes: pupils are equally round, sclera are clear/anicteric Neck is supple with no tracheal deviation Cardiac: normal heart sounds, regular Respiratory: Normal respiratory excursion and pattern. Abdominal exam: benign Rectal: right latera/posterior external thrombosed hemorrhoid Extremities: no clubbing, cyanosis or edema Neuro: non focal Psych: normal mood Assessment IMPRESSION: external thrombosed hemorrhoids DISCUSSION: I have discussed the above with the patient. I have offered incision of thrombosed external hemorrhoid I have explained the procedure to the patient. I have counseled the patient as to the risks of the procedure, including but not limited to: infection, bleeding, injury to any blood vessels/nerves, scar tissue, wound infections, complications of anesthesia, etc. - the patient understands. The patient wishes to proceed. I have answered all questions to the patient?s satisfaction and the patient has no further questions. I have confirmed and edited as necessary, the PFSH and (more content not included)... [facility] 12-10-2023 Nurse Note REVIEW OF SYSTEMS: General: The patient denies fatigue, denies weight loss, denies weight gain, denies feeling hot, and denies feelings of cold. Eyes: The patient denies glaucoma, denies eye injury/surgery, does wear glasses or contacts. Ear/Nose/Throat: The patient denies allergies, denies hayfever, denies ear infections, and denies bloody noses. Cardiovascular: The patient denies chest pain, denies heart disease, denies high blood pressure,denies cardiac stent, denies prior heart attack, denies irregular heart beat, denies high cholesterol, denies poor circulation, denies heart failure, other cardiac issues, denies claudication, denies cold feet, denies peripheral arterial stent. Respiratory: The patient denies tuberculosis, denies pneumonia, denies frequent cough, denies pulmonary embolism, denies shortness of breath, and denies coughing up blood. Gastrointestinal: The patient denies difficulty swallowing, denies acid reflux, denies ulcers, denies vomiting, denies jaundice/hepatitis, denies gallbladder problems, NKOTES black or tarry stools, NOTES hemorrhoids, NOTES bleeding from rectum, denies diverticulitis, denies constipation, denies diarrhea, denies loss of stool control, and denies hernias. Kidney/Bladder: The patient denies kidney stones, denies urine infections, and denies bloody urine. Skin: The patient denies a history of skin cancer, denies bleeding/changing moles, and denies a history of skin rash. Neurologic: The patient denies a history of epilepsy/convulsions, denies headaches, denies head/spinal injuries, and denies stroke/TIA. Psychiatric: The patient denies psychiatric medications, denies depression, and denies voices, denies substance abuse. Endocrine: The patient denies thyroid disorders, denies diabetes, and denies hormonal problems. Hematologic: The patient denies a history of bruising, denies bleeding, and denies anemia, denies blood clots. Infections: The patient denies a history of measles and mumps, denies rheumatic fever, and denies sexually transmitted diseases. Musculoskeletal: The patient denies back pain/injury, denies back problems, denies sciatica, denies knee/foot trouble, denies arthritis, or denies gout. When was patient's last Mammogram screening? N/A Last Colonoscopy: none Ame Asif RN [facility] 12-10-2023 Nurse Note REVIEW OF SYSTEMS: General: The patient denies fatigue, denies weight loss, denies weight gain, denies feeling hot, and denies feelings of cold. Eyes: The patient denies glaucoma, denies eye injury/surgery, does wear glasses or contacts. Ear/Nose/Throat: The patient denies allergies, denies hayfever, denies ear infections, and denies bloody noses. Cardiovascular: The patient denies chest pain, denies heart disease, denies high blood pressure,denies cardiac stent, denies prior heart attack, denies irregular heart beat, denies high cholesterol, denies poor circulation, denies heart failure, other cardiac issues, denies claudication, denies cold feet, denies peripheral arterial stent. Respiratory: The patient denies tuberculosis, denies pneumonia, denies frequent cough, denies pulmonary embolism, denies shortness of breath, and denies coughing up blood. Gastrointestinal: The patient denies difficulty swallowing, denies acid reflux, denies ulcers, denies vomiting, denies jaundice/hepatitis, denies gallbladder problems, NKOTES black or tarry stools, NOTES hemorrhoids, NOTES bleeding from rectum, denies diverticulitis, denies constipation, denies diarrhea, denies loss of stool control, and denies hernias. Kidney/Bladder: The patient denies kidney stones, denies urine infections, and denies bloody urine. Skin: The patient denies a history of skin cancer, denies bleeding/changing moles, and denies a history of skin rash. Neurologic: The patient denies a history of epilepsy/convulsions, denies headaches, denies head/spinal injuries, and denies stroke/TIA. Psychiatric: The patient denies psychiatric medications, denies depression, and denies voices, denies substance abuse. Endocrine: The patient denies thyroid disorders, denies diabetes, and denies hormonal problems. Hematologic: The patient denies a history of bruising, denies bleeding, and denies anemia, denies blood clots. Infections: The patient denies a history of measles and mumps, denies rheumatic fever, and denies sexually transmitted diseases. Musculoskeletal: The patient denies back pain/injury, denies back problems, denies sciatica, denies knee/foot trouble, denies arthritis, or denies gout. When was patient's last Mammogram screening? N/A Last Colonoscopy: none Ame Asif RN documented in this encounter [facility] 12-07-2023 Instructions Maciej Fernandez APRN.[facility] - 12/07/2023 6:53 PM EDT Hemorrhoids Hemorrhoids are veins covered with the lining of the anal canal located in or around the anus. Hemorrhoids can be external, internal or a combination of both (interno-external). External hemorrhoids can be skin alone or skin with a vein underneath. Internal hemorrhoids are dilated veins which protrude inside when small or can sometimes extend outside the anus either after a bowel movement; they can also be present externally all the time. Hemorrhoids are usually not painful. Small hemorrhoids cannot be seen but can bleed after a hard bowel movement/straining or too frequent bowel movements. Hemorrhoids that protrude out after a bowel movement often go back in spontaneously. Occasionally they have to be manually pushed in. Hemorrhoids that protrude out and do not go back in can sometimes get large and form a clot; these are called thrombosed prolapsed hemorrhoids. External hemorrhoids can also form a clot and this can be very painful; this is called a thrombosed external hemorrhoid. Certain conditions may cause internal hemorrhoids to bulge, become irritated, and bleed, including: Trauma during childbirth The extra weight of Obesity Chronic constipation with straining Anal intercourse What are the symptoms of internal hemorrhoids? Painless rectal bleeding on the toilet paper or in the toilet bowl is the most common symptom. Pain can occur with thrombosed hemorrhoids or hemorrhoids that can suddenly not be reposited in the anal canal. Another symptom is the protrusion of the hemorrhoids after a bowel movement; the hemorrhoids either spontaneously go back in or have to be pushed in manually. What are the symptoms of external hemorrhoids? A grape-like lump on the anus Itching and soreness in and around the anus Blood on underwear, toilet paper, the surface of the stool, or in the toilet bowl What causes hemorrhoids? Hemorrhoids are caused by repeated pressure and strain, which might be caused by: Straining at stool Frequent constipation (hard or difficult bowel movements) Diarrhea (frequent, loose, watery stool) (especially in the third trimester) Cirrhosis of the liver (can cause pooling of blood in the vessels around the rectum) How are hemorrhoids diagnosed? Usually, an explanation of your symptoms is an important clue to your doctor. On examination, external hemorrhoids and bulging hemorrhoids may be visible. When hemorrhoids are not visible beyond the anus, your doctor will examine the inside of the anal canal using a lighted instrument called an anoscope. Often, your doctor will recommend a detailed examination of your sigmoid colon and rectum using a lighted scope (a procedure called flexible sigmoidoscopy) to ensure that there is no inflammatory disease such as Crohn's disease or ulcerative colitis or cancer. How can I relieve the acute pain? Take warms soaks in the bath (sitz baths). Sit in plain, warm water for about 10 minutes several times a day. Apply a hemorrhoid cream, or use a suppository. Follow the directions on the package. Don't strain during bowel movements. Keep stools soft. See your doctor. How can I relieve constipation? Increase the amount of fiber in your diet. Good sources of fiber are fruits, vegetables, and whole grains. Five to ten servings of fruits and vegetables are recommended each day. Fiber supplements might be helpful - examples include Metamucil and Citrucel . Sparingly use [id number] laxatives or stool softeners. Stool softeners such as Colace are relatively safe, but prolonged use of osmotic or stimulant laxatives might not be. Exercise regularly. Even walking regularly helps improve the normal flow of material through the intestine. Empty the bowels when you feel the urge to do so. Immediately following a meal, the body will have a natural urge to defecate. That's a good time to plan a visit to the bathroom. How can I prevent hemorrhoids? The best way to prevent hemorrhoids is to keep bowel movements regular and stool soft. Try some of the tips for relieving constipation listed above. Also, avoid prolonged standing, sitting, and heavy lifting, and chronic coughing, straining at stool, and aggressive wiping. How are hemorrhoids treated? Occasional rectal bleeding can be controlled by keeping the stools regular and soft. An examination is essential to rule out other causes of bleeding. Painful hemorrhoids can be treated with: Warm tub baths several times a day in plain, warm water for about 10 minutes In some cases, hemorrhoids must be treated surgically. Surgery is used to shrink and or excise (cut out) the hemorrhoidal tissue. A number of methods might be used to remove or reduce the size of internal hemorrhoids. These techniques include: Rubber band ligation - A rubber band is placed around the base of the hemorrhoid inside the rectum. The band cuts off circulation, causing the hemorrhoid to wither away within a few days. This can be done in an office setting and does not need anesthesia. Sclerotherapy - A chemical solution is injected around the blood vessel to shrink the hemorrhoid. This is not done routinely for hemorrhoids. Infrared coagulation - A special device is used to burn hemorrhoidal tissue. This can treat small hemorrhoids. Procedure for prolapsed hemorrhoids (PPH) - This is done for hemorrhoids that come out of the anal canal. This is done under anesthesia and uses a device to fix the hemorrhoids at the position from where they came down. Hemorrhoidal arterial ligation - This can be done for different grades of hemorrhoids and uses a Doppler probe to identify and tie the vessels feeding the hemorrhoid, thereby shrinking it. Hemorrhoidectomy - Occasionally, extensive or severe internal or external hemorrhoids might require removal by surgery known as hemorrhoidectomy. This procedure involves excision of the hemorrhoid and the skin overlying it. Copyright [id number] The [facility]. All rights reserved This information is provided by the [facility] and is not intended to replace the medical advice of your doctor or health care provider. Please consult your health care provider for advice about a specific medical condition. For additional health information, please contact the [facility] at the [facility] Hospital or toll-free extension [id number]. If you prefer, you may visit [email or web address] or [email or web address]. This document was last reviewed on: 2009 index#[id number] documented in this encounter [facility] 12-07-2023 Note HNO ID: [id number] Author: MACIEJ FERNANDEZ APRN.NEO Service: ? Author Type: Nurse Practitioner Type: Progress Notes Filed: 12/07/2023 19:07 Note Text: Subjective HPI Nontoxic-appearing female presents urgent care chief complaint rectal pain. Duration of symptom 1 day. Associated symptoms bulge over her rectum. States history of external hemorrhoids this is similar. Has been using some OTC cream this is helped a little. No blood in stool. Has not been constipated recently. Overall feels well. Denies any fever body aches chills productive cough chest pain shortness of breath pleuritic pain hemoptysis nausea vomiting abdominal pain change in bowel or bladder habits. Past medical history prescription medication use and allergies reviewed. .Patient presents with: Rectal Problem: x 1 day PAST MEDICAL HISTORY Diagnosis Date Vitamin D deficiency PAST SURGICAL HISTORY Procedure Laterality Date SECTION HX N/A ALLERGIES Patient has no known allergies. MEDICATIONS cholecalciferol, vitamin D3, (VITAMIN D3) 100 mcg (4,000 unit) cap Take by mouth. No family history on file. Social History Tobacco Use Smoking status: Never Smokeless tobacco: Never BP 110/64 Pulse 98 Temp 36.1 ?C (96.9 ?F) Resp 16 Wt 75.2 kg (165 lb 12.6 oz) LMP 07/15/2022 (Exact Date) SpO2 100% BMI 27.17 kg/m? Review of Systems Constitutional: Negative for chills, fever and malaise/fatigue. HENT: Negative for congestion, ear discharge, ear pain, sinus pain and sore throat. Eyes: Negative for blurred vision, pain, discharge and redness. Respiratory: Negative for cough, hemoptysis, sputum production, shortness of breath, wheezing and stridor. Cardiovascular: Negative for chest pain. Gastrointestinal: Negative for abdominal pain, blood in stool, constipation, diarrhea, melena, nausea and vomiting. Musculoskeletal: Negative for myalgias. Skin: Negative for itching and rash. Neurological: Negative for dizziness and headaches. Objective Physical Exam Exam conducted with a kilnman present. Constitutional: General: She is not in acute distress. Appearance: She is not toxic-appearing. HENT: Head: Normocephalic. Nose: Nose normal. Eyes: Pupils: Pupils are equal, round, and reactive to light. Cardiovascular: Rate and Rhythm: Normal rate. Pulmonary: Effort: Pulmonary effort is normal. No respiratory distress. Genitourinary: Rectum: External hemorrhoid present. No tenderness. Comments: Approximately 2 cm x 0.5 cm external hemorrhoid noted. Hemorrhoid does appear to be thrombosed. No bleeding. Musculoskeletal: Cervical back: Normal range of motion. Skin: General: Skin is warm and dry. Neurological: General: No focal deficit present. Mental Status: She is alert. ASSESSMENT/PLAN: 1. External hemorrhoid - ICD9: 455.3, ICD10: K64.4 - CONSULT TO GENERAL SURGERY Diagnosis external hemorrhoid. At this time hemorrhoid does appear to be thrombosed. OTC medications and diet discussed with patient. Follow-up with general surgery as scheduled. Patient was educated on supportive therapies. Patient will follow up with primary care provider as needed. Patient was instructed to immediately proceed to emergency room for any new, worsening, or symptoms lasting longer than anticipated. The patient's clinical presentation is otherwise unremarkable at this time. Based on exam and clinical finding, the patient is stable for discharge. Plan of care was discussed with patient. Patient verbalizes understanding and agrees to plan of care. This note was generated using [employer] software. It may contain errors in wording, punctuation, or spelling. Maciej Fernandez APRN.[facility] 12-07-2023 History of Present illness Narrative Images from the original note were not included. Subjective HPI Nontoxic-appearing female presents urgent care chief complaint rectal pain. Duration of symptom 1 day. Associated symptoms bulge over her rectum. States history of external hemorrhoids this is similar. Has been using some OTC cream this is helped a little. No blood in stool. Has not been constipated recently. Overall feels well. Denies any fever body aches chills productive cough chest pain shortness of breath pleuritic pain hemoptysis nausea vomiting abdominal pain change in bowel or bladder habits. Past medical history prescription medication use and allergies reviewed. .Patient presents with: Rectal Problem: x 1 day PAST MEDICAL HISTORY Diagnosis Date Vitamin D deficiency PAST SURGICAL HISTORY Procedure Laterality Date SECTION HX N/A ALLERGIES Patient has no known allergies. MEDICATIONS cholecalciferol, vitamin D3, (VITAMIN D3) 100 mcg (4,000 unit) cap Take by mouth. No family history on file. Social History Tobacco Use Smoking status: Never Smokeless tobacco: Never BP 110/64 Pulse 98 Temp 36.1 C (96.9 F) Resp 16 Wt 75.2 kg (165 lb 12.6 oz) LMP 07/15/2022 (Exact Date) SpO2 100% BMI 27.17 kg/m Review of Systems Constitutional: Negative for chills, fever and malaise/fatigue. HENT: Negative for congestion, ear discharge, ear pain, sinus pain and sore throat. Eyes: Negative for blurred vision, pain, discharge and redness. Respiratory: Negative for cough, hemoptysis, sputum production, shortness of breath, wheezing and stridor. Cardiovascular: Negative for chest pain. Gastrointestinal: Negative for abdominal pain, blood in stool, constipation, diarrhea, melena, nausea and vomiting. Musculoskeletal: Negative for myalgias. Skin: Negative for itching and rash. Neurological: Negative for dizziness and headaches. Objective Physical Exam Exam conducted with a kilnman present. Constitutional: General: She is not in acute distress. Appearance: She is not toxic-appearing. HENT: Head: Normocephalic. Nose: Nose normal. Eyes: Pupils: Pupils are equal, round, and reactive to light. Cardiovascular: Rate and Rhythm: Normal rate. Pulmonary: Effort: Pulmonary effort is normal. No respiratory distress. Genitourinary: Rectum: External hemorrhoid present. No tenderness. Comments: Approximately 2 cm x 0.5 cm external hemorrhoid noted. Hemorrhoid does appear to be thrombosed. No bleeding. Musculoskeletal: Cervical back: Normal range of motion. Skin: General: Skin is warm and dry. Neurological: General: No focal deficit present. Mental Status: She is alert. ASSESSMENT/PLAN: 1. External hemorrhoid - ICD9: 455.3, ICD10: K64.4 - CONSULT TO GENERAL SURGERY Diagnosis external hemorrhoid. At this time hemorrhoid does appear to be thrombosed. OTC medications and diet discussed with patient. Follow-up with general surgery as scheduled. Patient was educated on supportive therapies. Patient will follow up with primary care provider as needed. Patient was instructed to immediately proceed to emergency room for any new, worsening, or symptoms lasting longer than anticipated. The patient's clinical presentation is otherwise unremarkable at this time. Based on exam and clinical finding, the patient is stable for discharge. Plan of care was discussed with patient. Patient verbalizes understanding and agrees to plan of care. This note was generated using [employer] software. It may contain errors in wording, punctuation, or spelling. Maciej Fernandez APRN.NEO documented in this encounter [facility] 10-04-2023 Note HNO ID: [id number] Author: JUSTINE GARAY APRN.ROUNDHOUSE SUPERVISOR Service: ? Author Type: Nurse Practitioner Type: Progress Notes Filed: 10/04/2023 19:13 Note Text: This note was created using [employer]. Subjective Brandy Llanos is a 23 year old female. HPI started about 1 month ago with pain that has been off/on at the anus. The past day the pain has gotten worst and she can feel a lump. She notice some bleeding today. She has use some OTC hemorrhoid cream off/on. Review of Systems Genitourinary: Anal pain Objective BP 133/75 Pulse 89 Temp 36.7 ?C (98 ?F) Resp 20 Wt 72 kg (158 lb 11.7 oz) LMP 07/15/2022 (Exact Date) SpO2 100% BMI 26.01 kg/m? Physical Exam Genitourinary: Exam position: Knee-chest position. Comments: Small hemorrhoid noted not actively bleeding Assessment and Plan ASSESSMENT/PLAN: 1. External hemorrhoid - ICD9: 455.3, ICD10: K64.4 OTC treatment recommended Follow up is symptoms get worse Justine Garay APRN.ROUNDHOUSE SUPERVISOR Medical Decision Making: Problems: Low: Acute, uncomplicated illness or injury Risk: Low: Low risk from testing/treatment Medical Decision Making Level: 3 - Low [facility] 10-04-2023 History of Present illness Narrative Images from the original note were not included. This note was created using [employer]. Subjective Brandy Llanos is a 23 year old female. HPI started about 1 month ago with pain that has been off/on at the anus. The past day the pain has gotten worst and she can feel a lump. She notice some bleeding today. She has use some OTC hemorrhoid cream off/on. Review of Systems Genitourinary: Anal pain Objective BP 133/75 Pulse 89 Temp 36.7 C (98 F) Resp 20 Wt 72 kg (158 lb 11.7 oz) LMP 07/15/2022 (Exact Date) SpO2 100% BMI 26.01 kg/m Physical Exam Genitourinary: Exam position: Knee-chest position. Comments: Small hemorrhoid noted not actively bleeding Assessment and Plan ASSESSMENT/PLAN: 1. External hemorrhoid - ICD9: 455.3, ICD10: K64.4 OTC treatment recommended Follow up is symptoms get worse Justine Garay APRN.CNP Medical Decision Making: Problems: Low: Acute, uncomplicated illness or injury Risk: Low: Low risk from testing/treatment Medical Decision Making Level: 3 - Low documented in this encounter [facility] 06-06-2023 Discharge summary Note Date/Time June 06, 2023 11:40am [facility] Medical Records Department [address] [place] [address] Emergency Department Summary 06/06/23 MR#: [id number] Acct: [id number] Name: BRANDY LLANOS Rep #:[id number] : 2000 22 From: Sung Payton MD PCP: Care Physician,No Primary Status :REG ER Location: ED HPI History of Present Illness Chief Complaint: General Illness Detail of Chief Complaint: Viral-like symptoms that started several days ago. Informant: patient Onset/Context/Timing Onset: Days Context: Sudden Onset Timing: Continuous and Waxes and wanes Quality: Headache, congestion, sore throat, nonproductive cough, aches Location: Respiratory Current Severity: Mild Maximum Severity: Moderate Worsened by: Nothing Relieved by: Nothing Associated Symptoms Associated Symptoms: Viral-like symptoms and see HPI narrative Narrative Narrative: Patient is a 22-year-old female who presents with viral-like symptoms. Daughteris ill with rhinorrhea at home. She reports subjective fever. She reports chills. She does complain of headache. Denies photophobia, neck stiffness. She denies ear pain or ear drainage. She does report mild nasal congestion and sore throat. Cough is nonproductive. There is no pain with breathing. She denies abdominal pain. She does report nausea without vomiting diarrhea. She denies urologic symptoms. She states she has a vaginal rash due to recurrent herpetic infection. She has had a new sexual partner. She would like tested for STI. Prior similar symptoms: Yes Recent Illness/Hospitalization: No PFSH PFSH Medical History HPV (human papilloma virus) infection Non-smoker Home Medications PNV 153-FA 400 mcg-om3 35 mg-dha 25 mg-epa 5 mg-fish oil chew tablet ( Gummies) 2 tab PO DAILY Check with primary doctor 06/30/21 [History Last Taken 02/23/22 08:00] cholecalciferol (vitamin D3) 50 mcg (2,000 unit) capsule (Vitamin D3) 50 mcg PO DAILY Check with primary doctor 12/11/21 [History Last Taken 12/11/21 10:45] iron 1 tab PO/SL QODAY Check with primary doctor 02/24/22 [History Last Taken 02/22/22] magnesium 1 tab PO/SL DAILY Check with primary doctor 02/24/22 [History Last Taken 02/23/22] oxycodone 5 mg tablet 5 mg PO Q6H PRN pain (scale score 7-10) 4 days #16 tabs 02/24/22 [Rx Last Taken Unknown] acyclovir 400 mg tablet 1 tab PO 5X/DAY #35 tabs 06/06/23 [Rx Last Taken Unknown] Allergy/AdvReac Type Severity Reaction Status Date / Time No Known Allergies Allergy Verified 06/06/23 10:35 Social History (Updated 06/06/23 @ 11:[address] Sung Payton MD) household members: children Smoking Status: Former smoker substance use type: does not use ROS ROS ED Constitutional Constitutional ED: Reports chills, fever(s) and subjective; Denies sweats or weight loss Eyes Eyes: Denies blurry vision, change in vision or diplopia ENT ENT ED: Reports rhinorrhea and sore throat; Denies ear pain Cardiovascular Cardiovascular: Denies chest pain, orthopnea, palpitations or paroxysmal nocturnal dyspnea Respiratory/Chest Respiratory/Chest: Reports cough and dyspnea; Denies dyspnea on exertion, orthopnea, paroxysmal nocturnal dyspnea or sputum Gastrointestinal Gastrointestinal: Reports nausea; Denies abdominal pain, diarrhea or vomiting Genitourinary Genitourinary ED: Denies dysuria, hematuria or urinary frequency Musculoskeletal Musculoskeletal: Reports myalgias; Denies arthralgias or back pain Integumentary Reports rash Neurologic Neurologic: Reports headache(s) and weakness; Denies paresthesias Endocrine Endocrinology: Denies cold intolerance or heat intolerance Hematologic/Lymphatic Hematologic/Lymphatic: Reports systems reviewed and no addt'l complaints, exceptas documented EXAM Physical Exam Const Vital Signs: 06/06/23 10:33 06/06/23 11:31 06/06/23 11:34 Temperature 97.7 F L 98.4 F Temperature Source Temporal Oral Pulse Rate 137 H 97 Respiratory Rate 18 14 Respiratory Effort Normal Non-Labored Blood Pressure 150/95 H 123/77 H Blood Pressure Mean 113 92 Pulse Ox 99 99 Oxygen Delivery Method Room Air Room Air 06/06/23 13:48 Temperature Temperature Source Pulse Rate 78 Respiratory Rate 16 Respiratory Effort Blood Pressure 128/80 H Blood Pressure Mean 96 Pulse Ox 99 Oxygen Delivery Method Room Air Positive well nourished and well developed Constitutional Narrative: Patient appears ill but nontoxic. General Appearance ED: well developed and NAD; Negative for cyanotic, diaphoretic or pallor HEENT Reports dry mucous membranes HEENT Narrative: Head is atraumatic and normocephalic. Ears normal. TMs normal. Nares patent with clear discharge. Posterior pharynx with slight erythema. Uvula is midline. No deviation with protrusion. Mouth ED: Yes dry mucous membranes Mouth: dry mucous membranes Eyes PERRL and EOMs intact bilaterally General Eye ED: Negative for pale conjunctiva or scleral icterus Neck no lymphadenopathy, supple and no JVD Chest Wall inspection of chest normal and palpation of chest normal Resp normal respiratory effort and clear to auscultation bilaterally Cardio regular rhythm, S1 normal heart sound, S2 normal heart sound and no murmurs Rate: tachycardic GI normal to inspection, nondistended, normoactive bowel sounds, non-tender, non-distended and no masses; Negative for hepatosplenomegaly Auscultation: hypoactive bowel sounds Palpation: soft Back/Spine no CVA tenderness Extremity normal to inspection General Extremety ED: Negative for edema or tenderness General Extremity: Negative for edema Neuro oriented x3, CN's II-XII intact bilaterally and no sensory deficits noted Sensorium / Orientation: alert Psych mental status grossly normal Skin no rashes or lesions noted, no wounds and skin turgor normal General Skin Exam: elasticity normal; Negative for jaundice or pallor MDM MDM MDM Narrative Medical decision making narrative: Since patient is having recurrent of her herpetic infection we will start on acyclovir. She states she has no refills on her prescription. Also will assessfor COVID, RSV and influenza. Clinically patient appears dehydrated will infuse1 L of normal saline. Since she has had a new sexual partner and she reports mild discharge which is normal we will obtain urine for GC and chlamydia. Lab Data Attestation: I reviewed the patient's lab results. Lab results narrative: Rapid test for COVID, influenza and RSV were negative. Labs: Laboratory Results - last 24 hr 06/06/23 11:10 Serum , Qual NEGATIVE Treatment and Re-Evaluation :: Patient was reassessed at 1401. She appears much better. She reports she feelsbetter. Plan is symptomatic treatment with regards to the viral infection and prescription for acyclovir for recurrent genital herpes. Tachycardia resolved with IV fluids. Discharge Plan Triage Chief Complaint: General Illness ED Provider: Sung Payton Dx/Rx/DC Orders Clinical Impression: Acute dehydration, Systemic viral illness, Sinus tachycardia seen on cardiac specialist, Recurrent genital herpes Instructions: ED Dehydration (Adult), ED Viral Syndrome (Adult) Prescriptions: New acyclovir 400 mg tablet 1 tab PO 5X/DAY Qty: 35 0RF No Action Gummies 400 mcg-35 mg- 25 mg-5 mg Tablet,Chewable 2 tab PO DAILY cholecalciferol (vitamin D3) [Vitamin D3] 50 mcg (2,000 unit) Capsule 50 mcg PO DAILY oxycodone 5 mg tablet 5 mg PO Q6H PRN (Reason: pain (scale score 7-10)) 4 Days Qty: 16 0RF iron 1 tab PO/SL QODAY magnesium 1 tab PO/SL DAILY Primary Care Provider: Care Physician,No Primary Referrals: Care Physician,No Primary [Primary Care Provider] - Doctor,Your [Non-Staff] - 1 Week if not improving Activity Restrictions/Additional Instructions: 1. Drink plenty of fluids 2. Take either Tylenol or ibuprofen for your fever and aches 3. Take medication as prescribed Disposition Disposition: Home, Self Care What to do if you have Problems For any increased pain, shortness of breath, bleeding, nausea or vomiting, chestpain, or any unexpected problems, contact your Primary Care Provider. Call [facility] ([phone]) or report to the closest Emergency Room. Call 911 if necessary. 06/06/23 1414 <Electronically signed by Sung Payton MD> Cosigner Signature (if applicable): CC: No Primary Care Physician ~ Signed [facility] Work Phone: [phone] 613-674807-06-2023 NoteOutpatient Behavioral Health Services Individual or Family Therapy Progress Note Program: Addiction Medicine Intensive Outpatient Program Session Date: 11/16/22 Start Time: 520pm End Time: 610pm Session Participant(s): Patient only Summary of Session: RETAIL CLIENT MANAGER discharged patient from [facility] and discussed treatment after graduation. RETAIL CLIENT MANAGER assessed use of coping skills and self care routine. RETAIL CLIENT MANAGER used SFT to assist patient on building [...] Patient to be discharged from treatment [facility] [id number] NoteOutpatient Behavioral Health Individualized Treatment Plan Program: [] [...] specific treatment staff, appointment times, cultural and/or congregation considerations, etc). IOP Please identify family members/friends [...] not use MET 11/16/22 Goal/Anticipated Treatment Outcome: RETAIL CLIENT MANAGER will assist patient in developing coping skills, [...] my anxiety? MET 11/16/22 Goal/Anticipated Treatment Outcome: RETAIL CLIENT MANAGER will assist patient in access resources for mental and physical health treatment. RETAIL CLIENT MANAGER will work with patient to develop skills [...] Clinician and Attending to sign document electronically) [facility] [id number] NoteOutpatient Behavioral Health Services Transfer/Discharge Summary Patient Instructions [...] File Complete the following for DISCHARGE from [facility] Addiction IOP Program: Summary of Treatment [...] She has met all her goals in [facility]. REFERRAL INFORMATION UPON DISCHARGE: Include new referrals & patient's existing Behavior Health providers providing continuity of care Must include specific agency AND provider name Outpatient Behavioral Health Counseling Services: Patient sees two individual therapist at undisclosed treatment center. Patient never signed [facility]ANTH[facility]. Psychiatry Services: Patient Declined Residential/Addiction Support Services: Se Other: Referred to [facility] Additional Comments (optional): Use the refusal, coping and recovery skills you learned in treatment to manage symptoms/relationships, Use mindfulness activities to assist with relieving triggers/symptoms, Continue abstinence from all mood-altering substances, and Remember to engage in self-care activities on a regular basis [facility] [id number] History of Present illness Narrative* Neris Jensen - 11/16/2022 5:30 PM EDT Outpatient Behavioral Health Services Individual or Family Therapy Progress Note Program: Addiction Medicine Intensive Outpatient Program Session Date: 11/16/22 Start Time: 520pm End Time: 610pm Session Participant(s): Patient only Summary of Session: RETAIL CLIENT MANAGER discharged patient from [facility] and discussed treatment after graduation. RETAIL CLIENT MANAGER assessed use of coping skills and self care routine. RETAIL CLIENT MANAGER used SFT to assist patient on building [...] to employment since her child is not vaccinated.Pt reported that taking sobriety one day at [...] discharged from treatment Signature documented in this [facility]07-06-2023 Hospital course Narrative* Neris Jensen - 11/16/2022 5:30 PM EDT Outpatient Behavioral Health Services Transfer/Discharge Summary Patient [...] admitted that she will probably use alcohol butnot cannabis 1 Dimension 5: Relapse, Continued Use, or Continued Problem Potential Comments: Admitted that she plans to drink on occasion 2 Dimension 6: Recovery/Living Environment Comments:Housed in single mothers housing program and hoping to find her own place soon. Comments: n/a Patient At Home Medication: Prior to Admission medications Not on File Complete the following for DISCHARGE from [facility] Addiction IOP Program: Summary of Treatment Provided and Progress Towards Goal(s): Patient has been engaging with mentors and members of [employer] group. She has been able to identify [...] so until she completes IOP. She has metall her goals in IOP. REFERRAL INFORMATION UPON DISCHARGE: Include new referrals & patient's existing Behavior Health providers providing continuity of care Must include specific agency AND provider name Outpatient Behavioral Health Counseling Services: Patient sees two individual therapist at undisclosed treatment center. Patient never signed [facility]ANTHI. Psychiatry Services: Patient Declined Residential/Addiction Support Services: Se Other: Referred to [facility] Additional Comments (optional): Use the refusal, coping and recovery skills you learned in treatment to manage symptoms/relationships, Use mindfulness activities to assist with relieving triggers/symptoms, Continue abstinence from all mood-altering substances, and Remember to engage in self-care activities on a regular basis documented in this [facility]07-06-2023 Miscellaneous Notes* Care Plan - Neris Jensen - 11/16/2022 5:30 PM EDT Outpatient Behavioral Health Individualized Treatment Plan Program: [...] specific treatment staff, appointment times, cultural and/or congregation considerations, etc). IOP Please identify family members/friends [...] not use MET 11/16/22 Goal/Anticipated Treatment Outcome: RETAIL CLIENT MANAGER will assist patient in developing coping skills, [...] daily to prevent relapse by the 3rd sessionof IOP MET 11/16/22 Intervention: Therapist will assist patient in identifying triggers based on history of relapse as well as identifying adaptive responses to prevent relapse from occurring again. Goal 2 Problem ID: Mental Health Disorder Goal/Desired Outcome in Patient's Words: lessen my anxiety MET 11/16/22 Goal/Anticipated Treatment Outcome: RETAIL CLIENT MANAGER will assist patient in access resources for mental and physical health treatment. RETAIL CLIENT MANAGER will workwith patient to develop skills and routine to manage depression. Objective(s): Objective 1: Patient will improve mood (as evidenced by decreasing score on PHQ- 9 - total score by 5 points) by [...] not recommended to [facility] due to office closing,PT denied referral to other locations Service(s) Provided (if group, include name of group) Primary Service Provider Frequency of ServiceDate Added Service D/C Date Addiction Med IOP [...] to sign document electronically) documented in this [facility]07-06-2023 Plan of care note* Care Plan - Neris Jensen - 11/16/2022 5:30 PM EDT Outpatient Behavioral Health Individualized Treatment Plan Program: [...] specific treatment staff, appointment times, cultural and/or congregation considerations, etc). IOP Please identify family members/friends [...] not use MET 11/16/22 Goal/Anticipated Treatment Outcome: RETAIL CLIENT MANAGER will assist patient in developing coping skills, [...] daily to prevent relapse by the 3rd sessionof IOP MET 11/16/22 Intervention: Therapist will assist patient in identifying triggers based on history of relapse as well as identifying adaptive responses to prevent relapse from occurring again. Goal 2 Problem ID: Mental Health Disorder Goal/Desired Outcome in Patient's Words: lessen my anxiety MET 11/16/22 Goal/Anticipated Treatment Outcome: RETAIL CLIENT MANAGER will assist patient in access resources for mental and physical health treatment. RETAIL CLIENT MANAGER will workwith patient to develop skills and routine to manage depression. Objective(s): Objective 1: Patient will improve mood (as evidenced by decreasing score on PHQ- 9 - total score by 5 points) by [...] not recommended to RPG due to office closing,PT denied referral to other locations Service(s) Provided (if group, include name of group) Primary Service Provider Frequency of ServiceDate Added Service D/C Date Addiction Med IOP [...] Clinician and Attending to sign document electronically) [facility]07-05-2023 NoteOutpatient Behavioral Health Services Individual or Family Therapy Progress Note Program: Addiction Medicine Intensive Outpatient Program Session Date: 11/15/22 Start Time: 545pm End Time: 633pm Session Participant(s): Patient only Summary of Session: BHAVIK discussed options for treatment needs, we agreed to discharge patient tomorrow because of her need for employment. RETAIL CLIENT MANAGER offered to assist patient in looking for a job but she denied. RETAIL CLIENT MANAGER also offered to call a sober living facility for her and she denied, information was given to the patient. RETAIL CLIENT MANAGER used CBT to assist patient in processing decisions for herself and child moving forward. RETAIL CLIENT MANAGER provided patient with food resources. Therapeutic Intervention: [...] Next Step: Continue with current services [facility] [id number] History of Present illness Narrative* Neris Jensen - 11/15/2022 5:30 PM EDT Outpatient Behavioral Health Services Individual or Family Therapy Progress Note Program: Addiction Medicine Intensive Outpatient Program Session Date: 11/15/22 Start Time: 545pm End Time: 633pm Session Participant(s): Patient only Summary of Session: RETAIL CLIENT MANAGER discussed options for treatment needs, we agreed to discharge patient tomorrow because of her need for employment. RETAIL CLIENT MANAGER offered to assist patient in looking for a job but she denied. RETAIL CLIENT MANAGER also offered to call a sober living facility for her and she denied, information was given to the patient. RETAIL CLIENT MANAGER used CBT to assist patient in processing decisions for herself and child moving forward. RETAIL CLIENT MANAGER provided patient with food resources. Therapeutic Intervention: Active listening, Supportive, and Cognitive Behavioral Therapy (CBT) Patient's Response to Intervention: Patient reported she hasn't been getting her food stamps and isstruggling to make ends meet. She shared that she wants to be done with IOP so the housing program will allow her to get a job. She also reported that she dint get the full amount for ma assistancethis month either and is unable to pay her bills. Pt shared that she is finally okay with not usingcannabis anymore but feels someday she will drink [...] with current services Signature documented in this [facility]06-29-2023 Group counseling note* Group Note - Neris Jensen - 11/09/2022 5:30 PM EDT Outpatient Behavioral Health Services Intensive Outpatient Program (IOP) Group Therapy - Session 1 Group Name: Intensive Outpatient Program Summary: RETAIL CLIENT MANAGER allotted time for patients to share recent [...] has had an increased appetite. She shared thatshe has been struggling to find motivation to [...] Brandy Llanos Date of : 2000 MR: [id number] [id number] Group counseling note* Group Note - Neris Jensen - 11/09/2022 5:30 PM EDT Outpatient Behavioral Health Services Intensive Outpatient Program [...] Brandy Llanos Date of : 2000 MR: [id number] [facility]eris Jensen [id number] Group counseling note* Group Note - Neris Jensen - 11/09/2022 5:30 PM EDT Outpatient Behavioral Health Services Intensive Outpatient Program (IOP) Group Therapy - Session 3 Group Name: Intensive Outpatient Program Summary: RETAIL CLIENT MANAGER had patients share content that resonated with [...] Brandy Llanos Date of : 2000 MR: [id number] [facility]eris Jensen [id number] Miscellaneous Notes* Group Note - Neris Jensen - 11/09/2022 5:30 PM EDT Outpatient Behavioral Health Services Intensive Outpatient Program (IOP) Group Therapy - Session 1 Group Name: Intensive Outpatient Program Summary: RETAIL CLIENT MANAGER allotted time for patients to share recent [...] has had an increased appetite. She shared thatshe has been struggling to find motivation to [...] Brandy Llanos Date of : 2000 MR: [id number] Neris Jensen * Group Note - Neris Jensen - 11/09/2022 5:30 PM EDT Outpatient Behavioral Health Services Intensive Outpatient Program [...] Brandy Llanos Date of : 2000 MR: [id number] Neris Jensen * Group Note - Neris Jensen - 11/09/2022 5:30 PM EDT Outpatient Behavioral Health Services Intensive Outpatient Program (IOP) Group Therapy - Session 3 Group Name: Intensive Outpatient Program Summary: RETAIL CLIENT MANAGER had patients share content that resonated with [...] Brandy Llanos Date of : 2000 MR: [id number] Neris Jensen documented in this [facility]06-27-2023 Miscellaneous Notes* Care Coordination - Neris Jensen - 11/07/2022 5:30 PM EDT Outpatient Behavioral Health Services Breathalyzer and/or Urine [...] Patient's Response to Plan/Intervention:agreed documented in this [facility]06-27-2023 Note* Care Coordination - Neris Jensen - 11/07/2022 5:30 PM EDT Outpatient Behavioral Health Services Breathalyzer and/or Urine [...] Next week Patient's Response to Plan/Intervention:agreed T [employer] [id number] Group counseling note* Group Note - Neris Jensen - 11/02/2022 5:30 PM EDT Outpatient Behavioral Health Services Intensive Outpatient Program [...] Brandy Llanos Date of : 2000 MR: [id number] Neris Jensen [facility] [id number] Group counseling note* Group Note - Neris Jensen - 11/02/2022 5:30 PM EDT Outpatient Behavioral Health Services Intensive Outpatient Program [...] at meetings. She shared that she attends orthodoxy weekly. Progress Towards Goal(s): Moderate Additional Comments: patient isolated herself from peers during breaks. Next Step: Continue with current services Patients Problems: Patient Active Problem List Diagnosis Major depressive disorder, recurrent episode with peripartum onset (HCC) Cannabis use disorder, severe (HCC) Name: Brandy Llanos Date of : 2000 MR: [id number] Neris Jensen [employer] [id number] Group counseling note* Group Note - Neris Mikey - 11/02/2022 5:30 PM EDT Outpatient Behavioral Health Services Intensive Outpatient Program [...] Brandy Llanos Date of : 2000 MR: [id number] Jensen [facility] [id number] Miscellaneous Notes* Group Note - Neris Jensen - 11/02/2022 5:30 PM EDT Outpatient Behavioral Health Services Intensive Outpatient Program [...] Brandy Llanos Date of : 2000 MR: [id number] Neris Jensen * Group Note - Neris Jensen - 11/02/2022 5:30 PM EDT Outpatient Behavioral Health Services Intensive Outpatient Program [...] at meetings. She shared that she attends orthodoxy weekly. Progress Towards Goal(s): Moderate Additional Comments: patient isolated herself from peers during breaks. Next Step: Continue with current services Patients Problems: Patient Active Problem List Diagnosis Major depressive disorder, recurrent episode with peripartum onset (HCC) Cannabis use disorder, severe (HCC) Name: Brandy Llanos Date of : 2000 MR: [id number] Neris Jensen * Group Note - Neris Jensen - 11/02/2022 5:30 PM EDT Outpatient Behavioral Health Services Intensive Outpatient Program [...] Brandy Llanos Date of : 2000 MR: [id number] Neris Jensen documented in this [facility]06-20-2023 Group counseling note* Group Note - Neris Jensen - 10/31/2022 5:30 PM EDT Outpatient Behavioral Health Services Intensive Outpatient Program (IOP) Group Therapy - Session 1 Group Name: Intensive Outpatient Program Summary: RETAIL CLIENT MANAGER checked in with patients on SMART goals, [...] feelings. Progress Towards Goal(s): Moderate Additional Comments: RETAIL CLIENT MANAGER confronted patient about sex work behaviors in private during break. Patient became angry but was able to calm herself. Next Step: Continue with current services Patients Problems: Patient Active Problem List Diagnosis Major depressive disorder, recurrent episode with peripartum onset (HCC) Cannabis use disorder, severe (HCC) Name: Brandy Llanos Date of : 2000 MR: [id number] Neris Jensen [facility] [id number] Group counseling note* Group Note - Neris Jensen - 10/31/2022 5:30 PM EDT Outpatient Behavioral Health Services Intensive Outpatient Program (IOP) Group Therapy - Session 2 Group Name: Intensive Outpatient Program Summary: RETAIL CLIENT MANAGER provided education on grounding techniques and had [...] Brandy Llanos Date of : 2000 MR: [id number] Neris Jensen T [facility] [id number] Group counseling note* Group Note - Neris Jensen - 10/31/2022 5:30 PM EDT Outpatient Behavioral Health Services Intensive Outpatient Program (IOP) Group Therapy - Session 3 Group Name: Intensive Outpatient Program Summary: RETAIL CLIENT MANAGER provided education on breathing techniques and meditation. [...] Brandy Llanos Date of : 2000 MR: [id number] Neris Jensen [facility] [id number] Miscellaneous Notes* Care Coordination - Neris Jensen - 10/31/2022 5:30 PM EDT Outpatient Behavioral Health Services Breathalyzer and/or Urine [...] to test weekly Patient's Response to Plan/Intervention:agreed * Group Note - Neris Jensen - 10/31/2022 5:30 PM EDT Outpatient Behavioral Health Services Intensive Outpatient Program (IOP) Group Therapy - Session 1 Group Name: Intensive Outpatient Program Summary: RETAIL CLIENT MANAGER checked in with patients on SMART goals, [...] feelings. Progress Towards Goal(s): Moderate Additional Comments: RETAIL CLIENT MANAGER confronted patient about sex work behaviors in private during break. Patient became angry but was able to calm herself. Next Step: Continue with current services Patients Problems: Patient Active Problem List Diagnosis Major depressive disorder, recurrent episode with peripartum onset (HCC) Cannabis use disorder, severe (HCC) Name: Brandy Llanos Date of : 2000 MR: [id number] Neris Jensen * Group Note - Neris Jensen - 10/31/2022 5:30 PM EDT Outpatient Behavioral Health Services Intensive Outpatient Program (IOP) Group Therapy - Session 2 Group Name: Intensive Outpatient Program Summary: RETAIL CLIENT MANAGER provided education on grounding techniques and had [...] Brandy Llanos Date of : 2000 MR: [id number] Neris Jensen * Group Note - Neris Jensen - 10/31/2022 5:30 PM EDT Outpatient Behavioral Health Services Intensive Outpatient Program (IOP) Group Therapy - Session 3 Group Name: Intensive Outpatient Program Summary: RETAIL CLIENT MANAGER provided education on breathing techniques and meditation. [...] Brandy Llanos Date of : 2000 MR: [id number] Neris Jensen documented in this [facility]06-20-2023 Note* Care Coordination - Neris Jensen - 10/31/2022 5:30 PM EDT Outpatient Behavioral Health Services Breathalyzer and/or Urine [...] to test weekly Patient's Response to Plan/Intervention:agreed [facility] [id number] NoteUDS results shared via email for last two test to referral source. [facility]06-20-2023 History of Present illness Narrative* Nerisclaude Jensen - 10/31/2022 1:50 PM EDT UDS results shared via email for last two test to referral source. documented in this [facility]06-19-2023 Miscellaneous Notes* Care Coordination - Neris Jensen - 10/30/2022 5:30 PM EDT Outpatient Behavioral Health Services Breathalyzer and/or Urine [...] Response to Plan/Intervention: Agreed documented in this [facility]06-19-2023 Note* Care Coordination - Neris Jensen - 10/30/2022 5:30 PM EDT Outpatient Behavioral Health Services Breathalyzer and/or Urine [...] ongoing sobriety. Patient's Response to Plan/Intervention: Agreed [id number] Note* Care Coordination - Neris Jensen - 10/30/2022 5:30 PM EDT Outpatient Behavioral Health Services Breathalyzer and/or Urine [...] ongoing sobriety. Patient's Response to Plan/Intervention: Agreed [facility] [id number] Group counseling note* Group Note - Neris Jensen - 10/26/2022 5:30 PM EDT Outpatient Behavioral Health Services Intensive Outpatient Program [...] Brandy Llanos Date of : 2000 MR: [id number] Neris Jensen [id number] Group counseling note* Group Note - Neris Jensen - 10/26/2022 5:30 PM EDT Outpatient Behavioral Health Services Intensive Outpatient Program (IOP) Group Therapy - Session 2 Group Name: Intensive Outpatient Program Summary: RETAIL CLIENT MANAGER had patients discuss and work through concepts [...] Brandy Llanos Date of : 2000 MR: [id number] Neris Jensen [id number] Group counseling note* Group Note - Neris Jensen - 10/26/2022 5:30 PM EDT Outpatient Behavioral Health Services Intensive Outpatient Program [...] Brandy Llanos Date of : 2000 MR: [id number] Neris Jensen T [facility] [id number] Miscellaneous Notes* Group Note - Neris Jensen - 10/26/2022 5:30 PM EDT Outpatient Behavioral Health Services Intensive Outpatient Program [...] Brandy Llanos Date of : 2000 MR: [id number] Neris Jensen * Group Note - Neris Jensen - 10/26/2022 5:30 PM EDT Outpatient Behavioral Health Services Intensive Outpatient Program (IOP) Group Therapy - Session 2 Group Name: Intensive Outpatient Program Summary: RETAIL CLIENT MANAGER had patients discuss and work through concepts [...] Brandy Llanos Date of : 2000 MR: [id number] Neris Jensen * Group Note - Neris Mikey - 10/26/2022 5:30 PM EDT Outpatient Behavioral Health Services Intensive Outpatient Program [...] Brandy Llanos Date of : 2000 MR: [id number] Neris Jensen documented in this [facility]06-13-2023 NoteProgress note sent via email to nurse outreach case manager at [facility]. [facility]06-06-2023 NoteOutpatient Behavioral Health Individualized Treatment Plan Program: [] [...] specific treatment staff, appointment times, cultural and/or congregation considerations, etc). [facility] Please identify family members/friends who can be [...] skills to not use Goal/Anticipated Treatment Outcome: RETAIL CLIENT MANAGER will assist patient in developing coping skills, [...] Words: ?lessen my anxiety? Goal/Anticipated Treatment Outcome: RETAIL CLIENT MANAGER will assist patient in access resources for mental and physical health treatment. RETAIL CLIENT MANAGER will work with patient to develop skills [...] Clinician and Attending to sign document electronically) [facility]11-29-2022 Miscellaneous Notes* Telephone Encounter - Elissa Sumner [facility] - 04/11/2022 1:29 PM EST Patient notified and verbalized understanding Elissa Sumner [facility] * Telephone Encounter - Mary Abdi APRN.CNP - 04/11/2022 10:23 AM EST Please let patient know that her lab work was overall normal but her creatinine is lightly elevated. I would like her to repeat bloodwork in 1 month. In the meantime patient should make sure she is staying hydrated. [facility] Dis[facility] Additional Instructions Regular diet. Weightbearing as tolerated. Okay to shower. No tub baths for 2 weeks. No lifting over 25 pounds for 2 to 3 weeks. No intercourse for 4 to 6 weeks. Call if fevers, chills, chest pain, shortness of breath. Follow-up 2 weeks postoperative Date of Discharge: 02/26/22[facility] Work Phone: [phone]) 469-856606-24-2021 History of Present illness Narrative* Here with c/o vaginal discharge and irritation. * Pt states she moved here five days ago [place] living[place] She is currently in a safe house and is also working their drug rehab program. She was previously using narcotic medications. * She had recent STD testing and was treated for chlamydia and trichomoniasis. She did not complete the medication for trichomoniasis. She has a hx of herpes. She has a current outbreak. Needs refills of acyclovir. * Denies any dysuria, pelvic pain, fever or chills. She does continue to have vaginal discharge and irritation. [facility] Work Phone: Evaluation noteNo assessment information available [facility] Work Phone: Evaluation note* Diagnosis Onset Date Resolution Status Headache acute [facility] Work Phone: Evaluation note* Diagnosis Onset Date Resolution Status Headache acute delivery delivered acute [facility] Work Phone: Evaluation note* Diagnosis Onset Date Resolution Status Headache resolved delivery delivered acute Care and examination of lactating mother noneactive Engorgement of breast associ ated with childbirth, noneactive nipple pain nonea ctive Care and examination of lactating mother noneactive Engorgement of breast associ ated with childbirth, noneactive [facility] Work Phone: Evaluation note* Diagnosis Elevated serum creatinine- Primary Other nonspecific findings on examination of blood documented in this encounter [facility] note* Diagnosis Cannabis use disorder, severe (HCC) documented in this encounter [facility] note* Diagnosis Cannabis use disorder, severe (HCC) documented in this encounter [facility] note* Diagnosis Cannabis use disorder, severe (HCC) documented in this encounter [facility] note* Diagnosis Cannabis use disorder, severe (HCC) documented in this encounter [facility] note* Diagnosis Cannabis use disorder, severe (HCC) documented in this encounter [facility] note* Diagnosis External hemorrhoid- Primary External hemorrhoids without mention of complication documented in this encounter [facility] note* Diagnosis External hemorrhoid- Primary External hemorrhoids without mention of complication documented in this encounter [facility] note* Diagnosis External hemorrhoid- Primary External hemorrhoids without mention of complication documented in this encounter [facility] note* Diagnosis External hemorrhoid External hemorrhoids without mention of complication External hemorrhoid, thrombosed External thrombosed hemorrhoids documented in this encounter [facility] note* Diagnosis Hallux valgus of left foot- Primary Pes planus, congenital, left documented in this encounter [facility] note* Diagnosis Pain Generalized pain documented in this encounter [facility] note* Diagnosis Discoloration of skin- Primary Dyschromia, unspecified [facility] Additional Instructions 1. Drink plenty of fluids 2. Take either Tylenol or ibuprofen for your fever and aches 3. [facility] Work Phone: Reason for referral (narrative)* Diagnostic Procedure Only (Routine) - Closed Specialty Diagnoses / Procedures Referred By Niecy cruz Referred To Contact XR IMAGING Diagnoses Pain Procedures XR FOOT GENERAL 3V AP/LAT/OBL LEFT RADEX FOOT COMPLETE MINIMUM 3 VIEWS [facility] [address] [place] [address] [place] [address] Referral ID Status Reason Start Date Expiration Date V isits Requested Visits Authorized [id number] Closed Auto-Generate d Referral 03/25/2024 04/24/2025 1 1 [facility] for visit Narrative* Diagnostic Procedure Only (Routine) - Closed Specialty Diagnoses / Procedures Referred By Niecy t Referred To Contact XR IMAGING Diagnoses Pain Procedures XR FOOT GENERAL 3V AP/LAT/OBL LEFT RADEX FOOT COMPLETE MINIMUM 3 VIEWS [facility] [address] [place] [address] [place] [address] Referral ID Status Reason Start Date Expiration Date V isits Requested Visits Authorized [id number] Closed Auto-Generate d Referral 03/25/2024 04/24/2025 1 1 [facility] Chief Complaint * NPV * PT here for [facility] APPT * C/O vaginal sores * States she had chlamydia and trich about 2 weeks ago but is still having discharge. 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 Purpose Family History No Family History Records FoundNo Family History Records FoundNo Family History Records FoundNo Family History Records FoundNo Family History Records Found Advance Directives No Advanced Directives Records Found Advance Directive Response Recorded Date/ Time Living Will No July 10 1:24pm Power of Ios Architect No July 10, 2021 1:24pm Advance Directive Response Recorded Date/ Time Living Will No December 31 7:55am Power of Ios Architect No December 31 7:55am Advance Directive Response Recorded Date/ Time Living Will No February 24 6:42am Power of Ios Architect No February 24, 2022 6:42am Advance Directive Response Recorded Date/ Time Living Will No June 06 11:30am Power of Ios Architect No June 06, 2023 11:30am Chief Complaint and Reason for Visit Chief Complaint R/O PRE ECLAMPSIA Chief Complaint R/O PRE ECLAMPSIA fever, , (+) covid home test Reason for Visit Headache Chief Complaint R/O PRE ECLAMPSIA fever, , (+) covid home test C SECTION Reason for Visit Headache delivery delivered Chief Complaint R/O PRE ECLAMPSIA fever, , (+) covid home test C SECTION engorgement engorgement, nipple pain assessment Reason for Visit Headache delivery delivered Care and examination of lactating mother Engorgement of breast associated with childbirth, nipple pain Care and examination of lactating mother Engorgement of breast associated with childbirth, Chief Complaint BODY ACHES Reason for Referral Specialty Diagnoses / Procedures Referred By Niecy cruz Referred To Contact General Surgery Diagnoses External hemorrhoid Procedures CONSULT TO GENERAL SURGERY OFFICE/OUTPATIENT [facility] 60 MINUTES Maciej Fernandez APRN.ROUNDHOUSE SUPERVISOR [address] [place] [address] Referral ID Status Reason Start Date Expiration Date Visits Requested Visits Authorized [id number] Authorized PCP Requested Referral 12/07/2023 12/06/2024 1 1 Additional Source Comments INFORMATION SOURCE (unrecogn ized section and content) DATE CREATED AUTHOR 11/10/2020 [employer] DATE CREATED AUTHOR AUTHOR'S ORGANIZ ATION 11/14/2020 [facility] DATE CREATED AUTHOR AUTHOR'S ORGANIZ ATION 11/17/2022 [facility] DATE CREATED AUTHOR AUTHOR'S ORGANIZ ATION 06/13/2023 [facility] DATE CREATED AUTHOR AUTHOR'S ORGANIZ ATION 07/21/2024 [facility] Goals (unrecognized section and content) Goals may be documented in a n alternate sectionGoals may be documented in an alternate sectionGoals may be documented in an alternate sectionGoals may be documented in an alternate sectionGoals may be documented in an alternate sectionGoals may be documented in an alternate section Source Comments (unrecognize d section and content) In the event this informatio n is protected by the Federal Confidentiality of Alcohol and Drug Abuse Patient Records regulations: The Federal rules restrict any use of the information to criminally investigate or prosecute any alcohol or drug abuse patient.[facility] Hospital[facility] the event this information is protected by the Federal Confidentiality of Alcohol and Drug Abuse Patient Records regulations: The Federal rules restrict any use of the information to criminally investigate or prosecute any alcohol or drug abuse patient.[facility] Hospital[facility] the event this information is protected by the Federal Confidentiality of Alcohol and Drug Abuse Patient Records regulations: The Federal rules restrict any use of the information to criminally investigate or prosecute any alcohol or drug abuse patient.[facility] Hospital[facility] the event this information is protected by the Federal Confidentiality of Alcohol and Drug Abuse Patient Records regulations: The Federal rules restrict any use of the information to criminally investigate or prosecute any alcohol or drug abuse patient.[facility] HospitalIn the event this information is protected by the Federal Confidentiality of Alcohol and Drug Abuse Patient Records regulations: The Federal rules restrict any use of the information to criminally investigate or prosecute any alcohol or drug abuse patient.[facility] Hospital[facility] the event this information is protected by the Federal Confidentiality of Alcohol and Drug Abuse Patient Records regulations: The Federal rules restrict any use of the information to criminally investigate or prosecute any alcohol or drug abuse patient.[facility] HospitalIn the event this information is protected by the Federal Confidentiality of Alcohol and Drug Abuse Patient Records regulations: The Federal rules restrict any use of the information to criminally investigate or prosecute any alcohol or drug abuse patient.[facility] HospitalIn the event this information is protected by the Federal Confidentiality of Alcohol and Drug Abuse Patient Records regulations: The Federal rules restrict any use of the information to criminally investigate or prosecute any alcohol or drug abuse patient.[facility] Reason for Visit (unrecogniz ed section and content) Reason Comments Results Reason Comments Rectal Problem Pain in rectum x 1 m onth on and off last few days has increased and today is 10 Reason Comments Rectal Problem x 1 day Reason Comments Consult External hemorrhoid irriated - Jenny lanced in-office 12/09 Patient called into office - running 10 mins late Reason Comments Consult Thrombosed hemorrhoi d Specialty Diagnoses / Procedures Referred By Niecy cruz Referred To Contact General Surgery Diagnoses External hemorrhoid Procedures CONSULT TO GENERAL SURGERY OFFICE/OUTPATIENT NEW HIGH MDM 60 MINUTES Maciej Fernandez APRN.[employer] [address] [place] [address] Referral ID Status Reason Start Date Expiration Date V isits Requested Visits Authorized [id number] Closed PCP Requested Referral 12/07/2023 12/06/2024 1 1 Reason Comments New Pain Reason Comments Derm Problem discoloration on ginna k of thighs x 2 weeks, denies itch or pain Care Teams (unrecognized sec tion and content) Senior [employer] Consultant Relationship Specialty Start Date End Date [facility] [address] [place] [address] PCP - General 10/03/22 [employer] Consultant Relationship Specialty Start Date End Date [facility] [address] [place] [address] PCP - General 10/03/22 [employer] Consultant Relationship Specialty Start Date End Date [facility] [address] [place] [address] PCP - General 10/03/22 Miles, Neris 10/19/22 [employer] Consultant Relationship Specialty Start Date End Date [facility] [address] [place] [address] PCP - General 10/03/22 Miles, Neris 10/19/22 [employer] Consultant Relationship Specialty Start Date End Date [facility] [address] [place] [address] PCP - General 10/03/22 Miles, Neris 10/19/22 [employer] Consultant Relationship Specialty Start Date End Date [facility] [address] [place] [address] PCP - General 10/03/22 Miles, Neris 10/19/22 [employer] Consultant Relationship Specialty Start Date End Date [facility] [address] [place] [address] PCP - General 10/03/22 Miles, Neris 10/19/22 [employer] Consultant Relationship Specialty Start Date End Date [facility] [address] [facility] [place] [address] PCP - General 10/03/22 Miles, Neris 10/19/22 [employer] Consultant Relationship Specialty Start Date End Date [facility] [address] [facility] [place] [address] PCP - General 10/03/22 Miles, Neris 10/19/22 [employer] Consultant Relationship Specialty Start Date End Date [facility] [address] [place] [facility] [place] [address] PCP - General 10/03/22 Miles, Neris 10/19/22 [employer] Consultant Relationship Specialty Start Date End Date [facility] [address] [facility] [place] [address] PCP - General 10/03/22 Miles, Neris 10/19/22 [employer] Consultant Relationship Specialty Start Date End Date [facility] [address] [facility] [place] [address] PCP - General 10/03/22, Neris 10/19/22 Team Status: Active Member Role Status Dates No Primary Care Physician Primary Care Provider Active Team Status: Inactive Member Role Status Dates Dr. Sung Payton MD Emergency Provider Active No Primary Care Physician Primary Care Provider Active FOR RECORDS PERTAINING TO PATIENTS WHO ARE [...] BE BASED ON THE PRIMARY CLINICAL RECORDS. [email or web address] provides no warranty or guarantee of the accuracy or completeness of information in this document.
== END 2024-10-27 22:45 | disposition home or self-care (01) ==
LOC: ED 22:45
PROVIDERS: Emergency Provider Emergency Medicine; Visit Provider Emergency Medicine
DX: L02.211 Cutaneous abscess of abdominal wall (principal); Z87.891 Personal history of nicotine dependence
CPT/HCPCS: 99282

== ENCOUNTER 2024-11-18 05:17 | Emergency (ER) | payer MEDICAID, SELFPAY ==
[2024-11-18 05:19] VITALS: BP 130/89; PULSE 85; RESP 18; TEMP 36.8; O2SAT 100; BMI 24.1
--- NOTE | 2024-11-18 05:37 | EDS_ITS ---
HPI History of Present Illness Chief Complaint: Abscess Informant: patient Narrative Narrative: Patient is a 24-year-old female with no significant past medical history. She states that in the last 24 hours she has noticed a small lump that is painful along the left posterior portion of the vagina. She was seen roughly 1 month ago for a similar issue and she states it went away with the prescribed medication. She states she did follow-up with [facility] who informed her there was no abnormalities. Patient states she has been doing well until the last 24 hours but with return of the small lump in pain she is concerned for repeat infection. She states she is concerned this could be herpes because of the recurrent. She denies any vaginal bleeding or discharge. She denies any fevers or chills. She denies any history of immunosuppression. [facility] Medical History (Updated 11/18/24 @ 05:[address] Doug Ball, ) Marijuana smoker HPV (human papilloma virus) infection Home Medications ?Medication ?Instructions ?Recorded ?Last Taken ?Type cholecalciferol (vitamin D3) 50 50 mcg PO DAILY Check with primary 12/11/21 12/11/21 10:45 History mcg (2,000 unit) capsule (Vitamin doctor D3) iron 1 tab PO/SL QODAY Check with 02/24/22 02/22/22 History primary doctor magnesium 1 tab PO/SL DAILY Check with 02/24/22 02/23/22 History primary doctor clindamycin HCl 300 mg capsule 300 mg PO 4X/DAY 7 days #28 caps 11/18/24 Unknown Rx (Cleocin HCl) oxycodone-acetaminophen 5 mg-325 1 tab PO Q6H PRN pain 3 days #12 11/18/24 Unknown Rx mg tablet (Percocet) tabs Allergy/AdvReac Type Severity Reaction Status Date / Time No Known Allergies Allergy Verified 11/18/24 05:18 Social History (Updated 10/27/24 @ 22:37 by Aleja Kate) household members: children housing: house Smoking Status: Current every day smoker tobacco type: cigarettes substance use type: does not use ROS ROS ED Constitutional Constitutional ED: Denies chills or fever(s) ENT ENT ED: Denies sore throat Cardiovascular Cardiovascular: Denies chest pain Respiratory/Chest Respiratory/Chest: Denies cough or dyspnea Gastrointestinal Gastrointestinal: Denies abdominal pain, diarrhea, nausea or vomiting Genitourinary Genitourinary ED: Reports other Details: Positive vaginal lesion ; Denies dysuria, hematuria or urinary frequency Musculoskeletal Musculoskeletal: Denies myalgias Integumentary Reports abscess; Denies Abrasions or rash Neurologic Neurologic: Denies headache(s) Hematologic/Lymphatic Hematologic/Lymphatic: Denies easy bleeding or easy bruising EXAM Physical Exam Const Vital Signs: 11/18/24 05:19 11/18/24 05:25 11/18/24 05:38 Temperature 98.3 F 98.3 F Temperature Source Oral Pulse Rate 85 76 Respiratory Rate 18 16 Respiratory Effort Normal Non-Labored Respiratory Pattern Normal Blood Pressure 130/89 H 121/80 H Blood Pressure Mean 102 93 Pulse Ox 100 99 Oxygen Delivery Method Room Air Positive well nourished and well developed General Appearance ED: well developed HEENT HEENT Narrative: Normocephalic atraumatic Eyes PERRL and EOMs intact bilaterally General Eye ED: Negative for scleral icterus Neck supple Resp normal respiratory effort and clear to auscultation bilaterally Cardio regular rate and regular rhythm Narrative: Along the inferior/posterior aspect of the vagina along the left labial region is a small less than half centimeter area of induration without overlying erythema or warmth. There is no lymphangitic streaking or discharge noted. No vesicular or pustule lesion. No vaginal laceration or tear. No crepitance palpated Extremity normal to inspection Neuro oriented x3, CN's II-XII intact bilaterally and no sensory deficits noted Sensorium / Orientation: alert Motor Exam: strength 5/5 throughout Psych mental status grossly normal Skin Skin Narrative: Lesion along the left genital region/labia concerning for developing abscess as documented above MDM MDM MDM Narrative Medical decision making narrative: Patient presented to the ER with stable vitals. She reported 24 hours of pain with a lesion in the genital region. She did have concern for herpes but on exam there is no vesicular change and there is no erythema. There is also no kissing lesion or dysuria and therefore I do not feel this is herpes. The patient could have an atypical presentation for hidradenitis suppurativa especially as this is the second bout of similar symptoms in the last month. However there is only 1 lesion at this time and typically hidradenitis will have multiple areas and they will be more erythematous and pustule. At this time there is no streaking there is no crepitance there is no discharge and the area in question is small as it is less than half a centimeter in diameter I do not feel it is appropriate to perform an incision and drainage based on these findings. However as the antibiotics resolve the symptoms roughly 1 month ago there is high likelihood that the lesion will require repeat antibiotic treatment for improvement. The patient may need evaluated by dermatology based on the recurrent nature of her symptoms. She states there has been no new products such as different tampons or douches and she states that there has been in general hygiene with shaving and/or waxing. Patient was informed this could be the reason for her recurrent symptoms as these activities can sometimes plugging the surrounding/tissue leading to inflammation and pain. At this time I do not feel there is need for imaging or testing based on the small nature of the lesion but the patient will be placed back on antibiotics as this resolved the symptoms in the past and she can follow-up with [facility] her PCP and/or dermatology as an outpatient to discuss any need for further testing or treatment options History & Record Review Discussion w/independent historian: Patient Discharge Plan Triage Chief Complaint: Abscess ED Provider: Doug Ball Dx/Rx/DC Orders Clinical Impression: Abscess Instructions: Hidradenitis Suppurativa, ED Abscess Antibiotic Treatment Only Prescriptions: New clindamycin HCl [Cleocin HCl] 300 mg capsule 300 mg PO 4X/DAY 7 Days Qty: 28 0RF oxycodone-acetaminophen [Percocet] 5-325 mg tablet 1 tab PO Q6H PRN (Reason: pain) 3 Days Qty: 12 0RF No Action cholecalciferol (vitamin D3) [Vitamin D3] 50 mcg (2,000 unit) Capsule 50 mcg PO DAILY iron 1 tab PO/SL QODAY magnesium 1 tab PO/SL DAILY Stand Alone Forms: ED Work / School Excuse Primary Care Provider: Care Physician,No Primary Referrals: Guzman Drake MD [Med Staff - Active Staff] - Shelley Quijano DO [Med Staff - Active Staff] - Care Physician,No Primary [Primary Care Provider] - Activity Restrictions/Additional Instructions: Your exam is consistent with a early abscess/infection. Please take the antibiotic as directed to help resolve this. Your lesion is not consistent with a typical herpes infection. You may have atypical presentation for a disease known as hidradenitis suppurativa. You may need evaluation by a administrative appeals tribunal member if symptoms keep reoccurring. Please follow-up with your family doctor for repeat evaluation and to discuss dermatology referral. Return to the ER should you have any further concerns Print Language: Filipino Disposition Disposition: Home, Self Care Discharge Date/Time: 11/18/24 05:44
[2024-11-18 05:38] VITALS: BP 121/80; PULSE 76; RESP 16; TEMP 36.8; O2SAT 99
== END 2024-11-18 05:44 | disposition home or self-care (01) ==
LOC: ED 05:42
PROVIDERS: Emergency Provider Emergency Medicine; Visit Provider Emergency Medicine
DX: N76.4 Abscess of vulva (principal); F17.210 Nicotine dependence, cigarettes, uncomplicated
CPT/HCPCS: 99284

== ENCOUNTER 2024-11-26 09:44 | Emergency (ER) | payer MEDICAID, SELFPAY ==
[2024-11-26 09:45] VITALS: BP 132/84; PULSE 69; RESP 20; TEMP 37.1; O2SAT 100; BMI 24.1
--- NOTE | 2024-11-26 10:07 | EX.ED.DYSGE1 ---
HPI History of Present Illness Chief Complaint: Chest Pain Informant: patient and family Narrative Narrative: Presents here with her godmother for evaluation. Reports pain with deep breaths since yesterday. She is 2 days postop all 4 wisdom tooth removal under general anesthesia. She states her postop pain is controlled medications. However symptoms started yesterday in her chest. She states she was on a ventilator for the procedure. She is on ibuprofen along with hydrocodone. She took ibuprofen this morning. No leg swelling or cramping. She called the nursing line yesterday was told to go to the ED. No history of PE or DVT. Prior similar symptoms: No PFSH PFSH Medical History Marijuana smoker HPV (human papilloma virus) infection Home Medications ?Medication ?Instructions ?Recorded ?Last Taken ?Type cholecalciferol (vitamin D3) 50 50 mcg PO DAILY Check with primary 12/11/21 12/11/21 10:45 History mcg (2,000 unit) capsule (Vitamin doctor D3) iron 1 tab PO/SL QODAY Check with 02/24/22 02/22/22 History primary doctor magnesium 1 tab PO/SL DAILY Check with 02/24/22 02/23/22 History primary doctor clindamycin HCl 300 mg capsule 300 mg PO 4X/DAY 7 days #28 caps 11/18/24 Unknown Rx (Cleocin HCl) oxycodone-acetaminophen 5 mg-325 1 tab PO Q6H PRN pain 3 days #12 11/18/24 Unknown Rx mg tablet (Percocet) tabs Allergy/AdvReac Type Severity Reaction Status Date / Time No Known Allergies Allergy Verified 11/18/24 05:18 Social History household members: children housing: house Smoking Status: Former smoker substance use type: does not use ROS ROS ED Constitutional Constitutional ED: Denies chills, fever(s) or sweats ENT ENT ED: Denies sore throat Cardiovascular Cardiovascular: Reports chest pain; Denies leg edema, palpitations or racing heartbeat Respiratory/Chest Respiratory/Chest: Reports dyspnea; Denies cough or dyspnea on exertion Gastrointestinal Gastrointestinal: Denies abdominal pain, diarrhea, nausea or vomiting Genitourinary Genitourinary ED: Denies dysuria, hematuria or urinary frequency Musculoskeletal Musculoskeletal: Denies back pain, extremity pain or neck pain Integumentary Denies rash or wounds Neurologic Neurologic: Denies headache(s), paresthesias or weakness EXAM Physical Exam Const Vital Signs: 11/26/24 09:45 11/26/24 10:30 11/26/24 10:44 Temperature 98.8 F Temperature Source Oral Pulse Rate 69 71 Respiratory Rate 20 H 14 Respiratory Effort Normal Non-Labored Blood Pressure 132/84 H 136/110 H Blood Pressure Mean 100 118 Pulse Ox 100 98 Oxygen Delivery Method Room Air Room Air 11/26/24 12:00 11/26/24 12:48 Temperature 98.2 F Temperature Source Pulse Rate 78 66 Respiratory Rate 12 12 Respiratory Effort Blood Pressure 122/66 H 110/70 Blood Pressure Mean 84 83 Pulse Ox 98 100 Oxygen Delivery Method Room Air Positive well nourished and well developed General Appearance ED: well developed and NAD HEENT Reports moist mucous membranes HEENT Narrative: gums with ulceration back molars, no bleeding. normocephalic and atraumatic Eyes General Eye ED: Yes normal appearance of both eyes Neck full ROM Chest Wall Chest: Negative for tenderness Resp normal respiratory effort and normal air movement Effort and Inspection: symmetric chest movement; Negative for respiratory distress Cardio regular rate, regular rhythm and no murmurs Peripheral Pulses: pulses 2+ throughout GI normal to inspection, nondistended, normoactive bowel sounds and non-tender Palpation: Negative for guarding or rebound tenderness present Extremity normal to inspection General Extremety ED: Negative for edema or tenderness General Extremity: Negative for edema Neuro oriented x3 and no sensory deficits noted Sensorium / Orientation: awake and alert Skin no rashes or lesions noted and no wounds MDM MDM MDM Narrative Medical decision making narrative: Interventions / MDM: Differential diagnosis: Pleurisy, status post extraction of wisdom tooth Diagnosis considered but do not suspect: N/A My EKG interpretation: Sinus arrhythmia rate of 77, no ST or T wave changes QTc 418. Imaging independently reviewed and interpreted by myself: 2 view chest x-ray: Viral changes noted. No infiltrates. Also read by radiology. External documents reviewed: N/A Test considered but not ordered:N/A ED course: Patient presenting with pleuritic symptoms she is 2 days postop her vitals are stable 100% room air she is not tachycardic. EKG sinus arrhythmia. Risk factor for PE with her general anesthesia and procedure. Labs be obtained for D-dimer for further evaluation. She took ibuprofen this morning. D-dimer negative chest x-ray ordered viral changes noted. Discussed findings with patient. She will continue ibuprofen every 6 hours needed. All questions were answered. Re-evaluation: stable Disposition discussed with patient/family/significant other: Patient Case discussed with consulting clinician: N/A This note was generated with [employer] dictation software. It may contain incorrect words, spelling, and punctuation that were not noted in checking the note before signing. Lab Data Attestation: I reviewed the patient's lab results. Labs: Laboratory Results - last 24 hr 11/26/24 10:25 WBC 5.9 RBC 4.37 Hgb 13.6 Hct 38.3 MCV 87.6 MCH 31.1 MCHC 35.5 RDW Std Deviation 36.0 RDW Coeff of Wes 11.2 L Plt Count 241 MPV 9.7 Immature Gran % (Auto) 1.700 H Neut % (Auto) 71.0 H Lymph % (Auto) 20.9 [place] % (Auto) 5.6 Eos % (Auto) 0.5 Baso % (Auto) 0.3 Absolute Neuts (auto) 4.2 Absolute Lymphs (auto) 1.23 Nucleated RBC % 0 D-Dimer Quant (PE/DVT) 0.27 Sodium 139 Potassium 3.9 Chloride 104 Carbon Dioxide 23.6 Anion Gap 11 BUN 9 Creatinine 0.87 Estim Creat Clear Calc 94.15 Est GFR (MDRD) Non-Af 95 BUN/Creatinine Ratio 10.1 Glucose 88 Calcium 9.3 Serum , Qual NEGATIVE Radiography Diagnostic Testing: Clinical Impression(s) from Imaging Studies Chest X-Ray 11/26/24 11:30 IMPRESSION: Findings consistent with viral pneumonia or acute bronchitis. Reading Location: [place] [address] Discharge Plan Triage Chief Complaint: Chest Pain ED Provider: Elijah Daley Dx/Rx/DC Orders Clinical Impression: Pleurisy, Status post wisdom tooth extraction Instructions: ED Pleurisy Prescriptions: No Action cholecalciferol (vitamin D3) [Vitamin D3] 50 mcg (2,000 unit) Capsule 50 mcg PO DAILY iron 1 tab PO/SL QODAY magnesium 1 tab PO/SL DAILY clindamycin HCl [Cleocin HCl] 300 mg capsule 300 mg PO 4X/DAY 7 Days Qty: 28 0RF oxycodone-acetaminophen [Percocet] 5-325 mg tablet 1 tab PO Q6H PRN (Reason: pain) 3 Days Qty: 12 0RF Primary Care Provider: Care Physician,No Primary Referrals: Care Physician,No Primary [Primary Care Provider] - Activity Restrictions/Additional Instructions: D-dimer normal chest x-ray viral changes. Continue ibuprofen every 6 hours. Follow-up with your doctor. Print Language: Luxembourgish Disposition Disposition: Home, Self Care Discharge Date/Time: 11/26/24 12:51
[2024-11-26 10:44] VITALS: BP 136/110; PULSE 71; RESP 14; O2SAT 98
[2024-11-26 10:51] LABS: Hematocrit 38.3 % (37-47); Hemoglobin 13.6 g/dL (12.0-15.0); Immature Granulocytes Count 0.100 X10^3/uL (0.0-0.0); Mean Corp Hgb Conc 35.5 g/dL (32-36); Mean Corpuscular Volume 87.6 fL (81-99); Mean Platelet Vol. 9.7 fl (6.2-12.0); NRBC Flagged by Analyzer 0 % (0-5); Platelet Count 241 K/mm3 (150-450); RBC Distribution Width CV 11.2 % (11.6-14.6); RBC Distribution Width SD 36.0 fl (35.1-43.9); Red Blood Count 4.37 M/mm3 (4.2-5.4); White Blood Count 5.9 K/mm3 (4.4-11.0)
[2024-11-26 11:03] LABS: D-Dimer Quantitative (DVT/PE) 0.27 FEU/ug/m (0.27-0.49)
[2024-11-26 11:09] LABS: Internal QC Validated? YES +Cl - CLEAR BKGD; Pregnancy, Serum, hCG Quali. NEGATIVE Negative; Record Kit Lot#, Serum Preg. 0000962302
[2024-11-26 11:16] LABS: Anion Gap 11 (5-15); BUN 9 mg/dL (4-19); BUN/Creat Ratio 10.1 RATIO (10-20); Calcium,Total 9.3 mg/dL (7.6-11.0); Carbon Dioxide 23.6 mmol/L (21.0-32.0); Chloride 104 mmol/L (98-108); Estimated Creatinine Clearance 94.15 ml/min (50-250); Glucose 88 mg/dL (70-99); Potassium 3.9 mmol/L (3.3-5.1)
--- NOTE | 2024-11-26 11:30 | RAD_ITS ---
PROCEDURE: CHEST PA AND LATERAL 11/26/2024 REASON FOR EXAM: PAIN TECHNIQUE: CHEST PA AND LATERAL COMPARISON: None. FINDINGS: There is bilateral perihilar peribronchial thickening consistent with viral pneumonia or acute bronchitis. There is no lobar consolidation or pleural effusion. The heart borders mediastinum and pulmonary vascular pattern are normal. The upper abdominal bowel gas pattern is normal. There are no bony abnormalities of the chest. RAD/Chest PA and Lateral IMPRESSION: Findings consistent with viral pneumonia or acute bronchitis. Reading Location: [place] [address]
--- NOTE | 2024-11-26 11:30 | RAD_ITS ---
PROCEDURE: CHEST PA AND LATERAL 11/26/2024 REASON FOR EXAM: PAIN TECHNIQUE: CHEST PA AND LATERAL COMPARISON: None. FINDINGS: There is bilateral perihilar peribronchial thickening consistent with viral pneumonia or acute bronchitis. There is no lobar consolidation or pleural effusion. The heart borders mediastinum and pulmonary vascular pattern are normal. The upper abdominal bowel gas pattern is normal. There are no bony abnormalities of the chest. RAD/Chest PA and Lateral IMPRESSION: Findings consistent with viral pneumonia or acute bronchitis. Reading Location: [place] [address]
[2024-11-26 12:00] VITALS: BP 122/66; PULSE 78; RESP 12; O2SAT 98
[2024-11-26 12:48] VITALS: BP 110/70; PULSE 66; RESP 12; TEMP 36.8; O2SAT 100
== END 2024-11-26 12:51 | disposition home or self-care (01) ==
PROVIDERS: Emergency Provider Emergency Medicine; Visit Provider Emergency Medicine
DX: R09.1 Pleurisy (principal); R06.00 Dyspnea, unspecified; Z87.891 Personal history of nicotine dependence; Z98.818 Other dental procedure status
CPT/HCPCS: 71046; 80048; 84703; 85025; 85379; 93005; 99284; A4216

== ENCOUNTER 2024-11-30 00:15 | Emergency (ER) | payer MEDICAID, SELFPAY ==
[2024-11-30 00:16] VITALS: BP 116/61; PULSE 79; RESP 16; TEMP 36.5; O2SAT 99; BMI 23.8
--- NOTE | 2024-11-30 00:35 | EX.ED.VIS.PS ---
HPI HPI - Psych History of Present Illness Chief Complaint: Suicidal Informant: patient Narrative Narrative: 24-year-old female presents on her own because of feeling suicidal. She was considering driving her car off of a bridge. She wants help because she has a 2-year-old and does not want to end up killing herself. She states adding to her depressive feelings about life, she had all 4 wisdom teeth surgically removed about a week ago and she has not been able to sleep well since. She states the pain and swelling is finally starting to subside but she is really not been getting much sleep between that, feeling depressed, and her 2-year-old [facility] Medical History Marijuana smoker HPV (human papilloma virus) infection Home Medications ?Medication ?Instructions ?Recorded ?Last Taken ?Type cholecalciferol (vitamin D3) 50 50 mcg PO DAILY Check with primary 12/11/21 12/11/21 10:45 History mcg (2,000 unit) capsule (Vitamin doctor D3) iron 1 tab PO/SL QODAY Check with 02/24/22 02/22/22 History primary doctor magnesium 1 tab PO/SL DAILY Check with 02/24/22 02/23/22 History primary doctor clindamycin HCl 300 mg capsule 300 mg PO 4X/DAY 7 days #28 caps 11/18/24 Unknown Rx (Cleocin HCl) oxycodone-acetaminophen 5 mg-325 1 tab PO Q6H PRN pain 3 days #12 11/18/24 Unknown Rx mg tablet (Percocet) tabs zolpidem 10 mg tablet (Ambien) 10 mg PO QHS PRN insomnia #4 tabs 11/30/24 Unknown Rx Allergy/AdvReac Type Severity Reaction Status Date / Time No Known Allergies Allergy Verified 11/18/24 05:18 Social History household members: children housing: house Smoking Status: Former smoker substance use type: does not use ROS ROS ED Constitutional Constitutional ED: Denies chills or fever(s) Eyes Eyes: Denies change in vision or diplopia ENT ENT ED: Reports other Details: Dental pain see HPI ; Denies rhinorrhea or sore throat Cardiovascular Cardiovascular: Denies chest pain or palpitations Respiratory/Chest Respiratory/Chest: Denies cough or dyspnea Gastrointestinal Gastrointestinal: Denies abdominal pain, diarrhea, nausea or vomiting Genitourinary Genitourinary ED: Denies dysuria or hematuria Musculoskeletal Musculoskeletal: Denies back pain or neck pain Integumentary Denies abscess or rash Neurologic Neurologic: Denies headache(s), paresthesias or weakness Psychiatric Psychiatric: Reports depression, suicidal ideation and suicidal thoughts; Denies homicidal ideation EXAM Physical Exam Const Vital Signs: 11/30/24 00:16 11/30/24 01:16 11/30/24 02:00 Temperature 97.7 F L Temperature Source Oral Pulse Rate 79 64 82 Respiratory Rate 16 16 16 Blood Pressure 116/61 109/76 119/77 Blood Pressure Mean 79 87 91 Pulse Ox 99 100 100 Oxygen Delivery Method Room Air Room Air Room Air Positive well nourished and well developed General Appearance ED: well developed and NAD HEENT Reports moist mucous membranes HEENT Narrative: Mild trismus. Normal tongue and soft tissues. From the limited visualization that I have, her maxillary extraction sites appear benign with white granulation tissue present and no bleeding or signs of an abscess. normocephalic and atraumatic Eyes PERRL and EOMs intact bilaterally General Eye ED: Negative for scleral icterus Neck no lymphadenopathy and supple Resp normal respiratory effort and clear to auscultation bilaterally Cardio no murmurs Rate: regular rate Rhythm: regular rhythm GI non-tender and non-distended Auscultation: normoactive bowel sounds Palpation: soft Back/Spine no CVA tenderness and normal ROM Extremity normal to inspection General Extremety ED: Negative for edema General Extremity: Negative for edema Neuro oriented x3, CN's II-XII intact bilaterally, no sensory deficits noted and gait normal Sensorium / Orientation: alert Motor Exam: strength 5/5 throughout Psych mental status grossly normal, thought process normal, cooperative, activity/motor behavior normal and denies homicidal ideation Mood & Affect: depressed Thought Content: suicidality Skin Lesions: no lesions Rashes: no rashes MDM MDM MDM Narrative Medical decision making narrative: Alcohol and drug screen obtained, otherwise she is medically cleared. I reviewed those labs, her alcohol is negative. She has been taken prescription pain medications for postoperative wisdom tooth extraction which I suspect is why her opiates are positive and she states she has a medical marijuana card hence the THC results are positive. I spoke with crisis who spoke with the patient. They are comfortable safety planning her and they are going to follow-up with her as well. She is asking for something for sleep so I prescribed her for Ambien tablets. Now that her postoperative pain is starting to improve I suspect she will not need more than that. Lab Data Attestation: I reviewed the patient's lab results. Labs: Laboratory Results - last 24 hr 11/30/24 11/30/24 01:00 01:04 Urine Opiates Screen PRESUMPTIVE POSITIVE U Buprenorphine Qual NEGATIVE Ur Oxycodone Screen NEGATIVE Urine Methadone Screen NEGATIVE Urine Fentanyl Screen NEGATIVE Ur Barbiturates Screen NEGATIVE Ur Phencyclidine Scrn NEGATIVE Ur Amphetamines Screen NEGATIVE U Benzodiazepines Scrn NEGATIVE Urine Cocaine Screen NEGATIVE U Cannabinoids Screen PRESUMPTIVE POSITIVE Ethyl Alcohol < 10.1 Management Discussion w/another healthcare provider: patch worker/Case management Discharge Plan Triage Chief Complaint: Suicidal ED Provider: Linwood Stuart Dx/Rx/DC Orders Clinical Impression: Suicidal thoughts, Status post wisdom tooth extraction, Sleep deprivation Instructions: Your Mental Health Safety Plan Prescriptions: New zolpidem [Ambien] 10 mg tablet 10 mg PO QHS PRN (Reason: insomnia) Qty: 4 0RF No Action cholecalciferol (vitamin D3) [Vitamin D3] 50 mcg (2,000 unit) Capsule 50 mcg PO DAILY iron 1 tab PO/SL QODAY magnesium 1 tab PO/SL DAILY clindamycin HCl [Cleocin HCl] 300 mg capsule 300 mg PO 4X/DAY 7 Days Qty: 28 0RF oxycodone-acetaminophen [Percocet] 5-325 mg tablet 1 tab PO Q6H PRN (Reason: pain) 3 Days Qty: 12 0RF Primary Care Provider: Care Physician,No Primary Referrals: Counseling,Center [Group of Physicians] - Print Language: Indonesian Disposition Disposition: Home, Self Care
[2024-11-30 01:16] VITALS: BP 109/76; PULSE 64; RESP 16; O2SAT 100
[2024-11-30 01:36] LABS: Barbiturate Urine NEGATIVE (< 200 ng/mL); Benzodiazepine Urine NEGATIVE (< 200 ng/mL); PCP Urine NEGATIVE (< 25 ng/mL); THC Urine PRESUMPTIVE POSITIVE (< 50 ng/mL)
[2024-11-30 02:00] VITALS: BP 119/77; PULSE 82; RESP 16; O2SAT 100
[2024-11-30 02:29] LABS: Alcohol, Blood (Medical)-Serum < 10.1 mg/dL (<=10.0)
[2024-11-30 04:27] VITALS: BP 125/94; PULSE 73; RESP 18; TEMP 36.6; O2SAT 99
--- NOTE | 2024-11-30 04:49 | ED.RN ---
After stating she would not leave until she got something to make her sleep. Meds to bed was placed for said medication, patient then decided not to stay and wait to have it filled.
== END 2024-11-30 04:50 | disposition home or self-care (01) ==
PROVIDERS: Emergency Provider Emergency Medicine; Visit Provider Emergency Medicine
DX: F32.A Depression, unspecified (principal); R45.851 Suicidal ideations; G89.18 Other acute postprocedural pain; Z72.820 Sleep deprivation; Z79.899 Other long term (current) drug therapy; Z98.818 Other dental procedure status; Z87.891 Personal history of nicotine dependence
CPT/HCPCS: 80307; 82077; 99285

== ENCOUNTER 2025-01-17 09:23 | Emergency (ER) | payer MEDICAID, SELFPAY ==
[2025-01-17 09:24] VITALS: BP 125/84; PULSE 88; RESP 16; TEMP 36.7; O2SAT 100; BMI 24.2
--- OUTSIDE RECORDS SUMMARY | 2025-01-17 09:51 | XMS RPT_ITS | CCD ---
Author Organization [facility] Care Team Providers Care Switch Repairer Name Role Phone None, No PCP Unavailable Unavailable Unavailable Unavailable Leonardo CERTIFIED MASTER SAFE TECHNICIAN, CERTIFIED MASTER SAFE TECHNICIAN-C Gabby Attending Provider Unavailable Primary Care Provider Unavailabl e Inc, [facility] Primary Care Provider Unav ailable [place], [facility] Unavailable Unavailable SHEIN, PEDRITO Attending Unavailable INC, [facility] Primary Care Unavailable SHEIN, PEDRITO Attending Unavailable INC, [facility] Primary Care Unavailable SHEIN, PEDRITO Attending Unavailable [facility], [facility] Primary Care Unavailable SHEIN, PEDRITO Attending Unavailable INC, [facility] Primary Care Unavailable SHEIN, PEDRITO Attending Unavailable INC, [facility] Primary Care Unavailable SHEIN, PEDRITO Attending Unavailable INC, [facility] Primary Care Unavailable SHEIN, PEDRITO Attending Unavailable INC, [facility] Primary Care Unavailable SHEIN, PEDRITO Attending Unavailable INC, [facility] Primary Care Unavailable SHEIN, PEDRITO Attending Unavailable INC, [facility] Primary Care Unavailable SHEIN, PEDRITO Attending Unavailable INC, [facility] Primary Care Unavailable SHEIN, PEDRITO Attending Unavailable [facility] Primary Care Unavailable SHEIN, PEDRITO Attending Unavailable INC, [facility] Primary Care Unavailable SHEIN, PEDRITO Attending Unavailable INC, [facility] Primary Care Unavailable SHEIN, PEDRITO Attending Unavailable INC, [facility] Primary Care Unavailable SHEIN, PEDRITO Attending Unavailable INC, [facility] Primary Care Unavailable SHEIN, PEDRITO Attending Unavailable INC, [facility] Primary Care Unavailable SHEIN, PEDRITO Attending Unavailable INC, [facility] Primary Care Unavailable Unavailable Primary Care Provider Unavailabl e Care Physician, No Primary Primary Care Provider Unavailable Dr. Doug Ball DO Emergency Provider [phone] Dr. Doug Ball DO Attending Provider [phone] Dr. Elijah Daley DO Emergency Provider [phone] ISIDRO BARRAGAN Attending Unavailable SELF Referring Unavailable KIN ALVARADO Attending Unavailable MACIEJ FERNANDEZ Referring Unavailable EFREM ROSS Attending Unavailable MACIEJ FERNANDEZ Attending Unavailable FRANDY QUIJANO Attending Unavailable [facility] Attending Unavailable [facility] Referring Unavailable Doug Ball Attending Unavailable Care Physician, No Primary Primary Care Unava ilable Care Physician, No Primary Primary Care Unava ilable Doug Ball Attending Unavailable Care Physician, No Primary Primary Care Unava ilable Elijah Daley Attending Unavailable Care Physician, No Primary Primary Care Unava ilable Linwood Stuart Attending Unavailable Medications Current Medications Medication Drug Class(es) Dates Sig (Normalized) Sig (Original) acetaminophen 325 mg / oxyCODONE hydrochloride 5 mg oral tablet (5 sources) Opioid Agonist Start: 10-27-2024 End: 11-18-2024 take 1 tablet by mouth every six hours as needed for pain Oxycodone-Acetaminop hen (Percocet) 5-325 mg tablet Active 1 {tbl} PO EVERY 6 HOURS as needed for pain 12 3 0 November 18, 2024 Abscess Cutaneous abscess, unspecified cholecalciferol 0.05 mg oral capsule (20 sources) Vitamin D Start: 12-11-2021 take 1 capsule by mouth once daily Cholecalciferol (Vitamin D3) (Vitamin D3) 50 mcg (2,000 unit) Capsule Active 50 ug PO DAILY December 11, 2021 12:00am Check with primary doctor cholecalciferol, vitamin D3, (VITAMIN D3) 100 mcg (4,000 unit) cap Take by mouth. Active Comment on above: Take by mouth. clindamycin 300 mg oral capsule (5 sources) Lincosamide Antibacterial Start: End: take 1 capsule by mouth four times daily Clindamycin Hcl (Cleocin Hcl) 300 mg capsule Active 300 mg PO 4 TIMES DAILY 28 7 0 November 18, 2024 12:00am hydrocortisone 25 mg/ml topical cream (1 source) Corticosteroid Start: End: hydrocortisone (ANUSOL-HC) 2.5 % rectal cream by RECTAL route two times a day for 7 days. 28 g 01/16/2025 01/23/2025 Active Iron (6 sources) Start: iron Active 1 {tbl} SL/PO EVERY OTHER DAY February 24, 2022 12:00am Check with primary doctor Start: 02-24-2022 iron Active 1 {tbl} SL/PO EVERY OTHER DAY February 24, 2022 12:00am Start: 02-24-2022 take 1 tablet by joyce th every other day iron Active 1 TABLET SL/PO EVERY OTHER DAY February 23, 2022 11:00pm Start: 02-24-2022 take 1 tablet by joyce th every other day iron Active 1 TABLET SL/PO EVERY OTHER DAY February 24, 2022 12:00am Magnesium (6 sources) Start: 02-24-2022 magnesium Acti ve 1 {tbl} SL/PO DAILY February 24, 2022 12:00am Check with primary doctor Start: 02-24-2022 magnesium Acti ve 1 {tbl} SL/PO DAILY February 24, 2022 12:00am Start: 02-24-2022 take 1 tablet by joyce th once daily magnesium Active 1 TABLET SL/PO DAILY February 23, 2022 11:00pm Start: 02-24-2022 take 1 tablet by joyce th once daily magnesium Active 1 TABLET SL/PO DAILY February 24, 2022 12:00am MULTI-VITAMIN ORAL (8 sources) MULTI-VITAMIN OR AL Take by mouth. Active ondansetron 4 mg disintegrating oral tablet (2 sources) Serotonin-3 Receptor Antagonist Start: 07-10-19 take 4 mg by mouth every eight hours as needed Ondansetron Active 4 MG PO EVERY 8 HOURS NEEDED July 10, 2021 1:00am promethazine hydrochloride 12.5 mg oral tablet (2 sources) Phenothiazine Start: 07-10-19 take 12.5 mg by mouth every six hours as needed Promethazine Active 12.5 MG PO EVERY 6 HOURS NEEDED July 10, 2021 1:00am Completed/Discontinued Medications Medication Drug Class(es) Dates Sig (Normalized) Sig (Original) acyclovir 400 mg oral tablet (6 sources) Herpesvirus Nucleoside Analog DNA Polymerase Inhibitor, Herpes Simplex Virus Nucleoside Analog DNA Polymerase Inhibitor, Herpes Zoster Virus Nucleoside Analog DNA Polymerase Inhibitor Start: 06-06-2023 End: 11-18-2024 take 1 tablet by mouth five times daily Acyclovir 400 mg tablet Discontinued 1 {tbl} PO 5 TIMES DAILY 35 0 June 06, 2023 1:00am November 18, 2024 5:19am Start: 11-09-2020 End: 11-29-2020 take 1 tablet by mouth three times daily Acyclovir 400 MG Oral Tablet TAKE 1 TABLET 3 TIMES DAILY. Quantity: 15 Refills: 3 Ordered: 09-Nov-2020 Mame Astorga Start : 09-Nov-2020 End : 29-Nov-2020 Active oxyCODONE hydrochloride 5 mg oral tablet (6 sources) Opioid Agonist Start: 02-24-2022 End: 11-18-2024 take 1 tablet by mouth every six hours as needed for pain Oxycodone 5 mg tablet Discontinued 5 mg PO EVERY 6 HOURS as needed for pain (scale score 7-10) 16 4 0 February 24, 2022 November 18, 2024 5:18am Acute postoperative pain Other acute postprocedural pain Pnv No.840-Hm-Pq4-Dha-Ep a-Fish ( Gummies) 400 mcg-35 mg- 25 mg-5 mg Tablet,Chewable (11 sources) Start: 06-30-2021 End: 11-18-2024 Pnv No.426-Jr-Oq0-Dha-Epa -Fish ( Gummies) 400 mcg-35 mg- 25 mg-5 mg Tablet,Chewable Discontinued 2 {tbl} PO DAILY June 30, 2021 1:00am November 18, 2024 5:18am Check with primary doctor Start: 06-30-2021 Pnv No.153-Fa- Ga1-Qkh-Vqs-Fish ( Gummies) 400 mcg-35 mg- 25 mg-5 mg Tablet,Chewable Active 2 {tbl} PO DAILY June 30, 2021 1:00am Start: 06-30-2021 take 2 tablets by mo uth once daily Pnv No.269-Sd-Ki9-Fxr-Gnl-Uveh ( Gummies) 400 mcg-35 mg- 25 mg-5 mg Tablet,Chewable Active 2 TABLET PO DAILY June 30, 2021 12:00am Start: 06-30-2021 take 2 tablets by mo uth once daily Pnv No.184-Fg-Vn1-Nly-Vka-Tjrw ( Gummies) 400 mcg-35 mg- 25 mg-5 mg Tablet,Chewable Active 2 TABLET PO DAILY June 30, 2021 1:00am Problems Active Problems Problem Classification Problem Date Documented Date Episodic/Chronic Acquired foot deformities (1 source) Hallux valgus (acquired), left foot; Translations: [Hallux valgus (acquired)] 04-29-2024 Chronic Cardiac dysrhythmias (4 sources) ECG: sinus tachycardia; Translations: [Tachycardia, unspecified] 06-06-2023 Episodic Disorders of teeth and jaw (3 sources) History of surgical procedure on mouth; Translations: [Other dental procedure status] Onset: 11-29-2024 11-26-2024 Episodic Fluid and electrolyte disorders (4 sources) Dehydration; Translations: [Dehydration] 06-06-2023 Episodic Headache; including migraine (12 sources) Headache; Translations: [Headache] Episodic Hemorrhage during ; abruptio placenta; placenta previa (20 sources) Threatened miscarriage; Translations: [Threatened ] 07-08-2021 Episodic Hemorrhoids (8 sources) External hemorrhoids; Translations: [Residual hemorrhoidal skin tags] Onset: 12-10-2023 10-04-2023 Episodic Immunizations and screening for infectious disease (6 sources) Patient encounter status; Translations: [Screening examination for venereal disease] Onset: 11-06-2024 11-06-2024 Episodic Menstrual disorders (3 sources) Menorrhagia; Translations: [Excessive and frequent menstruation with regular cycle] Onset: 11-06-2024 11-06-2024 Chronic Mood disorders (20 sources) Recurrent major depressive disorder with onset; Translations: [Major depressive disorder, recurrent, unspecified] Onset: 10-05-2022 10-05-2022 Chronic Mycoses (11 sources) Candidiasis of vagina; Translations: [Candidiasis of vulva and vagina] 07-08-2021 Episodic Nonspecific chest pain (1 source) Chest pain, unspecified; Translations: [Chest pain, unspecified] Onset: 12-01-2024 Episodic Other aftercare (1 source) Wound finding; Translations: [Encounter for other specified aftercare] 11-06-2024 Episodic Other aftercare (1 source) Encounter for other specified aftercare; Translations: [Visit for wound check] Onset: 11-06-2024 Episodic Other complications of ; puerperium affecting [...] of ; puerperium affecting management of mother (4 sources) Deliveries by ; Translations: [Encounter for delivery without indication] 02-25-2022 Episodic Other complications of (11 sources) Hyperemesis gravidarum; Translations: [Mild hyperemesis gravidarum] 07-18-2021 Episodic Other congenital anomalies (1 source) Congenital pes planus of left foot; Translations: [Congenital pes planus, left foot] 04-29-2024 Chronic Other female genital disorders (2 sources) Vaginal discharge; Translations: [Leukorrhea, not specified as infective] Episodic Other nervous system disorders (6 sources) Acute postoperative pain; Translations: [Other acute postprocedural pain] 02-24-2022 Episodic Other and delivery including normal (10 sources) Third trimester ; Translations: [Encounter for supervision of normal , unspecified, third trimester] Episodic Other screening for suspected conditions (not mental disorders or infectious disease) (3 sources) Serum creatinine raised; Translations: [Other specified abnormal findings of blood chemistry] Onset: 11-06-2024 Episodic Other skin disorders (1 source) Discoloration of skin; Translations: [Disorder of pigmentation, unspecified] 07-20-2024 Episodic Other skin disorders (1 source) Facial swelling ; Translations: [Localized swelling, mass and lump, head] 11-29-2024 Episodic Other skin disorders (1 source) Localized swelling, mass and lump, head; Translations: [Jaw swelling] Onset: 11-29-2024 Episodic Other upper respiratory infections (11 sources) Viral pharyngitis; Translations: [Acute pharyngitis, unspecified] 11-20-2019 Episodic Pleurisy; pneumothorax; pulmonary collapse (1 source) Pleurisy; Translations: [Pleurisy] 11-26-2024 Episodic Residual codes; unclassified (2 sources) History finding; Translations: [Other specified conditions influencing health status] Episodic Residual codes; unclassified (1 source) Pain; Translations: [Pain, unspecified] 04-29-2024 Episodic Skin and subcutaneous tissue infections (6 sources) Abscess; Translations: [Cutaneous abscess, unspecified] Onset: 11-18-2024 10-27-2024 Episodic Substance-related disorders (20 sources) Cannabis abuse; Translations: [Cannabis dependence, uncomplicated] Onset: 10-05-2022 10-05-2022 Chronic Suicide and intentional self-inflicted injury (1 source) Suicidal ideations; Translations: [Suicidal ideations] Onset: 12-05-2024 Episodic Viral infection (15 sources) Genital herpes simplex; Translations: [Herpesviral infection of urogenital system, unspecified] 03-20-2020 Chronic Viral infection (20 sources) Herpes simplex; Translations: [Herpes simplex without mention of complication] 03-06-2022 Episodic Past or Other Problems Problem Classification Problem Date Documented Da te Episodic/Chronic Mood disorders (20 sources) Mood disorders Onset: 10-05-2022 10-05-2022 Residual codes; unclassified (1 source) Pain, unspecified; Translations: [Pain] Onset: 04-29-2024 Episodic Results Test Name Value Interpretation Reference Range Facility Alcohol, Blood (Medical)-Ser umon 11-30-2024 SERUM ETOH < 10.1 Normal <=10.0 [facility] Comment on above: Result Comment: This test is for medical purposes only. The legal definition of intoxication varies according to local law. Performed By: #### L 505.5000, L501.9100 #### [facility] [address] [place], [address] Emergency Department Summary on 11-30-2024 Emergency Department Summary [facility] Medical Records Department [address] [place] [address] Emergency Department Summary 11/30/24 MR#: [id number] Acct: [id number] Name: BRANDY LLANOS Rep #: [id number] : 2000 24 From: Linwood Stuart MD PCP: Care Physician,No Primary Status:REG ER Location: ED HPI HPI - Psych History of Present Illness Chief Complaint: Suicidal Informant: patient Narrative Narrative: 24-year-old female presents on her own because of feeling suicidal. She was considering driving her car off of a bridge. She wants help because she has a 2-year-old and does not want to end up killing herself. She states adding to her depressive feelings about life, she had all 4 wisdom teeth surgically removed about a week ago and she has not been able to sleep well since. She states the pain and swelling is finally starting to subside but she is really not been getting much sleep between that, feeling depressed, and her 2-year-old [facility] Medical History Marijuana smoker HPV (human papilloma virus) infection Home Medications ???Medication ???Instructions ???Recorded ???Last Taken ???Type cholecalciferol (vitamin D3) 50 50 mcg PO DAILY Check with primary 12/11/21 12/11/21 10:45 History mcg (2,000 unit) capsule (Vitamin doctor D3) iron 1 tab PO/SL QODAY Check with 02/2402/22/22 History primary doctor magnesium 1 tab PO/SL DAILY Check with 02/2402/23/22 History primary doctor clindamycin HCl 300 mg capsule 300 mg PO 4X/DAY 7 days #28 caps 0 11/18/24 Unknown Rx (Cleocin HCl) oxycodone-acetaminophen 5 mg-325 1 tab PO Q6H PRN pain 3 days #12 0 11/18/24 Unknown Rx mg tablet (Percocet) tabs zolpidem 10 mg tablet (Ambien) 10 mg PO QHS PRN insomnia #4 tabs 11/30/24 Unknown Rx Allergy/AdvReac Type Severity Reaction Status Date / Time No Known Allergies Allergy Verified 11/18/24 05:18 Social History household members: children housing: house Smoking Status: Former smoker substance use type: does not use ROS ROS ED Constitutional Constitutional ED: Denies chills or fever(s) Eyes Eyes: Denies change in vision or diplopia ENT ENT ED: Reports other Details: Dental pain see HPI ; Denies rhinorrhea or sore throat Cardiovascular Cardiovascular: Denies chest pain or palpitations Respiratory/Chest Respiratory/Chest: Denies cough or dyspnea Gastrointestinal Gastrointestinal: Denies abdominal pain, diarrhea, nausea or vomiting Genitourinary Genitourinary ED: Denies dysuria or hematuria Musculoskeletal Musculoskeletal: Denies back pain or neck pain Integumentary Denies abscess or rash Neurologic Neurologic: Denies headache(s), paresthesias or weakness Psychiatric Psychiatric: Reports depression, suicidal ideation and suicidal thoughts; Denies homicidal ideation EXAM Physical Exam Const Vital Signs: 11/30/24 00:16 11/30/24 01:16 11/30/24 02:00 Temperature 97.7 F L Temperature Source Oral Pulse Rate 79 64 82 Respiratory Rate 16 16 16 Blood Pressure 116/61 109/76 119/77 Blood Pressure Mean 79 87 91 Pulse Ox 99 100 100 Oxygen Delivery Method Room Air Room Air Room Air Positive well nourished and well developed General Appearance ED: well developed and NAD HEENT Reports moist mucous membranes HEENT Narrative: Mild trismus. Normal tongue and soft tissues. From the limited visualization that I have, her maxillary extraction sites appear benign with white granulation tissue present and no bleeding or signs of an abscess. normocephalic and atraumatic Eyes PERRL and EOMs intact bilaterally General Eye ED: Negative for scleral icterus Neck no lymphadenopathy and supple Resp normal respiratory effort and clear to auscultation bilaterally Cardio no murmurs Rate: regular rate Rhythm: regular rhythm GI non-tender and non-distended Auscultation: normoactive bowel sounds Palpation: soft Back/Spine no CVA tenderness and normal ROM Extremity normal to inspection General Extremety ED: Negative for edema General Extremity: Negative for edema Neuro oriented x3, CN's II-XII intact bilaterally, no sensory deficits noted and gait normal Sensorium / Orientation: alert Motor Exam: strength 5/5 throughout Psych mental status grossly normal, thought process normal, cooperative, activity/motor behavior normal and denies homicidal ideation Mood Affect: depressed Thought Content: suicidality Skin Lesions: no lesions Rashes: no rashes MDM MDM MDM Narrative Medical decision making narrative: Alcohol and drug screen obtained, otherwise she is medically cleared. I reviewed those labs, her alcohol is negative. She has been taken prescription pa (more content not included)... Normal [facility] Urine Drug Screen (VISTA)on 11-30-2024 AMPHETAMINES Negative Normal <1000 ng/mL [facility] Comment on above: Performed By: #### L 505.5000, L501.9100 #### [facility] [address] [place], [address] BARBITIURATES Negative Normal < 200 ng/mL [facility] Comment on above: Performed By: #### L 505.5000, L501.9100 #### [facility] [address] [place], [address] BENZODIAZIPINE Negative Normal < 200 ng/mL [facility] Comment on above: Performed By: #### L 505.5000, [id number] #### [facility] [address] [place], [address] BUP Ur Drug Scr Negative Normal < 200 ng/mL [facility] Comment on above: Performed By: #### L 505.5000, L501.9100 #### [facility] [address] [place], [address] COCAINE Negative Normal < 300 ng/mL [facility] Comment on above: Performed By: #### L 505.5000, L501.9100 #### [facility] [address] [place], [address] Fentanyl Negative Normal [facility] Comment on above: Performed By: #### L 505.5000, L501.9100 #### [facility] [address] [place], [address] METHADONE Negative Normal < 300 ng/mL [facility] Comment on above: Performed By: #### L 505.5000, L501.9100 #### [facility] [address] [place], [address] OPIATES Positive Normal < 300 ng/mL [facility] Comment on above: Result Comment: If c onfirmation testing is needed, a separate order will be required to send out testing to the reference laboratory. Performed By: #### L 505.5000, L501.9100 #### [facility] [address] [place], [address] OXYCODONE Negative Normal < 100 ng/mL [facility] Comment on above: Performed By: #### L 505.5000, L501.9100 #### [facility] [address] [place], [address] PCP Negative Normal < 25 ng/mL [facility] Comment on above: Performed By: #### L 505.5000, [id number] #### [facility] [address] [place], [address] THC Positive Normal < 50 ng/mL [facility] Comment on above: Result Comment: If c onfirmation testing is needed, a separate order will be required to send out testing to the reference laboratory. Performed By: #### L 505.5000, L501.9100 #### [facility] [address] [place], [address] CNOVelicia 11-29-2024 CNOV Office Visit ([place]) BRANDY LLANOS ([id number]) 01 F [facility] Date Time Provider Department 11/29/24 1:00 PM EFREM ROSS During your visit today, we recorded the following information about you: Temperature Pulse Respiration Blood pressure 97.7 degrees 70/minute 18/minute 130/82 Weight 66.5 kg Efrem Ross MD 11/29/2024 1:10 PM Addendum [facility]RG[facility] TERESA Llanos is a 24 year old female. Patient presents with: Dental Problem: Swelling and pain on DAHLIA sides of face Patient presents to the urgent care with pain and swelling after all 4 wisdom teeth were extracted 4 days ago. She has pain and swelling in the jaw which are improving. Denies any drainage or fever. She has completed controlled pain medicine and is using ibuprofen and acetaminophen. She has not been able to eat much. She feels she is overall improving but still does not feel up to work today. She was in the emergency room this week she says for pleurisy. She was not prescribed an antibiotic. Review of Systems Objective BP 130/82 Pulse 70 Temp 36.5 ?C (97.7 ?F) Resp 18 Wt 66.5 kg (146 lb 9.7 oz) LMP 10/25/2024 (Exact Date) SpO2 99% BMI 23.66 kg/m? Physical Exam Constitutional: General: She is not in acute distress. HENT: Right Ear: Tympanic membrane and ear canal normal. Left Ear: Tympanic membrane and ear canal normal. Nose: No congestion. Mouth/Throat: Mouth: Mucous membranes are moist. Pharynx: No posterior oropharyngeal erythema. Comments: Upper and lower third molars extracted. Tender overlying jaw with mild swelling. Eyes: Extraocular Movements: Extraocular movements intact. Conjunctiva/sclera: Conjunctivae normal. Pupils: Pupils are equal, round, and reactive to light. Musculoskeletal: Cervical back: No tenderness. Lymphadenopathy: Cervical: No cervical adenopathy. Neurological: Mental Status: She is alert. {ASSESSMENT/PLAN: 1. History of third molar tooth extraction, unspecified edentulism class - ICD9: 525.50, 525.10, ICD10: K08.409 (primary diagnosis) 2. Jaw swelling - ICD9: 784.2, ICD10: R22.0 Healing after wisdom tooth extraction. Continue supportive care. Work note provided. Efrem Ross MD Differential Diagnoses - Post molar extraction pain and swelling is more likely for the following reason(s): suggested by HANDP - Dental infection is less likely for the following reason(s): No fever or drainage; improving swelling Procedures Allergies As of Date: 11/29/2024 (No Known Allergies) Date Reviewed: 11/29/2024 Reviewed by: Sanjuana Metcalf MA - Fully Assessed Reason for Visit: Dental Problem [31] Cmt: Swelling and pain on DAHLIA sides of face Primary Visit Diagnosis:History of third molar tooth extraction, unspecified edentulism class [K08.409] Other Visit Diagnosis:Jaw swelling [R22.0] Prescriptions as of 11/29/2024 - MULTI-VITAMIN ORAL Take by mouth. - cholecalciferol, vitamin D3, (VITAMIN D3) 100 mcg (4,000 unit) cap Take by mouth. Problem List As Of Date: 11/29/2024 (None) Level of Service: OFFICE/OUTPATIENT ESTABLISHED LOW [facility] 20 MIN [22330] Letter Text Encounter Status:Closed by EFREM ROSS on 11/29/24 Normal [facility] Absolute lymphocyte countOrd ered By: Elijah Daley on 11-26-2024 Lymphocytes Auto (Unsp spec) [#/Vol] 1.23 10*3/uL 0.83-4.51 [facility] Absolute neutrophil countOrd ered By: Elijah Daley on 11-26-2024 Neutrophils (Bld) [#/Vol] 4.2 10*3/uL 2.0-7.7 [facility] Anion gap in Serum or Plasma Ordered By: Elijah Daley on 11-26-2024 Anion gap [Moles/Vol] 11 mmol/L 5-15 [facility] Automated lymphocyte count a s percentage of total leukocytesOrdered By: Elijah Daley on 11-26-2024 Lymphocytes/100 WBC Auto (Unsp spec) 20.9 % - [facility] BUN/creatinine ratioOrdered By: Elijah Daley on 11-26-2024 Urea nitrogen/Creatinine [Mass ratio] 10.1 mg/mg 10- [facility] Basic Metabolic Profile (BMP )on 11-26-2024 BUN/CRE 10.1 RATIO Normal - [facility] Comment on above: Performed By: #### L 300.8000, L100.0100, L700.6800, L500.2500 #### [facility] [address] [place], [address] Calcium [Mass/Vol] 9.3 mg/dL Normal 7.6-11.0 [facility] Comment on above: Performed By: #### L 300.8000, L100.0100, L700.6800, L500.2500 #### [facility] [address] [place], [address] Chloride [Moles/Vol] 104 mmol/L Normal 98-108 [facility] Comment on above: Performed By: #### L 300.8000, L100.0100, L700.6800, L500.2500 #### [facility] [address] [place], [address] CO2 [Moles/Vol] 23.6 mmol/L Normal 21.0-32.0 [facility] Comment on above: Performed By: #### L 300.8000, L100.0100, L700.6800, L500.2500 #### [facility] [address] [place], [address] Creatinine [Mass/Vol] 0.87 mg/dL Normal 0.70-1.20 [facility] Comment on above: Performed By: #### L 300.8000, L100.0100, L700.6800, L500.2500 #### [facility] [address] [place], [address] ECRCL 94.15 ml/min Normal 50-250 [facility] Comment on above: Performed By: #### L 300.8000, L100.0100, L700.6800, L500.2500 #### [facility] [address] [place], [address] GAP 11 Normal 5-15 [facility] Comment on above: Performed By: #### L 300.8000, L100.0100, L700.6800, L500.2500 #### [facility] [address] [place], [address] GFR/1.73 sq M.predicted among non-blacks MDRD (S/P/Bld) [Vol rate/Area] 95 mL/min/{1.73_m2} Normal >60 [facility] Comment on above: Result Comment: mL/m in/1.73m2 CKD-EPI Creatinine Equation (2020) Performed By: #### L 300.8000, L100.0100, L700.6800, L500.2500 #### [facility] [address] [place], [address] Glucose [Mass/Vol] 88 mg/dL Normal 70-99 [facility] Comment on above: Performed By: #### L 300.8000, L100.0100, L700.6800, L500.2500 #### [facility] [address] [place], [address] Potassium [Moles/Vol] 3.9 mmol/L Normal 3.3-5.1 [facility] Comment on above: Performed By: #### L 300.8000, L100.0100, L700.6800, L500.2500 #### [facility] [address] [place], [address] Sodium [Moles/Vol] 139 mmol/L Normal 133-145 [facility] Comment on above: Performed By: #### L 300.8000, L100.0100, L700.6800, L500.2500 #### [facility] [address] [place], [address] Urea nitrogen [Mass/Vol] 9 mg/dL Normal 4-19 [facility] Comment on above: Performed By: #### L 300.8000, L100.0100, L700.6800, L500.2500 #### [facility] [address] [place], [address] Basophil percentageOrdered B y: Elijah Daley on 11-26-2024 Basophils/100 WBC (Bld) 0.3 % 0-1 [facility] [place] CBC W/Diff, Automatedon 11-11 Absolute Lymph 1.23 X10 3/uL Normal 0.83-4.51 [facility] Comment on above: Performed By: #### L 300.8000, L100.0100, L700.6800, L500.2500 #### [facility] [address] [place], [address] Absolute Neut 4.2 X10 3/uL Normal 2.0-7.7 [facility] Comment on above: Performed By: #### L 300.8000, L100.0100, L700.6800, L500.2500 #### [facility] [address] [place], [address] Basophils/100 WBC (Bld) 0.3 % Normal 0-1 [facility] Comment on above: Performed By: #### L 300.8000, L100.0100, L700.6800, L500.2500 #### [facility] [address] [place], [address] Eosinophils/100 WBC (Bld) 0.5 % Normal 0-5 [facility] Comment on above: Performed By: #### L 300.8000, L100.0100, L700.6800, L500.2500 #### [facility] [address] [place], [address] Erythrocyte distribution width (RBC) [Ratio] 11.2 % Low 11.6-14.6 [facility] Comment on above: Performed By: #### L 300.8000, L100.0100, L700.6800, L500.2500 #### [facility] [address] [place], [address] Hematocrit (Bld) [Volume fraction] 38.3 % Normal 37-47 [facility] Comment on above: Performed By: #### L 300.8000, L100.0100, L700.6800, L500.2500 #### [facility] [address] [place], [address] Hemoglobin (Bld) [Mass/Vol] 13.6 g/dL Normal 12.0-15.0 [facility] Comment on above: Performed By: #### L 300.8000, L100.0100, L700.6800, L500.2500 #### [facility] [address] [place], [address] IG% 1.700 High 0.0-0.9 [facility] Comment on above: Result Comment: IG% - Immature Granulocytes (promyelocytes, myelocytes and metamyelocytes) > 1% indicates that a LEFT SHIFT is Present. Performed By: #### L 300.8000, L100.0100, L700.6800, L500.2500 #### [facility] [address] [place], [address] Lymphocytes/100 WBC (Bld) 20.9 % Normal 19-41 [facility] Comment on above: Performed By: #### L 300.8000, L100.0100, L700.6800, L500.2500 #### [facility] [address] [place], [address] MCH (RBC) [Entitic mass] 31.1 pg Normal 27.0-32.0 [facility] Comment on above: Performed By: #### L 300.8000, L100.0100, L700.6800, L500.2500 #### [facility] [address] [place], [address] MCHC (RBC) [Mass/Vol] 35.5 g/dL Normal 32-36 [facility] Comment on above: Performed By: #### L 300.8000, L100.0100, L700.6800, L500.2500 #### [facility] [address] [place], [address] MCV (RBC) [Entitic vol] 87.6 fL Normal 81-99 [facility] Comment on above: Performed By: #### L 300.8000, L100.0100, L700.6800, L500.2500 #### [facility] [address] [place], [address] Monocytes/100 WBC (Bld) 5.6 % Normal 0-10 [facility] Comment on above: Performed By: #### L 300.8000, L100.0100, L700.6800, L500.2500 #### [facility] [address] [place], [address] Neutrophils/100 WBC (Bld) 71.0 % High 47-70 [facility] Comment on above: Performed By: #### L 300.8000, L100.0100, L700.6800, L500.2500 #### [facility] [address] [place], [address] Nucleated RBC (Bld) [#/Vol] 0 10*3/uL Normal 0-5 [facility] Comment on above: Performed By: #### L 300.8000, L100.0100, L700.6800, L500.2500 #### [facility] [address] [place], [address] Platelet mean volume (Bld) [Entitic vol] 9.7 fL Normal 6.2-12.0 [facility] Comment on above: Performed By: #### L 300.8000, L100.0100, L700.6800, L500.2500 #### [facility] [address] [place], [address] Platelets (Bld) [#/Vol] 241 10*3/uL Normal 150-450 [facility] Comment on above: Performed By: #### L 300.8000, L100.0100, L700.6800, L500.2500 #### [facility] [address] [place], [address] RBC (Bld) [#/Vol] 4.37 10*6/uL Normal 4.2-5.4 [facility] Comment on above: Performed By: #### L 300.8000, L100.0100, L700.6800, L500.2500 #### [facility] [address] [place], [address] RDW SD 36.0 fl Normal 35.1-43.9 [facility] Comment on above: Performed By: #### L 300.8000, L100.0100, L700.6800, L500.2500 #### [facility] [address] [place], [address] WBC (Bld) [#/Vol] 5.9 10*3/uL Normal 4.4-11.0 [facility] Comment on above: Performed By: #### L 300.8000, L100.0100, L700.6800, L500.2500 #### [facility] [address] [place], [address] Carbon dioxide, total [Moles /volume] in Central venous bloodOrdered By: Elijah Suarez 11-26-2024 CO2 [Moles/Vol] 23.6 mmol/L 21.0-32.0 [facility] Chest PA and Lateralon 11-26 Chest PA and Lateral [facility] Imaging Services [address] [place] [address] Chest PA and Lateral MR#: [id number] Acct: [id number] Name: BRANDY LLANOS Rep #: [id number] : 2000 F 24 From: Jose Tabares MD PCP: Care Physician,No Primary Status: REG ER Study: Chest PA and Lateral Date of Exam: 11/26/24 Exam# [id number] Ordering Dr: Elijah Daley DO PROCEDURE: CHEST PA AND LATERAL 11/26/2024 REASON FOR EXAM: PAIN TECHNIQUE: CHEST PA AND LATERAL COMPARISON: None. FINDINGS: There is bilateral perihilar peribronchial thickening consistent with viral pneumonia or acute bronchitis. There is no lobar consolidation or pleural effusion. The heart borders mediastinum and pulmonary vascular pattern are normal. The upper abdominal bowel gas pattern is normal. There are no bony abnormalities of the chest. RAD/Chest PA and Lateral IMPRESSION: Findings consistent with viral pneumonia or acute bronchitis. Reading Location: [place] [address] CC: Dr. Elijah Daley DO; No Primary Care Physician Invertebrate Paleontologist: Signed Normal [facility] Chloride assayOrdered By: Barrington Daley on 11-26-2024 Chloride [Moles/Vol] 104 mmol/L 98-108 [facility] D-Dimer Quantitative (DVT/PE )on 11-26-2024 D-DIMER QUANT 0.27 FEU/ug/m Normal 0.27-0.49 [facility] Comment on above: Result Comment: NORM AL D-Dimer level (<0.50) indicates no DVT or PE. Performed By: #### L 300.8000, L100.0100, L700.6800, L500.2500 #### [facility] [address] [facility] [place], [address] Emergency Department Summary on 11-26-2024 Emergency Department Summary [facility] Medical Records Department [address] [place] [address] Emergency Department Summary 11/26/24 MR#: [id number] Acct: [id number] Name: BRANDY LLANOS Rep #: [id number] : 2000 24 From: Elijah Higuera PCP: Care Physician,No Primary Status:DEP ER Location: ED HPI History of Present Illness Chief Complaint: Chest Pain Informant: patient and family Narrative Narrative: Presents here with her godmother for evaluation. Reports pain with deep breaths since yesterday. She is 2 days postop all 4 wisdom tooth removal under general anesthesia. She states her postop pain is controlled medications. However symptoms started yesterday in her chest. She states she was on a ventilator for the procedure. She is on ibuprofen along with hydrocodone. She took ibuprofen this morning. No leg swelling or cramping. She called the nursing line yesterday was told to go to the ED. No history of PE or DVT. Prior similar symptoms: No PFSH PFSH Medical History Marijuana smoker HPV (human papilloma virus) infection Home Medications ???Medication ???Instructions ???Recorded ???Last Taken ???Type cholecalciferol (vitamin D3) 50 50 mcg PO DAILY Check with primary 12/11/21 12/11/21 10:45 History mcg (2,000 unit) capsule (Vitamin doctor D3) iron 1 tab PO/SL QODAY Check with 02/2402/22/22 History primary doctor magnesium 1 tab PO/SL DAILY Check with 02/2402/23/22 History primary doctor clindamycin HCl 300 mg capsule 300 mg PO 4X/DAY 7 days #28 caps 0 11/18/24 Unknown Rx (Cleocin HCl) oxycodone-acetaminophen 5 mg-325 1 tab PO Q6H PRN pain 3 days #12 0 11/18/24 Unknown Rx mg tablet (Percocet) tabs Allergy/AdvReac Type Severity Reaction Status Date / Time No Known Allergies Allergy Verified 11/18/24 05:18 Social History household members: children housing: house Smoking Status: Former smoker substance use type: does not use ROS ROS ED Constitutional Constitutional ED: Denies chills, fever(s) or sweats ENT ENT ED: Denies sore throat Cardiovascular Cardiovascular: Reports chest pain; Denies leg edema, palpitations or racing heartbeat Respiratory/Chest Respiratory/Chest: Reports dyspnea; Denies cough or dyspnea on exertion Gastrointestinal Gastrointestinal: Denies abdominal pain, diarrhea, nausea or vomiting Genitourinary Genitourinary ED: Denies dysuria, hematuria or urinary frequency Musculoskeletal Musculoskeletal: Denies back pain, extremity pain or neck pain Integumentary Denies rash or wounds Neurologic Neurologic: Denies headache(s), paresthesias or weakness EXAM Physical Exam Const Vital Signs: 11/26/24 09:45 11/26/24 10:30 11/26/24 10:44 Temperature 98.8 F Temperature Source Oral Pulse Rate 69 71 Respiratory Rate 20 H 14 Respiratory Effort Normal Non-Labored Blood Pressure 132/84 H 136/110 H Blood Pressure Mean 100 118 Pulse Ox 100 98 Oxygen Delivery Method Room Air Room Air 11/26/24 12:00 11/26/24 12:48 Temperature 98.2 F Temperature Source Pulse Rate 78 66 Respiratory Rate 12 12 Respiratory Effort Blood Pressure 122/66 H 110/70 Blood Pressure Mean 84 83 Pulse Ox 98 100 Oxygen Delivery Method Room Air Positive well nourished and well developed General Appearance ED: well developed and NAD HEENT Reports moist mucous membranes HEENT Narrative: gums with ulceration back molars, no bleeding. normocephalic and atraumatic Eyes General Eye ED: Yes normal appearance of both eyes Neck full ROM Chest Wall Chest: Negative for tenderness Resp normal respiratory effort and normal air movement Effort and Inspection: symmetric chest movement; Negative for respiratory distress Cardio regular rate, regular rhythm and no murmurs Peripheral Pulses: pulses 2+ throughout GI normal to inspection, nondistended, normoactive bowel sounds and non-tender Palpation: Negative for guarding or rebound tenderness present Extremity normal to inspection General Extremety ED: Negative for edema or tenderness General Extremity: Negative for edema Neuro oriented x3 and no sensory deficits noted Sensorium / Orientation: awake and alert Skin no rashes or lesions noted and no wounds MDM MDM MDM Narrative Medical decision making narrative: Interventions / MDM: Differential diagnosis: Pleurisy, status post extraction of wisdom tooth Diagnosis considered but do not suspect: N/A My EKG interpretation: Sinus arrhythmia rate of 77, no ST or T wave changes QTc 418. Imaging independently reviewed and interpreted by myself: 2 view chest x-ray: Viral changes noted. No infiltrates. Also read by radiology. (more content not included)... Normal [facility] Eosinophil percentageOrdered By: Elijah Daley on 11-26-2024 Eosinophils/100 WBC (Bld) 0.5 % 0-5 [facility] Erythrocyte distribution wid th ratioOrdered By: Elijah Daley on 11-26-2024 Erythrocyte distribution width (RBC) [Ratio] 11.2 % Low 11.6-14.6 [facility] Erythrocyte distribution wid th standard deviationOrdered By: Elijah Daley on 11-26-2024 Erythrocyte distribution width (RBC) [Ratio] 36.0 fl 35.1-43.9 [facility] Glomerular filtration rate ( GFR) estimation/1.73 sq m using serum, plasma, or whole bOrdered By: Elijah Daley on 11-26-2024 GFR/1.73 sq M.predicted among non-blacks MDRD (S/P/Bld) [Vol rate/Area] 95 mL/min/{1.73_m2} >60 [facility] Comment on above: mL/min/1.73m2 CKD-EP I Creatinine Equation (2020) Hematocrit Auto (Bld) [Volum e fraction]Ordered By: Elijah Daley on 11-26-2024 Hematocrit (Bld) [Volume fraction] 38.3 % 37-47 [facility] Hemoglobin measurementOrdere d By: Elijah Daley on 11-26-2024 Hemoglobin (Bld) [Mass/Vol] 13.6 g/dL 12.0-15.0 [facility] Immature granulocytes/100 WB C Auto (Bld)Ordered By: Elijah Daley on 11-26-2024 Immature granulocytes/100 WBC (Bld) 1.700 % High 0.0-0.9 [facility] Comment on above: IG% - Immature Granu locytes (promyelocytes, myelocytes and metamyelocytes) > 1% indicates that a LEFT SHIFT is Present. MCV (mean corpuscular volume ) determinationOrdered By: Elijah Daley 11-26-2024 MCV (RBC) [Entitic vol] 87.6 fL 81-99 [facility] Mean corpuscular hemoglobin (MCH) determinationOrdered By: Elijah Daley 11-26-2024 MCH (RBC) [Entitic mass] 31.1 pg 27.0-32.0 [facility] Mean corpuscular hemoglobin concentration (MCHC) determinationOrdered By: Elijah Daley 11-26-2024 MCHC (RBC) [Mass/Vol] 35.5 g/dL 32-36 [facility] Mean platelet volume determi nationOrdered By: Elijah Daley 11-26-2024 Platelet mean volume (Bld) [Entitic vol] 9.7 fL 6.2-12.0 [facility] Monocyte percentageOrdered B y: Elijah Daley on 11-26-2024 Monocytes/100 WBC (Bld) 5.6 % 0-10 [facility] Neutrophil percentageOrdered By: Elijah Daley on 11-26-2024 Neutrophils/100 WBC (Bld) 71.0 % High 47-70 [facility] Nucleated red blood cell per centageOrdered By: Elijah Daley on 11-26-2024 Nucleated RBC/100 WBC (Bld) [Ratio] 0 % 0-5 [facility] Platelet countOrdered By: Barrington Daley on 11-26-2024 Platelets (Bld) [#/Vol] 241 10*3/uL 150-450 [facility] Potassium measurement (mass/ volume)Ordered By: Elijah Daley on 11-26-2024 Potassium (Unsp spec) [Mass/Vol] 3.9 mmol/L 3.3-5.1 [facility] ,Serum,hCG Quali.on 11-26-2024 HCG, SERUM QUAL Negative Normal [facility] Comment on above: Performed By: #### L 300.8000, L100.0100, L700.6800, L500.2500 #### [facility] [address] [place], [place], [id number] RBC Auto (Bld) [#/Vol]Ordere d By: Elijah Daley on 11-26-2024 RBC (Bld) [#/Vol] 4.37 10*6/uL 4.2-5.4 [facility] Serum beta-hCG test, qualita tiveOrdered By: Elijah Daley on 11-26-2024 Beta HCG ( test) Ql Negative [facility] Serum creatinine measurement (mass/volume)Ordered By: Elijah Daley on 11-26-2024 Creatinine [Mass/Vol] 0.87 mg/dL 0.70-1.20 [facility] Serum glucose measurement (m ass/volume)Ordered By: Elijah Daley on 11-26-2024 Glucose [Mass/Vol] 88 mg/dL 70-99 [facility] Serum or plasma calcium tomeka urement (mass/volume)Ordered By: Elijah Daley on 11-26-2024 Calcium [Mass/Vol] 9.3 mg/dL 7.6-11.0 [facility] Serum or plasma urea nitroge n measurement (mass/volume)Ordered By: Elijah Daley on 11-26-2024 Urea nitrogen [Mass/Vol] 9 mg/dL 4-19 [facility] Sodium levelOrdered By: Elijah Daley on 11-26-2024 Sodium [Moles/Vol] 139 mmol/L 133-145 [facility] White blood cell (WBC) count Ordered By: Elijah Daley on 11-26-2024 WBC (Bld) [#/Vol] 5.9 10*3/uL 4.4-11.0 [facility] Emergency Department Summary on 11-18-2024 Emergency Department Summary [facility] Medical Records Department [address] [place] [address] Emergency Department Summary 11/18/24 MR#: [id number] Acct: [id number] Name: BRANDY LLANOS Rep #: [id number] : 2000 24 From: oDug Ball DO PCP: Care Physician,No Primary Status:DEP ER Location: ED HPI History of Present Illness Chief Complaint: Abscess Informant: patient Narrative Narrative: Patient is a 24-year-old female with no significant past medical history. She states that in the last 24 hours she has noticed a small lump that is painful along the left posterior portion of the vagina. She was seen roughly 1 month ago for a similar issue and she states it went away with the prescribed medication. She states she did follow-up with [facility] [facility] who informed her there was no abnormalities. Patient states she has been doing well until the last 24 hours but with return of the small lump in pain she is concerned for repeat infection. She states she is concerned this could be herpes because of the recurrent. She denies any vaginal bleeding or discharge. She denies any fevers or chills. She denies any history of immunosuppression. [facility] Medical History (Updated 11/18/24 @ 05:[address] Doug Ball, DO) Marijuana smoker HPV (human papilloma virus) infection Home Medications ???Medication ???Instructions ???Recorded ???Last Taken ???Type cholecalciferol (vitamin D3) 50 50 mcg PO DAILY Check with primary 12/11/21 12/11/21 10:45 History mcg (2,000 unit) capsule (Vitamin doctor D3) iron 1 tab PO/SL QODAY Check with 02/2402/22/22 History primary doctor magnesium 1 tab PO/SL DAILY Check with 02/2402/23/22 History primary doctor clindamycin HCl 300 mg capsule 300 mg PO 4X/DAY 7 days #28 caps 0 11/18/24 Unknown Rx (Cleocin HCl) oxycodone-acetaminophen 5 mg-325 1 tab PO Q6H PRN pain 3 days #12 0 11/18/24 Unknown Rx mg tablet (Percocet) tabs Allergy/AdvReac Type Severity Reaction Status Date / Time No Known Allergies Allergy Verified 11/18/24 05:18 Social History (Updated 10/27/24 @ 22:37 by Aleja Kate) household members: children housing: house Smoking Status: Current every day smoker tobacco type: cigarettes substance use type: does not use ROS ROS ED Constitutional Constitutional ED: Denies chills or fever(s) ENT ENT ED: Denies sore throat Cardiovascular Cardiovascular: Denies chest pain Respiratory/Chest Respiratory/Chest: Denies cough or dyspnea Gastrointestinal Gastrointestinal: Denies abdominal pain, diarrhea, nausea or vomiting Genitourinary Genitourinary ED: Reports other Details: Positive vaginal lesion ; Denies dysuria, hematuria or urinary frequency Musculoskeletal Musculoskeletal: Denies myalgias Integumentary Reports abscess; Denies Abrasions or rash Neurologic Neurologic: Denies headache(s) Hematologic/Lymphatic Hematologic/Lymphatic: Denies easy bleeding or easy bruising EXAM Physical Exam Const Vital Signs: 11/18/24 05:19 11/18/24 05:25 11/18/24 05:38 Temperature 98.3 F 98.3 F Temperature Source Oral Pulse Rate 85 76 Respiratory Rate 18 16 Respiratory Effort Normal Non-Labored Respiratory Pattern Normal Blood Pressure 130/89 H 121/80 H Blood Pressure Mean 102 93 Pulse Ox 100 99 Oxygen Delivery Method Room Air Positive well nourished and well developed General Appearance ED: well developed HEENT HEENT Narrative: Normocephalic atraumatic Eyes PERRL and EOMs intact bilaterally General Eye ED: Negative for scleral icterus Neck supple Resp normal respiratory effort and clear to auscultation bilaterally Cardio regular rate and regular rhythm Narrative: Along the inferior/posterior aspect of the vagina along the left labial region is a small less than half centimeter area of induration without overlying erythema or warmth. There is no lymphangitic streaking or discharge noted. No vesicular or pustule lesion. No vaginal laceration or tear. No crepitance palpated Extremity normal to inspection Neuro oriented x3, CN's II-XII intact bilaterally and no sensory deficits noted Sensorium / Orientation: alert Motor Exam: strength 5/5 throughout Psych mental status grossly normal Skin Skin Narrative: Lesion along the left genital region/labia concerning for developing abscess as documented above MDM MDM MDM Narrative Medical decision making narrative: Patient presented to the ER with stable vitals. She reported 24 hours of pain with a lesion in the genital region. She did have concern for herpes but on exam there is no vesicular change and there is no erythema. There is also no kissing lesion or dysuria and therefore I do not feel this is herpes. The patient could have an atypical presentation for hidraden (more content not included)... Normal [facility] C. trachomatis+N. gonorrhoea e DNA EL+probe Ql (Unsp spec)on 11-06-2024 C. trachomatis rRNA EL+probe Ql (Unsp spec) Not detected Normal Not detected [facility] Comment on above: Order Comment: Speci men Type: SWABOrdering Facility: [facility] Address: [address] [place] [address] Performed By: #### T RVAMP, 78633-3 ####[facility] LABCLIA [id number] [place] [address] [place] N. gonorrhoeae rRNA EL+probe Ql (Unsp spec) Not detected Normal Not [facility] Comment on above: Order Comment: Speci men Type: SWABOrdering Facility: [facility] Address: [address] [place] [address] Performed By: #### T RVAMP, 26145-8 ####[facility] LABCLIA [id number] [place] [address] [place] CNOVon 11-06-2024 CNOV Office Visit (UCWSTR ) BRANDY LLANOS LEONIDAS ([id number]) 2 F UPA Date Time Provider Department 11/06/24 11:00 AM MACIEJ FERNANDEZ [facility] During your visit today, we recorded the following information about you: Temperature Pulse Respiration Blood pressure 98 degrees 78/minute 18/minute 151/83 Weight Last Period 69 kg 10/25/24 Maciej Fernandez, SHASHI.HEAD INSPECTOR 11/06/2024 11:42 AM Signed Subjective HPI Nontoxic-appearing female presents urgent care chief complaint possible abscess inguinal area. Seen in ED. Placed on clindamycin. Did finish clindamycin. This did improve. 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 Presents today for reevaluation. No fevers. Overall feeling well. Past medical history prescription medications allergies reviewed .Patient presents with: Derm Problem: L groin area, redness swelling, painful increasing on and off x 1 week PAST MEDICAL HISTORY Diagnosis Date Herpes, genital Vitamin D deficiency PAST SURGICAL HISTORY Procedure Laterality Date SECTION HX N/A HEMORRHOIDECTOMY 12/10/2023 ALLERGIES Patient has no known allergies. MEDICATIONS MULTI-VITAMIN ORAL Take by mouth. cholecalciferol, vitamin D3, (VITAMIN D3) 100 mcg (4,000 unit) cap Take by mouth. FAMILY HISTORY Problem Relation Age of Onset No Known Problems Mother No Known Problems Father No Known Problems Sister No Known Problems Sister No Known Problems Brother No Known Problems Brother No Known Problems Brother No Known Problems Maternal Grandmother No Family History No Family History Social History Tobacco Use Smoking status: Former Types: Cigarettes Smokeless tobacco: Never Vaping Use Vaping status: Never Used Substance Use Topics Alcohol use: Yes Comment: occasional Drug use: Yes Types: Marijuana Comment: medical [facility] card for her back BP 151/83 Pulse 78 Temp 36.7 ?C (98 ?F) Resp 18 Wt 69 kg (152 lb 1.9 oz) LMP 10/25/2024 (Exact Date) SpO2 98% BMI 24.55 kg/m? Review of Systems Constitutional: Negative for chills, fever and malaise/fatigue. HENT: Negative for congestion, ear discharge, ear pain, sinus pain and sore throat. Eyes: Negative for blurred vision, pain, discharge and redness. Respiratory: Negative for cough, hemoptysis, sputum production, shortness of breath, wheezing and stridor. Cardiovascular: Negative for chest pain. Gastrointestinal: Negative for abdominal pain, diarrhea, nausea and vomiting. Musculoskeletal: Negative for myalgias. Skin: Negative for itching and rash. Neurological: Negative for dizziness and headaches. Objective Physical Exam Constitutional: General: She is not in acute distress. Appearance: She is not toxic-appearing. HENT: Head: Normocephalic. Nose: Nose normal. Eyes: Pupils: Pupils are equal, round, and reactive to light. Cardiovascular: Rate and Rhythm: Normal rate. Pulmonary: Effort: Pulmonary effort is normal. No respiratory distress. Musculoskeletal: Cervical back: Normal range of motion. Skin: General: Skin is warm and dry. Comments: Area of concern was evaluated. No evidence of infection noted. Neurological: General: No focal deficit present. Mental Status: She is alert. ASSESSMENT/PLAN: 1. Visit for wound check - ICD9: V58.89, ICD10: Z51.89 No evidence of bacterial infection noted. No redness. No drainage. No fluctuance. No inguinal adenopathy. Continue plan of care as discussed. Patient was educated on supportive therapies. Patient [...] of care. This note was generated using GameMaki software. It may contain errors in wording, punctuation, or spelling. Maciej Fernandez APRN.HEAD INSPECTOR Allergies As of Date: 11/06/2024 (No Known Allergies) Date Reviewed: 11/06/2024 Reviewed by: Tha, Rosana, MIXER TENDER - Fully Assessed Reason for Visit: Derm Problem [33] Cmt: L groin area, redness swelling, painful increasing on and off x 1 week Primary Visit Diagnosis:Visit for wound check [Z51.89] Prescriptions as of 11/06/2024 - MULTI-VITAMIN ORAL Take by mouth. - cholecalciferol, vitamin D3, (VITAMIN D3) 100 mcg (4,000 unit) cap Take by mouth. Problem List As Of Date: 11/06/2024 (None) Level of Service: OFFICE/OUTPATIENT ESTABLISHED LOW [facility] 20 MIN [08214] Encounter Status:Closed by MACIEJ FERNANDEZ on 11/06/24 [facility] Office Visit (OBGYWM ) BRANDY LLANOS ([id number]) 2 F UPA Date Time Provider Department 11/06/24 9:40 AM FRANDY QUIJANO OBYODITWNiya During your visit today, we recorded the following information about you: Blood pressure Weight Height Last Period 100/64 69.5 kg 1.676 m 10/21/24 Frandy Quijano MD 11/06/2024 10:36 AM Signed Tip Length Checker offered: Patient declines. Brandy is a 24 year old who presents for an annual gynecologic exam with complaints, has had lots of clots with periods. Menorrhagia with clotting for last 2 cycles. This was after taking Plan B. She also reports going to the ER for a vulvar abscess, and she was given an antibiotic. She states it is not improving, and she has been on the antibiotic for 2 days. Age at Menarche: 12 Still get period: Yes LMP: 10/21/2024 Menses: cycles every 28-30 days and 3-4 days of flow Menstrual flow: Moderate Bleeding amount bothersome: No Bleeding between periods: No Period symptoms: Cramps Sexually active: No last time 4 months ago In a relationship and boyfriend lives in [place] Contraception: None Contraception frequency: N/A HPV vaccine: unsure HPV:N/A Last pap smear: unknown Bothersome pelvic pain: No Last mammogram: never OB History Gravida1 Para0 Term0 Preterm0 AB0 Living1 SAB0 IAB0 Ectopic0 Multiple0 Live Births0 Pastor History LMP: 10/21/2024 (Exact Date), Having periods Age at Menarche: Age at First : Age at Menopause: Pastor History Comments: Sexual Activity: Not Currently; No partner data on record Contraception: None PAST MEDICAL HISTORY Diagnosis Date Vitamin D deficiency PAST SURGICAL HISTORY Procedure Laterality Date SECTION HX N/A HEMORRHOIDECTOMY 12/10/2023 FAMILY HISTORY Problem Relation Age of Onset No Known Problems Mother No Known Problems Father No Known Problems Sister No Known Problems Sister No Known Problems Brother No Known Problems Brother No Known Problems Brother No Known Problems Maternal Grandmother No Family History No Family History SOCIAL HISTORY Social History Tobacco Use Smoking status: Former Types: Cigarettes Smokeless tobacco: Never Vaping Use Vaping status: Never Used Substance Use Topics Alcohol use: Yes Comment: occasional Drug use: Yes Types: Marijuana Comment: medical [employer] card for her back REVIEW OF SYSTEMS Abdomen: No abdominal pain, nausea, vomiting, diarrhea, or constipation. Bladder: No dysuria, gross hematuria, urinary frequency, urinary urgency, or incontinence. Breast: No breast lumps, nipple d/c, overlying skin changes, redness or skin retraction. Allergies and current medication updated:Yes SENSITIVE EXAM: The sensitive examination was discussed with the Patient or Patient's Authorized Program Instructor. As applicable, any other physician, advance practice provider, medical student, or other health professional student that will be observing or involved in the sensitive examination for educational or training purposes was discussed with the Patient or Authorized Program Instructor. The Patient or Authorized Program Instructor has agreed to proceed with the sensitive examination. (Sensitive examination includes inspection and/or palpation of the breasts, pelvis, prostate and anorectal regions). EXAM: BP 100/64 Ht 5' 6 (1.68m) Wt 153 lb 3.2 oz (69.5kg) LMP 10/21/2024 BMI 24.74 kg/(m2). GENERAL: pleasant, female in no apparent distress HEENT: Normocephalic and atraumatic NECK: full range of motion DERMATOLOGY: Normal, without lesions, non-icteric, and non-hirsute BREAST: soft, non-tender, symmetric, no dominant mass, normal nipple-areolar complex, no lymphadenopathy, and no nipple discharge CHEST: Normal inspiratory effort ABDOMEN: soft, non-tender, and no masses PELVIC: external genitalia normal, normal Bartholin's glands, urethra, Folcroft's glands, no vulvar lesions, no cervical lesions, good vaginal support, physiologic discharge present, normal appearing perineal body and perianal region BIMANUAL: uterus normal size, shape and consistency, no adnexal masses, and non-tender RECTOVAGINAL: deferred. NEURO: exam grossly non-focal EXTREMITIES: normal ASSESSMENT/PLAN: 1) Health maintenance: Pap done with reflex HPV. Nutrition, exercise and routine health maintenance exams reviewed. HPV vaccine: completed series Menorrhagia: Check CBC, TSH, pelvic US 2) Contraception: none. Contraceptive options reviewed and information provided. 3) STD screening: Accepted STD check for Gonorrhea and Chlamydia. 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 [facility] PAP TESTon 11-06-2024 ADEQUACY [facility] Comment on above: Order Comment: Speci men Type: FLUID SPECIMENOrdering Facility: [facility] Address: [address] [place] [address] Result Comment: Sati sfactory for interpretation. Transformation zone present Performed By: #### L [id number] ####[facility]ATORYCLIA [id number] [place] [address] [place] [facility] LABCLIA [id number] [address] [place] CASE REPORT [facility] Comment on above: Order Comment: Speci men Type: FLUID SPECIMENOrdering Facility: [facility] Address: [address] [place] [address] Result Comment: Gyne cologic Cytology Report Case: [id number] Authorizing Provider: Frandy Quijano MD Collected: 11/06/2024 10:41 AM Ordering Location: OB/Gynecology Received: 11/06/2024 11:02 AM First Screen: Rahul, Shaneka, CT, ASCP Specimen: Pap Test, ThinPrep, Cervix Performed By: #### L [id number] ####[facility]ATORYCLIA [id number] [address] LABCLIA [id number] [address] CLINICAL HISTORY, CYTOLOGY, DIRECTOR TELEVISION NEWS Routine Exam [facility] Comment on above: Order Comment: Speci men Type: FLUID SPECIMENOrdering Facility: [facility] Address: [address] [place] [address] Performed By: #### L [id number] ####[facility] LABORATORYCLIA [id number] [address] LABCLIA [id number] [address] CYTOLOGY PAP OTHER INTERPRETATION Fungal organisms morphologically consistent with Ayleen species. [facility] Comment on above: Order Comment: Speci men Type: FLUID SPECIMENOrdering Facility: [facility] Address: [address] [place] [address] Performed By: #### L [id number] ####[facility] LABORATORYCLIA [id number] [address] LABCLIA [id number] [address] FINAL PERFORMING LAB Normal [facility] Comment on above: Order Comment: Speci men Type: FLUID SPECIMENOrdering Facility: [facility] Address: [address] [place] [address] Result Comment: Tech nical component, wafer fabricator screening performed at: [facility] [address] [place] [address] CLIA: [id number] Diagnostic interpretation performed at: [facility], [address] [address] CLIA# [id number] Adjunct Faculty For Medical Terminology: Rosalva Kay MD Performed By: #### L [id number] ####[facility]ATORYCLIA [id number] [address] [id number] [facility] LABCLIA [id number] [place] [address] [place] INTERPRETATION, CYTOLOGY, DIRECTOR TELEVISION NEWS [facility] Comment on above: Order Comment: Speci men Type: FLUID SPECIMENOrdering Facility: [facility] Address: [address] [place] [address] Result Comment: Nega tive for intraepithelial lesion or malignancy. at 0903 EDT Performed By: #### L [id number] ####[facility]ATORYCLIA [id number] [address] STATES OF [facility] LABCLIA [id number] [place] [address] [place] LMP 10/21/2024 [facility] Comment on above: Order Comment: Speci men Type: FLUID SPECIMENOrdering Facility: [facility] Address: [address] [place] [address] Performed By: #### L [id number] ####[facility]ATORYCLIA [id number] [address] LABCLIA [id number] [place] [address] [place] PAP DISCLAIMER COMMENT The Pap Smear is a screening test for cervical cancer. False negative results occur with all screening tests, emphasizing the need for rescreening at recommended intervals, and clinical correlation. [facility] Comment on above: Order Comment: Speci men Type: FLUID SPECIMENOrdering Facility: [facility] Address: [address] [place] [address] Performed By: #### L [id number] ####[facility]ATORYCLIA [id number] [address] LABIA [id number] [place] [address] [place] PAP FINANCIAL REPRESENTATIVE COMMENT This specimen has be en analyzed by the FDA-approved DeNA System, which uses digital imaging and an enhanced artificial intelligence image analysis algorithm to identify ness of interest on the microscopic slide, to assist the supervisor brine and pathologist in evaluating cells on ThinPrep Pap tests. Following analysis, ness of interest on the microscopic slide selected by the algorithm are reviewed by a supervisor brine. If a sample requires hierarchical review, the pathologist will review the same ness of interest selected by the algorithm prior to final interpretation. [facility] Comment on above: Order Comment: Speci men Type: FLUID SPECIMENOrdering Facility: [facility] Address: [address] [place] [address] Performed By: #### L [id number] ####[facility] [id number] [address] [id number] [place] [address] [place] TRICHOMONAS VAGINALIS NAATon 11-06-2024 T. vaginalis DNA EL+probe Ql (Unsp spec) Not detected Normal Not detected [facility] Comment on above: Order Comment: Speci men Type: SWABOrdering Facility: [facility] Address: [address] [place] [address] Performed By: #### T RVAMP, 91230-5 ####[facility] [id number] [place] [address] [place] Emergency Department Summary on 10-27-2024 Emergency Department Summary [facility] Medical Records Department [address] [place] [address] Emergency Department Summary 10/27/24 MR#: [id number] Acct: [id number] Name: BRANDY LLANOS Rep #: [id number] : 2000 24 From: Doug Ball DO PCP: Care Physician,No Primary Status:DEP ER Location: ED HPI History of Present Illness Chief Complaint: Abscess Informant: patient Narrative Narrative: Patient is a 24-year-old female reports a past medical history of HPV as well as questionable diagnoses of herpes. She states that she has been feeling well and that today/this evening after getting out of the shower she noticed a small lump in the left inguinal region. She states it is slightly red and swollen and painful. She denies any recent trauma. She states that she is concerned it may be an infectious process and secondary to this comes in for evaluation. Otherwise patient denies fevers chills nausea vomiting diarrhea dysuria or concern for PFSH PFSH Medical History HPV (human papilloma virus) infection Non-smoker Home Medications ???Medication ???Instructions ???Recorded ???Last Taken ???Type PNV 153-FA 400 mcg-om3 35 mg-dha 2 tab PO DAILY Check with primary 06/30/21 02/23/22 08:00 History 25 mg-epa 5 mg-fish oil chew doctor tablet ( Gummies) cholecalciferol (vitamin D3) 50 50 mcg PO DAILY Check with primary 12/11/21 12/11/21 10:45 History mcg (2,000 unit) capsule (Vitamin doctor D3) iron 1 tab PO/SL QODAY Check with 02/2402/22/22 History primary doctor magnesium 1 tab PO/SL DAILY Check with 02/2402/23/22 History primary doctor oxycodone 5 mg tablet 5 mg PO Q6H PRN pain (scale score 02/24/22 Unknown Rx 7-10) 4 days #16 tabs acyclovir 400 mg tablet 1 tab PO 5X/DAY #35 tabs 06/06/23 Unknown Rx clindamycin HCl 300 mg capsule 300 mg PO 4X/DAY 7 days #28 caps 0 10/27/24 Unknown Rx (Cleocin HCl) oxycodone-acetaminophen 5 mg-325 1 tab PO Q6H PRN pain 3 days #12 0 10/27/24 Unknown Rx mg tablet (Percocet) tabs Allergy/AdvReac Type Severity Reaction Status Date / Time No Known Allergies Allergy Verified 10/27/24 20:41 Social History (Updated 10/27/24 @ 22:37 by Aleja Kate) household members: children housing: house Smoking Status: Former smoker substance use type: does not use ROS ROS ED Constitutional Constitutional ED: Denies chills or fever(s) ENT ENT ED: Denies sore throat Cardiovascular Cardiovascular: Denies chest pain Respiratory/Chest Respiratory/Chest: Denies cough or dyspnea Gastrointestinal Gastrointestinal: Denies abdominal pain, diarrhea, nausea or vomiting Genitourinary Genitourinary ED: Denies dysuria Musculoskeletal Musculoskeletal: Denies myalgias Integumentary Reports abscess; Denies rash Neurologic Neurologic: Denies headache(s) Hematologic/Lymphatic Hematologic/Lymphatic: Denies easy bleeding or easy bruising Allergic/Immunologic Allergic/Immunologic ED: Denies urticaria EXAM Physical Exam Const Vital Signs: 10/27/24 20:41 10/27/24 20:44 10/27/24 22:38 Temperature 98.4 F 98.4 F 98.4 F Temperature Source Oral Oral Pulse Rate 85 76 76 Respiratory Rate 18 18 18 Blood Pressure 115/82 H 115/82 H 115/82 H Blood Pressure Mean 93 93 93 Pulse Ox 100 98 98 Oxygen Delivery Method Room Air Room Air Positive well nourished and well developed General Appearance ED: well developed HEENT HEENT Narrative: Normocephalic atraumatic Eyes PERRL and EOMs intact bilaterally Neck supple Resp normal respiratory effort and clear to auscultation bilaterally Cardio regular rate and regular rhythm GI Palpation: soft Extremity normal to inspection Neuro oriented x3, CN's II-XII intact bilaterally and no sensory deficits noted Sensorium / Orientation: alert Motor Exam: strength 5/5 throughout Psych mental status grossly normal Skin Skin Narrative: In the left inguinal region there is a small less than half centimeter area of induration with faint erythema and warmth that is painful to palpation and is most consistent with early abscess. There is no active drainage or lymphangitic streaking. No crepitance palpated. No vesicular changes to suggest potential herpes outbreak. Remainder of the exam is normal MDM MDM MDM Narrative Medical decision making narrative: Patient presented to the ER with stable vitals and reported relatively sudden onset of swelling and pain in the left inguinal region. Differential diagnosis is for abscess versus cellulitis versus lymphadenopathy versus potential herpes outbreak. Her exam is most consistent with an early abscess. Based on its small nature and the fact that there is no findings of systemic infection and she has no history of immunosuppression I do (more content not included)... Normal [facility] CNOVon 07-20-2024 [facility] Office Visit (UCWSTR ) BRANDY LLANOS ([id number]) 2 F UPA Date Time Provider Department 07/20/24 11:30 AM KUN JAVIER [facility] During your visit today, we recorded the following information about you: Temperature Pulse Respiration Blood pressure 97.7 degrees 80/minute 16/minute 112/66 Weight 69.8 kg Kun Javier APRN.HEAD INSPECTOR 07/20/2024 11:29 AM Signed [facility] Subjective Brandy Llanos is a [...] history is provided by the patient. No metal burrer was used. Review of Systems Constitutional: Negative. [...] to make a dermatology appointment. Kun Javier APRN.HEAD INSPECTOR History and Record Review External record(s) reviewed: [...] Encounter Status:Closed by KUN JAVIER on 07/20/24 [facility] CNOVon 04-29-2024 CNOV Office Visit (PODIWS ) BRANDY LLANOS ([id number]) 2 F UPA Date Time Provider Department [...] Drug use: Yes Types: Marijuana Comment: medical marijuara card for her back REVIEW OF SYSTEMS [...] conservative optio (more content not included)... [facility] XR FOOT 3V AP/LAT/OBL LTon 1 [...] No radiographic evidence of acute osseous abnormality Invertebrate Paleontologist: CAM Transcribe Date/Time: Apr 29 2024 3:04P Dictated by : FANG TYLER MD This examination was interpreted and the report reviewed and electronically signed by: FANG TYLER MD on Apr 29 2024 3:06PM EST [id number] [facility] XR Foot - left AP and Latera l and obliqueon 04-29-2024 IMPRESSION: No radiographic evidence of acute osseous abnormality Invertebrate Paleontologist: [facility] Transcribe Date/Time: Apr 29 2024 3:04P Dictated [...] soft tissue calcifications. DIVISION OF RADIOLOGY Provider, [facility] - 04/29/2024 * * *Final Report* * [...] No radiographic evidence of acute osseous abnormality Invertebrate Paleontologist: PSCB Transcribe Date/Time: Apr 29 2024 3:04P Dictated by : FANG TYLER MD This examination was interpreted and the report reviewed and electronically signed by: FANG TYLER MD on Apr 29 2024 3:06PM EST [facility] Radiology Study observation (narrative) [facility] XR Foot - left AP and Latera l and obliqueOrdered By: Ccf [facility]-29-[facility] (GENSME ) BRANDY LLANOS ([id number]) 2 F UPA Date Time Provider Department [...] presents with: Consult: External hemorrhoid irriated - [place] lanced in-office 12/09 Patient called into office [...] Encounter Status:Closed by ISIDRO BARRAGAN on 12/14/23 [facility] CNCOon 12-10-2023 CNCO Letter Text [facility] CNOVon 12-10-2023 CNOV Office Visit (GENSWS ) BRANDY LLANOS ([id number]) 2 F UPA Date Time Provider Department 12/10/23 1:30 PM KIN ALVARADO During your visit today, we recorded the following information about you: Temperature Pulse Blood pressure Weight 98.4 degrees 107/minute 106/78 74.5 kg Height 1.664 m Ame Asif RN 12/10/2023 1:43 PM Addendum [...] Mammogram screening? N/A Last Colonoscopy: none SISI Brooks Linda Marie, MD 01/15/2024 12:23 PM Signed Brandy Llanos [...] entered by the nurse and reviewed by mi Nursing Notes: Ame Asif RN 12/10/2023 1:43 [...] NOTES hemorrhoids, (more content not included)... [facility] CNOVon 12-07-2023 CNOV Office Visit (UCWSTR ) BRANDY LLANOS LEONIDAS ([id number]) 2 F UPA Date Time Provider Department 12/07/23 6:45 PM MACIEJ FERNANDEZ [facility] During your visit today, we recorded the following information about you: Temperature Pulse Respiration Blood pressure 96.9 degrees 98/minute 16/minute 110/64 Weight 75.2 kg Maciej Fernandez, SHASHI.HEAD INSPECTOR 12/07/2023 7:07 PM Signed Subjective HPI Nontoxic-appearing [...] Objective Physical Exam Exam conducted with a bowl turner present. Constitutional: General: She is not in [...] of care. This note was generated using GameMaki software. It may contain errors in wording, [...] called th (more content not included)... [facility] Laboratory - Microbiology an d Antimicrobial susceptibilityOrdered By: Sung Payton on 06-06-2023 SARS-CoV-2 (COVID-19) RNA EL+probe Ql (Unsp spec) [facility] Serum or plasma choriogonado tropin detectionOrdered By: Sung Payton on 06-06-2023 HCG ( test) Ql Negative [facility] GROUPNOTEon 11-13-2022 GROUPNOTE Outpatient [facility] Intensive Outpatient Program (IOP) Group Therapy - Session 2 Group Name: Intensive Outpatient Program Summary: UPHOLSTERY TRIMMER had patients complete their relapse prevention plans. [...] that her close friends have been supportive. UPHOLSTERY TRIMMER confronted reservations. Progress Towards Goal(s): Moderate Additional Comments: n/a Next Step: Continue with current services Patients Problems: Patient Active Problem List Diagnosis Major depressive disorder, recurrent episode with peripartum onset (HCC) Cannabis use disorder, severe (HCC) Name: Brandy Llanos Date of : 2000 MR: [id number] [facility] GROUPNOTE Outpatient [facility] Intensive Outpatient Program (IOP) Group Therapy [...] Brandy Llanos Date of : 2000 MR: [id number] [facility] GROUPNOTE Outpatient [facility] Intensive Outpatient Program (IOP) Group Therapy [...] Brandy Llanos Date of : 2000 MR: [id number] Neris Jensen [facility] GROUPNOTEon 11-09-2022 GROUPNOTE Outpatient [facility] Intensive Outpatient Program (IOP) Group Therapy - Session 3 Group Name: Intensive Outpatient Program Summary: UPHOLSTERY TRIMMER had patients share content that resonated with [...] Brandy Llanos Date of : 2000 MR: [id number] [facility] GROUPNOTE Outpatient [facility] Intensive Outpatient Program (IOP) Group Therapy - Session 1 Group Name: Intensive Outpatient Program Summary: UPHOLSTERY TRIMMER allotted time for patients to share recent [...] Brandy Llanos Date of : 2000 MR: [id number] [facility] GROUPNOTE Outpatient [facility] Intensive Outpatient Program (IOP) Group Therapy [...] Brandy Llanos Date of : 2000 MR: [id number] Neris Jensen [facility] 11-07-2022 [facility] Outpatient [facility] Breathalyzer and/or Urine Drug Screen [...] Next week Patient's Response to Plan/Intervention:agree d [facility] GROUPNOTEon 11-07-2022 GROUPNOTE Outpatient [facility] Intensive Outpatient Program (IOP) Group Therapy - Session 3 Group Name: Intensive Outpatient Program Summary: UPHOLSTERY TRIMMER had patient watched grief video shared by [...] Brandy Llanos Date of : 2000 MR: [id number] Neris Jensen [facility] GROUPNOTE Outpatient [facility] Intensive Outpatient Program (IOP) Group Therapy - Session 1 Group Name: Intensive Outpatient Program Summary: UPHOLSTERY TRIMMER monitored patients self care practices and progress [...] Brandy Llanos Date of : 2000 MR: [id number] Neris [facility] GROUPNOT Outpatient [facility] Intensive Outpatient Program (IOP) Group Therapy - Session 2 Group Name: Intensive Outpatient Program Summary: UPHOLSTERY TRIMMER gave time for patient to share their [...] shared that she is worried to leave [facility] because it gives her time to [...] Brandy Llanos Date of : 2000 MR: [id number] [facility] GROUPNOTEon 11-06-2022 GROUPNOTE Outpatient [facility] Intensive Outpatient Program (IOP) Group Therapy - Session 3 Group Name: Intensive Outpatient Program Summary: UPHOLSTERY TRIMMER reviewed coping skills with patients and had [...] Brandy Llanos Date of : 2000 MR: [id number] [facility] GROUPNOT Outpatient [facility] Intensive Outpatient Program (IOP) Group Therapy - Session 2 Group Name: Intensive Outpatient Program Summary: Patient shared concern for peers behavior, UPHOLSTERY TRIMMER validated and processed feelings with them. UPHOLSTERY TRIMMER then provided education on guilt, shame and [...] Brandy Llanos Date of : 2000 MR: [id number] [facility] GROUPNOT Outpatient [facility] Intensive Outpatient Program (IOP) Group Therapy - Session 1 Group Name: Intensive Outpatient Program Summary: UPHOLSTERY TRIMMER checked in with patients about their weekends. [...] Brandy Llanos Date of : 2000 MR: [id number] Neris Jensen [facility] GROUPNOTEon 11-02-2022 GROUPNOTE Outpatient [facility] Intensive Outpatient Program (IOP) Group Therapy [...] Brandy Llanos Date of : 2000 MR: [id number] [facility] GROUPNOTE Outpatient [facility] Intensive Outpatient Program (IOP) Group Therapy [...] Brandy Llanos Date of : 2000 MR: [id number] [facility] GROUPNOTE Outpatient [facility] Intensive Outpatient Program (IOP) Group Therapy [...] at meetings. She shared that she attends mandaen weekly. Progress Towards Goal(s): Moderate Additional Comments: patient isolated herself from peers during breaks. Next Step: Continue with current services Patients Problems: Patient Active Problem List Diagnosis Major depressive disorder, recurrent episode with peripartum onset (HCC) Cannabis use disorder, severe (HCC) Name: Brandy Llanos Date of : 2000 [facility] [id number] [facility] Breathalyzer and/or Urine Drug Screen Results Date [...] test weekly Patient's Response to Plan/Intervention:agree d [facility] GROUPNOTEon 10-31-2022 GROUPNOTE Outpatient [facility] Intensive Outpatient Program (IOP) Group Therapy - Session 2 Group Name: Intensive Outpatient Program Summary: UPHOLSTERY TRIMMER provided education on grounding techniques and had [...] Brandy Llanos Date of : 2000 MR: [id number] Neris Jensen [facility] GROUPNOTE Outpatient [facility] Intensive Outpatient Program (IOP) Group Therapy - Session 1 Group Name: Intensive Outpatient Program Summary: UPHOLSTERY TRIMMER checked in with patients on SMART goals, [...] feelings. Progress Towards Goal(s): Moderate Additional Comments: UPHOLSTERY TRIMMER confronted patient about sex work behaviors in private during break. Patient became angry but was able to calm herself. Next Step: Continue with current services Patients Problems: Patient Active Problem List Diagnosis Major depressive disorder, recurrent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 Diastolic blood pressure 78 mm[Hg] Kin Alvarado MD Work Phone: [facility] 12-10-2023 13:43-0400 Heart rate 107 /min Kin Alvarado MD Work Phone: [facility] 12-10-2023 13:43-0400 SaO2% (BldA) [Mass fraction] 97 % Kin Alvarado MD Work Phone: [facility] 12-10-2023 13:43-0400 Systolic blood pressure 106 mm[Hg] Kin Alvarado MD Work Phone: [facility] 12-07-2023 18:39-0400 Body mass index (BMI) [Ratio] 27.17 kg/m2 Maciej Fernandez APRN.HEAD INSPECTOR Work Phone: [facility] 12-07-2023 18:39-0400 Body temperature 96.91 [degF] Maciej Fernandez DIRECT CARE WORKER.HEAD INSPECTOR Work Phone: [facility] 12-07-2023 18:39-0400 Body weight 75.2 kg Maciej Fernandez DIRECT CARE WORKER.HEAD INSPECTOR Work Phone: [facility] 12-07-2023 18:39-0400 Diastolic blood pressure 64 mm[Hg] Maciej Fernandez DIRECT CARE WORKER.HEAD INSPECTOR Work Phone: [facility] 12-07-2023 18:39-0400 Heart rate 98 /min Maciej Fernandez DIRECT CARE WORKER.HEAD INSPECTOR Work Phone: [facility] 12-07-2023 18:39-0400 Respiratory rate 16 /min Maciej Pendlebury DIRECT CARE WORKER.HEAD INSPECTOR Work Phone: [facility] 12-07-2023 18:39-0400 SaO2% (BldA) [Mass fraction] 100 % Maciej Pendlebury DIRECT CARE WORKER.HEAD INSPECTOR Work Phone: [facility] 12-07-2023 18:39-0400 Systolic blood pressure 110 mm[Hg] Maciej Pendlebury DIRECT CARE WORKER.HEAD INSPECTOR Work Phone: [facility] 10-04-2023 18:47-0400 Body mass index (BMI) [Ratio] 26.01 kg/m2 Justine Tracy DIRECT CARE WORKER.HEAD INSPECTOR Work Phone: [facility] 10-04-2023 18:47-0400 Body temperature 98.01 [degF] Justine Tracy DIRECT CARE WORKER.HEAD INSPECTOR Work Phone: [facility] 10-04-2023 18:47-0400 Body weight 72 kg Justine Jarrod DIRECT CARE WORKER.HEAD INSPECTOR Work Phone: [facility] 10-04-2023 18:47-0400 Diastolic blood pressure 75 mm[Hg] Justine Tracy DIRECT CARE WORKER.HEAD INSPECTOR Work Phone: [facility] 10-04-2023 18:47-0400 Heart rate 89 /min Justine Tracy DIRECT CARE WORKER.HEAD INSPECTOR Work Phone: [facility] 10-04-2023 18:47-0400 Respiratory rate 20 /min Justine Tracy DIRECT CARE WORKER.HEAD INSPECTOR Work Phone: [facility] 10-04-2023 18:47-0400 SaO2% (BldA) [Mass fraction] 100 % Justnie Tracy DIRECT CARE WORKER.HEAD INSPECTOR Work Phone: [facility] 10-04-2023 18:47-0400 Systolic blood pressure 133 mm[Hg] Justine Jarrod DIRECT CARE WORKER.HEAD INSPECTOR Work Phone: [facility] 06-06-2023 14:20-0500 Body temperature 97.6 [degF] [facility] 06-06-2023 14:20-0500 Diastolic blood pressure 89 mm[Hg] [facility] 06-06-2023 14:20-0500 Heart rate 64 /min [facility] 06-06-2023 14:20-0500 Respiratory rate 16 /min [facility] 06-06-2023 14:20-0500 SaO2% (BldA) [Mass fraction] 99 % [facility] 06-06-2023 14:20-0500 Systolic blood pressure 115 mm[Hg] [facility] 06-06-2023 10:33-0500 Body height 165.1 cm [facility] 06-06-2023 10:33-0500 Body mass index (BMI) [Ratio] 27.8 kg/m2 [facility] 06-06-2023 10:33-0500 Body weight 75.83 kg [facility] 03-13-2022 10:06-0400 Body height 165.1 cm CERTIFIED MASTER SAFE TECHNICIAN-Kerrie Patterson NP Work Phone: [facility] Work Phone: 02-26-2022 08:52-0400 Body temperature 98.7 [degF] [facility] Work Phone: 02-26-2022 08:52-0400 Diastolic blood pressure 68 mm[Hg] [facility] Work Phone: 02-26-2022 08:52-0400 Heart rate 111 /min [facility] Work Phone: 02-26-2022 08:52-0400 Respiratory rate 18 /min [facility] Work Phone: 02-26-2022 08:52-0400 SaO2% (BldA) [Mass fraction] 97 % [facility] Work Phone: 02-26-2022 08:52-0400 Systolic blood pressure 116 mm[Hg] [facility] Work Phone: 02-24-2022 06:39-0400 Body height 165.1 cm [facility] Work Phone: 02-24-2022 06:39-0400 Body mass index (BMI) [Ratio] 29.6 kg/m2 [facility] Work Phone: 02-24-2022 06:39-0400 Body weight 80.73 kg [facility] Work Phone: 12-31-2021 12:18-0400 Body temperature 98.9 [degF] [facility] Work Phone: 12-31-2021 12:18-0400 Diastolic blood pressure 78 mm[Hg] [facility] Work Phone: 12-31-2021 12:18-0400 Heart rate 115 /min [facility] Work Phone: 12-31-2021 12:18-0400 Respiratory rate 16 /min [facility] Work Phone: 12-31-2021 12:18-0400 SaO2% (BldA) [Mass fraction] 95 % [facility] Work Phone: 12-31-2021 12:18-0400 Systolic blood pressure 136 mm[Hg] [facility] Work Phone: 12-31-2021 07:37-0400 Body height 165.1 cm [facility] Work Phone: 12-31-2021 07:37-0400 Body mass index (BMI) [Ratio] 27.6 kg/m2 [facility] Work Phone: 12-31-2021 07:37-0400 Body weight 75.47 kg [facility] Work Phone: 12-11-2021 21:22-0400 Body height 166.37 cm [facility] Work Phone: 12-11-2021 21:22-0400 Body mass index (BMI) [Ratio] 26.7 kg/m2 [facility] Work Phone: 12-11-2021 21:22-0400 Body weight 74 kg [facility] Work Phone: 12-11-2021 21:20-0400 Body temperature 98.6 [degF] [facility] Work Phone: 12-11-2021 21:20-0400 Diastolic blood pressure 70 mm[Hg] [facility] Work Phone: 12-11-2021 21:20-0400 SaO2% (BldA) [Mass fraction] 98 % [facility] Work Phone: 12-11-2021 21:20-0400 Systolic blood pressure 116 mm[Hg] [facility] Work Phone: 11-09-2020 13:34-0400 Body height 167.64 cm No PCP None [facility] Work Phone: 11-09-2020 13:34-0400 Body mass index (BMI) [Ratio] 20.34 kg/m2 No PCP None [facility] Work Phone: 11-09-2020 13:34-0400 Body surface area Derived from formula 1.64 m2 No PCP None [facility] Work Phone: 11-09-2020 13:34-0400 Body weight 57.15 kg No PCP None [facility] Work Phone: 11-09-2020 13:34-0400 Diastolic blood pressure 72 mm[Hg] No PCP None [facility] Work Phone: 11-09-2020 13:34-0400 Systolic blood pressure 108 mm[Hg] No PCP None [facility] Work Phone: 11-09-2020 13:34-0400 48 1 No PCP None [facility] Work Phone: Comment on above: 2-20_[facility] 11-09-2020 13:34-0400 75 1 No PCP None [facility] Work Phone: Comment on above: 2-20_[facility] 11-09-2020 13:34-0400 34 1 No PCP None [facility] Work Phone: Comment on above: [facility] Encounters Encounter Date Encounter Type Care Provider Facility Start: 01-16-2025 End: 01-16-2025 Office outpatient visit 15 minutes Maciej Fernandez DIRECT CARE WORKER.HEAD INSPECTOR Work Phone: [facility] Comment on above: External hemorrhoid (Primary Dx) Start: 11-30-2024 End: 11-30-2024 Emergency department patient visit No Primary Care Physician Facility:[facility] Start: 11-29-2024 End: 11-29-2024 Office outpatient visit 15 minutes Efrem Ross MD Work Phone: [facility] Comment on above: History of third mol ar tooth extraction, unspecified edentulism class (Primary Dx); Jaw swelling Start: 11-29-2024 End: 11-29-2024 ambulatory EFREM ROSS Facility:[facility] Start: 11-26-2024 End: 11-26-2024 Emergency department patient visit No Primary Care Physician -Emergency Department Work Phone: Start: 11-18-2024 End: 11-18-2024 Emergency department patient visit No Primary Care Physician -Emergency Department Work Phone: Start: 11-07-2024 End: 01-07-2025 Follow-up encounter Frandy Quijano MD Work Phone: OB/Gynecology Start: 11-06-2024 End: 11-06-2024 Office outpatient visit 15 minutes Maciej Fernandez DIRECT CARE WORKER.HEAD INSPECTOR Work Phone: [facility] Comment on above: Visit for wound chec k (Primary Dx) Start: 11-06-2024 End: 11-06-2024 ambulatory MACIEJ FERNANDEZ Facility:[facility] Start: 11-06-2024 End: 11-06-2024 Patient encounter procedure Frandy Quijano MD Work Phone: OB/Gynecology Comment on above: Encounter for gyneco logical examination (general) (routine) without abnormal findings (Primary Dx); Screening for cervical cancer; Encounter for screening for human papillomavirus (HPV); Screen for STD (sexually transmitted disease); Menorrhagia with regular cycle Start: 11-06-2024 End: 11-06-2024 Patient encounter status Frandy Quijano MD Work Phone: [facility] Start: 11-06-2024 End: 11-06-2024 ambulatory FRANDY QUIJANO Facility:[facility] Start: 11-06-2024 Encounter for gynecological examination (general) (routine) without abnormal findings FRANDY QUIJANO [facility] Start: 10-27-2024 End: 10-27-2024 Emergency department patient visit No Primary Care Physician -Emergency Department Work Phone: Start: 07-20-2024 End: 07-20-2024 ambulatory ISIDRO BARRAGAN Facility:[facility] Start: 07-20-2024 End: 07-20-2024 Patient encounter procedure Kun Javier APRN.CNP Work Phone: [facility] Comment on above: Discoloration of ski n (Primary Dx) Start: 04-29-2024 End: 04-29-2024 Patient encounter procedure Chi Pascal Work Phone: Podiatry Comment on above: Hallux valgus of lef t foot (Primary Dx); Pes planus, congenital, left Start: 04-29-2024 End: 04-29-2024 ambulatory CHI PASCAL Facility:[facility] Start: 04-29-2024 End: 04-29-2024 Subsequent hospital visit by physician Roly [facility] Work Phone: Radiology Comment on above: Pain [R52] Start: 12-14-2023 End: 12-14-2023 ambulatory ISIDRO BARRAGAN Facility:[facility] Start: 12-14-2023 End: 12-14-2023 Patient encounter procedure Isidro Barragan MD Work Phone: General Surgery Comment on above: External hemorrhoid (Primary Dx) Start: 12-10-2023 End: 12-10-2023 ambulatory KIN ALVARADO Facility:[facility] Start: 12-10-2023 End: 12-10-2023 Patient encounter procedure Kin Alvarado MD Work Phone: General Surgery Comment on above: External hemorrhoid; External hemorrhoid, thrombosed Start: 12-07-2023 End: 12-07-2023 ambulatory ISIDRO BARRAGAN Facility:[facility] Start: 12-07-2023 End: 12-07-2023 Office outpatient visit 15 minutes Maciej Fernandez DIRECT CARE WORKER.HEAD INSPECTOR Work Phone: [facility] Comment on above: External hemorrhoid (Primary Dx) Start: 10-04-2023 End: 10-04-2023 Patient encounter procedure Justine Estescalf DIRECT CARE WORKER.HEAD INSPECTOR Work Phone: [facility] Comment on above: External hemorrhoid (Primary Dx) Start: 06-06-2023 End: 06-06-2023 Emergency department patient visit [facility] Work Phone: Start: 11-16-2022 End: 11-17-2022 ambulatory [facility] Start: 11-16-2022 End: 11-16-2022 Subsequent hospital visit by physician Pedrito Mora MD Work Phone: [facility] Comment on above: Cannabis use disorde r, severe (HCC) Start: 11-16-2022 Documentation procedure Neris Arnol crandall [facility] Start: 11-15-2022 End: 11-16-2022 ambulatory [facility] Start: 11-15-2022 End: 11-15-2022 Subsequent hospital visit by physician Pedrito Mora MD Work Phone: [facility] Comment on above: Cannabis use disorde r, severe (HCC) Start: 11-13-2022 End: 11-14-2022 ambulatory [facility] Start: 11-13-2022 End: 11-13-2022 Subsequent hospital visit by physician Pedrtio Mora MD Work Phone: [facility] Comment on above: Arrived Start: 11-10-2022 End: 11-13-2022 [facility] Start: 11-09-2022 End: 11-09-2022 Subsequent hospital visit by physician Pedrito Mora MD Work Phone: [facility] Comment on above: Cannabis use disorde r, severe (HCC) Start: 11-07-2022 End: 11-08-2022 [facility] Start: 11-07-2022 End: 11-07-2022 Subsequent hospital visit by physician Pedrito Mora MD Work Phone: [facility] Start: 11-06-2022 End: 11-07-2022 [facility] Start: 11-03-2022 End: 11-06-2022 [facility] Start: 11-02-2022 End: 11-02-2022 Subsequent hospital visit by physician Pedrito Mora MD Work Phone: [facility] Comment on above: Cannabis use disorde r, severe (HCC) Start: 10-31-2022 End: 10-31-2022 Subsequent hospital visit by physician Pedrito Mora MD Work Phone: [facility] Comment on above: Cannabis use disorde r, severe (HCC) Start: 10-31-2022 End: 11-01-2022 [facility] Start: 10-30-2022 End: 10-31-2022 [facility] Start: 10-30-2022 End: 10-30-2022 Subsequent hospital visit by physician Pedrito Mora MD Work Phone: [facility] Comment on above: Arrived Start: 10-26-2022 End: 10-26-2022 Subsequent hospital visit by physician Pedrito Mora MD Work Phone: [facility] Comment on above: Cannabis use disorde r, severe (HCC) Start: 10-26-2022 End: 10-27-2022 [facility] Start: 10-24-2022 End: 10-25-2022 ambulatory [facility] Start: 10-24-2022 End: 10-24-2022 Subsequent hospital visit by physician Pedrito Mora MD Work Phone: [facility] Comment on above: Arrived Start: 10-23-2022 End: 10-24-2022 ambulatory [facility] Start: 10-23-2022 End: 10-23-2022 Subsequent hospital visit by physician Pedrito Mora MD Work Phone: [facility] Start: 10-23-2022 End: 10-23-2022 ambulatory [facility] Start: 10-19-2022 End: 10-20-2022 ambulatory [facility] Start: 10-17-2022 End: 10-18-2022 [facility] Start: 10-17-2022 End: 10-17-2022 Subsequent hospital visit by physician Pedrito Mora MD Work Phone: [facility] Start: 10-16-2022 End: 10-17-2022 ambulatory [facility] Start: 10-16-2022 End: 10-16-2022 Subsequent hospital visit by physician Pedrito Mora MD Work Phone: [facility] Comment on above: Arrived Start: 10-05-2022 End: 10-06-2022 ambulatory [facility] Start: 04-11-2022 Telephone encounter Mary siegel APRN.HEAD INSPECTOR Work Phone: [facility] Comment on above: Results Start: 03-16-2022 End: 03-16-2022 Patient encounter procedure CERTIFIED MASTER SAFE TECHNICIAN-C Gabby Patterson CERTIFIED MASTER SAFE TECHNICIAN Work Phone: [facility] Start: 03-10-2022 End: 03-10-2022 ambulatory CERTIFIED MASTER SAFE TECHNICIAN-C Gabby Patterson CERTIFIED MASTER SAFE TECHNICIAN Work Phone: [facility] Work Phone: Start: 03-10-2022 End: 03-10-2022 Patient encounter procedure CERTIFIED MASTER SAFE TECHNICIAN-C Gabby Leonardo CERTIFIED MASTER SAFE TECHNICIAN Work Phone: [facility], [place] [facility] Start: 03-05-2022 End: 03-05-2022 Patient encounter procedure CERTIFIED MASTER SAFE TECHNICIAN-C Gabby Leonardo CERTIFIED MASTER SAFE TECHNICIAN Work Phone: [facility] Start: 03-01-2022 End: 03-01-2022 Patient encounter procedure CERTIFIED MASTER SAFE TECHNICIAN-C Gabby Leonardo CERTIFIED MASTER SAFE TECHNICIAN Work Phone: [facility] Start: 02-24-2022 End: 02-26-2022 Evaluation and management of inpatient [facility] Start: 01-27-2022 End: 01-27-2022 ambulatory [facility] Work Phone: Start: 01-27-2022 End: 01-27-2022 [facility] [place] [facility] Start: 12-31-2021 End: 12-31-2021 Emergency department patient visit [facility]Emergency Department Start: 12-11-2021 End: 12-11-2021 Patient encounter procedure [facility], Outpatients Start: 11-11-2021 End: 11-11-2021 [facility] [place] [facility] Start: 11-09-2021 End: 11-09-2021 [facility] [place] [facility] Start: 11-11-2020 Chart Update No PCP None [facility] Work Phone: Start: 11-09-2020 Office outpatient ne w 30 minutes No PCP None [facility] Work Phone: Procedures Date Procedure Procedure Detail Performing Clinician Start: 11-26-2024 X-ray of chest, PA a nd lateral views No Primary Care Physician Start: 11-26-2024 D-dimer assay, quantitative No Primary Care Physician Comment on above: NORMAL D-Dimer level (<0.50) indicates no DVT or PE. Start: 11-26-2024 Estimated creatinine clearance No Primary Care Physician Start: 04-29-2024 Radex foot complete minimum 3 views Chi Pascal Work Phone: Start: 06-06-2023 SARS-CoV-2, Influenz a & RSV (PCR) Group B Streptococcu s Culture No history of surgery No PCP None Urine culture CERTIFIED MASTER SAFE TECHNICIAN-C Gabby jhaveri CERTIFIED MASTER SAFE TECHNICIAN Work Phone: Viral antigen assay Plan of Treatment Date Care Activity Detail Author Start: 08-02-2051 Zoster Vaccines (1 of 2) Zoster Vacc soumya (1 of 2) [facility] Start: 11-07-2027 Screening for malign ant neoplasm of cervix Cervical Cancer Screening [facility] Start: 11-06-2025 GC (Gonorrhea) Scree ying () GC (Gonorrhea) Screening () [facility] Start: 11-06-2025 Screening for Chlamy gail trachomatis Chlamydia Screening () [facility] Start: 01-19-2025 End: 01-19-2025 Patient encounter procedure 01/19/2025 9:30 AM EDT Office Visit General Surgery [address] [place] [id number] Elizabeth Pascual MD [address] [place] [id number] External hemorrhoid [K64.4] General Surgery Comment on above: External hemorrhoid [K64.4] Start: 01-12-2025 Influenza vaccination [facility] Start: 11-26-2024 [facility] Start: 11-18-2024 [facility] Start: 11-13-2024 End: 11-13-2024 ambulatory 11/13/2024 1:30 PM EDT Procedure OB/Gynecology [address] [place] [address] Remote, [facility] [address] [place] [address] Menorrhagia with regular cycle [N92.0] OB/Gynecology Comment on above: Menorrhagia with reg ular cycle [N92.0] Start: 11-06-2024 End: 02-05-2025 CBC panel - Blood by Automated count COMPLETE BLOOD COUNT Lab Routine Menorrhagia with regular cycle Expected: 11/06/2024, Expires: 02/05/2025 [facility] Comment on above: Expected: 11/06/2024 , Expires: 02/05/2025 Start: 11-06-2024 End: 02-05-2025 Chlamydia trachomatis+Neisseria gonorrhoeae DNA [Presence] in Unspecified specimen by EL with probe detection [facility] Work Phone: Comment on above: Expected: 11/06/2024 , Expires: 02/05/2025 Start: 11-06-2024 End: 02-05-2025 Thyrotropin [Units/volume] in Serum or Plasma THYROID STIMULATING HORMONE Lab Routine Menorrhagia with regular cycle Expected: 11/06/2024, Expires: 02/05/2025 [facility] Comment on above: Expected: 11/06/2024 , Expires: 02/05/2025 Start: 11-06-2024 End: 02-05-2025 Thyroxine (T4) free [Mass/volume] in Serum or Plasma T4 FREE/FREE THYROXINE Lab Routine Menorrhagia with regular cycle Expected: 11/06/2024, Expires: 02/05/2025 [facility] Comment on above: Expected: 11/06/2024 , Expires: 02/05/2025 Start: 11-06-2024 End: 11-06-2025 US Pelvis PELVIC US [facility] Routine Menorrhagia with regular cycle Expected: 11/06/2024, Expires: 11/06/2025 [facility] Comment on above: Expected: 11/06/2024 , Expires: 11/06/2025 Start: 10-27-2024 [facility] Start: 01-13-2024 Covid-19 Vaccine ( season) Covid-19 Vaccine ( season) [facility] Start: 01-13-2024 Covid-19 Vaccine ( season) Covid-19 Vaccine () [facility] Start: 01-13-2024 Influenza vaccination [facility] Start: 12-10-2023 End: 12-10-2023 Patient encounter procedure 12/10/2023 1:30 PM EDT Office Visit General Surgery [address] [place], [place] [id number] Kin Alvarado MD [address] [place] [address] External hemorrhoid [K64.4] General Surgery Comment on above: External hemorrhoid [K64.4] Start: 08-29-2023 GC (Gonorrhea) Scree ying () GC (Gonorrhea) Screening () [facility] Start: 08-29-2023 Screening for Chlamy gail trachomatis Chlamydia Screening () [facility] Start: 06-06-2023 [facility] Start: 06-06-2023 Chlamydia trachomati s (PCR) Chlamydia trachomatis (PCR) [facility] Start: 06-06-2023 Neisseria gonorrhoea e (PCR) Neisseria gonorrhoeae (PCR) [facility] Start: 06-06-2023 [facility] Start: 05-14-2023 Behavioral Health Screening Behavioral Health Screening [facility] Start: 04-07-2023 COVID-19 VACCINE (#1) COVID-19 VACCI NE (#1) [facility] Comment on above: Postponed from 02/01 (Declined at this time) Start: 04-07-2023 Depresssion Monitoring Depresssion [facility] Start: 01-12-2023 Covid-19 Vaccine ( season) Covid-19 Vaccine ( season) [facility] Start: 01-12-2023 Influenza vaccination [facility] Start: 12-07-2022 End: 12-07-2022 Patient encounter procedure 12/07/2022 5:30 PM EDT Appointment [facility] [address] [place] [address] Pedrito Mora MD [address] [facility] [facility] [address] [place] [address] Neris Jensen [facility] Start: 12-05-2022 End: 12-05-2022 Patient encounter procedure 12/05/2022 5:30 PM EDT Appointment [facility] [address] [place] [address] Pedrito Mora MD [address] [place], [place] [phone] Neris Jensen [facility] Start: 12-04-2022 End: 12-04-2022 Patient encounter procedure 12/04/2022 5:30 PM EDT Appointment [facility] [address] [place] [phone] Pedrito Mora MD [address] [place], [place] [phone] Neris Jensen [facility] Start: 11-30-2022 End: 11-30-2022 Patient encounter procedure 11/30/2022 5:30 PM EDT Appointment [facility] [address] [place] [address] Pedrito Mora MD [address] [place], [place] [phone] Neris Jensen [facility] Start: 11-28-2022 End: 11-28-2022 Patient encounter procedure 11/28/2022 5:30 PM EDT Appointment [facility] [address] [place] [address] Pedrito Mora MD [address] [place], [place] [phone] Neris Jensen [facility] Start: 11-27-2022 End: 11-27-2022 Patient encounter procedure 11/27/2022 5:30 PM EDT Appointment [facility] [address] [place] [address] Pedrito Mora MD [address] [place] [address] Harlan Jensendison [facility] Start: 11-23-2022 End: 11-23-2022 Patient encounter procedure 11/23/2022 5:30 PM EDT Appointment [facility] [address] [place] [address] Pedrito Mora MD [address] [place] [address] Mikey Neris [facility] Start: 11-21-2022 End: 11-21-2022 Patient encounter procedure 11/21/2022 5:30 PM EDT Appointment [facility] [address] [place] [address] Pedrito Mora MD [address] [place], [place] [phone] Mikey Neris [facility] Start: 11-20-2022 End: 11-20-2022 Patient encounter procedure 11/20/2022 5:30 PM EDT Appointment [facility] [address] [place] [address] Pedrito Mora MD [address] [place] [address] Mikey Neris [facility] Start: 11-16-2022 End: 11-16-2022 Patient encounter procedure 11/16/2022 5:30 PM EDT Appointment [facility] [address] [place] [address] Pedrito Mora MD [address] [place] [address] Mikey Nreis [facility] Start: 11-15-2022 End: 11-15-2022 Patient encounter procedure 11/15/2022 5:30 PM EDT Appointment [facility] [address] [place] [address] Pedrito Mora MD [address] [place], [place] [phone] Neris Jensen [facility] Start: 11-14-2022 End: 11-14-2022 Patient encounter procedure 11/14/2022 5:30 PM EDT Appointment [facility] [address] [place] [address] Pedrito Mora MD [address] [place], [place] [phone] Neris Jensen [facility] Start: 11-13-2022 End: 11-13-2022 Patient encounter procedure 11/13/2022 5:30 PM EDT Appointment [facility] [address] [place] [address] Pedrito Mora MD [address] [place], [place] [phone] Neris Jensen [facility] Start: 11-10-2022 Influenza vaccination INFLUENZA (#1) [facility] Comment on above: Postponed from 01/12 (Declined at this time) Start: 11-09-2022 End: 11-09-2022 Patient encounter procedure 11/09/2022 5:30 PM EDT Appointment [facility] [address] [place] [address] Pedrito Mora MD [address] [place], [place] [phone] Neris Jensen [facility] Start: 11-07-2022 End: 11-07-2022 Patient encounter procedure 11/07/2022 5:30 PM EDT Appointment [facility] [address] [place] [address] Pedrito Mora MD [address] [place] [address] Mikey Neris [facility] Start: 11-06-2022 End: 11-06-2022 Patient encounter procedure 11/06/2022 5:30 PM EDT Appointment [facility] [address] [place] [address] Pedrito Mora MD [address] [place] [address] Mikey Neris [facility] Start: 11-02-2022 End: 11-02-2022 Patient encounter procedure 11/02/2022 5:30 PM EDT Appointment [facility] [address] [place] [address] Pedrito Mora MD [address] [place], [place] [phone] Mikey Neris [facility] Start: 10-31-2022 End: 10-31-2022 Patient encounter procedure 10/31/2022 5:30 PM EDT Appointment [facility] [address] [place] [address] Pedrito Mora MD [address] [place] [address] Mikey Neris [facility] Start: 10-30-2022 End: 10-30-2022 Patient encounter procedure 10/30/2022 5:30 PM EDT Appointment [facility] [address] [place] [address] Pedrito Mora MD [address] [place] [address] Mikey Neris [facility] Start: 10-26-2022 End: 10-26-2022 Patient encounter procedure 10/26/2022 5:30 PM EDT Appointment [facility] [address] [place] [address] Pedrito Mora MD [address] [place], [place] [phone] Neris Jensen [facility] Start: 10-24-2022 End: 10-24-2022 Patient encounter procedure 10/24/2022 5:30 PM EDT Appointment [facility] [address] [place] [address] Pedrito Mora MD [address] [place], [place] [phone] Neris Jensen [facility] Start: 10-23-2022 End: 10-23-2022 Patient encounter procedure 10/23/2022 5:30 PM EDT Appointment [facility] [address] [place] [address] Pedrito Mora MD [address] [place], [place] [phone] Neris Jensen [facility] Start: 10-19-2022 End: 10-19-2022 Patient encounter procedure 10/19/2022 5:30 PM EDT Appointment [facility] [address] [place] [address] Pedrito Mora MD [address] [place] [address] Neris Jensen [facility] Start: 10-17-2022 End: 10-17-2022 Patient encounter procedure 10/17/2022 5:30 PM EDT Appointment [facility] [address] [place] [address] Pedrito Mora MD [address] [place], [place] [phone] Harlan Jensendison [facility] Start: 2022 Screening for malign ant neoplasm of cervix [facility] Start: 05-11-2022 End: 07-11-2022 Basic metabolic 2000 panel - Serum or Plasma BASIC METABOLIC PNL Lab Routine Elevated serum creatinine Expected: 05/11/2022, Expires: 07/11/2022 [facility] Work Phone: Comment on above: Expected: 05/11/2022 , Expires: 07/11/2022 Start: 02-26-2022 Patient discharge [facility] Work Phone: Start: 02-25-2022 Application of abdom inal corset [facility] Work Phone: Start: 02-24-2022 End: 02-25-2022 [facility] Work Phone: Start: 02-24-2022 Post-anesthesia assessment [facility] Work Phone: Start: 02-24-2022 Administration of medication [facility] Work Phone: Start: 02-24-2022 Ambulation therapy management [facility] Work Phone: Start: 02-24-2022 Application of device [facility] Work Phone: Start: 02-24-2022 Application of intermittent pneumatic compression device [facility] Work Phone: Start: 02-24-2022 Assessment of risk o f venous thromboembolism [facility] Work Phone: Start: 02-24-2022 Catheterization of vein [facility] Work Phone: Start: 02-24-2022 Deep breathing and coughing exercises [facility] Work Phone: Start: 02-24-2022 Exercises [facility] Work Phone: Start: 02-24-2022 Measuring intake and output [facility] Work Phone: Start: 02-24-2022 Notification of physician [facility] Work Phone: Start: 02-24-2022 Procedure discontinued [facility] Work Phone: Start: 02-24-2022 Provision of activit y privileges [facility] Work Phone: Start: 02-24-2022 Vital signs measurements [facility] Work Phone: Start: 02-24-2022 Wound care [facility] Work Phone: Start: 02-24-2022 Application of abdom inal corset [facility] Work Phone: Start: 02-24-2022 section Primary C Sec tion (Not Applicable) [facility] Work Phone: Start: 02-24-2022 Admission procedure [facility] Work Phone: Start: 02-24-2022 Verification routine [facility] Work Phone: Start: 02-24-2022 Consultation [facility] Work Phone: Start: 12-31-2021 [facility] Work Phone: Start: 12-11-2021 Nonstress test [facility] Work Phone: Start: 12-11-2021 Obstetric monitoring [facility] Work Phone: Start: 12-11-2021 Vital signs measurements [facility] Work Phone: Start: 12-11-2021 [facility] Work Phone: Start: 12-11-2021 Iv infusion hydratio n initial 31 min-1 hour HYDRATION IV INFUSION INIT [facility] Work Phone: Start: 12-11-2021 Patient discharge [facility] Work Phone: Start: 2020 DTaP/Tdap/Td Vaccine s (1 - Tdap) DTaP/Tdap/Td Vaccines (1 - Tdap) [facility] Start: 2020 Hepatitis A Vaccines (1 of 2 - Risk 2-dose series) Hepatitis A Vaccines (1 of 2 - Risk 2-dose series) [facility] Start: 08-02-2019 Anxiety Screening Anxiety Screening [facility] Start: 08-02-2019 CHLAMYDIA SCREENING (18-24) CHLAMYDIA SCREENING (18-24) [facility] Start: 08-02-2019 Depression Screening Depression Scre ening [facility] Start: 08-02-2019 GC (GONORRHEA) SCREE YING (18-24) GC (GONORRHEA) SCREENING (1824) [facility] Start: 08-02-2019 HEPATITIS C SCREENING HEPATITIS C SC REENING [facility] Start: 08-02-2019 Hepatitis C screening Hepatitis C Sc reening [facility] Start: 08-02-2019 HIV SCREENING HIV SCREENING [facility] Start: 08-02-2019 HIV screening HIV Screening [facility] Start: 2017 Meningococcal B Vacc ine (1 of 2 - Standard) Meningococcal B Vaccine (1 of 2 - Standard) [facility] Start: 2017 Meningococcal B Vacc ine: Consider Based On Risk (1 of 2 - Patient Seeks Protection) Meningococcal B Vaccine: Consider Based On Risk (1 of 2 - Patient Seeks Protection) [facility] Start: 08-02-2015 PEDS TO ADULT TRANSI TION ANNUAL ASSESSMENT PEDS TO ADULT TRANSITION ANNUAL ASSESSMENT [facility] Start: 2013 PEDS TO ADULT TRANSI TION INITIAL DISCUSSION PEDS TO ADULT TRANSITION INITIAL DISCUSSION [facility] Start: 08-02-2011 MENINGOCOCCAL B: Con fish and wildlife warden based on risk (1 of 2 - Risk Bexsero 2-dose series) MENINGOCOCCAL B: Consider based on risk (1 of 2 - Risk Bexsero 2-dose series) [facility] Start: 2008 DTaP/Tdap/Td Vaccine s (1 - Tdap) DTaP/Tdap/Td Vaccines (1 - Tdap) [facility] Start: 2002 Hepatitis A Vaccines (1 of 2 - Risk 2-dose series) Hepatitis A Vaccines (1 of 2 - Risk 2-dose series) [facility] Start: 2002 MMR Vaccines (1 of 1 - Standard series) MMR Vaccines (1 of 1 - Standard series) [facility] Start: 2002 Varicella vaccination Varicell a Vaccines (1 of 2 - 2-dose childhood series) [facility] Start: 02-01-2002 COVID-19 Vaccine (#1) COVID-19 Vacci ne (#1) [facility] Start: 2001 Hepatitis B Vaccines (1 of 3 - 3-dose series) Hepatitis B Vaccines (1 of 3 - 3-dose series) [facility] Start: 2001 HIV screening HIV Screening [facility] venice Chlamydia trachomatis [facility] Neisseria gonorrhoea e DNA [Presence] in Genital specimen by EL with probe detection [facility] PAP TEST PAP TEST Lab Rou rebekah Encounter for gynecological examination (general) (routine) without abnormal findings Screening for cervical cancer Encounter for screening for human papillomavirus (HPV) 11/06/2024 10:41 AM EDT [facility] Patient Education [facility] Work Phone: Patient referral [facility] Work Phone: TRICHOMONAS VAGINALI S NAAT TRICHOMONAS VAGINALIS NAAT Lab Routine Screen for STD (sexually transmitted disease) 11/06/2024 10:41 AM EDT [facility] Immunizations Immunization Date Immunization Notes Care Provider Fa cora 04-13-2014 Human Papillomavirus 9-valent vaccine Mary Abdi APRN.[facility] Work Phone: [facility] Work Phone: 10-12-2013 Human Papillomavirus 9-valent vaccine Mary Abdi APRN.[facility] Work Phone: [facility] Work Phone: Payers Date Payer Category Payer Self-pay [id number] 2022 Medicaid [id number] 2019 Medicaid [id number] Unknown [employer] Unknown [id number] Unknown [id number] Unknown [id number] Unknown [id number] Unknown [id number] Social History Date Type Detail Facility Start: 04-07-2022 End: 10-05-2022 No illicit drug use No illicit drug use [facility] Work Phone: Start: 07-10-2021 End: 06-06-2023 Tobacco smoking status DEIS Unknown if ever smoked [facility] Work Phone: Start: 03-19-2020 None [facility] Start: 10-27-2019 Spouse/ Significant Other [facility] Start: 03-19-2020 Cigarettes [facility] Start: 2000 Sex Assigned At Female [facility] Work Phone: Start: 2000 Sex Assigned At Not on file [facility] Start: 08-28-2022 End: 10-05-2022 Tobacco smoking status DEIS Never smoked tobacco [facility] Start: 10-05-2022 End: 11-06-2024 Tobacco use and exposure Smokeless tobacco non-user [facility] Start: 04-07-2022 End: 10-05-2022 Social connection and isolation panel [facility] Do you belong to any clubs or organizations such as mandaen groups, unions, fraternal or athletic groups, or school groups? No [facility] Are you now , , , , never or living with a partner? Never [facility] How often to you hav e a drink containing alcohol? 2-4 times a month [facility] How many standard dr inks containing alcohol do you have on a typical day? 1 or 2 [facility] How often do you hav e 6 or more drinks on 1 occasion? Monthly [facility] Start: 11-21-2019 How hard is it for you to pay for the very basics like food, housing, medical care, and heating Not hard at all [facility] (I/We) worried jerri er (my/our) food would run out before (I/we) got money to buy more. Never true [facility] Start: 10-05-2022 Education 13 [facility] Start: 10-05-2022 Gender identity Identifies as female gender (finding) [facility] Start: 10-05-2022 Sexual orientation Heterosexual (finding) [facility] At any time in the p ast 12 months, were you homeless or living in care home [including now]? Yes [facility] Start: 10-13-2022 End: 11-13-2022 Exposure to SARS-CoV-2 (event) Not sure [facility] Start: 12-10-2023 End: 12-14-2023 Alcohol intake Not Asked [facility] Start: 04-29-2024 Alcoholic beverage intake Lifetime non-drinker (finding) [facility] Start: 10-27-2024 End: 11-06-2024 Tobacco smoking status NHIS Ex-smoker (finding) [facility] History of tobacco use Current smoker [facility] History of tobacco use Cigarette Smoker [facility] Start: 11-06-2024 End: 01-16-2025 Alcoholic beverage intake Current drinker of alcohol (finding) [facility] Start: 11-06-2024 Alcohol Comment occasional [facility] Start: 11-18-2024 Tobacco smoking status NHIS Smokes tobacco daily (finding) [facility] Goals Date Patient Goal Desired Activity /State Personal health goal Functional Status Date Assessment Result Facility 02-24-2022 Functional status Activity Abili ty Unable to Assess;Post Op [facility] Work Phone: Mental Status Date Assessment Result Facility 11-26-2024 Cognitive function Level Of Cons ciousness Awake;Alert;Appropriate;Follow s Commands [facility] Work Phone: 11-18-2024 Cognitive function Level Of Cons ciousness Awake;Alert;Appropriate;Follow s Commands [facility] Work Phone: 06-06-2023 Cognitive function Level Of Cons ciousness Awake;Alert;Appropriate;Follow s Commands [facility] Work Phone: 02-24-2022 Cognitive function Voice/Name [facility] Work Phone: 12-31-2021 Cognitive function Level Of Consciousness Awake [facility] Work Phone: Clinical Notes 11-04-2020 to 01-16-2025 Maciej Fernandez APRN.[facility] - 01/16/2025 2:30 PM Efrem Allen MD - 11/29/2024 1:01 PM Maciej Heath APRN.[facility] - 11/06/2024 11:39 AM MARYSOLTFrandy Quijano MD - 11/06/2024 9:57 AM EDT Note Date & Type Note Facility 01-16-2025 History of Present illness Narrative Napoleon Llanos is a 24 year old female. CEFERINO Nava is a 24 y/o female with the past medical history of hemorrhoidectomy and present today for rectal discomfort, painful to sit and stand. Pt states she left work early due to pain, rates pain 03/23, pt did had slight blood in the stool this morning. History of thrombosed hemorrhoids this feels similar denies, chills, fever, sob, and chest pain, n/v. Review of Systems Constitutional: Negative for chills and fever. Respiratory: Negative for shortness of breath. Cardiovascular: Negative for chest pain. Gastrointestinal: Positive for rectal pain. Negative for abdominal pain, constipation, nausea and vomiting. Streak blood in stool Genitourinary: Negative for pelvic pain. Objective BP 109/76 Pulse 92 Temp 36.6 C (97.8 F) Resp 20 Wt 67 kg (147 lb 11.3 oz) LMP 12/22/2024 (Exact Date) SpO2 100% BMI 23.84 kg/m Physical Exam Constitutional: Appearance: Normal appearance. She is normal weight. HENT: Head: Normocephalic. Cardiovascular: Rate and Rhythm: Normal rate and regular rhythm. Pulmonary: Effort: Pulmonary effort is normal. Breath sounds: Normal breath sounds. Abdominal: Palpations: Abdomen is soft. Genitourinary: Rectum: Tenderness and external hemorrhoid present. Neurological: General: No focal deficit present. Mental Status: She is alert. Psychiatric: Mood and Affect: Mood normal. Behavior: Behavior normal. ASSESSMENT/PLAN: 1. External hemorrhoid - ICD9: 455.3, ICD10: K64.4 - CONSULT TO GENERAL SURGERY, scheduled for Sunday - suspicions of hemorrhoid thrombus -Prescribed Anusol- cream for 7 day - ER evaluation discussed Patient was educated on supportive therapies. Patient [...] of care. This note was generated using [employer] software. It may contain errors in wording, punctuation, or spelling. TEACHING PROVIDER (Physician/PA/DIRECT CARE WORKER) NOTE OF PERSONAL INVOLVEMENT IN CARE: I have personally seen and examined the patient and performed the medical decision-making components. I have reviewed the Advanced Practice Registered Nurse (DIRECT CARE WORKER) Student's documentation and verified the findings in the note as written. Any additions or changes are noted in bold/italics. Signature: Maciej Fernandez Date: 01/16/2025 Time: 3:29 PM documented in this encounter [facility] 11-29-2024 Note HNO ID: [id number] Author: EFREM ROSS MD Service: ? Author Type: Physician Type: Progress Notes Filed: 11/29/2024 13:10 Note Text: URGENT CARE TERESA Llanos is a 24 year old female. Patient presents with: Dental Problem: Swelling and pain on DAHLIA sides of face Patient presents to the urgent care with pain and swelling after all 4 wisdom teeth were extracted 4 days ago. She has pain and swelling in the jaw which are improving. Denies any drainage or fever. She has completed controlled pain medicine and is using ibuprofen and acetaminophen. She has not been able to eat much. She feels she is overall improving but still does not feel up to work today. She was in the emergency room this week she says for pleurisy. She was not prescribed an antibiotic. Review of Systems Objective BP 130/82 Pulse 70 Temp 36.5 ?C (97.7 ?F) Resp 18 Wt 66.5 kg (146 lb 9.7 oz) LMP 10/25/2024 (Exact Date) SpO2 99% BMI 23.66 kg/m? Physical Exam Constitutional: General: She is not in acute distress. HENT: Right Ear: Tympanic membrane and ear canal normal. Left Ear: Tympanic membrane and ear canal normal. Nose: No congestion. Mouth/Throat: Mouth: Mucous membranes are moist. Pharynx: No posterior oropharyngeal erythema. Comments: Upper and lower third molars extracted. Tender overlying jaw with mild swelling. Eyes: Extraocular Movements: Extraocular movements intact. Conjunctiva/sclera: Conjunctivae normal. Pupils: Pupils are equal, round, and reactive to light. Musculoskeletal: Cervical back: No tenderness. Lymphadenopathy: Cervical: No cervical adenopathy. Neurological: Mental Status: She is alert. {ASSESSMENT/PLAN: 1. History of third molar tooth extraction, unspecified edentulism class - ICD9: 525.50, 525.10, ICD10: K08.409 (primary diagnosis) 2. Jaw swelling - ICD9: 784.2, ICD10: R22.0 Healing after wisdom tooth extraction. Continue supportive care. Work note provided. Efrem Ross MD Differential Diagnoses - Post molar extraction pain and swelling is more likely for the following reason(s): suggested by HANDP - Dental infection is less likely for the following reason(s): No fever or drainage; improving swelling Procedures [facility] 11-29-2024 History of Present illness Narrative URGENT CARE [facility] Brandy Llanos is a 24 year old female. Patient presents with: Dental Problem: Swelling and pain on DAHLIA sides of face Patient presents to the urgent care with pain and swelling after all 4 wisdom teeth were extracted 4 days ago. She has pain and swelling in the jaw which are improving. Denies any drainage or fever. She has completed controlled pain medicine and is using ibuprofen and acetaminophen. She has not been able to eat much. She feels she is overall improving but still does not feel up to work today. She was in the emergency room this week she says for pleurisy. She was not prescribed an antibiotic. Review of Systems Objective BP 130/82 Pulse 70 Temp 36.5 C (97.7 F) Resp 18 Wt 66.5 kg (146 lb 9.7 oz) LMP 10/25/2024 (Exact Date) SpO2 99% BMI 23.66 kg/m Physical Exam Constitutional: General: She is not in acute distress. HENT: Right Ear: Tympanic membrane and ear canal normal. Left Ear: Tympanic membrane and ear canal normal. Nose: No congestion. Mouth/Throat: Mouth: Mucous membranes are moist. Pharynx: No posterior oropharyngeal erythema. Comments: Upper and lower third molars extracted. Tender overlying jaw with mild swelling. Eyes: Extraocular Movements: Extraocular movements intact. Conjunctiva/sclera: Conjunctivae normal. Pupils: Pupils are equal, round, and reactive to light. Musculoskeletal: Cervical back: No tenderness. Lymphadenopathy: Cervical: No cervical adenopathy. Neurological: Mental Status: She is alert. {ASSESSMENT/PLAN: 1. History of third molar tooth extraction, unspecified edentulism class - ICD9: 525.50, 525.10, ICD10: K08.409 (primary diagnosis) 2. Jaw swelling - ICD9: 784.2, ICD10: R22.0 Healing after wisdom tooth extraction. Continue supportive care. Work note provided. Efrem Ross MD Differential Diagnoses - Post molar extraction pain and swelling is more likely for the following reason(s): suggested by H&P - Dental infection is less likely for the following reason(s): No fever or drainage; improving swelling Procedures documented in this encounter [facility] 11-26-2024 Radiology Diagnostic study note [facility] Imaging Services [address] [place] [address] Chest PA and Lateral MR#: [id number] Acct: [id number] Name: BRANDY LLANOS Rep #: [id number] : 2000 F 24 From: Jonah Tabares MD PCP: Care Physician,No Primary Status: REG ER Study:Chest PA and Lateral Date of Exam: 11/26/24 Exam# [id number] Ordering Dr: Elijah Daley DO PROCEDURE: CHEST PA AND LATERAL 11/26/2024 REASON FOR EXAM: PAIN TECHNIQUE: CHEST PA AND LATERAL COMPARISON: None. FINDINGS: There is bilateral perihilar peribronchial thickening consistent with viral pneumonia or acute bronchitis. There is no lobar consolidation or pleural effusion. The heart borders mediastinum and pulmonary vascular pattern are normal. The upper abdominal bowel gas pattern is normal. There are no bony abnormalities of the chest. RAD/Chest PA and Lateral IMPRESSION: Findings consistent with viral pneumonia or acute bronchitis. Reading Location: [place] [address] CC: Dr. Elijah Daley DO; No Primary Care Physician ~ Invertebrate Paleontologist: Signed [facility] Work Phone: 11-06-2024 Note HNO ID: [id number] Author: MACIEJ FERNANDEZ APRN.HEAD INSPECTOR Service: ? Author Type: Nurse Practitioner Type: Progress Notes Filed: 11/06/2024 11:42 Note Text: Subjective HPI Nontoxic-appearing female presents urgent care chief complaint possible abscess inguinal area. Seen in ED. Placed on clindamycin. Did finish clindamycin. This did improve. 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 Presents today for reevaluation. No fevers. Overall feeling well. Past medical history prescription medications allergies reviewed .Patient presents with: Derm Problem: L groin area, redness swelling, painful increasing on and off x 1 week PAST MEDICAL HISTORY Diagnosis Date Herpes, genital Vitamin D deficiency PAST SURGICAL HISTORY Procedure Laterality Date SECTION HX N/A HEMORRHOIDECTOMY 12/10/2023 ALLERGIES Patient has no known allergies. MEDICATIONS MULTI-VITAMIN ORAL Take by mouth. cholecalciferol, vitamin D3, (VITAMIN D3) 100 mcg (4,000 unit) cap Take by mouth. FAMILY HISTORY Problem Relation Age of Onset No Known Problems Mother No Known Problems Father No Known Problems Sister No Known Problems Sister No Known Problems Brother No Known Problems Brother No Known Problems Brother No Known Problems Maternal Grandmother No Family History No Family History Social History Tobacco Use Smoking status: Former Types: Cigarettes Smokeless tobacco: Never Vaping Use Vaping status: Never Used Substance Use Topics Alcohol use: Yes Comment: occasional Drug use: Yes Types: Marijuana Comment: medical [employer] card for her back BP 151/83 Pulse 78 Temp 36.7 ?C (98 ?F) Resp 18 Wt 69 kg (152 lb 1.9 oz) LMP 10/25/2024 (Exact Date) SpO2 98% BMI 24.55 kg/m? Review of Systems Constitutional: Negative for chills, fever and malaise/fatigue. HENT: Negative for congestion, ear discharge, ear pain, sinus pain and sore throat. Eyes: Negative for blurred vision, pain, discharge and redness. Respiratory: Negative for cough, hemoptysis, sputum production, shortness of breath, wheezing and stridor. Cardiovascular: Negative for chest pain. Gastrointestinal: Negative for abdominal pain, diarrhea, nausea and vomiting. Musculoskeletal: Negative for myalgias. Skin: Negative for itching and rash. Neurological: Negative for dizziness and headaches. Objective Physical Exam Constitutional: General: She is not in acute distress. Appearance: She is not toxic-appearing. HENT: Head: Normocephalic. Nose: Nose normal. Eyes: Pupils: Pupils are equal, round, and reactive to light. Cardiovascular: Rate and Rhythm: Normal rate. Pulmonary: Effort: Pulmonary effort is normal. No respiratory distress. Musculoskeletal: Cervical back: Normal range of motion. Skin: General: Skin is warm and dry. Comments: Area of concern was evaluated. No evidence of infection noted. Neurological: General: No focal deficit present. Mental Status: She is alert. ASSESSMENT/PLAN: 1. Visit for wound check - ICD9: V58.89, ICD10: Z51.89 No evidence of bacterial infection noted. No redness. No drainage. No fluctuance. No inguinal adenopathy. Continue plan of care as discussed. Patient was educated on supportive therapies. Patient [...] of care. This note was generated using Game[employer] software. It may contain errors in wording, punctuation, or spelling. Maciej Fernandez APRN.[facility] 11-06-2024 History of Present illness Narrative Subjective HPI Nontoxic-appearing female presents urgent care chief complaint possible abscess inguinal area. Seen in ED. Placed on clindamycin. Did finish clindamycin. This did improve. 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 Presents today for reevaluation. No fevers. Overall feeling well. Past medical history prescription medications allergies reviewed .Patient presents with: Derm Problem: L groin area, redness swelling, painful increasing on and off x 1 week PAST MEDICAL HISTORY Diagnosis Date Herpes, genital Vitamin D deficiency PAST SURGICAL HISTORY Procedure Laterality Date SECTION HX N/A HEMORRHOIDECTOMY 12/10/2023 ALLERGIES Patient has no known allergies. MEDICATIONS MULTI-VITAMIN ORAL Take by mouth. cholecalciferol, vitamin D3, (VITAMIN D3) 100 mcg (4,000 unit) cap Take by mouth. FAMILY HISTORY Problem Relation Age of Onset No Known Problems Mother No Known Problems Father No Known Problems Sister No Known Problems Sister No Known Problems Brother No Known Problems Brother No Known Problems Brother No Known Problems Maternal Grandmother No Family History No Family History Social History Tobacco Use Smoking status: Former Types: Cigarettes Smokeless tobacco: Never Vaping Use Vaping status: Never Used Substance Use Topics Alcohol use: Yes Comment: occasional Drug use: Yes Types: Marijuana Comment: medical replaced by [facility] [employer] card for her back BP 151/83 Pulse 78 Temp 36.7 C (98 F) Resp 18 Wt 69 kg (152 lb 1.9 oz) LMP 10/25/2024 (Exact Date) SpO2 98% BMI 24.55 kg/m Review of Systems Constitutional: Negative for chills, fever and malaise/fatigue. HENT: Negative for congestion, ear discharge, ear pain, sinus pain and sore throat. Eyes: Negative for blurred vision, pain, discharge and redness. Respiratory: Negative for cough, hemoptysis, sputum production, shortness of breath, wheezing and stridor. Cardiovascular: Negative for chest pain. Gastrointestinal: Negative for abdominal pain, diarrhea, nausea and vomiting. Musculoskeletal: Negative for myalgias. Skin: Negative for itching and rash. Neurological: Negative for dizziness and headaches. Objective Physical Exam Constitutional: General: She is not in acute distress. Appearance: She is not toxic-appearing. HENT: Head: Normocephalic. Nose: Nose normal. Eyes: Pupils: Pupils are equal, round, and reactive to light. Cardiovascular: Rate and Rhythm: Normal rate. Pulmonary: Effort: Pulmonary effort is normal. No respiratory distress. Musculoskeletal: Cervical back: Normal range of motion. Skin: General: Skin is warm and dry. Comments: Area of concern was evaluated. No evidence of infection noted. Neurological: General: No focal deficit present. Mental Status: She is alert. ASSESSMENT/PLAN: 1. Visit for wound check - ICD9: V58.89, ICD10: Z51.89 No evidence of bacterial infection noted. No redness. No drainage. No fluctuance. No inguinal adenopathy. Continue plan of care as discussed. Patient was educated on supportive therapies. Patient [...] of care. This note was generated using GameMaki software. It may contain errors in wording, punctuation, or spelling. Maciej Fernandez APRN.[facility] documented in this encounter [facility] 11-06-2024 Note HNO ID: [id number] Author: FRANDY QUIJANO MD Service: ? Author Type: Physician Type: Progress Notes Filed: 11/06/2024 10:36 Note Text: Tip Length Checker offered: Patient declines. Brandy is a 24 year old who presents for an annual gynecologic exam with complaints, has had lots of clots with periods. Menorrhagia with clotting for last 2 cycles. This was after taking Plan B. She also reports going to the ER for a vulvar abscess, and she was given an antibiotic. She states it is not improving, and she has been on the antibiotic for 2 days. Age at Menarche: 12 Still get period: Yes LMP: 10/21/2024 Menses: cycles every 28-30 days and 3-4 days of flow Menstrual flow: Moderate Bleeding amount bothersome: No Bleeding between periods: No Period symptoms: Cramps Sexually active: No last time 4 months ago In a relationship and boyfriend lives in [place] Contraception: None Contraception frequency: N/A HPV vaccine: unsure HPV:N/A Last pap smear: unknown Bothersome pelvic pain: No Last mammogram: never OB History Gravida1 Para0 Term0 Preterm0 AB0 Living1 SAB0 IAB0 Ectopic0 Multiple0 Live Births0 Pastor History LMP: 10/21/2024 (Exact Date), Having periods Age at Menarche: Age at First : Age at Menopause: Pastor History Comments: Sexual Activity: Not Currently; No partner data on record Contraception: None PAST MEDICAL HISTORY Diagnosis Date Vitamin D deficiency PAST SURGICAL HISTORY Procedure Laterality Date SECTION HX N/A HEMORRHOIDECTOMY 12/10/2023 FAMILY HISTORY Problem Relation Age of Onset No Known Problems Mother No Known Problems Father No Known Problems Sister No Known Problems Sister No Known Problems Brother No Known Problems Brother No Known Problems Brother No Known Problems Maternal Grandmother No Family History No Family History SOCIAL HISTORY Social History Tobacco Use Smoking status: Former Types: Cigarettes Smokeless tobacco: Never Vaping Use Vaping status: Never Used Substance Use Topics Alcohol use: Yes Comment: occasional Drug use: Yes Types: Marijuana Comment: medical [employer] card for her back REVIEW OF SYSTEMS Abdomen: No abdominal pain, nausea, vomiting, diarrhea, or constipation. Bladder: No dysuria, gross hematuria, urinary frequency, urinary urgency, or incontinence. Breast: No breast lumps, nipple d/c, overlying skin changes, redness or skin retraction. Allergies and current medication updated:Yes SENSITIVE EXAM: The sensitive examination was discussed with the Patient or Patient's Authorized Program Instructor. As applicable, any other physician, advance practice provider, medical student, or other health professional student that will be observing or involved in the sensitive examination for educational or training purposes was discussed with the Patient or Authorized Program Instructor. The Patient or Authorized Program Instructor has agreed to proceed with the sensitive examination. (Sensitive examination includes inspection and/or palpation of the breasts, pelvis, prostate and anorectal regions). EXAM: BP 100/64 Ht 5' 6 (1.68m) Wt 153 lb 3.2 oz (69.5kg) LMP 10/21/2024 BMI 24.74 kg/(m2). GENERAL: pleasant, female in no apparent distress HEENT: Normocephalic and atraumatic NECK: full range of motion DERMATOLOGY: Normal, without lesions, non-icteric, and non-hirsute BREAST: soft, non-tender, symmetric, no dominant mass, normal nipple-areolar complex, no lymphadenopathy, and no nipple discharge CHEST: Normal inspiratory effort ABDOMEN: soft, non-tender, and no masses PELVIC: external genitalia normal, normal Bartholin's glands, urethra, Folcroft's glands, no vulvar lesions, no cervical lesions, good vaginal support, physiologic discharge present, normal appearing perineal body and perianal region BIMANUAL: uterus normal size, shape and consistency, no adnexal masses, and non-tender RECTOVAGINAL: deferred. NEURO: exam grossly non-focal EXTREMITIES: normal ASSESSMENT/PLAN: 1) Health maintenance: Pap done with reflex HPV. Nutrition, exercise and routine health maintenance exams reviewed. HPV vaccine: completed series Menorrhagia: Check CBC, TSH, pelvic US 2) Contraception: none. Contraceptive options reviewed and information provided. 3) STD screening: Accepted STD check for Gonorrhea and Chlamydia. 4) Follow up one year or sooner as needed Frandy Quijano DO [facility] 11-06-2024 History of Present illness Narrative Tip Length Checker offered: Patient declines. Brandy is a 24 year old who presents for an annual gynecologic exam with complaints, has had lots of clots with periods. Menorrhagia with clotting for last 2 cycles. This was after taking Plan B. She also reports going to the ER for a vulvar abscess, and she was given an antibiotic. She states it is not improving, and she has been on the antibiotic for 2 days. Age at Menarche: 12 Still get period: Yes LMP: 10/21/2024 Menses: cycles every 28-30 days and 3-4 days of flow Menstrual flow: Moderate Bleeding amount bothersome: No Bleeding between periods: No Period symptoms: Cramps Sexually active: No last time 4 months ago In a relationship and boyfriend lives in [place] Contraception: None Contraception frequency: N/A HPV vaccine: unsure HPV:N/A Last pap smear: unknown Bothersome pelvic pain: No Last mammogram: never OB History Gravida1 Para0 Term0 Preterm0 AB0 Living1 SAB0 IAB0 Ectopic0 Multiple0 Live Births0 Pastor History LMP: 10/21/2024 (Exact Date), Having periods Age at Menarche: Age at First : Age at Menopause: Pastor History Comments: Sexual Activity: Not Currently; No partner data on record Contraception: None PAST MEDICAL HISTORY Diagnosis Date Vitamin D deficiency PAST SURGICAL HISTORY Procedure Laterality Date SECTION HX N/A HEMORRHOIDECTOMY 12/10/2023 FAMILY HISTORY Problem Relation Age of Onset No Known Problems Mother No Known Problems Father No Known Problems Sister No Known Problems Sister No Known Problems Brother No Known Problems Brother No Known Problems Brother No Known Problems Maternal Grandmother No Family History No Family History SOCIAL HISTORY Social History Tobacco Use Smoking status: Former Types: Cigarettes Smokeless tobacco: Never Vaping Use Vaping status: Never Used Substance Use Topics Alcohol use: Yes Comment: occasional Drug use: Yes Types: Marijuana Comment: medical mariUpmann'sara card for her back REVIEW OF SYSTEMS Abdomen: No abdominal pain, nausea, vomiting, diarrhea, or constipation. Bladder: No dysuria, gross hematuria, urinary frequency, urinary urgency, or incontinence. Breast: No breast lumps, nipple d/c, overlying skin changes, redness or skin retraction. Allergies and current medication updated:Yes SENSITIVE EXAM: The sensitive examination was discussed with the Patient or Patient's Authorized Program Instructor. As applicable, any other physician, advance practice provider, medical student, or other health professional student that will be observing or involved in the sensitive examination for educational or training purposes was discussed with the Patient or Authorized Program Instructor. The Patient or Authorized Program Instructor has agreed to proceed with the sensitive examination. (Sensitive examination includes inspection and/or palpation of the breasts, pelvis, prostate and anorectal regions). EXAM: BP 100/64 Ht 5' 6 (1.68m) Wt 153 lb 3.2 oz (69.5kg) LMP 10/21/2024 BMI 24.74 kg/(m^2). GENERAL: pleasant, female in no apparent distress HEENT: Normocephalic and atraumatic NECK: full range of motion DERMATOLOGY: Normal, without lesions, non-icteric, and non-hirsute BREAST: soft, non-tender, symmetric, no dominant mass, normal nipple-areolar complex, no lymphadenopathy, and no nipple discharge CHEST: Normal inspiratory effort ABDOMEN: soft, non-tender, and no masses PELVIC: external genitalia normal, normal Bartholin's glands, urethra, Folcroft's glands, no vulvar lesions, no cervical lesions, good vaginal support, physiologic discharge present, normal appearing perineal body and perianal region BIMANUAL: uterus normal size, shape and consistency, no adnexal masses, and non-tender RECTOVAGINAL: deferred. NEURO: exam grossly non-focal EXTREMITIES: normal ASSESSMENT/PLAN: 1) Health maintenance: Pap done with reflex HPV. Nutrition, exercise and routine health maintenance exams reviewed. HPV vaccine: completed series Menorrhagia: Check CBC, TSH, pelvic US 2) Contraception: none. Contraceptive options reviewed and information provided. 3) STD screening: Accepted STD check for Gonorrhea and Chlamydia. 4) Follow up one year or sooner as needed Frandy Quijano DO documented in this encounter [facility] 07-20-2024 Note HNO ID: [id number] Author: KUN JAVIER APRN.[facility] Service: ? Author Type: Nurse Practitioner Type: Progress Notes Filed: 07/20/2024 11:29 Note Text: [facility] Subjective Brandy Llanos is [...] history is provided by the patient. No metal burrer was used. Review of Systems Constitutional: Negative. [...] rash Disposition The patient was discharged. Procedures [facility] 07-20-2024 History of Present illness Narrative Images from the original note were not included. [facility] Subjective Brandy Llanos is a 23 [...] history is provided by the patient. No metal burrer was used. Review of Systems Constitutional: Negative. [...] was discharged. Procedures documented in this encounter [facility] 04-29-2024 Note HNO ID: [id number] Author: AZUL CAROLINA LPN Service: ? Author Type: LICENSED NURSE Type: Progress Notes Filed: 04/29/2024 12:13 Note Text: Per Dr. Pascal, Brandy was provided with powerstep original inserts, size 9, and instructed/educated in its application, wear, and care. All questions were answered, and patient was able to demonstrate competence with the necessary skills to utilize the above equipment. Azul Carolina LPN [facility] 04-29-2024 History of Present illness Narrative [...] surgery Chi Pascal DPM Podiatry [address] [facility] [address] Dept: [phone] Dept AMB ROOMING INTAKE FLOWSHEET DATA Pain Pain Level: 8 Pain Location: Foot-Left Description: Other: See comment, Sharp (locking and clicking) Duration Amount of Time: (ongoing) Frequency: Continuous Intervention/Comfort measure: Other: See comment (muscle rub) documented in this encounter [facility] 04-29-2024 Instructions Chi Pascal - 04/29/2024 10:38 AM EST Powerstep Original Full length. Can purchase at [facility] [facility] [employer] and boots,shoes and more here in [place], [employer] in [place] or [place]. Also can find in [employer] in [facility]. Powersteps can also be purchased online, starting [...] fits well together documented in this encounter [facility] 04-29-2024 Note HNO ID: [id number] Author: CHI PASCAL, ? Service: ? Author [...] Drug use: Yes Types: Marijuana Comment: medical marijuara card for her back REVIEW OF SYSTEMS [...] Chi Pascal DPM Podiatry [address] [address] Dept: [phone] Dept [facility] 04-29-2024 Note HNO ID: [id number] Author: SHANEKA MURILLO MA Service: ? Author Type: Drafter Commercial Type: Progress Notes Filed: 04/29/2024 12:13 Note Text: AMB ROOMING INTAKE FLOWSHEET DATA Pain Pain Level: 8 Pain Location: Foot-Left Description: Other: See comment, Sharp (locking and clicking) Duration Amount of Time: (ongoing) Frequency: Continuous Intervention/Comfort measure: Other: See comment (muscle rub) [facility] 04-29-2024 History of Present illness Narrative [...] PATIENT PRESENTS WITH AN IMPLANTABLE OR ATTACHED INSURANCE ADMINISTRATIVE ASSISTANT: No RADIOLOGY DEPARTMENT: General X-ray: Exam(s) Completed: Lower Extremity X-Ray(s): Foot, Left and Wt. Bearing PERIPHERAL IV DATA: Not applicable SIGNED BY: RT Susana(Toñito) April 29, 2024 1:38 PM documented in this encounter [facility] 04-29-2024 Note HNO ID: [id number] Author: HILDA CALLOWAY RT(Toñito) Service: ? Author Type: Technologist Type: Progress [...] PATIENT PRESENTS WITH AN IMPLANTABLE OR ATTACHED INSURANCE ADMINISTRATIVE ASSISTANT: No RADIOLOGY DEPARTMENT: General X-ray: Exam(s) Completed: Lower Extremity X-Ray(s): Foot, Left and Wt. Bearing PERIPHERAL IV DATA: Not applicable SIGNED BY: Hilda Calloway, RT(R) April 29, 2024 1:38 PM [facility] 12-14-2023 Note HNO ID: [id number] Author: ISIDRO BARRAGAN MD Service: ? Author [...] presents with: Consult: External hemorrhoid irriated - [place] lanced in-office 12/09 Patient called into office [...] labs and imaging results. Isidro Barragan MD [facility] 12-14-2023 History of Present illness Narrative [...] Isidro Barragan MD documented in this encounter [facility] 12-10-2023 Instructions Ame Asif RN - 12/10/2023 2:16 PM EDT The following instructions are important for you related to your office visit today with the [facility] General Surgeons. Instructions After THROMBOSED HEMORRHOID I&D [...] you should contact our office immediately @ [phone] and ask to be transferred to the General Surgery department. documented in this encounter [facility] 12-10-2023 History of Present illness Narrative [...] entered by the nurse and reviewed by mi Nursing Notes: Ame Asif RN 12/10/2023 1:43 [...] Elizabeth Pascual MD documented in this encounter [facility] 12-10-2023 Note HNO ID: [id number] Author: ELIZABETH PASCUAL MD Service: ? Author [...] entered by the nurse and reviewed by mi Nursing Notes: Ame Asif RN 12/10/2023 1:43 [...] the PFSH and (more content not included)... [facility] 12-10-2023 Nurse Note REVIEW OF SYSTEMS: [...] N/A Last Colonoscopy: none Ame Asif RN [facility] 12-10-2023 Nurse Note REVIEW OF SYSTEMS: [...] Ame Asif RN documented in this encounter [facility] 12-07-2023 Instructions Maciej Fernandez APRN.HEAD INSPECTOR - 12/07/2023 6:53 PM EDT Hemorrhoids Hemorrhoids [...] include Metamucil and Citrucel . Sparingly use pvyq-jhe-mqowazz laxatives or stool softeners. Stool softeners such [...] hemorrhoid and the skin overlying it. Copyright 3777-1775 [facility]. All rights reserved This information is provided by the [facility] and is not intended to replace the medical advice of your doctor or health care provider. Please consult your health care provider for advice about a specific medical condition. For additional health information, please contact the [facility] [employer] [facility] Information at the [facility] or toll-free extension [phone]. If you prefer, you may visit [email or web address] or [email or web address]. This document was last reviewed on: 2009 index#[id number] documented in this encounter [facility] 12-07-2023 Note HNO ID: [id number] Author: MACIEJ FERNANDEZ APRN.HEAD INSPECTOR Service: ? Author Type: Nurse Practitioner Type: [...] Objective Physical Exam Exam conducted with a bowl turner present. Constitutional: General: She is not in [...] of care. This note was generated using [employer] software. It may contain errors in wording, punctuation, or spelling. Maciej Fernandez APRN.[facility] 12-07-2023 History of Present illness Narrative [...] Objective Physical Exam Exam conducted with a bowl turner present. Constitutional: General: She is not in [...] of care. This note was generated using [employer] software. It may contain errors in wording, punctuation, or spelling. Maciej Fernandez APRN.CNP documented in this encounter [facility] 10-04-2023 History of Present illness Narrative Images from the original note were not included. This note was created using [employer]. Subjective Brandy Llanos is a 23 year [...] 3 - Low documented in this encounter [facility] 06-06-2023 Discharge summary Note Date/Time June 06, 2023 11:40am [facility] Medical Records Department [address] [place] [address] Emergency Department Summary 06/06/23 MR#: [id number] Acct: [id number] Name: BRANDY LLANOS Rep #:[id number] : [...] Systemic viral illness, Sinus tachycardia seen on front desk monitor, Recurrent genital herpes Instructions: ED Dehydration (Adult), [...] your Primary Care Provider. Call [facility] ([phone]) or report to the closest Emergency Room. Call 911 if necessary. 06/06/23 1414 <Electronically signed by Sung Payton MD> Cosigner Signature (if applicable): CC: No Primary Care Physician ~ Signed [facility] Work Phone: 1(709) 127-854007-06-2023 NoteOutpatient Behavioral Health Services Individual or Family Therapy Progress Note Program: Addiction Medicine Intensive Outpatient Program Session Date: 11/16/22 Start Time: 520pm End Time: 610pm Session Participant(s): Patient only Summary of Session: UPHOLSTERY TRIMMER discharged patient from [facility] and discussed treatment after graduation. UPHOLSTERY TRIMMER assessed use of coping skills and self care routine. UPHOLSTERY TRIMMER used SFT to assist patient on building [...] Patient to be discharged from treatment [facility] [id number] NoteOutpatient Behavioral Health Individualized Treatment Plan Program: [...] specific treatment staff, appointment times, cultural and/or sikhism considerations, etc). IOP Please identify family members/friends [...] not use MET 11/16/22 Goal/Anticipated Treatment Outcome: UPHOLSTERY TRIMMER will assist patient in developing coping skills, [...] my anxiety? MET 11/16/22 Goal/Anticipated Treatment Outcome: UPHOLSTERY TRIMMER will assist patient in access resources for mental and physical health treatment. UPHOLSTERY TRIMMER will work with patient to develop skills [...] has been discharged and not recommended to [facility] due to office closing, PT denied referral to other locations Service(s) Provided (if group, include name of group) Primary Service Provider Frequency of Service Date Added Service D/C Date Addiction Med IOP BHAVIK Lopez 3x per week for 3 hours 10/16/22 11/16/22 Individual Therapy BHAVIK Lopez once per week 10/16/22 11/16/22 Multi-Family Group MIAN SegalII Once per week 10/16/22 11/16/22 Urine Drug [...] Clinician and Attending to sign document electronically) [facility] [id number] NoteOutpatient Behavioral Health Services Transfer/Discharge Summary Patient [...] File Complete the following for DISCHARGE from [facility] Addiction IOP Program: Summary of Treatment Provided and Progress Towards Goal(s): Patient has been engaging with mentors and members of single mothers group. She has been able to identify internal and external triggers. Yunior reported decreased levels of anxiety and depression. [...] Residential/Addiction Support Services: Se Other: Referred to [employer] Additional Comments (optional): Use the refusal, coping and recovery skills you learned in treatment to manage symptoms/relationships, Use mindfulness activities to assist with relieving triggers/symptoms, Continue abstinence from all mood-altering substances, and Remember to engage in self-care activities on a regular basis [facility] [id number] History of Present illness Narrative* Neris Jensen - 11/16/2022 5:30 PM EDT Outpatient Behavioral Health Services Individual or Family Therapy Progress Note Program: Addiction Medicine Intensive Outpatient Program Session Date: 11/16/22 Start Time: 520pm End Time: 610pm Session Participant(s): Patient only Summary of Session: UPHOLSTERY TRIMMER discharged patient from IOP and discussed treatment after graduation. UPHOLSTERY TRIMMER assessed use of coping skills and self care routine. UPHOLSTERY TRIMMER used SFT to assist patient on building [...] discharged from treatment [facility] documented in this [facility]07-06-2023 Hospital course Narrative* Neris Jensen - 11/16/2022 [...] File Complete the following for DISCHARGE from [facility] Addiction IOP Program: Summary of Treatment [...] Residential/Addiction Support Services: Se Other: Referred to [employer] Additional Comments (optional): Use the refusal, coping and recovery skills you learned in treatment to manage symptoms/relationships, Use mindfulness activities to assist with relieving triggers/symptoms, Continue abstinence from all mood-altering substances, and Remember to engage in self-care activities on a regular basis documented in this [facility]07-06-2023 Miscellaneous Notes* Care Plan - Neris Jensen [...] specific treatment staff, appointment times, cultural and/or sikhism considerations, etc). IOP Please identify family members/friends [...] not use MET 11/16/22 Goal/Anticipated Treatment Outcome: UPHOLSTERY TRIMMER will assist patient in developing coping skills, [...] my anxiety MET 11/16/22 Goal/Anticipated Treatment Outcome: UPHOLSTERY TRIMMER will assist patient in access resources for mental and physical health treatment. UPHOLSTERY TRIMMER will workwith patient to develop skills and [...] has been discharged and not recommended to [facility] due to office closing,PT denied referral to [...] to sign document electronically) documented in this [facility]07-06-2023 Plan of care note* Care Plan - [...] specific treatment staff, appointment times, cultural and/or sikhism considerations, etc). IOP Please identify family members/friends who can be involved in your treatment. Name Relationship Release obtained? If no, explain N/a Please identify other treatment providers (*required): Type of Provider Name Release obtained? If no, explain Primary Care Provider* N/a Other Provider* eS berumen Goals/Objectives Goal 1 Problem ID: Substance Use Disorder Goal/Desired Outcome in Patient's Words: develop skills to not use MET 11/16/22 Goal/Anticipated Treatment Outcome: UPHOLSTERY TRIMMER will assist patient in developing coping skills, [...] my anxiety MET 11/16/22 Goal/Anticipated Treatment Outcome: UPHOLSTERY TRIMMER will assist patient in access resources for mental and physical health treatment. UPHOLSTERY TRIMMER will workwith patient to develop skills and [...] Clinician and Attending to sign document electronically) [id number] NoteOutpatient Behavioral Health Services Individual or Family Therapy Progress Note Program: Addiction Medicine Intensive Outpatient Program Session Date: 11/15/22 Start Time: 545pm End Time: 633pm Session Participant(s): Patient only Summary of Session: UPHOLSTERY TRIMMER discussed options for treatment needs, we agreed to discharge patient tomorrow because of her need for employment. UPHOLSTERY TRIMMER offered to assist patient in looking for a job but she denied. UPHOLSTERY TRIMMER also offered to call a sober living facility for her and she denied, information was given to the patient. UPHOLSTERY TRIMMER used CBT to assist patient in processing decisions for herself and child moving forward. UPHOLSTERY TRIMMER provided patient with food resources. Therapeutic Intervention: [...] Next Step: Continue with current services [facility]07-05-2023 History of Present illness Narrative* Neris Jensen - 11/15/2022 5:30 PM EDT Outpatient Behavioral Health Services Individual or Family Therapy Progress Note Program: Addiction Medicine Intensive Outpatient Program Session Date: 11/15/22 Start Time: 545pm End Time: 633pm Session Participant(s): Patient only Summary of Session: UPHOLSTERY TRIMMER discussed options for treatment needs, we agreed to discharge patient tomorrow because of her need for employment. UPHOLSTERY TRIMMER offered to assist patient in looking for a job but she denied. UPHOLSTERY TRIMMER also offered to call a sober living facility for her and she denied, information was given to the patient. UPHOLSTERY TRIMMER used CBT to assist patient in processing decisions for herself and child moving forward. UPHOLSTERY TRIMMER provided patient with food resources. Therapeutic Intervention: [...] with current services [facility] documented in this [facility]06-29-2023 Group counseling note* Group Note - Neris Jensen - 11/09/2022 5:30 PM EDT Outpatient Behavioral Health Services Intensive Outpatient Program (IOP) Group Therapy - Session 1 Group Name: Intensive Outpatient Program Summary: UPHOLSTERY TRIMMER allotted time for patients to share recent [...] Brandy Llanos Date of : 2000 MR: [id number] Neris Jensen [facility] [id number] Group counseling note* Group Note - Neris [...] Brandy Llanos Date of : 2000 MR: [id number] Neris Jensen [facility]am[facility] [id number] Group counseling note* Group Note - Neris Mikey - 11/09/2022 5:30 PM EDT Outpatient Behavioral Health Services Intensive Outpatient Program (IOP) Group Therapy - Session 3 Group Name: Intensive Outpatient Program Summary: UPHOLSTERY TRIMMER had patients share content that resonated with [...] Brandy Llanos Date of : 2000 MR: [id number] [id number] Miscellaneous Notes* Group Note - Neris Jensen - 11/09/2022 5:30 PM EDT Outpatient Behavioral Health Services Intensive Outpatient Program (IOP) Group Therapy - Session 1 Group Name: Intensive Outpatient Program Summary: [facility] allotted time for patients to share recent [...] Brandy Llanos Date of : 2000 MR: [id number] Neris Jensen * Group Note - Neris [...] Brandy Llanos Date of : 2000 MR: [id number] Nerisclaude Jensen * Group Note - Neris Jensen - 11/09/2022 5:30 PM EDT Outpatient Behavioral Health Services Intensive Outpatient Program (IOP) Group Therapy - Session 3 Group Name: Intensive Outpatient Program Summary: UPHOLSTERY TRIMMER had patients share content that resonated with [...] Brandy Llanos Date of : 2000 MR: [id number] Neris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 Care Provider Active Start: November 26, 2024 End: November 26, 2024 Dr. Elijah Daley , DO Emergency Provider Active Start : November 26, 2024 End: November 26, 2024 FOR RECORDS PERTAINING TO PATIENTS WHO ARE [...] BE BASED ON THE PRIMARY CLINICAL RECORDS. [employer] provides no warranty or guarantee of the accuracy or completeness of information in this document.
--- NOTE | 2025-01-17 10:21 | EX.ED.DYSGE1 ---
HPI History of Present Illness Chief Complaint: GI Bleed Narrative Narrative: Patient is a 24-year-old female past medical history of HPV, marijuana use who presents to the emergency department chief complaint of rectal pain. She states that she feels that she has a thrombosed hemorrhoid. She states that this started 3 days ago she went to urgent care she was given a cream and is unsure the name of this but showed me the picture and was hydrocortisone cream. States that she had to have her thrombosed hemorrhoid opened up in the past and feels that this may be necessary again. States that she has been having normal bowel movements. Denies any trauma to her rectum. [facility] Medical History Marijuana smoker HPV (human papilloma virus) infection Home Medications ?Medication ?Instructions ?Recorded ?Last Taken ?Type cholecalciferol (vitamin D3) 50 50 mcg PO DAILY Check with primary 12/11/21 12/11/21 10:45 History mcg (2,000 unit) capsule (Vitamin doctor D3) iron 1 tab PO/SL QODAY Check with 02/24/22 02/22/22 History primary doctor magnesium 1 tab PO/SL DAILY Check with 02/24/22 02/23/22 History primary doctor clindamycin HCl 300 mg capsule 300 mg PO 4X/DAY 7 days #28 caps 11/18/24 Unknown Rx (Cleocin HCl) oxycodone-acetaminophen 5 mg-325 1 tab PO Q6H PRN pain 3 days #12 11/18/24 Unknown Rx mg tablet (Percocet) tabs zolpidem 10 mg tablet (Ambien) 10 mg PO QHS PRN insomnia #4 tabs 11/30/24 Unknown Rx docusate sodium 100 mg capsule 100 mg PO DAILY #30 caps 01/17/25 Unknown Rx (Colace) lidocaine 5 % topical ointment 1 applic topical TID PRN pain 01/17/25 Unknown Rx #35.44 grams Allergy/AdvReac Type Severity Reaction Status Date / Time No Known Allergies Allergy Verified 01/17/25 09:27 Social History household members: children housing: house Smoking Status: Former smoker substance use type: does not use ROS ROS ED ROS Narrative Constitutional: Denies any fevers or chills Abdomen: Denies abdominal pain nausea vomit diarrhea Rectum: Complains of rectal pain as noted above and concern for thrombosed hemorrhoid : Denies urinary symptoms Neurological: Denies numbness, weakness, tingling Musculoskeletal: Denies back pain Skin: Denies any rashes or lesions EXAM Physical Exam Narrative Exam Narrative: General: Patient lying in bed resting comfortably did not appear to be in acute distress Head: Atraumatic, normocephalic Eyes: PERRL bilaterally, EOMI bilateral, no conjunctival injection noted Neck: Soft, supple, trachea midline Cardiovascular: Regular rate and rhythm Abdomen: No tenderness to palpation Rectal: Patient has small fissure near her tailbone noted no evidence of external hemorrhoids Extremities: +5/5 strength noted in the bilateral lower extremities, radial pulses +2/4 in bilateral extremities Neurological: Patient on commands that she was at [facility] year is 2024 Skin: Warm, dry, intact no rashes or lesions noted Const Vital Signs: 01/17/25 09:24 Temperature 98.0 F Temperature Source Oral Pulse Rate 88 Respiratory Rate 16 Blood Pressure 125/84 H Blood Pressure Mean 97 Pulse Ox 100 Oxygen Delivery Method Room Air MDM MDM MDM Narrative Medical decision making narrative: Patient is a 24-year-old female who presents to the emerged from chief complaint of rectal pain. On the differential diagnose includes but limited to thrombosed hemorrhoid, external hemorrhoid, internal hemorrhoid, anal fissure. Clinically patient has evidence of a small tear near her tailbone indicative of a fissure. I called and spoke with on-call general surgeon Dr. Barragan who states that she can follow-up in the outpatient setting with him. We will prescribe her topical lidocaine. Discussed plan with the patient she is agreeable all course concerns answered she was discharged home in stable condition. Patient will also be placed on Colace for stool softener. Discharge Plan Triage Chief Complaint: GI Bleed ED Provider: Mike Delgado Dx/Rx/DC Orders Clinical Impression: Acute anal fissure, Pain, rectal Prescriptions: New docusate sodium [Colace] 100 mg capsule 100 mg PO DAILY Qty: 30 0RF lidocaine 5 % ointment 1 applic topical TID PRN (Reason: pain) Qty: 35.44 0RF No Action cholecalciferol (vitamin D3) [Vitamin D3] 50 mcg (2,000 unit) Capsule 50 mcg PO DAILY iron 1 tab PO/SL QODAY magnesium 1 tab PO/SL DAILY clindamycin HCl [Cleocin HCl] 300 mg capsule 300 mg PO 4X/DAY 7 Days Qty: 28 0RF oxycodone-acetaminophen [Percocet] 5-325 mg tablet 1 tab PO Q6H PRN (Reason: pain) 3 Days Qty: 12 0RF zolpidem [Ambien] 10 mg tablet 10 mg PO QHS PRN (Reason: insomnia) Qty: 4 0RF Primary Care Provider: Care Physician,No Primary Referrals: Lake Barragan MD [Med Staff - Active Staff] - Care Physician,No Primary [Primary Care Provider] - Activity Restrictions/Additional Instructions: Use the topical numbing medication as sent to your pharmacy as well as the stool softener. Follow-up with the general surgery team in the outpatient setting. Continue to do sitz bath's. Return for worsening symptoms or any concerns. Print Language: Urdu Disposition Disposition: Home, Self Care
--- NOTE | 2025-01-17 10:25 | CM.ED ---
Social Work Date of referral: 01/17/25 Reason for referral: No primary care physician (PCP) on file Referred by: Social Work Identification Patient provided consent to social work visit. Vc++ Developer provided patient with a written handout to the [facility] which patient accepted and expressed appreciation for. Kizzy Guadarrama, AGRICULTURE LABORER, FINE GRADER
[2025-01-17 10:48] VITALS: BP 125/84; PULSE 88; RESP 16; TEMP 36.7; O2SAT 100
== END 2025-01-17 10:48 | disposition home or self-care (01) ==
PROVIDERS: Emergency Provider Emergency Medicine; Visit Provider Emergency Medicine
DX: K60.0 Acute anal fissure (principal); Z79.899 Other long term (current) drug therapy; Z87.891 Personal history of nicotine dependence
CPT/HCPCS: 99282

== ENCOUNTER 2025-01-27 15:43 | Emergency (ER) | payer MEDICAID, SELFPAY ==
[2025-01-27 15:45] VITALS: BP 157/86; PULSE 98; RESP 18; TEMP 36.6; O2SAT 100; BMI 24.5
--- NOTE | 2025-01-27 16:24 | EX.ED.DYSGE1 ---
HPI History of Present Illness Chief Complaint: Other, Pain/Inj Narrative Narrative: Patient is a 24-year-old female presenting to the emergency department for rectal pain. Patient has a PMHX of HPV. Patient states that she was here on 01/17 diagnosed with a fissure. States that she was prescribed Colace and lidocaine ointment which she has been using daily. States that she followed up with general surgery a few days after and they told her there was nothing they could do to help. They prescribed a compound ointment to use. Patient states that she has been taking the colace daily but her stools are still hard and painful. She notices drops of bright red blood in the toliet after stooling. She has been doing Sitz baths every other day. States today she went to another ED but they told her that it would be 4-5 hours and left there and came here for evaluation. She states she has been missing work due to pain. Denies fever, chills, nausea, vomiting, dysuria or hematuria. [facility] Medical History Marijuana smoker HPV (human papilloma virus) infection Home Medications ?Medication ?Instructions ?Recorded ?Last Taken ?Type cholecalciferol (vitamin D3) 50 50 mcg PO DAILY Check with primary 12/11/21 12/11/21 10:45 History mcg (2,000 unit) capsule (Vitamin doctor D3) iron 1 tab PO/SL QODAY Check with 02/24/22 02/22/22 History primary doctor magnesium 1 tab PO/SL DAILY Check with 02/24/22 02/23/22 History primary doctor clindamycin HCl 300 mg capsule 300 mg PO 4X/DAY 7 days #28 caps 11/18/24 Unknown Rx (Cleocin HCl) oxycodone-acetaminophen 5 mg-325 1 tab PO Q6H PRN pain 3 days #12 11/18/24 Unknown Rx mg tablet (Percocet) tabs zolpidem 10 mg tablet (Ambien) 10 mg PO QHS PRN insomnia #4 tabs 11/30/24 Unknown Rx docusate sodium 100 mg capsule 100 mg PO DAILY #30 caps 01/17/25 Unknown Rx (Colace) lidocaine 5 % topical ointment 1 applic topical TID PRN pain 01/17/25 Unknown Rx #35.44 grams polyethylene glycol 3350 17 17 g PO BID #238 grams 01/27/25 Unknown Rx gram/dose oral powder (Miralax) Allergy/AdvReac Type Severity Reaction Status Date / Time No Known Allergies Allergy Verified 01/27/25 15:45 Social History household members: children housing: house Smoking Status: Former smoker substance use type: does not use ROS ROS ED ROS Narrative see HPI EXAM Physical Exam Narrative Exam Narrative: Vital signs: Reviewed General: Alert and oriented x 3. No acute distress HEENT: Head is normocephalic and atraumatic, sinuses nontender, pupils equal round and reactive. Nares are patent. Oropharynx and throat exams normal. Neck: Supple without lymphadenopathy nontender Cardiovascular: Regular rate and rhythm, no murmurs. No rubs or gallops. Normal S1 and S2 Respiratory: Clear to auscultation bilaterally. No wheezes, rales, rhonchi Abdominal: Soft and nontender. Normal bowel sounds. No guarding or rebound. Nonsurgical abdomen : completed with RN student records coordinator at bedside. Anal fissure midline posterior towards coccyx. Small hemorrhoid at the 2 o'clock position. No thromboses. No tenderness to palpation of the hemorrhoid. Extremities: No tenderness. No bruising. Normal range of motion. Normal sensation. Skin: No rash or redness. Neurological: Cranial nerves II through XII are grossly intact. Normal strength and sensation. Normal cerebellar function The rest of the physical exam is unremarkable Const Vital Signs: 01/27/25 15:45 Temperature 97.8 F Temperature Source Temporal Pulse Rate 98 Respiratory Rate 18 Blood Pressure 157/86 H Blood Pressure Mean 109 Pulse Ox 100 Oxygen Delivery Method Room Air MDM MDM MDM Narrative Medical decision making narrative: Patient is a 24-year-old female presenting to the emergency department for rectal pain. Patient was seen and examined. Vitals are stable. Patient resting comfortably no acute distress. IM Toradol given. Rectal exam done with nurse at bedside. There is no evidence of thrombosed hemorrhoid. There is an anal fissure seen on prior provider's exam as well. Extensive discussion at bedside with patient about adding miralax twice daily and colace not once but twice daily to have soft bowel movements given she is still having hard bowel movements. Also educated on doing Sitz baths three times a day and after every bowel movement. Recommended she continue using the compound cream as prescribed and adhering to a high-fiber diet. Recommended taking Tylenol and Motrin as needed for pain control. Patient agreeable with the plan. Understands all of the education given. Has no questions at this time. Patient discharged from the Emergency Department. I do not feel that the patient's evaluation reveals any acute reason for admission at this time. I instructed them to either follow-up with their primary care physician or promptly return to the Emergency Department for reevaluation should symptoms worsen or new symptoms develop. I explained what symptoms would indicate the need to return to the emergency department. Shared decision making was used. The patient voiced understanding of the treatment plan and is agreeable with it. Clinical impression Anal fissure History & Record Review Discussion w/independent historian: Patient and Family Additional record(s) reviewed:: Prior ED visit Discharge Plan Triage Chief Complaint: Other, Pain/Inj ED Provider: Linda Treviño Dx/Rx/DC Orders Clinical Impression: Acute anal fissure Instructions: ED Understanding Anal Fissures Prescriptions: New polyethylene glycol 3350 [Miralax] 17 gram/dose powder 17 g PO BID Qty: 238 0RF No Action cholecalciferol (vitamin D3) [Vitamin D3] 50 mcg (2,000 unit) Capsule 50 mcg PO DAILY iron 1 tab PO/SL QODAY magnesium 1 tab PO/SL DAILY clindamycin HCl [Cleocin HCl] 300 mg capsule 300 mg PO 4X/DAY 7 Days Qty: 28 0RF oxycodone-acetaminophen [Percocet] 5-325 mg tablet 1 tab PO Q6H PRN (Reason: pain) 3 Days Qty: 12 0RF zolpidem [Ambien] 10 mg tablet 10 mg PO QHS PRN (Reason: insomnia) Qty: 4 0RF docusate sodium [Colace] 100 mg capsule 100 mg PO DAILY Qty: 30 0RF lidocaine 5 % ointment 1 applic topical TID PRN (Reason: pain) Qty: 35.44 0RF Primary Care Provider: Care Physician,No Primary Referrals: Tana Morales MD [Med Staff - Sealing And Canceling Machine Operator] - 2 Days Care Physician,No Primary [Primary Care Provider] - Activity Restrictions/Additional Instructions: Take the miralax one capful in the morning and at night. Take the colace in the morning and at night. You need to be taking a Sitz bath three times a day and after every bowel movement. Continue using the compound cream as you have been. Take motrin and tylenol for pain as scheduled throughout the day. Make sure you continue eating a very high fiber diet. The goal wound be for your stools to be soft so it lessens the pain associated with bowel movement. Return to the ED with any new or worsening symptoms. Print Language: Honduran Disposition Disposition: Home, Self Care
[2025-01-27] MEDS: Ketorolac 30 MG/ML Syringe IM (16:25)
== END 2025-01-27 16:52 | disposition home or self-care (01) ==
PROVIDERS: Emergency Provider Student in an Organized Health Care Education/Training Program; Visit Provider Student in an Organized Health Care Education/Training Program
DX: K60.0 Acute anal fissure (principal); Z87.891 Personal history of nicotine dependence
CPT/HCPCS: 96372; 99282